=== PATIENT | male | born 1950 | race Caucasian/White ===

== ENCOUNTER → 2018-02-25 17:11 | Outpatient (REF) | payer MEDICARE, SELFPAY ==
[2018-02-25 19:52] LABS: HCT 46.2 % (40.0-50.0); HGB 14.6 g/dL (13.5-17.5); Mean Corp. HGB Concentration 31.6 g/dL (32.0-36.0); Mean Corpuscular Hemoglobin 29.9 pg (27.0-33.0); Mean Corpuscular Volume 94.7 fL (80-95); Mean Platelet Volume 9.3 fL (8.0-11.0); Platelet Count 291 x1000/uL (130-400); RBC 4.88 m/cumm (4.50-6.00); RBC Distribution Width 13.5 % (11.8-14.1); White Blood Cell Count 9.18 k/cumm (4.4-10.8)
[2018-02-25 20:54] LABS: Anion Gap 11.8 mmol/L (3-11); BUN 26 mg/dL (7-18); CO2 27.2 mmol/L (21.0-32.0); CREATININE 1.44 mg/dL (0.70-1.30); Chloride 103 mmol/L (98-107); Estimated GFR 48.79 (mL/min/1.73m2); Glucose 120 mg/dL (70-100); Potassium 4.9 mmol/L (3.5-5.1); Sodium 142 mmol/L (136-145); Vitamin B12 271 pg/mL (193-986)
[2018-02-25 20:56] LABS: Folate > 20.0 ng/mL (8.6-20.0)
== END ==
LOC: NCHCN 17:11
PROVIDERS: PCP Nurse Practitioner Family; Visit Provider Family Medicine
DX: E43 Unspecified severe protein-calorie malnutrition (principal); D52.9 Folate deficiency anemia, unspecified; E53.8 Deficiency of other specified B group vitamins
CPT/HCPCS: 80048; 85027; 82607; 82746

== ENCOUNTER 2018-03-14 13:28 | Outpatient (REF) | payer MEDICARE, SELFPAY ==
[2018-03-14 21:01] LABS: HCT 44.2 % (40.0-50.0); HGB 13.9 g/dL (13.5-17.5)
[2018-03-14 21:24] LABS: ALT 38 U/L (12-78); AST 30 U/L (15-37); Albumin 3.4 g/dL (3.4-5.0); Alkaline Phosphatase 131 U/L (46-116); Anion Gap 3.3 mmol/L (3-11); BUN 27 mg/dL (7-18); Bilirubin, Total 0.2 mg/dL (0.2-1.0); CO2 32.7 mmol/L (21.0-32.0); Calcium 8.8 mg/dL (8.5-10.1); Chloride 108 mmol/L (98-107); Glucose 118 mg/dL (70-100); Potassium 5.5 mmol/L (3.5-5.1); Sodium 144 mmol/L (136-145); Total Protein 6.6 g/dL (6.4-8.2)
== END 2018-03-14 13:48 ==
LOC: NCHCN 13:28
PROVIDERS: PCP Nurse Practitioner Family; Visit Provider Family Medicine
DX: E11.9 Type 2 diabetes mellitus without complications (principal); D52.9 Folate deficiency anemia, unspecified; E43 Unspecified severe protein-calorie malnutrition
CPT/HCPCS: 80053; 83036; 85014; 85018

== ENCOUNTER → 2018-05-14 10:16 | Outpatient (BNVA) | payer MEDICARE, SELFPAY | PROVIDERS: PCP Nurse Practitioner Family; Visit Provider Student in an Organized Health Care Education/Training Program | DX: I48.0 Paroxysmal atrial fibrillation (principal); Z79.01 Long term (current) use of anticoagulants; E11.9 Type 2 diabetes mellitus without complications; Z79.4 Long term (current) use of insulin | CPT/HCPCS: 99214 ==

== ENCOUNTER 2018-05-14 10:42 | Outpatient (CLI) | payer MEDICARE, SELFPAY | END 2018-05-14 11:02 | PROVIDERS: PCP Family Medicine; Visit Provider Student in an Organized Health Care Education/Training Program | DX: I48.0 Paroxysmal atrial fibrillation (principal); E11.9 Type 2 diabetes mellitus without complications; Z79.01 Long term (current) use of anticoagulants; Z79.4 Long term (current) use of insulin | CPT/HCPCS: 99214; 93005; 93010 ==

== ENCOUNTER 2018-05-19 02:07 | Outpatient (CLI) | payer MEDICARE, SELFPAY ==
--- NOTE | 2018-05-19 | PFT_ITS ---
PULMONARY FUNCTION TEST REPORT Patient identification - Sung Flores DATE OF - 1950 DATE OF SERVICE - 05/19/2018 REQUESTING PROVIDER - Silvestre Harman M.D. INTERPRETATION OF STUDY Spirometry shows borderline mild obstructive airways disease, however, this may represent an effort-related phenomenon as the pre-bronchodilator spirometry was a somewhat poor patient effort. LUNG VOLUMES - Lung volumes show no evidence of restriction. DIFFUSION CAPACITY- Normal. AIRWAY RESISTANCE - Normal. IMPRESSION Borderline mild obstructive airways disease, however, this may represent an effort-related phenomenon as the pre-bronchodilator effort was quite poor, nonetheless, even the post bronchodilator spirometry shows some element of mild obstruction. Clinical correlation therefore recommended. Brenda Thompson M.D. ARTI/yassine T - 05/21/2018
[2018-05-19] MEDS: Inhaler, Assist Device 1 EACH MC (13:58)
[2018-05-19] MEDS: Albuterol HFA 18 GM 200 PUFF INH IH (13:58)
== END 2018-05-19 02:27 ==
PROVIDERS: PCP Family Medicine; Visit Provider Student in an Organized Health Care Education/Training Program
DX: I48.0 Paroxysmal atrial fibrillation (principal); Z79.899 Other long term (current) drug therapy
CPT/HCPCS: 94060; 94150; 94726; 94729

== ENCOUNTER 2018-07-22 13:08 | Outpatient (REF) | payer MEDICARE, SELFPAY ==
[2018-07-22 21:30] LABS: Anion Gap 13.1 mmol/L (3-11); BUN 18 mg/dL (7-18); CO2 27.9 mmol/L (21.0-32.0); CREATININE 1.43 mg/dL (0.70-1.30); Calcium 9.4 mg/dL (8.5-10.1); Chloride 103 mmol/L (98-107); Estimated GFR 49.18 (mL/min/1.73m2); Glucose 159 mg/dL (70-100); Potassium 4.8 mmol/L (3.5-5.1); Sodium 144 mmol/L (136-145)
[2018-07-22 21:45] LABS: HCT 46.3 % (40.0-50.0); HGB 14.5 g/dL (13.5-17.5)
[2018-07-22 22:54] LABS: Hemoglobin A1C 6.6 % (4.5-6.2)
== END 2018-07-22 13:28 ==
LOC: NCHCN 13:08
PROVIDERS: PCP Family Medicine; Visit Provider Family Medicine
DX: E11.9 Type 2 diabetes mellitus without complications (principal); I10 Essential (primary) hypertension; I48.0 Paroxysmal atrial fibrillation
CPT/HCPCS: 80048; 83036; 85014; 85018

== ENCOUNTER 2018-08-18 12:51 | Emergency (ER) | payer MEDICARE, SELFPAY ==
[2018-08-18 13:01] VITALS: BP 143/76; PULSE 105; RESP 20; TEMP 36.6; O2SAT 96
--- NOTE | 2018-08-18 13:38 | DI.RAD_ITS ---
SYMPTOM/DIAGNOSIS: S/P FALL, PAIN, ? ACUTE FX LEFT RIBS AND PA CHEST: Three views. Heart size and pulmonary vasculature are within normal limits. There is plate atelectasis in the left lung base. No rib fracture is identified. No effusions or pneumothorax is identified. IMPRESSION: No evidence of a left rib fracture.
--- NOTE | 2018-08-18 13:38 | DI.RAD_ITS ---
SYMPTOMS/DIAGNOSIS: S/P FALL ONTO LEFT SIDE AND LEFT HIP, ? ACUTE FRACTURE LEFT FEMUR AND LEFT HIP: No priors for comparison. There is some apparent deformity of both the superior and inferior left pubic rami, suspicious for nondisplaced fractures. No other acute fracture or dislocation is seen. Degenerative changes are seen in the hips bilaterally. The femur is intact. The soft tissues are unremarkable. IMPRESSION: Question of deformity involving the left superior and inferior pubic rami, suspicious for nondisplaced fracture. CT scan of the pelvis should be considered for further evaluation.
--- NOTE | 2018-08-18 13:40 | W.ED.GENAD ---
Discharge Plan Disposition Patient Disposition: HOME Condition: Stable Discharge Details Chief Complaint: Orthopedic Clinical Impression: Fracture of ramus of left pubis Primary Care Provider: Urvashi Conti V ED Provider: Bailey Peguero Home Meds and New Rx's Prescriptions: New oxycodone 5 mg capsule 5 mg PO Q6H PRN (Reason: pain) Qty: 5 RF: 0 Continued apixaban [Eliquis] 5 MG tablet 5 mg PO BID RF: 0 amiodarone 200 MG tablet 200 mg PO DAILY Qty: 30 RF: 12 metformin 850 MG tablet 850 mg PO BID RF: 0 omeprazole 20 MG capsule,delayed release(DR/EC) 20 mg PO DAILY@0730 Qty: 30 RF: 0 pravastatin 20 MG tablet 20 mg PO HS Qty: 30 RF: 0 potassium chloride 10 MEQ capsule, extended release 20 meq PO DAILY RF: 0 magnesium oxide 400 MG tablet 800 mg PO DAILY RF: 0 cyanocobalamin (vitamin B-12) [Vitamin B-12] 500 MCG tablet 1,000 mcg PO DAILY RF: 0 folic acid 1 MG tablet 1 mg PO DAILY RF: 0 mirtazapine [Remeron] 15 MG tablet 15 mg PO HS RF: 0 ergocalciferol (vitamin D2) [Vitamin D2] 50,000 UNITS capsule 50,000 units PO Q7D@1000 RF: 0 ketoconazole 30 GM cream Topical DAILY RF: 0 insulin aspart U-100 [Novolog Flexpen U-100 Insulin] 300 UNITS/3 ML insulin pen Sub-Q AC & HS RF: 0 multivit, iron, min no.8, FA [Therapeutic-M] 1 TAB tablet 1 tab PO BID RF: 0 Discharge Instructions Instructions: Pelvic Fracture (ED) Additional Instructions: Rest and ice your left hip and thigh is much as possible. Bear weight as tolerated, use the walker to help with ambulation. Alternate Tylenol and Motrin as needed and directed for pain. Take the oxycodone for pain not relieved with Tylenol or Motrin. Follow-up with orthopedics in 2 weeks for reevaluation. Return immediately to the emergency department any worsening or new concerning symptoms. Referrals: Dimas Weber MD [ [facility] STAFF PHYSICIAN] - Discharge Data Discharge Date/Time-TO BE ENTERED AT DEPARTURE: 08/18/18 16:45 Discharge Physician: Bailey Peguero Medical Decision Making 68-year-old male who presents with left lateral rib and left hip and proximal thigh pain status post fall 1 week ago. Admits to head injury but denies LOC, vomiting, headache, neck pain, chest pain or abdominal pain. Vitals within normal limits. Patient is healing ecchymosis to left head. No C-spine/T-spine/L-spine tenderness. Tenderness to palpation left lateral rib and left proximal medial thigh. No leg shortening or external rotation. Neurovascular intact. Chest and abdomen nontender. As patient denies any LOC, neck pain I do not see an indication for CT head or C-spine. Will obtain a rib and chest x-ray, as well as hip pelvis and femur x-ray. Patient declines pain medication at this time. 1530 --x-rays reviewed with radiologist. No rib fractures noted. Questionable superior and inferior pubic ramus fracture. Recommends CT for further evaluation. 1600 -- CT notes nondisplaced superior and inferior pubic rami fractures. Findings d/w ortho Dr. Weber - recommends weight bearing as tolerated, pt can continue using his walker at home, f/u with ortho in 2 weeks. Pt instructed to return to the ED with any concerns. Medical Records Medical records reviewed: Yes I reviewed the patient's medical records. Imaging Data Radiologic Study: Radiologist's impression: LEFT FEMUR AND LEFT HIP: No priors for comparison. There is some apparent deformity of both the superior and inferior left pubic rami, suspicious for nondisplaced fractures. No other acute fracture or dislocation is seen. Degenerative changes are seen in the hips bilaterally. The femur is intact. The soft tissues are unremarkable. IMPRESSION: Question of deformity involving the left superior and inferior pubic rami, suspicious for nondisplaced fracture. CT scan of the pelvis should be considered for further evaluation. CT PELVIS: Multiple contiguous axial images of the pelvis were obtained. Sagittal and coronal reformatted images were evaluated on the [employer]'s workstation. There are nondisplaced fractures involving the left superior and inferior pubic rami. No other fractures or dislocations are seen. The sacroiliac joints and symphysis pubis appear intact. Mild to moderate degenerative changes are seen in the hips bilaterally,. Note is made of an L-5 spondylolysis with minimal spondylolisthesis of L5 on S1. There is diverticulosis of the colon but no evidence of acute diverticulitis. IMPRESSION: Nondisplaced fractures involving the left inferior and superior pubic rami. HPI General Mode of arrival: ambulatory. Date/Time Provider Initiated Documentation: 08/18/18 13:03. Limitations to Documentation: no limitations. Information obtained by: patient. HPI Narrative: Patient is a 68-year-old male who presents the ED with left rib and left hip and thigh pain for the past week status post fall. Patient states he was walking out of his driveway when he slipped and fell onto his left side. He did hit his head but denies any LOC or vomiting, headache or neck pain. He also denies any chest or abdominal pain. Patient states his pain is mainly in his left lateral ribs as well as left proximal thigh. Patient has taken Tylenol for pain with some relief. Pt states he has been using his brother in law's walker for the past few week when ambulating. Related Data Home Medications Medication Instructions Recorded Confirmed metformin 850 mg PO BID 04/23/14 05/14/18 omeprazole 20 mg PO DAILY@0730 #30 capcr 09/21/17 05/14/18 pravastatin 20 mg PO HS #30 tab 09/21/17 05/14/18 cyanocobalamin (vitamin B-12) 1,000 mcg PO DAILY tab 11/19/17 05/14/18 [Vitamin B-12] ergocalciferol (vitamin D2) 50,000 units PO Q7D@1000 cap 11/19/17 05/14/18 [Vitamin D2] folic acid 1 mg PO DAILY tab 11/19/17 05/14/18 insulin aspart U-100 [Novolog 0 units SUB-Q AC & HS pen 11/19/17 05/14/18 Flexpen U-100 Insulin] ketoconazole 0 gm TOPICAL DAILY tube 11/19/17 05/14/18 magnesium oxide 800 mg PO DAILY tab 11/19/17 05/14/18 mirtazapine [Remeron] 15 mg PO HS tab 11/19/17 05/14/18 multivit, iron, min no.8, FA 1 tab PO BID tab 11/19/17 05/14/18 [Therapeutic-M] potassium chloride 20 meq PO DAILY capcr 11/19/17 05/14/18 amiodarone 200 mg PO DAILY #30 tab-cap 01/29/18 05/14/18 apixaban [Eliquis] 5 mg PO BID 01/29/18 05/14/18 oxycodone 5 mg PO Q6H PRN #5 cap 08/18/18 Previous Rx's Medication Instructions Recorded omeprazole 20 mg PO DAILY@0730 #30 capcr 09/21/17 pravastatin 20 mg PO HS #30 tab 09/21/17 cyanocobalamin (vitamin B-12) 1,000 mcg PO DAILY tab 11/19/17 [Vitamin B-12] ergocalciferol (vitamin D2) 50,000 units PO Q7D@1000 cap 11/19/17 [Vitamin D2] folic acid 1 mg PO DAILY tab 11/19/17 insulin aspart U-100 [Novolog 0 units SUB-Q AC & HS pen 11/19/17 Flexpen U-100 Insulin] ketoconazole 0 gm TOPICAL DAILY tube 11/19/17 magnesium oxide 800 mg PO DAILY tab 11/19/17 mirtazapine [Remeron] 15 mg PO HS tab 11/19/17 multivit, iron, min no.8, FA 1 tab PO BID tab 11/19/17 [Therapeutic-M] potassium chloride 20 meq PO DAILY capcr 11/19/17 amiodarone 200 mg PO DAILY #30 tab-cap 01/29/18 oxycodone 5 mg PO Q6H PRN #5 cap 08/18/18 Allergies Allergy/AdvReac Type Severity Reaction Status Date / Time No Known Allergies Allergy Unverified 08/18/18 13:03 General Stated Complaint: Orthopedic PUSHPA: 3 Review of Systems Review of Systems All systems reviewed & are unremarkable except as noted in HPI and below Constitutional Reports as per HPI, Denies chills and Denies fever(s) Eyes Denies blurry vision ENT Denies dizziness, Denies sore throat and Denies throat swelling Cardiovascular Denies chest pain and Denies dyspnea Respiratory Denies cough and Denies dyspnea Gastrointestinal Denies abdominal pain, Denies diarrhea and Denies vomiting Genitourinary Denies hematuria and Denies dysuria Musculoskeletal Denies back pain and Denies numbness Integumentary/Breasts Denies lesions and Denies rash Neurologic Denies dizziness, Denies focal weakness and Denies numbness Allergic/Immunologic Denies throat swelling [facility] Medical History Atrial fibrillation (Chronic) Depression (Chronic) Diabetes (Chronic) HTN (hypertension) (Chronic) Social History Smoking and Tabacco status: Former Tobacco Use alcohol intake: current alcohol intake frequency: holidays/special occasions only substance use type: does not use Exam Const General: cooperative and healthy appearing Orientation: alert and awake [facility] Head images: 1. Healing ecchymosis with superficial crusted abrasions. No step-off, edema or active bleeding. Ears: hearing grossly normal bilaterally, external ears normal and TM's normal bilaterally General nose exam: external nose normal Face and sinus: normal facial exam Mouth: oral mucosae normal Teeth and gingiva: dentition normal Throat: posterior oropharynx normal Eyes General: appearance normal, both eyes and all related structures Eyelids: eyelids normal Pupils: PERRL EOM: EOM intact bilaterally Neck Neck: normal visual inspection Lymphatic: no lymphadenopathy noted Chest Chest: normal inspection of the chest Chest/axillae images: 1. Resp Effort & Inspection: normal respiratory effort and able to speak in complete sentences Auscultation: clear to auscultation bilaterally Cardio Rate: regular rate Rhythm: regular rhythm GI Inspection: normal to inspection Palpation: soft, not firm, no guarding, no hepatosplenomegaly, no masses and nontender Auscultation: normal bowel sounds Back/Spine/Pelvis Cervical Spine: No cervical spinal tenderness Thoracic/Lumbar Spine: No thoracic spinal tenderness and No lumbar spinal tenderness Pelvis: no pain with anterior-posterior compression and no pain with lateral compression Skin General skin exam: no rashes or lesions noted Neuro General: alert and awake Cognition: normal cognition Speech: speech normal Gait: normal gait Motor: muscle tone normal throughout Sensory Exam: no sensory deficits noted Extrem Other: Tenderness to palpation and pain with range of motion in left proximal thigh. Normal range of motion without pain in bilateral upper extremities and right lower extremity. No deformity noted to left hip. No left lower extremity shortening or external rotation. Bilateral DP/PT pulses intact. Psych Appearance: grossly normal Mental Status: mental status grossly normal Speech and Movement: speech and movement normal Affect: normal affect Thought Process: normal Course Vital Signs Temperature 97.9 F 08/18/18 13:01 Pulse 105 H 08/18/18 13:01 Respiratory Rate 20 08/18/18 13:01 Blood Pressure 143/76 H 08/18/18 13:01 Pulse Oximetry 96 08/18/18 13:01 Temperature 97.9 F 08/18/18 13:01 Temperature Source Temporal Artery Scan 08/18/18 13:01 Pulse 105 H 08/18/18 13:01 Respiratory Rate 20 08/18/18 13:01 Respiratory Effort Non-Labored 08/18/18 13:37 Blood Pressure 143/76 H 08/18/18 13:01 Pulse Oximetry 96 08/18/18 13:01 Oxygen Delivery Method Room Air 08/18/18 13:01 Oxygen Flow Rate 0 08/18/18 13:01 Pain Level 5 08/18/18 13:34
--- NOTE | 2018-08-18 15:18 | DI.CT_ITS ---
SYMPTOM/DIAGNOSIS: R/O SUP/INF RAMUS FRACTURE CT PELVIS: Multiple contiguous axial images of the pelvis were obtained. Sagittal and coronal reformatted images were evaluated on the [employer]'s workstation. There are nondisplaced fractures involving the left superior and inferior pubic rami. No other fractures or dislocations are seen. The sacroiliac joints and symphysis pubis appear intact. Mild to moderate degenerative changes are seen in the hips bilaterally,. Note is made of an L-5 spondylolysis with minimal spondylolisthesis of L5 on S1. There is diverticulosis of the colon but no evidence of acute diverticulitis. IMPRESSION: Nondisplaced fractures involving the left inferior and superior pubic rami. The findings were discussed with Dr. Peguero of the Emergency Department on the date of the examination.
[2018-08-18 16:09] VITALS: BP 127/72; PULSE 84; RESP 16; TEMP 37.3; O2SAT 95
== END 2018-08-18 16:45 | disposition home or self-care (01) ==
PROVIDERS: Emergency Provider Physician Assistant; PCP Family Medicine
DX: S32.512A Fracture of superior rim of left pubis, initial encounter for closed fracture (principal); S32.592A Other specified fracture of left pubis, initial encounter for closed fracture; R07.89 Other chest pain; W01.0XXA Fall on same level from slipping, tripping and stumbling without subsequent striking against object, initial encounter
CPT/HCPCS: 71101; 73552; 99284; 72192; 73502

== ENCOUNTER 2018-09-16 10:09 | Outpatient (CLI) | payer MEDICARE, SELFPAY ==
--- NOTE | 2018-09-16 10:10 | DI.RAD_ITS ---
SYMPTOMS/DIAGNOSIS: FALL AP PELVIS: Comparison 08/18/18. There has been no change in alignment of the nondisplaced fractures involving the left superior and inferior pubic rami. No other fractures or dislocations are seen. There are mild degenerative changes seen of the hips bilaterally. The sacroiliac joints and symphysis pubis appear intact. The soft tissues are unremarkable. IMPRESSION: Stable left pubic bone fractures.
== END 2018-09-16 10:29 ==
PROVIDERS: PCP Family Medicine; Referring Provider Family Medicine; Visit Provider Orthopaedic Surgery
DX: S32.512A Fracture of superior rim of left pubis, initial encounter for closed fracture; W01.0XXA Fall on same level from slipping, tripping and stumbling without subsequent striking against object, initial encounter
CPT/HCPCS: 99201; 99213; 72170

== ENCOUNTER 2018-10-28 10:20 | Outpatient (CLI) | payer MEDICARE, SELFPAY ==
--- NOTE | 2018-10-28 10:13 | DI.RAD_ITS ---
SYMPTOMS/DIAGNOSIS: FX FOLLOW UP PELVIS: Comparison is made with [id number]. There has been continued healing of previously noted fractures of the left superior and inferior pubic rami. No new abnormalities are seen. Degenerative changes of both hips appear stable.
== END 2018-10-28 10:40 ==
PROVIDERS: PCP Family Medicine; Referring Provider Family Medicine; Visit Provider Orthopaedic Surgery
DX: S32.512D Fracture of superior rim of left pubis, subsequent encounter for fracture with routine healing (principal); W19.XXXD Unspecified fall, subsequent encounter
CPT/HCPCS: 99211; 99212; 72170

== ENCOUNTER 2018-11-05 07:50 | Outpatient (CLI) | payer MEDICARE, SELFPAY | END 2018-11-05 08:10 | PROVIDERS: PCP Family Medicine; Visit Provider Student in an Organized Health Care Education/Training Program | DX: I48.0 Paroxysmal atrial fibrillation (principal); Z79.01 Long term (current) use of anticoagulants; Z51.81 Encounter for therapeutic drug level monitoring; E11.9 Type 2 diabetes mellitus without complications | CPT/HCPCS: 99214; 99215; 93005; 93010 ==

== ENCOUNTER 2018-11-13 12:43 | Outpatient (CLI) | payer MEDICARE, SELFPAY ==
[2018-11-13 13:08] LABS: HCT 44.3 % (40.0-50.0); HGB 14.4 g/dL (13.5-17.5); Mean Corp. HGB Concentration 32.5 g/dL (32.0-36.0); Mean Corpuscular Hemoglobin 29.1 pg (27.0-33.0); Mean Corpuscular Volume 89.7 fL (80-95); Mean Platelet Volume 8.5 fL (8.0-11.0); Platelet Count 258 x1000/uL (130-400); RBC 4.94 m/cumm (4.50-6.00); RBC Distribution Width 14.1 % (11.8-14.1); White Blood Cell Count 9.73 k/cumm (4.4-10.8)
[2018-11-13 13:50] LABS: Hemoglobin A1C 6.4 % (4.5-6.2)
[2018-11-13 14:24] LABS: ALT 22 U/L (12-78); AST 12 U/L (15-37); Albumin 3.8 g/dL (3.4-5.0); Alkaline Phosphatase 91 U/L (46-116); Anion Gap 14.7 mmol/L (3-11); BUN 18 mg/dL (7-18); Bilirubin, Total 0.3 mg/dL (0.2-1.0); CO2 25.3 mmol/L (21.0-32.0); CREATININE 1.23 mg/dL (0.70-1.30); Chloride 101 mmol/L (98-107); Cholesterol 129 mg/dL (50-200); Estimated GFR 58.52 (mL/min/1.73m2); Glucose 130 mg/dL (70-100); HDL Cholesterol 52 mg/dL (40-60); LDL CHOLESTEROL 59 mg/dL (<100); Potassium 4.3 mmol/L (3.5-5.1); Sodium 141 mmol/L (136-145); Total Protein 6.8 g/dL (6.4-8.2); Triglyceride 73 mg/dL (30-150)
[2018-11-13 14:51] LABS: FREE T4 1.44 ng/dL (0.76-1.46)
== END 2018-11-13 13:03 ==
PROVIDERS: PCP Family Medicine; Visit Provider Family Medicine
DX: E11.9 Type 2 diabetes mellitus without complications (principal); E53.8 Deficiency of other specified B group vitamins; I48.0 Paroxysmal atrial fibrillation; N28.0 Ischemia and infarction of kidney
CPT/HCPCS: 36415; 80053; 80061; 83721; 85027; 83036; 84439; 84443

== ENCOUNTER 2018-12-29 17:35 | Emergency (ER) | payer MEDICARE, SELFPAY ==
[2018-12-29] VITALS (47 sets, daily range): BP systolic 99–145; BP diastolic 65–92; PULSE 76–119; RESP 13–24; TEMP 36.4–36.8; O2SAT 90–99
--- NOTE | 2018-12-29 17:54 | DI.RAD_ITS ---
SYMPTOM/DIAGNOSIS: FALL, WEAK, R/O ACUTE DISEASE AP AND LATERAL CHEST: Comparison is made with 18 Aug 2018, chest and right ribs. A snap is positioned over the left posterior 4th rib where there is a fracture of indeterminate age. No additional fractures are visible. The heart size is normal. The lungs show mild chronic fibrotic changes. There is no pneumothorax, no air is seen outside the chest wall. IMPRESSION: Left 4th rib fracture of indeterminate age.
--- NOTE | 2018-12-29 17:56 | ED.GENADUL_ITS ---
Discharge Plan Disposition Patient Disposition: HOME Condition: Improving Discharge Details Chief Complaint: GenMedical Clinical Impression: Leg weakness Primary Care Provider: Urvashi Conti V ED Provider: Bailey Peguero Home Meds and New Rx's Prescriptions: Continued aspirin [Adult Aspirin Regimen] 81 mg tablet,delayed release (DR/EC) 81 mg PO DAILY RF: 0 cholecalciferol (vitamin D3) 1,000 unit capsule 1,000 unit PO DAILY RF: 0 melatonin 10 mg tablet 10 mg PO HS PRNRF: 0 Eliquis 5 MG tablet 5 mg PO BID RF: 0 amiodarone 200 MG tablet 200 mg PO DAILY Qty: 30 RF: 12 metformin 850 MG tablet 850 mg PO BID RF: 0 omeprazole 20 MG capsule,delayed release(DR/EC) 20 mg PO DAILY@0730 Qty: 30 RF: 0 pravastatin 20 MG tablet 20 mg PO HS Qty: 30 RF: 0 oxycodone 5 mg capsule 5 mg PO Q6H PRN (Reason: pain) Qty: 5 RF: 0 magnesium oxide 400 MG tablet 800 mg PO DAILY RF: 0 Novolog Flexpen U-100 Insulin 300 UNITS/3 ML insulin pen Sub-Q AC & HS RF: 0 Therapeutic-M 1 TAB tablet 1 tab PO BID RF: 0 Discharge Instructions Instructions: Weakness (ED) Additional Instructions: Call your pharmacy tomorrow to ensure the refill of all of your medications. Drink plenty of fluids and get plenty of rest. Follow-up with your primary care doctor in 2 days for reevaluation. Return immediately to the emergency department if you develop any worsening or new concerning symptoms. Discharge Data Discharge Date/Time-TO BE ENTERED AT DEPARTURE: 12/29/18 22:42 Discharge Physician: Bailey Peguero Medical Decision Making 68-year-old male with history of atrial fibrillation, hypertension, diabetes, on amiodarone and Eliquis who presents for evaluation status post fall. An EKG was done on arrival due to unknown mechanism of fall and noted [address] depression in 1, 2, V4 through V6 which appears new compared to previous. He denies any chest pain, shortness of breath or dizziness prior to or since fall. He states he was turning to place his groceries in his truck and his right leg gave out and he fell. He denies any injury from the fall. He denies head injury, LOC, vomiting, neck, chest, abdomen, back or extremity pain. Heart rate 118, remainder vitals within normal limits. Patient appears nontoxic and in no acute distress. He denies any acute complaints. No evidence of trauma on exam. No focal deficits. He states he has been without his regular meds for 2 days because they ran out. He takes aspirin, amiodarone, Eliquis, metformin and insulin We will check screening labs, chest x-ray and pelvis x-ray due to fall although no evidence of hip fracture on exam. Will repeat EKG. 2129 --labs and imaging reviewed. Normal white blood cell count, hemoglobin. VBG notes normal pH and bicarb. Initial CO2 20 and anion gap 18 which normalized after IV fluids. Glucose also improved from 243 to 155 and with 1 L IV fluids. Urinalysis negative for infection. Chest x-ray noted a questionable left fourth rib fracture as well as possibly retrosternal air and recommended a CT chest for further evaluation which was negative for acute rib fractures or air. Patient felt much better and requested to go home. He was able to ambulate at his baseline around the ED with use of his cane which he uses at home. He was instructed to follow-up with his primary care doctor for reevaluation and return at any time if worse. Medical Records Medical records reviewed: Yes I reviewed the patient's medical records. Imaging Data Radiologic Study: Radiologist's impression: Addendum created by Cornelius Pickard MD on 12/29/2018 7:59:08 PM EDT Please note that impression #1 should read as follows: Minimally displaced fracture to the posterior left fourth rib. Initial report created on 12/29/2018 7:10:10 PM EDT XR Chest, 2 Views EXAM DATE/TIME: 12/29/2018 5:56 PM CLINICAL HISTORY: 68 years old, male; Other: Weakness; Patient HX: Fall, weak TECHNIQUE: Imaging protocol: XR of the chest, 2 views. COMPARISON: CR XR ribs LT w PA lat chest 08/18/2018 2:10 PM FINDINGS: Lungs: Unremarkable. No consolidation. Pleural space: Questionable minimal pleural thickening in the lateral left lung base adjacent to the left eighth rib. No large pneumothorax. No large effusions. Heart/Mediastinum: Unremarkable. No cardiomegaly. Bones/joints: Minimally displaced fracture at the posterior segment of the left fourth rib. Air pocket at the anterior chest wall behind the ribs on the lateral view is felt to be related to patient rotation. Difficult to exclude retrosternal air. IMPRESSION: 1. Minimally displaced fracture to the posterior left eighth rib. 2. No large airspace consolidation or large pneumothorax grossly noted. 3. Question of retrosternal air versus artifact related to patient rotation. COMMENT: Consider chest CT evaluation if clinically warranted. XR Pelvis EXAM DATE/TIME: 12/29/2018 6:12 PM CLINICAL HISTORY: 68 years old, male; Injury or trauma; Initial encounter; Blunt trauma (contusions or hematomas); Left; Hip; Patient HX: S/P fall; Additional info: R/O fracture TECHNIQUE: Imaging protocol: XR pelvis. Views: 1 or 2 view. COMPARISON: CR XR pelvis AP 10/28/2018 10:24 AM FINDINGS: Bones/joints: Mild osteoarthritis of the bilateral hip joints, as manifested by decreased joint space, subchondral sclerosis, and tiny marginal osteophyte formation. No acute abnormality or aggressive osseous lesion. Soft tissues: No significant soft tissue swelling. IMPRESSION: 1. No acute displaced fracture appreciated in this exam. However please note that this is a limited single view of the left hip/pelvis and if there is further clinical concern for fractures, a left hip series is recommended. 2. Mild osteoarthritis. CT Chest Without Contrast EXAM DATE/TIME: 12/29/2018 7:23 PM CLINICAL HISTORY: 68 years old, male; Abnormal findings; Abnormal radiologic exam of lung or chest; Patient HX: L 8th rib FX; Additional info: R/O restrosternal air TECHNIQUE: Imaging protocol: Axial computed tomography images of the chest without intravenous contrast. Coronal and sagittal reformatted images were created and reviewed. COMPARISON: CT CHEST ABD PELVIS WITH CONTRAST 11/15/2017 8:05 AM FINDINGS: Limitations: Evaluation of the lungs is limited due to respiratory motion artifacts. Evaluation of the ribs is limited due to motion artifact. Lungs: Diffuse lung scarring. There is subpleural atelectasis of the dependent portions of the lungs. No significant interstitial or airspace disease appreciated. Pleural space: Unremarkable. No pneumothorax. No pleural effusion. Heart: There is calcification of the aortic valve annulus. There is mild atherosclerotic calcification of the coronary arteries. The heart is not enlarged. Mediastinum: A small hiatal hernia is present. Pulmonary arteries: Normal in course and caliber. Aorta: No acute aortic pathology within the limits of this noncontrast examination. Lymph nodes: No adenopathy. Bones/joints: Multilevel old/healed left rib fractures. This includes the previously described fracture of the left fourth rib. No acute skeletal pathology. Mild multilevel degenerative changes of the spine, as manifested by multilevel anterior osteophytes and multilevel decrease in intervertebral disc space. Soft tissues: Unremarkable. Liver: Serpentine-like calcification in the right hepatic lobe is most likely vascular in etiology and may be related to a hemangioma. Gallbladder and bile ducts: Multiple calcified gallstones are present. Kidneys and ureters: There is a left renal collecting system calcification. Upper abdomen: No acute findings in the visualized upper abdominal organs otherwise seen. IMPRESSION: 1. Negative for acute thoracic pathology. Specifically, no acute skeletal fractures or evidence of retrosternal air. 2. Chronic findings as above. Lab Data Lab results reviewed: Yes I reviewed the patient's lab results. ECG Data Attestation: I personally reviewed and interpreted this ECG (s) as follows: Interpretation: #1 -- Rate of 114, sinus, [address] depression in 1, 2, V4 through V6 and T wave inversion in 1, aVL, V4 through V6 which appears new compared to previous. No acute ST elevation. QTc 493. QRS 98. #2 -- Rate of 84, sinus, no acute ST elevation or depression. No acute change from previous. QTc 449. QRS 96. HPI General Mode of arrival: EMS . Date/Time Provider Initiated Documentation: 12/29/18 17:43 . Limitations to Documentation: no limitations . Information obtained by: patient . HPI Narrative: Patient is a 68-year-old male with history of atrial fibrillation, hypertension, diabetes who presents to the ED status post fall. Patient states he was loading his groceries in a truck when he turned in his right leg gave out and he fell. He denies any dizziness, chest pain, shortness of breath prior to fall and denies head injury, LOC, headache or visual changes, vomiting, diarrhea, urinary symptoms, neck pain, back pain, extremity pain or injury. Patient states he has not had any of his regular medications for the past 2 days because they ran out. He states they will be unavailable until Saturday for pickup. Patient denies any acute c omplaints at this time. Related Data Home Medications Medication Instructions Recorded Confirmed metformin 850 mg PO BID 04/23/14 12/29/18 omeprazole 20 mg PO DAILY@0730 #30 capcr 09/21/17 12/29/18 pravastatin 20 mg PO HS #30 tab 09/21/17 12/29/18 Novolog Flexpen U-100 Insulin 0 units SUB-Q AC & HS pen 11/19/17 12/29/18 Therapeutic-M 1 tab PO BID tab 11/19/17 12/29/18 magnesium oxide 800 mg PO DAILY tab 11/19/17 12/29/18 Eliquis 5 mg PO BID 01/29/18 12/29/18 amiodarone 200 mg PO DAILY #30 tab-cap 01/29/18 12/29/18 oxycodone 5 mg PO Q6H PRN #5 cap 08/18/18 12/29/18 aspirin 81 mg tablet,delayed 81 mg PO DAILY 11/05/18 12/29/18 release cholecalciferol (vitamin D3) 1,000 1,000 unit PO DAILY 11/05/18 12/29/18 unit capsule melatonin 10 mg tablet 10 mg PO HS PRN 11/05/18 12/29/18 Previous Rx's Medication Instructions Recorded omeprazole 20 mg PO DAILY@0730 #30 capcr 09/21/17 pravastatin 20 mg PO HS #30 tab 09/21/17 Novolog Flexpen U-100 Insulin 0 units SUB-Q AC & HS pen 11/19/17 Therapeutic-M 1 tab PO BID tab 11/19/17 magnesium oxide 800 mg PO DAILY tab 11/19/17 amiodarone 200 mg PO DAILY #30 tab-cap 01/29/18 oxycodone 5 mg PO Q6H PRN #5 cap 08/18/18 Allergies Allergy/AdvReac Type Severity Reaction Status Date / Time No Known Allergies Allergy Unverified 12/29/18 18:25 General Stated Complaint: GenMedical PUSHPA: 3 Review of Systems Review of Systems All systems reviewed & are unremarkable except as noted in HPI and below Constitutional Reports as per HPI, Denies chills and Denies fever(s) Eyes Denies blurry vision ENT Denies dizziness, Denies sore throat and Denies throat swelling Cardiovascular Denies chest pain and Denies dyspnea Respiratory Denies cough and Denies dyspnea Gastrointestinal Denies abdominal pain, Denies diarrhea and Denies vomiting Genitourinary Denies hematuria and Denies dysuria Musculoskeletal Denies back pain and Denies numbness Integumentary/Breasts Denies lesions and Denies rash Neurologic Denies dizziness, Denies focal weakness and Denies numbness Allergic/Immunologic Denies throat swelling [facility] Medical History Atrial fibrillation (Chronic) Depression (Chronic) Diabetes (Chronic) HTN (hypertension) (Chronic) Surgical History H/O total cystectomy (Acute) Social History Smoking/Tobacco Use Status: Former Tobacco Use Alcohol Intake: current Alcohol Intake frequency: holidays/special occasions only Drug use: Never Substance use type: does not use Do you feel safe in your relationship?: Yes Exam Const General: cooperative, healthy appearing and no acute distress HENMT Head: normal to inspection Face and sinus: normal facial exam Eyes General: appearance normal, both eyes and all related structures Pupils: PERRL EOM: EOM intact bilaterally Neck Neck: normal visual inspection and No submandibular swelling Lymphatic: no lymphadenopathy noted Chest Chest: normal inspection of the chest and no tenderness Resp Effort & Inspection: normal respiratory effort and able to speak in complete sentences Auscultation: clear to auscultation bilaterally Cardio Rate: regular rate Rhythm: regular rhythm GI Inspection: normal to inspection Palpation: soft, not firm, not rigid and nontender Auscultation: normal bowel sounds Male General Exam: Yes normal external exam Back/Spine/Pelvis Cervical Spine: No cervical spinal tenderness Thoracic/Lumbar Spine: thoracic and lumbar spine normal to inspection, No thoracic spinal tenderness and No lumbar spinal tenderness Pelvis: no pain with anterior-posterior compression Skin General skin exam: no rashes or lesions noted Neuro General: alert, awake and oriented x3 Cognition: normal cognition Speech: speech normal Motor: muscle tone normal throughout Sensory Exam: no sensory deficits noted Extrem Other: No pelvis instability. Normal range of motion at hips bilaterally without tenderness or pain. No external rotation or shortening. Bilateral D P/PT pulses intact. Full range of motion at bilateral upper extremities bilaterally without pain or tenderness. Psych Appearance: grossly normal Mental Status: mental status grossly normal Speech and Movement: speech and movement normal Affect: normal affect Course Vital Signs Temperature 98.1 F 12/29/18 17:35 Pulse 118 H 12/29/18 17:35 Respiratory Rate 22 12/29/18 17:35 Blood Pressure 108/81 12/29/18 17:35 Pulse Oximetry 93 L 12/29/18 17:35 Temperature 98.1 F 12/29/18 17:35 Temperature Source Skin 12/29/18 17:35 Pulse 118 H 12/29/18 17:35 Respiratory Rate 22 12/29/18 17:35 Respiratory Effort Non-Labored 12/29/18 17:40 Blood Pressure 108/81 12/29/18 17:35 Pulse Oximetry 93 L 12/29/18 17:35 Pain Level 0 12/29/18 17:35
[2018-12-29 18:04] LABS: Abs Immature Grans 0.06 k/cumm (0.0-0.09); Absolute Basophil Count 0.05 k/cumm (0.0-0.2); Absolute Eosinophil Count 0.07 k/cumm (0.0-0.7); Absolute Lymphocyte Count 1.16 k/cumm (1.2-3.4); Absolute Neutrophil Count 6.93 k/cumm (1.2-6.7); Basophils % 0.6; Eosinophils % 0.8; HCT 45.6 % (40.0-50.0); HGB 14.7 g/dL (13.5-17.5); Immature Grans % 0.7; Lymphocytes % 13.2; Mean Corp. HGB Concentration 32.2 g/dL (32.0-36.0); Mean Corpuscular Hemoglobin 29.4 pg (27.0-33.0); Mean Corpuscular Volume 91.2 fL (80-95); Mean Platelet Volume 8.4 fL (8.0-11.0); Monocytes % 5.7; Platelet Count 282 x1000/uL (130-400); RBC Distribution Width 14.6 % (11.8-14.1); White Blood Cell Count 8.77 k/cumm (4.4-10.8)
[2018-12-29] MEDS: Normal Saline 250 ML IV (18:10)
--- NOTE | 2018-12-29 18:11 | DI.RAD_ITS ---
SYMPTOM/DIAGNOSIS: S/P FALL, R/O ACUTE FRACTURE PELVIS: Comparison is made with 18 Aug 2018. No acute fracture or dislocation is seen. There is slight deformity of the left superior and inferior pubic rami related to the fractures seen on the previous exam. No new fractures are identified. There are degenerative changes of both hips. IMPRESSION: Old left pubic ramus fractures. No acute fractures are visible.
[2018-12-29 18:24] LABS: ALT 25 U/L (12-78); AST 16 U/L (15-37); Albumin 3.4 g/dL (3.4-5.0); Alkaline Phosphatase 104 U/L (46-116); Anion Gap 18.6 mmol/L (3-11); BUN 22 mg/dL (7-18); Bilirubin, Total 0.4 mg/dL (0.2-1.0); CO2 20.4 mmol/L (21.0-32.0); CREATININE 1.84 mg/dL (0.70-1.30); Calcium 9.5 mg/dL (8.5-10.1); Chloride 107 mmol/L (98-107); Estimated GFR 36.77 (mL/min/1.73m2); Glucose 243 mg/dL (70-100); Magnesium 2.1 mg/dL (1.8-2.4); Sodium 146 mmol/L (136-145)
[2018-12-29 18:28] LABS: Troponin I < 0.05 ng/mL (0.00-0.06)
--- NOTE | 2018-12-29 19:05 | DI.VRAD_ITS ---
EXAM: XR Pelvis EXAM DATE/TIME: 12/29/2018 6:12 PM CLINICAL HISTORY: 68 years old, male; Injury or trauma; Initial encounter; Blunt trauma (contusions or hematomas); Left; Hip; Patient HX: S/P fall; Additional info: R/O fracture TECHNIQUE: Imaging protocol: XR pelvis. Views: 1 or 2 view. COMPARISON: CR XR pelvis AP 10/28/2018 10:24 AM FINDINGS: Bones/joints: Mild osteoarthritis of the bilateral hip joints, as manifested by decreased joint space, subchondral sclerosis, and tiny marginal osteophyte formation. No acute abnormality or aggressive osseous lesion. Soft tissues: No significant soft tissue swelling. IMPRESSION: 1. No acute displaced fracture appreciated in this exam. However please note that this is a limited single view of the left hip/pelvis and if there is further clinical concern for fractures, a left hip series is recommended. 2. Mild osteoarthritis. Dictated and Authenticated by: Cornelius Pickard MD. Ordering:SOHEILA Avalos MD
--- NOTE | 2018-12-29 19:10 | DI.VRAD_ITS ---
Addendum created by Cornelius Pickard MD on 12/29/2018 7:59:08 PM EDT Please note that impression #1 should read as follows: Minimally displaced fracture to the posterior left fourth rib. Initial report created on 12/29/2018 7:10:10 PM EDT EXAM: XR Chest, 2 Views EXAM DATE/TIME: 12/29/2018 5:56 PM CLINICAL HISTORY: 68 years old, male; Other: Weakness; Patient HX: Fall, weak TECHNIQUE: Imaging protocol: XR of the chest, 2 views. COMPARISON: CR XR ribs LT w PA lat chest 08/18/2018 2:10 PM FINDINGS: Lungs: Unremarkable. No consolidation. Pleural space: Questionable minimal pleural thickening in the lateral left lung base adjacent to the left eighth rib. No large pneumothorax. No large effusions. Heart/Mediastinum: Unremarkable. No cardiomegaly. Bones/joints: Minimally displaced fracture at the posterior segment of the left fourth rib. Air pocket at the anterior chest wall behind the ribs on the lateral view is felt to be related to patient rotation. Difficult to exclude retrosternal air. IMPRESSION: 1. Minimally displaced fracture to the posterior left eighth rib. 2. No large airspace consolidation or large pneumothorax grossly noted. 3. Question of retrosternal air versus artifact related to patient rotation. COMMENT: Consider chest CT evaluation if clinically warranted. Dictated and Authenticated by: Cornelius Pickard MD. Ordering:SOHEILA Avalos MD
[2018-12-29 19:15] LABS: BE (Venous) 0.1 mmol/L (-3-3); HCO3 (Venous) 24 mmol/L (22-28); O2 Sat (Venous) 93 % (70-80); TCO2 (Venous) 22 mmol/L (22-29); pCO2 (Venous) 37 mm/Hg (34-47); pH (Venous) 7.43 (7.32-7.43); pO2 (Venous) 63 mm/Hg (28-44)
--- NOTE | 2018-12-29 19:40 | DI.CT_ITS ---
SYMPTOM/DIAGNOSIS: R/O RETROSTERNAL AIR AND LT 8TH RIB FX. CHEST CT: Comparison is made with 15 Nov 2017 There are old healed fractures of the left 4th and 5th ribs. There are also old fractures of the lower anterior left ribs. The spine shows degenerative changes. No acute rib or spine fractures are seen. Evaluation of the lungs is somewhat limited due to respiratory motion. There are chronic interstitial changes at the lung bases. No pneumothorax, infiltrate or effusion is seen. There is mild pulmonary artery prominence which could be secondary to pulmonary hypertension. This appears unchanged when compared with the previous exam. There is incidental calcification in the liver. A few small gallstones are seen. There is no gallbladder wall thickening or biliary dilatation. The spleen is normal in size. The visualized portions of the pancreas, kidneys and adrenals are unremarkable. IMPRESSION: Multiple old left rib fractures. There is no evidence of pneumothorax or other acute abnormality.
--- NOTE | 2018-12-29 19:58 | DI.VRAD_ITS ---
EXAM: CT Chest Without Contrast EXAM DATE/TIME: 12/29/2018 7:23 PM CLINICAL HISTORY: 68 years old, male; Abnormal findings; Abnormal radiologic exam of lung or chest; Patient HX: L 8th rib FX; Additional info: R/O restrosternal air TECHNIQUE: Imaging protocol: Axial computed tomography images of the chest without intravenous contrast. Coronal and sagittal reformatted images were created and reviewed. COMPARISON: CT CHEST ABD PELVIS WITH CONTRAST 11/15/2017 8:05 AM FINDINGS: Limitations: Evaluation of the lungs is limited due to respiratory motion artifacts. Evaluation of the ribs is limited due to motion artifact. Lungs: Diffuse lung scarring. There is subpleural atelectasis of the dependent portions of the lungs. No significant interstitial or airspace disease appreciated. Pleural space: Unremarkable. No pneumothorax. No pleural effusion. Heart: There is calcification of the aortic valve annulus. There is mild atherosclerotic calcification of the coronary arteries. The heart is not enlarged. Mediastinum: A small hiatal hernia is present. Pulmonary arteries: Normal in course and caliber. Aorta: No acute aortic pathology within the limits of this noncontrast examination. Lymph nodes: No adenopathy. Bones/joints: Multilevel old/healed left rib fractures. This includes the previously described fracture of the left fourth rib. No acute skeletal pathology. Mild multilevel degenerative changes of the spine, as manifested by multilevel anterior osteophytes and multilevel decrease in intervertebral disc space. Soft tissues: Unremarkable. Liver: Serpentine-like calcification in the right hepatic lobe is most likely vascular in etiology and may be related to a hemangioma. Gallbladder and bile ducts: Multiple calcified gallstones are present. Kidneys and ureters: There is a left renal collecting system calcification. Upper abdomen: No acute findings in the visualized upper abdominal organs otherwise seen. IMPRESSION: 1. Negative for acute thoracic pathology. Specifically, no acute skeletal fractures or evidence of retrosternal air. 2. Chronic findings as above. Dictated and Authenticated by: Cornelius Pickard MD. Ordering:SOHEILA Avalos MD
[2018-12-29 20:19] LABS: Bilirubin Small (Negative); Blood Negative (Negative); Clarity Clear (Clear); Glucose 250 mg/dL (Negative); Ketones 15 mg/dL (Negative); Leukocyte Esterase Negative (Negative); Nitrite Negative (Negative); Specific Gravity 1.025 (1.005-1.025); Urobilinogen 0.2 EU/dL (Up TO 0.2)
[2018-12-29 20:34] LABS: Bacteria Moderate HPF (Negative); Crystals Negative HPF (Negative); Epithelial Cells Rare HPF (Negative); Mucus Moderate (Negative); RBC Negative (0-2); WBC 0-2 HPF (0-5)
[2018-12-29 20:35] LABS: C & S Indicated? Yes; Casts 5-10 Hyaline LPF (Negative)
[2018-12-29 21:12] LABS: Troponin I < 0.05 ng/mL (0.00-0.06)
[2018-12-29] MEDS: Normal Saline 500 ML IV (21:20)
[2018-12-29 22:08] LABS: Anion Gap 8.1 mmol/L (3-11); BUN 20 mg/dL (7-18); CO2 26.9 mmol/L (21.0-32.0); CREATININE 1.43 mg/dL (0.70-1.30); Calcium 8.4 mg/dL (8.5-10.1); Chloride 109 mmol/L (98-107); Estimated GFR 49.18 (mL/min/1.73m2); Glucose 151 mg/dL (70-100); Potassium 4.1 mmol/L (3.5-5.1); Sodium 144 mmol/L (136-145)
== END 2018-12-29 22:42 | disposition home or self-care (01) ==
PROVIDERS: Emergency Provider Physician Assistant; PCP Family Medicine
DX: R53.1 Weakness (principal); K44.9 Diaphragmatic hernia without obstruction or gangrene; W01.0XXA Fall on same level from slipping, tripping and stumbling without subsequent striking against object, initial encounter; I10 Essential (primary) hypertension; E11.9 Type 2 diabetes mellitus without complications; Z79.4 Long term (current) use of insulin; I48.91 Unspecified atrial fibrillation; Z79.01 Long term (current) use of anticoagulants; Z91.14 Patient's other noncompliance with medication regimen
CPT/HCPCS: 36415; 36416; 71250; 80048; 80053; 82805; 82962; 93005; 96360; 99285; 71046; 72170; 81003; 81015; 83735; 84484; 85025; 87086; 93010

== ENCOUNTER 2019-02-05 11:46 | Outpatient (REF) | payer MEDICARE, SELFPAY ==
[2019-02-05 21:58] LABS: Anion Gap 12.3 mmol/L (3-11); BUN 22 mg/dL (7-18); CO2 26.7 mmol/L (21.0-32.0); CREATININE 1.57 mg/dL (0.70-1.30); Calcium 9.3 mg/dL (8.5-10.1); Chloride 104 mmol/L (98-107); Estimated GFR 44.02 (mL/min/1.73m2); Glucose 137 mg/dL (70-100); Potassium 5.3 mmol/L (3.5-5.1); Sodium 143 mmol/L (136-145); Vitamin B12 179 pg/mL (193-986)
== END 2019-02-05 12:06 ==
LOC: NCHCN 11:46
PROVIDERS: PCP Family Medicine; Visit Provider Family Medicine
DX: E53.8 Deficiency of other specified B group vitamins (principal); E11.9 Type 2 diabetes mellitus without complications; N28.9 Disorder of kidney and ureter, unspecified; I48.0 Paroxysmal atrial fibrillation; R53.81 Other malaise
CPT/HCPCS: 80048; 82607

== ENCOUNTER 2019-05-08 19:54 | Outpatient (REF) | payer MEDICARE, SELFPAY ==
[2019-05-08 19:29] LABS: ALT 17 U/L (16-63); AST 12 U/L (15-37); Albumin 3.5 g/dL (3.4-5.0); Anion Gap 10.3 mmol/L (3-11); BUN 19 mg/dL (7-18); Bilirubin, Total 0.3 mg/dL (0.2-1.0); CO2 26.7 mmol/L (21.0-32.0); Chloride 105 mmol/L (98-107); Glucose 282 mg/dL (70-100); Potassium 4.4 mmol/L (3.5-5.1); Sodium 142 mmol/L (136-145); Total Protein 7.2 g/dL (6.4-8.2)
[2019-05-08 19:39] LABS: Alkaline Phosphatase 108 U/L (46-116)
== END 2019-05-08 20:14 ==
LOC: NCHCN 19:54
PROVIDERS: PCP Family Medicine; Visit Provider Family Medicine
DX: E11.9 Type 2 diabetes mellitus without complications (principal); E53.8 Deficiency of other specified B group vitamins; N28.9 Disorder of kidney and ureter, unspecified
CPT/HCPCS: 80053

== ENCOUNTER 2020-01-16 11:27 | Inpatient (IN) | payer MEDICARE, SELFPAY ==
[2020-01-16] VITALS (50 sets, daily range): BP systolic 114–164; BP diastolic 61–122; PULSE 54–160; RESP 16–30; TEMP 36.6–37.4; O2SAT 95–100
--- NOTE | 2020-01-16 11:15 | DI.CT_ITS ---
EXAM: CT HEAD WO CLINICAL HISTORY: found down at home TECHNIQUE: COMPARISON: CT HEAD WITHOUT CONTRAST from 11/11/2017 FINDINGS: Noncontrast cranial CT was performed. No gross calvarial fracture identified. The orbital and tempo ral bone structures appear intact. Visualized paranasal sinuses and mastoid air cells appear clear. There is moderate to severe cerebral atrophy. There is no evidence of acute intracranial hemorrhage, mass effect, or midline shift. IMPRESSION: No evidence of acute intracranial injury.
--- NOTE | 2020-01-16 11:15 | RT.EKG_ITS ---
APPROVED REPORT Exam: Resting ECG Patient Location: E HR:146 bpm ECG Measurements Heart Rate 146 AXIS [place] [id number] P [id number] QRSd 85 QRS 38 QT 275 T 220 QTc 434 <Conclusion> Atrial flutter with predominant 2:1 AV block...A-rate 300, multiple Ps Repolarization abnormality, prob rate related...ST dep, T neg, tachycardia Dictated: A. fib versus a flutter, rate 146, diffuse nonspecific ST depression V3 through V5, no evidence of ST STELLA.
[2020-01-16] MEDS: Lactated Ringers 1,000 ML 1000 ML IV ×2 (11:30→12:35)
--- NOTE | 2020-01-16 11:30 | DI.CT_ITS ---
EXAM: CT CHEST/ABD/PEL WO CLINICAL HISTORY: found down at home TECHNIQUE: COMPARISON: CT CHEST ABD PELVIS WITH CONTRAST from 11/15/2017 FINDINGS: CT examination of the chest abdomen pelvis was performed without contrast administration. No fractur e identified in the region surveyed. Bello catheter noted in the urinary bladder. No thoracic aortic aneurysm. No mediastinal hematoma. Lungs are grossly clear although there is patel ited visualization due to motion. There are probable areas bilateral scarring. Tracheobronchial steven e appears grossly intact. No gross thoracic adenopathy. The liver contains a nonspecific right lobe cattle cephalic a edward. Spleen is unremarkable in appear ance. No biliary dilatation. Probable cholelithiasis. Pancreas grossly unremarkable. Adrenals are normal in appearance bilaterally. Left renal calculus noted, nonobstructing. Left distal ureteral calculus also noted, nonobstructing, 2 millimeters in diameter. No right-sided urinary tract calcifi cation. Abdominal aorta is of normal diameter. No gross abdominal or pelvic adenopathy. No significant abdo corbin wall hernia. No evidence of bowel obstruction. Appendix not specifically visualized. No evid ence of diverticulitis. IMPRESSION: No evidence of acute thoracic or abdominal process. Limited scan due to motion and lack of IV contra st.
--- NOTE | 2020-01-16 11:35 | ED.GENADUL_ITS ---
Discharge Plan Disposition Patient Disposition: [facility] INPATIENT Condition: Poor Discharge Details Chief Complaint: GenMedical Clinical Impression: Rhabdomyolysis Admit Date/Time: 01/16/20 15:13 Admit Provider: Dean Wood Attending Provider: Dean Wood Primary Care Provider: Urvashi Conti V ED Provider: Valentine Nelson Discharge Data Discharge Date/Time-TO BE ENTERED AT DEPARTURE: 01/16/20 16:11 Medical Decision Making <Jamie Jackson DO - Last Filed: 01/16/20 12:38> EKG 11: 33 A. fib versus a flutter, rate 146, diffuse nonspecific ST depression V3 through V5, no evidence of STEMI. 7-year-old male was brought in by EMS for being found on the floor to 24 hours. Patient is being managed by Valentine Ann. Please refer to her documentation for HPI physical exam and assessment. Independent exam history indicative of a 70-year-old male, often noncompliant with medications including his amiodarone and Eliquis who states that his knees gave out yesterday, he crawled to the bathroom and could not get up. Called 911 and was brought to the ER. He is a diabetic. Exam demonstrates mild trauma and irritation to his anterior knees, no nuchal rigidity, no significant evidence of trauma to the head. Patient does have an atypical lesion on his anterior abdominal wall that looks like pityriasis rosea, and some lesions in the lower abdomen. No other abnormalities otherwise. Differential is highest for suspected rhabdomyolysis for him lying down, will aggressively rehydrate, no history of echo showing CHF. Heart rates elevated in the 140s 150s, will likely restart his amiodarone and see if this helps control his heart rate and if he is resistant will start Card izem. Expect admission. I independently performed a history and physical examination of the patient and discussed the management with the midlevel provider. I agree with the current plan of management at the time of signing. <SO Gan - Last Filed: 01/17/20 11:09> Patient is a 70-year-old male, brought in via EMS, after being found down at home. Patient reports that last night his knees gave out and he fell. Remembers the fall. Denies hitting his head. No LOC. States that he then crawled to the bathroom where he again became weak and laid down. Has been sitting position of the bathroom floor, lying prone, since 5 PM yesterday. Patient sister lives locally and delivers food to him daily. She came to check on him today with him she found him laying in the bathroom and contacted EMS. Patient is currently denying any headache. Has not had any recent fevers or chills. She has no shortness of breath. No chest pain. Denies any neck or back pain. Patient was laying in a pool of urine. This is unclear if it was true incontinence versus him being unable to write himself again. He denies palpitations. Patient has not been compliant with his medications. He reports he is unable to afford them and is not taking any. Past medical history significant for atrial fibrillation, pressure buttock, diabetes, hypertension, hyponatremia. Patient has not been taking his glucose. Is typically on amiodarone, Eliquis and insulin. On exam, patient appears acutely ill. He appears dehydrated. He has areas of pressure sores right side of his face, bilateral knees. This is an unusual lesion on the inferior aspect of the right chest wall does not appear consistent with pressure sore. Lungs are clear. Patient was tachycardic. Hands and feet are cyanotic with a slow capillary refill. He does continue to have distal pulses. No calf tenderness, lower extremity edema. Tubular differential potassium is rhabdomyolysis. Patient is noted to be quite tachycardic 160. I am concerned that he is in atrial fibrillation which may have led to his symptoms of weakness although he is not having any palpitations. Does not sound that he is typically symptomatic with his atrial fibrillation. However, he has been here for weakness similar to this historically. We will begin hydrating the patient, obtain CT of head, chest abdomen pelvis. Will do noncontrast assuming that there will be an acute kidney injury. Will wash the patient's wound. Will obtain laboratory evaluation. Also concern for ACS. Will consult with family as well. Head CT reviewed by radiologist: FINDINGS: Brain: Central and cortical brain atrophy evident, appropriate for patient age. There is nonspecific periventricular low attenuation, likely microangiopathic disease. No acute intracranial hemorrhage. Ventricles: Normal. No ventriculomegaly. Bones/joints: Unremarkable. No acute fracture. Sinuses: Visualized sinuses are unremarkable. No fluid levels. Mastoid air cells: Visualized mastoid air cells are well aerated. Soft tissues: Unremarkable. IMPRESSION: No acute intracranial abnormality. Labs were reviewed. Leukocytosis with a white count of 18.49. H&H is stable. pH 7.33. Bicarb 21. PCO2 40. PO2 is 32. CMP significant for an anion gap of 15.4. BUN of 27. Creatinine of 1.77. Patient's baseline creatinine normally a round 1.5. Glucose 244 this is baseline for the patient. His lactate is elevated 2.7. CK elevated 2155. Initial troponin less than 0.05. We will obtain repeat troponin. TSH within normal limits. Urinalysis significant for elevated specific gravity, ketones, moderate blood, moderate bili, negative leukocyte esterase, negative nitrite, glucose 500. I discussed this with the patient. Patient is being hydrated lactated Ringer's and was on a second liter now. Spontaneously converted from rapid A. fib with a heart rate of 162 normal sinus rhythm with a heart rate of 90. We will repeat EKG. Plan to consult with hospitalist regarding admission for rhabdomyolysis. I did discuss the patient who is in agreement. I am concerned about the patient's overall living situation. I did speak with care management. They will follow-up with the patient on the inpatient side. Spoke with patient about code status, he would like to be a DNR/DNI. Consulted with Dr. Wood who accepts the patient in admission for rhabdomyolysis. At patients request, updated his sister, Delmy ([phone], [phone]). She is concerned that the patient does not take care of himself. She varifies what EMS said about living in poor conditions. States he does not get out of bed. She brings him his meals. She advised that the patient does have the financial means to purchase his medications that he does not want to. She reports that he has about a months worth of medications at his home but is refusing to take these. HPI <Jamie Jackson DO - Last Filed: 01/16/20 12:38> General Date/Time Provider Initiated Documentation: 01/16/20 11:35 . Related Data Home Medications Medication Instructions Recorded Confirmed metformin 850 mg PO BID 04/23/14 01/17/20 omeprazole 20 mg PO DAILY@0730 #30 capcr 09/21/17 01/17/20 pravastatin 20 mg PO HS #30 tab 09/21/17 01/17/20 Therapeutic-M 1 tab PO BID tab 11/19/17 12/29/18 insulin aspart U-100 [Novolog 0 units SUB-Q AC & HS pen 11/19/17 12/29/18 Flexpen U-100 Insulin] magnesium oxide 800 mg PO DAILY tab 11/19/17 12/29/18 Eliquis 5 mg PO BID 01/29/18 01/17/20 amiodarone 200 mg PO DAILY #30 tab-cap 01/29/18 01/17/20 aspirin 81 mg tablet,delayed 81 mg PO DAILY 11/05/18 12/29/18 release cholecalciferol (vitamin D3) 25 1,000 unit PO DAILY 11/05/18 01/17/20 mcg (1,000 unit) capsule melatonin 10 mg tablet 5 mg PO HS PRN 11/05/18 01/17/20 cyanocobalamin (vitamin B-12) 1,000 mcg PO DAILY 01/16/20 [Vitamin B-12] Previous Rx's Medication Instructions Recorded omeprazole 20 mg PO DAILY@0730 #30 capcr 09/21/17 pravastatin 20 mg PO HS #30 tab 09/21/17 Therapeutic-M 1 tab PO BID tab 11/19/17 insulin aspart U-100 [Novolog 0 units SUB-Q AC & HS pen 11/19/17 Flexpen U-100 Insulin] magnesium oxide 800 mg PO DAILY tab 11/19/17 amiodarone 200 mg PO DAILY #30 tab-cap 01/29/18 Allergies Allergy/AdvReac Type Severity Reaction Status Date / Time No Known Allergies Allergy Unverified 01/16/20 11:38 <SO Gan - Last Filed: 01/17/20 11:09> General Mode of arrival: EMS . Limitations to Documentation: no limitations . Information obtained by: patient, EMS, RN notes reviewed and old records reviewed . HPI Narrative: Patient is a 70-year-old male with past medical history of generalized weakness, A. fib, depression, diabetes, hypertension, hyponatremia, presenting today via EMS with chief complaint of found down at home. Patient reports that my knees gave out yesterday afternoon. Believes he did strike his head but denies loss of consciousness. Is currently denying any headache. States that he then crawled to the bathroom where he again collapsed and has been in the same position since 5 PM yesterday. His sister found him down at home. His this issue the contacted EMS. Currently, the patient is endorsing some lower right chest discomfort. Otherwise he reports he is feeling well. Patient has not been taking any of his medications including amiodarone, Eliquis, metformin, NovoLog, as he is unable to afford these. Unclear when he last took any of his medications. EMS reports the patient was found lying prone in a large puddle of urine. General PUSPHA: 3 <SO Gan - Last Filed: 01/17/20 11:09> Constitutional Constitutional: Reports as per HPI, Denies chills, Denies fatigue, Denies fever(s), Denies headache(s) and Reports weakness Eyes Eyes: Reports as per HPI, Denies blurry vision, Denies change in vision and Denies loss of vision ENT Ears, Nose, Mouth, and Throat: Denies abnormal hearing and Denies headache(s) Cardiovascular Cardiovascular: Reports as per HPI, Reports chest pain and Denies dyspnea Respiratory Respiratory: Reports as per HPI, Denies cough, Denies pain on inspiration, Denies pain with cough and Denies dyspnea Gastrointestinal Gastrointestinal: Reports as per HPI, Denies abdominal pain, Denies nausea and Denies vomiting Genitourinary Genitourinary: Reports as per HPI and Denies urinary incontinence Musculoskeletal Musculoskeletal: Reports as per HPI Integumentary/Breasts Skin/Breast: Reports as per HPI and Reports sores Neurologic Neurologic: Reports as per HPI, Denies abnormal hearing, Denies abnormal movements, Denies abnormal speech, Denies headache(s), Denies lack of coordination, Denies localized weakness, Denies loss of vision, Denies seizure- like activity, Denies paresthesias and Reports weakness Endocrine Endocrine: Denies fatigue PFSH <Jamie Jackson DO - Last Filed: 01/16/20 12:38> Medical History (Updated 01/17/20 @ 11:09 by SO Gan) Atrial fibrillation (Chronic) Depression (Chronic) Diabetes (Chronic) HTN (hypertension) (Chronic) Surgical History (Updated 01/16/20 @ 21:15 by Dean Wood) H/O removal of cyst (Acute) left leg Social History Smoking/Tobacco Use Status: Former Tobacco Use Alcohol Intake: current Alcohol Intake frequency: holidays/special occasions only Drug use: Never Substance use type: does not use Do you feel safe in your relationship?: Yes Exam <Jamie Jackson DO - Last Filed: 01/16/20 12:38> Chest Chest/axillae images: 1. patient has a focal, well defined, area of swelling and erythema. Tender area to palpation. Skin Full body images: 1. area of erythema, swelling and mild skin break down. Consistent with pressure sore 2. 3. bilateral pressure sores. Small amoutn of surrounding erythema. No drainage, no swelling. Not consistent with infection. No knee effusion or evidence of deep space infection. 4. raised, erythematous area as described above. 5. area of small, scattered erythematous, nontender, dry, scaly skin. Not consistent with cellulitis <SO Gan - Last Filed: 01/17/20 11:09> Const General: cooperative, comfortable, no acute distress, disheveled and ill appearing acutely Nutritional Appearance: average body habitus Orientation: alert, awake and oriented x3 HENMT Head: normal to inspection, no palpable skull fracture, normocephalic and atraumatic Ears: hearing grossly normal bilaterally, external ears normal and TM's normal bilaterally General nose exam: external nose normal Mouth: oral mucosae normal, lip normal, tongue normal and mucous membranes dry Throat: posterior oropharynx normal Eyes General: appearance normal, both eyes and all related structures Visual Sharma: normal visual sharma by confrontation Alignment and Position: alignment normal Periorbital: periorbital findings normal Eyelids: eyelids normal Conjunctivae: conjunctivae normal Pupils: PERRL EOM: EOM intact bilaterally Neck Neck: normal visual inspection, full ROM, no lymphadenopathy, no meningeal signs, trachea midline and supple Chest Chest: normal palpation of entire chest wall, no crepitus and no localized rib tenderness Chest/axillae images: 1. patient has a focal, well defined, area of swelling and erythema. Tender area to palpation. Resp Effort & Inspection: normal respiratory effort, able to speak in complete sentences and no respiratory distress Auscultation: clear to auscultation bilaterally, no rales, no rhonchi and no wheezes Cardio Rate: regular rate Rhythm: regular rhythm Heart Sounds: S1 normal and S2 normal GI Inspection: normal to inspection, no abdominal wall ecchymosis, no edema and non-distended Palpation: soft, no hepatosplenomegaly, not firm, no guarding, no pulsatile mas ses, not rigid and nontender Auscultation: normal bowel sounds Back/Spine/Pelvis Back: no CVA tenderness Cervical Spine: normal cervical lordosis and cervical ROM normal Thoracic/Lumbar Spine: thoracic and lumbar spine normal to inspection, thoraco- lumbar ROM normal, No thoraco-lumbar ROM limited, No thoraco-lumbar spasm and No thoracic spinal tenderness Pelvis: no pain with anterior-posterior compression and no pain with lateral compression Skin Full body images: 1. area of erythema, swelling and mild skin break down. Consistent with pressure sore 2. 3. bilateral pressure sores. Small amoutn of surrounding erythema. No drainage, no swelling. Not consistent with infection. No knee effusion or evidence of deep space infection. 4. raised, erythematous area as described above. 5. area of small, scattered erythematous, nontender, dry, scaly skin. Not consistent with cellulitis Neuro General: patient alert, patient awake, patient oriented x3, gait normal, tone normal and moves all extremities Cranial Nerves: CN's II-XI intact bilaterally Cognition: normal cognition Speech: speech normal Motor: muscle tone normal throughout and strength 5/5 throughout Sensory Exam: no sensory deficits noted (no saddle paresthesias) Extrem General: normal to inspection, full ROM, capillary refill normal, no pedal edema and no calf tenderness Psych Appearance: grossly normal and disheveled Mental Status: mental status grossly normal Speech and Movement: speech and movement normal <SO Gan - Last Filed: 01/17/20 11:09> Lab/Test Results Lab/Test Results: 01/16/20 11:25 Blood Blood Culture - Pending 01/16/20 11:25 Blood Blood Culture - Pending
[2020-01-16 11:55] LABS: BE (Venous) -5.1 mmol/L (-3-3); HCO3 (Venous) 21 mmol/L (22-28); O2 Sat (Venous) 59 % (70-80); TCO2 (Venous) 19 mmol/L (22-29); pCO2 (Venous) 40 mm/Hg (34-47); pH (Venous) 7.33 (7.35-7.45); pO2 (Venous) 32 mm/Hg (28-44)
[2020-01-16 12:00] LABS: Abs Immature Grans 0.06 k/cumm (0.0-0.09); Absolute Monocyte Count 0.98 k/cumm (0.11-0.7); Absolute Neutrophil Count 16.75 k/cumm (1.2-6.7); Basophils % 0.1; HCT 47.7 % (40.0-50.0); HGB 15.1 g/dL (13.5-17.5); Immature Grans % 0.3 %; Lactate 2.7 mmol/L (0.6-1.4); Lymphocytes % 3.7; Mean Corp. HGB Concentration 31.7 g/dL (32.0-36.0); Mean Corpuscular Hemoglobin 28.2 pg (27.0-33.0); Mean Platelet Volume 8.2 fL (8.0-11.0); Monocytes % 5.3; Neutrophils % 90.6; Platelet Count 304 x1000/uL (130-400); RBC 5.36 m/cumm (4.50-6.00); RBC Distribution Width 13.2 % (11.8-14.1); White Blood Cell Count 18.49 k/cumm (4.4-10.8)
[2020-01-16 12:01] LABS: Absolute Basophil Count 0.02 k/cumm (0.0-0.2); Absolute Lymphocyte Count 0.68 k/cumm (1.2-3.4)
[2020-01-16] MEDS: Lidocaine 2% Jelly 6 ML SYR (12:10)
[2020-01-16 12:13] LABS: INR 1.1 (0.9-1.1); PTT Activated 24.7 sec (21.0-31.4); Prothrombin Time 10.9 sec (9.3-11.0)
[2020-01-16 12:18] LABS: ALT 19 U/L (16-63); AST 42 U/L (15-37); Albumin 3.5 g/dL (3.4-5.0); Alkaline Phosphatase 80 U/L (46-116); Anion Gap 15.4 mmol/L (3-11); BUN 27 mg/dL (7-18); CO2 21.6 mmol/L (21.0-32.0); CREATININE 1.77 mg/dL (0.70-1.30); Chloride 105 mmol/L (98-107); Estimated GFR 38.22 (mL/min/1.73m2); Glucose 244 mg/dL (74-106); Potassium 4.3 mmol/L (3.5-5.1); Sodium 142 mmol/L (136-145); Troponin I < 0.05 ng/mL (<0.06)
[2020-01-16] MEDS: Normal Saline Flush 10 ML SYR IVP (12:20)
[2020-01-16 12:23] LABS: Creatine Kinase 2155 U/L (39-308); TSH 1.79 uIU/mL (0.36-3.74)
[2020-01-16 12:24] LABS: Lipase 53 U/L (73-393)
[2020-01-16 12:27] LABS: Bilirubin Moderate (Negative); Blood Moderate (Negative); Clarity Clear (Clear); Glucose 500 mg/dL (Negative); Ketones 80 mg/dL (Negative); Leukocyte Esterase Negative (Negative); Nitrite Negative (Negative); Specific Gravity >= 1.030 (1.005-1.025); Urobilinogen 0.2 EU/dL (Up TO 0.2); pH 5.5 (5-8)
[2020-01-16 12:34] LABS: Bacteria Few HPF (Negative); C & S Indicated? No; Casts 3-5 Coarse Granular LPF (Negative); Crystals Negative HPF (Negative); Epithelial Cells Rare HPF (Negative); Mucus Moderate (Negative)
--- NOTE | 2020-01-16 12:38 | DI.VRAD_ITS ---
PROCEDURE INFORMATION: Exam: CT Head Without Contrast Exam date and time: 01/16/2020 12:15 PM Age: 70 years old Clinical indication: Other: Found down at home TECHNIQUE: Imaging protocol: Computed tomography of the head without contrast. COMPARISON: CT HEAD WITHOUT CONTRAST 11/11/2017 4:09 PM FINDINGS: Brain: Central and cortical brain atrophy evident, appropriate for patient age. There is nonspecific periventricular low attenuation, likely microangiopathic disease. No acute intracranial hemorrhage. Ventricles: Normal. No ventriculomegaly. Bones/joints: Unremarkable. No acute fracture. Sinuses: Visualized sinuses are unremarkable. No fluid levels. Mastoid air cells: Visualized mastoid air cells are well aerated. Soft tissues: Unremarkable. IMPRESSION: No acute intracranial abnormality. Dictated and Authenticated by: Ariadne Crespo MD. Ordering:KIERA Grijalva MD
[2020-01-16] MEDS: Amiodarone 200 MG TAB PO ×2 (12:50→20:21)
--- NOTE | 2020-01-16 13:00 | RT.EKG_ITS ---
APPROVED REPORT Exam: Resting ECG Patient Location: E HR:69 bpm ECG Measurements Heart Rate 69 AXIS ID 171 P 29 QRSd 77 QRS 25 QT 378 T 254 QTc 404 <Conclusion> EKG 14: 12 Rate 69, intervals normal, sinus rhythm no significant ST elevations or depressions, no evidence of S PATTI unchanged from prior EKG.
--- NOTE | 2020-01-16 13:37 | DI.VRAD_ITS ---
PROCEDURE INFORMATION: Exam: CT Chest Without Contrast Exam date and time: 01/16/2020 12:18 PM Age: 70 years old Clinical indication: Other: Found down at home TECHNIQUE: Imaging protocol: Computed tomography of the chest without contrast. COMPARISON: CT pelvic wo 08/18/2018 3:43 PM FINDINGS: Lungs: Unremarkable. No consolidation. No masses. Pleural space: Unremarkable. No pneumothorax. No pleural effusion. Heart: Unremarkable. No cardiomegaly. No pericardial effusion. Aorta: Unremarkable. No aortic aneurysm. Lymph nodes: Unremarkable. No enlarged lymph nodes. Bones/joints: Unremarkable. No acute fracture. Soft tissues: Unremarkable. IMPRESSION: No acute findings. PROCEDURE INFORMATION: Exam: CT Abdomen And Pelvis Without Contrast Exam date and time: 01/16/2020 12:18 PM Age: 70 years old Clinical indication: Other: Found down at home TECHNIQUE: Imaging protocol: Computed tomography of the abdomen and pelvis without contrast. Radiation optimization: All CT scans at this facility use at least one of these dose optimization techniques: automated exposure control; mA and/or kV adjustment per patient size (includes targeted exams where dose is matched to clinical indication); or iterative reconstruction. COMPARISON: CT pelvic wo 08/18/2018 3:43 PM FINDINGS: Liver: Coarse calcification in the right hepatic lobe, may be due to previous granulomatous exposure. Gallbladder and bile ducts: Cholelithiasis. Pancreas: Normal. No ductal dilation. Spleen: Normal. No splenomegaly. Adrenals: Normal. No mass. Kidneys and ureters: No obstructive uropathy. 2 mm calculus within the distal left ureter, without proximal obstruction. Stomach and bowel: Colonic diverticulosis without CT evidence of diverticulitis. Appendix: No evidence of appendicitis. Intraperitoneal space: Unremarkable. No free air. No significant fluid collection. Vasculature: Unremarkable. No abdominal aortic aneurysm. Lymph nodes: Unremarkable. No enlarged lymph nodes. Bladder: Unremarkable as visualized. Reproductive: Unremarkable as visualized. Bones/joints: Unremarkable. No acute fracture. Soft tissues: Unremarkable. Other findings: Can you call about cakes today? IMPRESSION: 1. No obstructive uropathy. 2 mm calculus within the distal left ureter, without proximal obstruction. 2. Cholelithiasis. 3. Colonic diverticulosis without CT evidence of diverticulitis. Dictated and Authenticated by: Ariadne Crespo MD. Ordering:KIERA Grijalva MD
[2020-01-16 13:38] LABS: Procalcitonin < 0.1 ng/mL
[2020-01-16] MEDS: Lactated Ringers 1,000 ML 250 ML IV (14:00)
[2020-01-16 14:56] LABS: Troponin I < 0.05 ng/mL (<0.06)
--- NOTE | 2020-01-16 18:17 | W.PM.HP.N ---
Date of service: 01/16/20 Time of Service: 18:17 Assessment and Plan Assessment and plan (1) Paroxysmal atrial fibrillation: Status: Acute Assessment and plan: Resume amiodarone and increase dosage to 200 mg twice a day for the next 2 weeks in order to get him up to therapeutic levels. We will monitor his rhythm and rate control and use IV Lopressor as needed for rapid atrial fib. We will resume his apixaban (2) Diabetes mellitus: Status: Acute Assessment and plan: We will place him on a diabetic diet and monitor his blood sugars before meals and at bedtime and cover with low-dose sliding scale NovoLog. For now we will withhold his metformin in the setting of acute kidney injury. Qualifiers: Diabetes mellitus type: type 2 Diabetes mellitus roasterman insulin use: without intermediate use Diabetes mellitus complication status: without complication Qualified Code(s): E11.9 - Type 2 diabetes mellitus without complications (3) Rhabdomyolysis: Status: Acute Assessment and plan: Continue IV fluid hydration monitor urine output monitor BUN/creatinine and electrolytes.Monitor daily CK levels. Qualifiers: Rhabdomyolysis type: non-traumatic Qualified Code(s): M62.82 - Rhabdomyolysis (4) Acute kidney injury (nontraumatic): Status: Acute Assessment and plan: Monitor his urine output and hydrate him with repeat BMP in the morning. If renal function is not significantly improving will check a renal ultrasound. However at this point appears that he is making adequate urine output through his Bello catheter. (5) Generalized weakness: Status: Acute Assessment and plan: Multifactorial but probably nutritional compliant with dehydration along with uncontrolled rapid atrial fibrillation. We will monitor him while we rehydrate him. We will ask physical therapy to consult on him to evaluate his gait and strength and balance. He will likely need some home health services upon discharge or possibly short-term stay in a SNF. (6) Discharge planning issues: Status: Acute Assessment and plan: Patient will likely need short-term SNF placement for rehabilitation. Will ask nurse outreach case manager to look into his home situation and make sure that he has all services available to him. I will ask nurse outreach case manager to also look into his insurance for coverage of his medications in order to prevent recurrent hospitalizations from inadequately treated atrial fibrillation. History of Present Illness History of Present Illness Chief Complaint: Falling down, generalized weakness Narrative: 70-year-old male with a history of type 2 diabetes mellitus, paroxysmal atrial fibrillation who states he has been off his medications for the past 6 months. He has had generalized weakness and had at least 2 falls yesterday. First 1 occurred around 7:30 in the morning second episode occurred around 5:30 PM last night. After the second fall he was unable to get up and spent the night on the floor at his home until his sister found him. He has been failing at home with poor oral intake and generalized weakness for some time. He has been dependent on his sister to bring in meals for him. Upon evaluation emergency department he was found to be in rapid atrial fibrillation with a heart rate in the 120s and laboratory evaluation demonstrated that he had early rhabdomyolysis with a CK over 2000 and an acute kidney injury with a creatinine level of 1.77 with a BUN of 27. Potassium level was normal at 4.3. He was also found to have an elevated blood lactate level of 2.7 and a white cell count of 18,000 with no evidence of infection. On physical examination was found to have multiple bruises on his legs and abrasions on his knees. He was having right shoulder pain secondary from the fall. CT scan of the head without contrast showed no acute findings but had evidence of microvascular changes. CT of the chest abdomen pelvis was performed without contrast and demonstrated cholelithiasis without evidence for acute biliary obstruction as well as nephrolithiasis with no evidence for obstructive uropathy. CT of the chest was unremarkable. Patient was given 2 L of lactated Ringer's while in the emergency department and is now admitted to the hospital for IV fluid hydration and monitoring of his renal function and rhabdomyolysis. PT and OT consults will be obtained to evaluate his generalized weakness and debilitation. Care management will be consulted to assist with his living conditions. Serial laboratory studies will be obtained including follow-up BMP and CK levels and CBC and lactate. At this time I am not going to start him on any antibiotics as he has no evidence for acute infection. His rapid atrial fibrillation converted to sinus rhythm in the emergency department after IV fluid hydration and a single dose of his oral amiodarone which she has been off of for the last 6 months. Review of Systems All systems reviewed & are unremarkable except as noted in HPI and below [facility] Medical History (Updated 01/16/20 @ 21:27 by Dean Wood) Atrial fibrillation (Chronic) Depression (Chronic) Diabetes (Chronic) HTN (hypertension) (Chronic) Surgical History (Updated 01/16/20 @ 21:15 by Dean Wood) H/O removal of cyst (Acute) left leg Social History Smoking/Tobacco Use Status: Former Tobacco Use Alcohol Intake: current Alcohol Intake frequency: holidays/special occasions only Drug use: Never Substance use type: does not use Do you feel safe in your relationship?: Yes Meds Home Medications and Allergies Home Medications Medication Instructions Recorded Confirmed Type metformin 850 mg PO BID 04/23/14 12/29/18 History omeprazole 20 mg PO DAILY@0730 #30 capcr 09/21/17 12/29/18 Rx pravastatin 20 mg PO HS #30 tab 09/21/17 12/29/18 Rx Therapeutic-M 1 tab PO BID tab 11/19/17 12/29/18 Rx insulin aspart U-100 [Novolog 0 units SUB-Q AC & HS pen 11/19/17 12/29/18 Rx Flexpen U-100 Insulin] magnesium oxide 800 mg PO DAILY tab 11/19/17 12/29/18 Rx Eliquis 5 mg PO BID 01/29/18 12/29/18 History amiodarone 200 mg PO DAILY #30 tab-cap 01/29/18 12/29/18 Rx aspirin 81 mg tablet,delayed 81 mg PO DAILY 11/05/18 12/29/18 History release cholecalciferol (vitamin D3) 25 1,000 unit PO DAILY 11/05/18 12/29/18 History mcg (1,000 unit) capsule melatonin 10 mg tablet 10 mg PO HS PRN 11/05/18 12/29/18 History cyanocobalamin (vitamin B-12) 1,000 mcg PO DAILY 01/16/20 History [Vitamin B-12] Allergies Allergy/AdvReac Type Severity Reaction Status Date / Time No Known Allergies Allergy Unverified 01/16/20 11:38 Exam Narrative Exam Narrative: Elderly male bearded patient who sitting up in his bed eating his dinner HEENT unremarkable. Neck is supple without JVD neck veins are flat normal carotid pulses no bruits no adenopathy. Lungs are clear to auscultation Heart is regular no appreciable murmur rub or gallop. Abdomen soft and nontender no palpable masses no bruits Extremities without edema. Normal pedal pulses. Some dependent rubor of his feet. Thick toenails bilaterally Neurologic exam grossly intact no focal motor deficits. Results Labs Result diagrams: 01/16/20 11:45 01/16/20 20:10 Labs: Laboratory Results - last 24 hr 01/16/20 01/16/20 01/16/20 11:45 11:45 11:45 WBC RBC Hgb Hct MCV MCH MCHC RDW Plt Count MPV Immature Gran % Neutrophils % Lymphocytes % Monocytes % Eosinophils % Basophils % Absolute Neutrophils Absolute Lymphocytes Absolute Monocytes Absolute Eosinophils Absolute Basophils PT 10.9 INR 1.1 APTT 24.7 VBG pH 7.33 L VBG pCO2 40 VBG pO2 32 VBG HCO3 21 L VBG Total CO2 19 L VBG O2 Saturation 59 L VBG Base Excess -5.1 L Sodium Potassium Chloride Carbon Dioxide Anion Gap BUN Creatinine Estimated GFR/1.73 m2 Glucose Lactate Calcium Magnesium Total Bilirubin AST ALT Alkaline Phosphatase Creatine Kinase 2155 H Troponin I Total Protein Albumin Lipase Procalcitonin TSH 1.79 Urine Color Urine Clarity Urine pH Ur Specific [place] Urine Protein Urine Ketones Urine Blood Urine Nitrite Urine Bilirubin Urine Urobilinogen Ur Leukocyte Esterase Urine RBC Urine WBC Ur Epithelial Cells Urine Crystals Urine Bacteria Urine Casts Urine Mucus Ur Culture Indicated? Urine Glucose 01/16/20 01/16/20 01/16/20 11:45 11:45 11:45 WBC 18.49 H RBC 5.36 Hgb 15.1 Hct 47.7 MCV 89.0 MCH 28.2 MCHC 31.7 L RDW 13.2 Plt Count 304 MPV 8.2 Immature Gran % 0.3 Neutrophils % 90.6 Lymphocytes % 3.7 Monocytes % 5.3 Eosinophils % 0.0 Basophils % 0.1 Absolute Neutrophils 16.75 H Absolute Lymphocytes 0.68 L Absolute Monocytes 0.98 H Absolute Eosinophils 0.00 Absolute Basophils 0.02 PT INR APTT VBG pH VBG pCO2 VBG pO2 VBG HCO3 VBG Total CO2 VBG O2 Saturation VBG Base Excess Sodium 142 Potassium 4.3 Chloride 105 Carbon Dioxide 21.6 Anion Gap 15.4 H BUN 27 H Creatinine 1.77 H Estimated GFR/1.73 m2 38.22 Glucose 244 H Lactate 2.7 H* Calcium 9.0 Magnesium 2.0 Total Bilirubin 1.0 AST 42 H ALT 19 Alkaline Phosphatase 80 Creatine Kinase Troponin I < 0.05 Total Protein 7.0 Albumin 3.5 Lipase Procalcitonin TSH Urine Color Urine Clarity Urine pH Ur Specific [place] Urine Protein Urine Ketones Urine Blood Urine Nitrite Urine Bilirubin Urine Urobilinogen Ur Leukocyte Esterase Urine RBC Urine WBC Ur Epithelial Cells Urine Crystals Urine Bacteria Urine Casts Urine Mucus Ur Culture Indicated? Urine Glucose 01/16/20 01/16/20 01/16/20 11:45 11:45 12:10 WBC RBC Hgb Hct MCV MCH MCHC RDW Plt Count MPV Immature Gran % Neutrophils % Lymphocytes % Monocytes % Eosinophils % Basophils % Absolute Neutrophils Absolute Lymphocytes Absolute Monocytes Absolute Eosinophils Absolute Basophils PT INR APTT VBG pH VBG pCO2 VBG pO2 VBG HCO3 VBG Total CO2 VBG O2 Saturation VBG Base Excess Sodium Potassium Chloride Carbon Dioxide Anion Gap BUN Creatinine Estimated GFR/1.73 m2 Glucose Lactate Calcium Magnesium Total Bilirubin AST ALT Alkaline Phosphatase Creatine Kinase Troponin I Total Protein Albumin Lipase 53 Procalcitonin < 0.1 TSH Urine Color Yellow Urine Clarity Clear Urine pH 5.5 Ur Specific [place] >= 1.030 H Urine Protein 100 H Urine Ketones 80 H Urine Blood Moderate H Urine Nitrite Negative Urine Bilirubin Moderate H Urine Urobilinogen 0.2 Ur Leukocyte Esterase Negative Urine RBC 3-5 H Urine WBC 3-5 Ur Epithelial Cells Rare Urine Crystals Negative Urine Bacteria Few Urine Casts 3-5 coarse granular Urine Mucus Moderate Ur Culture Indicated? No Urine Glucose 500 H 01/16/20 14:30 WBC RBC Hgb Hct MCV MCH MCHC RDW Plt Count MPV Immature Gran % Neutrophils % Lymphocytes % Monocytes % Eosinophils % Basophils % Absolute Neutrophils Absolute Lymphocytes Absolute Monocytes Absolute Eosinophils Absolute Basophils PT INR APTT VBG pH VBG pCO2 VBG pO2 VBG HCO3 VBG Total CO2 VBG O2 Saturation VBG Base Excess Sodium Potassium Chloride Carbon Dioxide Anion Gap BUN Creatinine Estimated GFR/1.73 m2 Glucose Lactate Calcium Magnesium Total Bilirubin AST ALT Alkaline Phosphatase Creatine Kinase Troponin I < 0.05 Total Protein Albumin Lipase Procalcitonin TSH Urine Color Urine Clarity Urine pH Ur Specific [place] Urine Protein Urine Ketones Urine Blood Urine Nitrite Urine Bilirubin Urine Urobilinogen Ur Leukocyte Esterase Urine RBC Urine WBC Ur Epithelial Cells Urine Crystals Urine Bacteria Urine Casts Urine Mucus Ur Culture Indicated? Urine Glucose Last Vital Signs Temp 36.6 C 01/16/20 16:32 Pulse 54 L 01/16/20 16:32 Resp 25 H 01/16/20 16:32 BP 124/61 01/16/20 16:32 Pulse Ox 99 01/16/20 16:32 COVID-19 Screening Have you,or household,traveled outside [place] in last 14 days?: No Had IN PERSON contact w/suspected or confirmed C-19 person: No
[2020-01-16] MEDS: Acetaminophen 325 MG TAB PO (18:37)
[2020-01-16] MEDS: Apixaban 5 MG TAB PO (20:21)
[2020-01-16] MEDS: Multivitamin w/Minerals TAB 1 TAB PO (20:21)
[2020-01-16 20:48] LABS: Creatine Kinase 1915 U/L (39-308); Troponin I < 0.05 ng/mL (<0.06)
[2020-01-16 21:07] LABS: Anion Gap 10.3 mmol/L (3-11); BUN 26 mg/dL (7-18); CO2 24.7 mmol/L (21.0-32.0); CREATININE 1.54 mg/dL (0.70-1.30); Calcium 8.7 mg/dL (8.5-10.1); Chloride 105 mmol/L (98-107); Estimated GFR 44.88 (mL/min/1.73m2); Glucose 253 mg/dL (74-106); Potassium 4.3 mmol/L (3.5-5.1); Sodium 140 mmol/L (136-145)
[2020-01-16] MEDS: Pravastatin 20 MG TAB PO (22:00)
[2020-01-16] MEDS: Insulin Aspart 300 UNITS/3 ML PEN SC (22:01)
[2020-01-17] VITALS (8 sets, daily range): BP systolic 112–171; BP diastolic 70–89; PULSE 67–90; RESP 17–19; TEMP 36–38.2; O2SAT 92–96
[2020-01-17] MEDS: Lactated Ringers 1,000 ML 150 ML IV ×4 (01:06→20:07)
[2020-01-17 08:01] LABS: Lactate 1.3 mmol/L (0.6-1.4)
[2020-01-17 08:04] LABS: Abs Immature Grans 0.03 k/cumm (0.0-0.09); Absolute Basophil Count 0.03 k/cumm (0.0-0.2); Absolute Eosinophil Count 0.17 k/cumm (0.0-0.7); Absolute Lymphocyte Count 1.51 k/cumm (1.2-3.4); Absolute Monocyte Count 0.78 k/cumm (0.11-0.7); Absolute Neutrophil Count 8.03 k/cumm (1.2-6.7); Basophils % 0.3; Eosinophils % 1.6; HCT 40.9 % (40.0-50.0); HGB 12.9 g/dL (13.5-17.5); Immature Grans % 0.3 %; Lymphocytes % 14.3; Mean Corp. HGB Concentration 31.5 g/dL (32.0-36.0); Mean Corpuscular Hemoglobin 28.2 pg (27.0-33.0); Mean Corpuscular Volume 89.5 fL (80-95); Mean Platelet Volume 8.3 fL (8.0-11.0); Monocytes % 7.4; Neutrophils % 76.1; Platelet Count 230 x1000/uL (130-400); RBC 4.57 m/cumm (4.50-6.00); RBC Distribution Width 13.1 % (11.8-14.1); White Blood Cell Count 10.55 k/cumm (4.4-10.8)
[2020-01-17 08:25] LABS: Hemoglobin A1C 8.4 % (3.8-5.6)
[2020-01-17 08:27] LABS: Anion Gap 8.2 mmol/L (3-11); BUN 22 mg/dL (7-18); CO2 27.8 mmol/L (21.0-32.0); CREATININE 1.38 mg/dL (0.70-1.30); Calcium 8.6 mg/dL (8.5-10.1); Chloride 107 mmol/L (98-107); Creatine Kinase 1132 U/L (39-308); Estimated GFR 50.94 (mL/min/1.73m2); Glucose 137 mg/dL (74-106); Potassium 3.7 mmol/L (3.5-5.1); Sodium 143 mmol/L (136-145)
[2020-01-17] MEDS: Cholecalciferol (Vitamin D3) 1,000 UNIT TAB 1000 UNITS PO (08:31)
[2020-01-17] MEDS: Aspirin E.C. 81 MG TABEC PO (08:31)
[2020-01-17] MEDS: Amiodarone 200 MG TAB PO ×2 (08:31→20:16)
[2020-01-17] MEDS: Magnesium Oxide 400 MG TAB 800 MG PO (08:32)
[2020-01-17] MEDS: Apixaban 5 MG TAB PO ×2 (08:32→20:16)
[2020-01-17] MEDS: Multivitamin w/Minerals TAB 1 TAB PO ×2 (08:32→20:16)
[2020-01-17] MEDS: Cyanocobalamin 500 MCG TAB 1000 MCG PO (08:32)
[2020-01-17] MEDS: Omeprazole 20 MG CAPCR PO (08:32)
--- NOTE | 2020-01-17 08:34 | INITIAL_ITS ---
- If Service Date Differs Date of service: 01/17/20 Time of Service: 08:34 Care Management Initial Assess REASON FOR HOSPITALIZATION:: Paroxysmal atrial fibrillation PAST MEDICAL HISTORY/PAST SURGICAL HISTORY:: Medical History (Updated 01/16/20 @ 21:27 by Dean Wood). Atrial fibrillation (Chronic). Depression (Chronic). Diabetes (Chronic). HTN (hypertension) (Chronic). Surgical History (Updated 01/16/20 @ 21:15 by Dean Wood). H/O removal of cyst (Acute). leg PREVIOUS FUNCTIONAL STATUS/SOCIAL/FAMILY SUPPORTS:: David resides alone in a log cabin in [place], [place]. His sister Delmy lives down the road and provides assistance with meals and other support as needed. 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 David has 2 children but he has not communicated with them in 4 or 5 years. He stated that he does not contact information for them. David is independent and continues to drive. He sometimes uses a cane outside of his home. CURRENT FUNCTIONAL STATUS:: David was sitting up in bed when CM met with him. He was pleasant and agreeable to conversation. In the course of conversation, David stated that he spent 12 years in the [employer]. He stated that he does not receive any benefits and does not know if he is eligible. CM offered to contact the [facility] to see if there are serviuces that he is eligible for. Has patient been provided with info about the portal/API?: No Did the patient sign up for the portal?: No CODE STATUS:: DNR/DNI INSURANCE COVERAGE / FINANCIAL ISSUES:: Medicare CURRENT HOME/COMMUNITY SERVICES/EQUIPMENT:: No community services. David does use a cane outside of his home. PRIMARY CARE PHYSICIAN:: Urvashi Conti POTENTIAL DISCHARGE NEEDS:: Follow up with PCP and discharge plan of care PATIENT/FAMILY EDUCATION NEEDS:: Discharge plan, limitations, Follow up plan, Ask me Three TRANSPORTATION:: via private vehicle with sister PLAN:: David will likely be discharged home when medically cleared by the provider. He may benefit from PT and/or home health services. David will follow up with his PCP and discharge plan of care. David spent 12 years in the but is unaware if he can receive any services. CM to contact [facility] to discuss. CM will continue to provide support to David and his discharge planning needs.
[2020-01-17 08:42] LABS: Calculated LDL 82 mg/dL (<100); Cholesterol 133 mg/dL (<200); HDL Cholesterol 34 mg/dL (40-60); Triglyceride 86 mg/dL (<150)
[2020-01-17 08:46] LABS: COVID-19 RT-PCR UVMMC Result Negative (Negative)
--- NOTE | 2020-01-17 10:30 | PT.INIE ---
Date of service: 01/17/20 Time of Service: 10:10 PT Notes Visit Reasons: CHEST PAIN Inpatient Physical Therapy Evaluation Date: 01/17/20 Referring Doctor: Dean Wood MD PT Orders: PT CONSULT: Fall Safety Assessment Precautions: Standard Fall risk Patient Profile/Admitting Diagnosis: Orders received for this 70 year old male who has been admitted to hospital following a fall at home. Patient apparently had a fall while his legs gave out from under him on Saturday and was not found until Saturday. He was found to be in A-fib, rhabdomyolysis. He has been admitted for medical management and assessment of functional safety for discharge. A Covid-19 test was performed and has been ruled out as negative. PMHX: Medical History (Updated 01/16/20 @ 21:27 by Dean Wood) Atrial fibrillation (Chronic) Depression (Chronic) Diabetes (Chronic) HTN (hypertension) (Chronic) Surgical History (Updated 01/16/20 @ 21:15 by Dean Wood) H/O removal of cyst (Acute) left leg Social History/Home Situation: Patient lives alone in a trailer in [place]. He does have family that check on him. Equipment Owned/DME: Patient states he has a walker, but does not use it much because it is usually covered up in trash apparently Subjective: Patient states that he is feeling okay for right now. Objective: Patient sitting in chair watching television. IV line in place through right upper extremity. 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 Patient attemps 2 rounds of this Balance: Static Sitting: Good Dynamic Sitting: Good Static Standing: Fair Dynamic Standing: Poor Patient was able to stand for 3 minutes of time with 2 rounds. He can maintain balance with one hand removed from assistive device but contact guard is in place during this time as there is some postural sway Special Tests: Mobility Limitations Standardized Measure [facility] AM-PAC 6 clicks Basic Mobility Inpatient Short Form: Raw Score: 12 Standardized Score: 35.33 CMS Score: 68.66% TherEX: Ankle pumps, LAQ, Marching in place, Rows, Elbow flexion and Ext, Heel raise, all x 10 Informed Consent/Education: Patient instructed in purpose of PT consult and plan of care. ASSESSMENT: Patient is a 70 year old male with history of poor to fair physical health Admitted with Fall with weakness, rhabdomyolysis, A-fib Patient presents with the following impairment level findings: Ambulation intolerance, global weakness, assistance needed for transfers. Pt will benefit from skilled therapy intervention in order to remedy their functional limitations and restore patient to a more appropriate and stable functional level. Impairments are contributing to the following functional limitations: AMPAC score CMS Score: 68.66% Patient is assessed as a Moderate complexity initial evaluation 55001 based on the following: History: see above Examination: see above Presentation: Evolving Decision Making: Moderate based on AMPAC of 68.66% Goals: Goals X1 week 1. Supine-Sit Independent 2. Sit-Supine Independent 3. Sit-Stand Independent 4. Stand-Sit Independent 5. Bed-Chair Independent with least restrictive assistive device 6. Gait Independent with least restrictive assistive device up to 50feet 7: Stairs 3 steps with supervision 8: Independent in Home program Plan of Care/Treatment Plan: 1-2x/day, 7 days/week x 1 week. Plan of care has been reviewed with the [employer] F[employer] CEO providing the service under Physical Therapy direction. Initiate Physical Therapy intervention for strengthening, bed mobility, transfers, gait, stairs, balance training, use of assistive device. DISCHARGE RECOMMENDATIONS: Only discharge to home if goals are met and patient is able to independently transfer and ambulate up to safe in home distance >20 feet. Patient may require long-term facility placement if failure to gain effective strength and mobility return TREATMENT CODE/TIME: Moderate complexity Initial evaluation [id number] 10:10 20 minutes of direct patient care [facility]
--- NOTE | 2020-01-17 11:37 | PHACLINREV_ITS ---
Pharmacy Admission Review - Admission Clinical Review (Last Reviewed 01/16/20 @ 21:14 by Dean Wood) Generalized weakness (Acute) Acute kidney injury (nontraumatic) (Acute) Rhabdomyolysis (Acute) Paroxysmal atrial fibrillation (Acute) Discharge planning issues (Acute) Diabetes mellitus (Acute) No Known Allergies Allergy (Unverified 01/16/20 11:38) Height 5 ft 8 in Weight 82.4 kg - Renal Dosing Renal Dosing: BUN 22 mg/dL (7-18) H 01/17/20 07:53 Creatinine 1.38 mg/dL (0.70-1.30) H 01/17/20 07:53 Medications needing adjustments: Reviewed (Crcl ~48 mL/min current meds okay) - Anticoagulation Anticoagulation: Hgb 12.9 g/dL (13.5-17.5) L D 01/17/20 07:53 Hct 40.9 % (40.0-50.0) 01/17/20 07:53 Plt Count 230 x1000/uL (130-400) 01/17/20 07:53 INR 1.1 (0.9-1.1) 01/16/20 11:45 Creatinine 1.38 mg/dL (0.70-1.30) H 01/17/20 07:53 DVT Prohphylaxis: N/A Therapeutic Anticoagulation: Reviewed Medications: Apixaban - Opiate Usage Evaluate Pain Scale/Pains Meds: N/A - Relevant Labs Sodium 143 mmol/L (136-145) 01/17/20 07:53 Potassium 3.7 mmol/L (3.5-5.1) 01/17/20 07:53 Chloride 107 mmol/L (98-107) 01/17/20 07:53 Magnesium 2.0 mg/dL (1.8-2.4) 01/16/20 11:45 Electrolytes, C-Reactive P, ESR: Reviewed - DM Control DM Control: Glucose 137 mg/dL (74-106) H D 01/17/20 07:53 Hemoglobin A1c 8.4 % (3.8-5.6) H 01/17/20 07:53 Finger Stick Blood Glucose 119 Finger Stick Blood Glucose 119 Insulin Dosing: Reviewed (has sliding scale aspart ordered) - Heart Failure/CT Heart Failure/CT: Troponin I < 0.05 ng/mL (<0.06) 01/16/20 20:10 EF%, ALEKSEY's, B-Blockers, Diuretics: N/A - BP Control BP Control: Blood Pressure 148/86 Blood Pressure 143/85 Blood Pressure 140/82 Blood Pressure 132/81 If elevated: Reviewed (watch, does has IVP metoprolol PRN for tachcardia) - Qtc Review If Elevated: N/A - IV to PO Switch IV Medications: N/A - Home Meds Home Med List reviewed: Reviewed (aspirin may increase the bleed risk of apixaban; consider risks/benefits and increase monitoring if used in combina tion.) Relevent Home Meds Not ordered & why?: metformin (has sliding scale aspart ordered) - Current meds Current Medication Order Review: Intervened (discontinued a dispensing machine med order) - Comments Comments/Follow Ups: watch BP, BG, mag, renal function, and for med changes
[2020-01-17] MEDS: Insulin Aspart 300 UNITS/3 ML PEN SC ×3 (11:51→22:30)
--- NOTE | 2020-01-17 12:00 | DI.RAD_ITS ---
EXAM: XR ABDOMEN FLAT UPRIGHT CLINICAL HISTORY: Nausea vomiting and abdominal pain TECHNIQUE: COMPARISON: No exams were available for comparison FINDINGS: Four views were obtained. Bowel gas pattern is unremarkable. No gross free intraperitoneal air seen on the upright view. IMPRESSION: No evidence of acute process.
--- NOTE | 2020-01-17 12:03 | PGE_ITS ---
Date of Service Date of service: 01/17/20 Time of Service: 12:03 Assessment and Plan Assessment and plan (1) Rhabdomyolysis: Status: Acute Assessment and plan: Continue IV fluid hydration monitor urine output monitor BUN/creatinine and electrolytes.Monitor daily CK levels. Qualifiers: Rhabdomyolysis type: non-traumatic Qualified Code(s): M62.82 - Rhabdomyolysis (2) Nausea and vomiting: Status: Acute Assessment and plan: We will check a KUB to rule out ileus versus partial SBO versus constipation. Will downgrade his diet to clear liquids for now and treat the nausea with Zofran. Qualifiers: Vomiting type: unspecified Vomiting Intractability: non-intractable Qualified Code(s): R11.2 - Nausea with vomiting, unspecified (3) Diabetes mellitus: Status: Acute Assessment and plan: Continue monitoring blood sugars before meals and at bedtime and cover with low-dose sliding scale insulin. His glycohemoglobin A1c was elevated at 8.4% consistent with his history of being noncompliant with his medications secondary to financial inability to pay for his medications. For now we will keep him off the metformin in light of his acute kidney injury and rhabdomyolysis. Once his kidney function recovers we may consider restarting the metformin as I do not think he will be very compliant with insulin. Qualifiers: Diabetes mellitus type: type 2 Diabetes mellitus intermediate manager insulin use: without intermediate manager use Diabetes mellitus complication status: without complication Qualified Code(s): E11.9 - Type 2 diabetes mellitus without complications (4) Acute kidney injury (nontraumatic): Status: Acute Assessment and plan: Renal functions improving. We will continue with IV fluid hydration with monitoring of his BUN and creatinine electrolytes and CK levels. (5) Paroxysmal atrial fibrillation: Status: Acute Assessment and plan: Patient presented in rapid atrial fibrillation but converted to sinus rhythm while in the emergency department after 2 L IV fluid and a single dose amiodarone. We will continue the amiodarone at 200 mg twice a day for the next 2 weeks then decrease him back to his maintenance dose 200 mg once a day. We will resume apixaban for stroke prophylaxis. Use Lopressor as needed for rapid heart rates. (6) Generalized weakness: Status: Acute Assessment and plan: Multifactorial but probably nutritional compliant with dehydration along with uncontrolled rapid atrial fibrillation. We will monitor him while we rehydrate him. We will ask physical therapy to consult on him to evaluate his gait and strength and balance. He will likely need some home health services upon discharge or possibly short-term stay in a SNF. (7) Discharge planning issues: Status: Acute Assessment and plan: Patient will likely need short-term SNF placement for rehabilitation. Will ask case management manager to look into his home situation and make sure that he has all services available to him. I will ask case management manager to also look into his insurance for coverage of his medications in order to prevent recurrent hospitalizations from inadequately treated atrial fibrillation. Subjective Subjective Interval history since last seen: Patient complains of nausea he has had emesis x3 this morning. Initially he denied abdominal pain but on examination he has some mild epigastric and periumbilical tenderness. From his rhabdomyolysis his renal function has improved. Creatinine is down to 1.38. Electrolytes are stable. His blood lactate levels normalized to 1.3. His leukocytosis has normalized to 10,000. Did have a small hard stool last night. Will check a KUB to see if he has an ileus versus a partial small bowel obstruction. Will check a repeat liver profile and check a lipase. Otherwise continue with IV fluid hydration monitor his renal function and CK levels. Exam Narrative Exam Narrative: Elderly male sitting up in his chair with his lunch in front of him but he is not been able to eat. Lungs are clear to auscultation anteriorly posteriorly he has some diminished breath sounds at the bases no rhonchi wheezes or rales. Heart regular rate and rhythm. Abdomen is distended soft with some mild epigastric and periumbilical tenderness. No guarding no rebound. Bowel sounds are hypoactive. Objective Objective Clinical Data: Abnormal lab results 01/16/20 01/16/20 01/16/20 Range/Units 11:45 11:45 11:45 WBC 18.49 H (4.4-10.8) k/cumm Hgb (13.5-17.5) g/dL MCHC 31.7 L (32.0-36.0) g/dL Absolute Neutrophils 16.75 H (1.2-6.7) k/cumm Absolute Lymphocytes 0.68 L (1.2-3.4) k/cumm Absolute Monocytes 0.98 H (0.11-0.7) k/cumm Anion Gap 15.4 H (3-11) mmol/L BUN 27 H (7-18) mg/dL Creatinine 1.77 H (0.70-1.30) mg/dL Glucose 244 H (74-106) mg/dL Hemoglobin A1c (3.8-5.6) % AST 42 H (15-37) U/L Creatine Kinase 2155 H (39-308) U/L HDL Cholesterol (40-60) mg/dL Ur Specific [place] (1.005-1.025) Urine Protein (Negative) mg/dL Urine Ketones (Negative) mg/dL Urine Blood (Negative) Urine Bilirubin (Negative) Urine RBC (0-2) HPF Urine Glucose (Negative) mg/dL 01/16/20 01/16/20 01/16/20 Range/Units 12:10 20:10 20:10 WBC (4.4-10.8) k/cumm Hgb (13.5-17.5) g/dL MCHC (32.0-36.0) g/dL Absolute Neutrophils (1.2-6.7) k/cumm Absolute Lymphocytes (1.2-3.4) k/cumm Absolute Monocytes (0.11-0.7) k/cumm Anion Gap (3-11) mmol/L BUN 26 H (7-18) mg/dL Creatinine 1.54 H (0.70-1.30) mg/dL Glucose 253 H (74-106) mg/dL Hemoglobin A1c (3.8-5.6) % AST (15-37) U/L Creatine Kinase 1915 H (39-308) U/L HDL Cholesterol (40-60) mg/dL Ur Specific [place] >= 1.030 H (1.005-1.025) Urine Protein 100 H (Negative) mg/dL Urine Ketones 80 H (Negative) mg/dL Urine Blood Moderate H (Negative) Urine Bilirubin Moderate H (Negative) Urine RBC 3-5 H (0-2) HPF Urine Glucose 500 H (Negative) mg/dL 01/17/20 01/17/20 01/17/20 Range/Units 07:53 07:53 07:53 WBC (4.4-10.8) k/cumm Hgb 12.9 L D (13.5-17.5) g/dL MCHC 31.5 L (32.0-36.0) g/dL Absolute Neutrophils 8.03 H (1.2-6.7) k/cumm Absolute Lymphocytes (1.2-3.4) k/cumm Absolute Monocytes 0.78 H (0.11-0.7) k/cumm Anion Gap (3-11) mmol/L BUN 22 H (7-18) mg/dL Creatinine 1.38 H (0.70-1.30) mg/dL Glucose 137 H D (74-106) mg/dL Hemoglobin A1c 8.4 H (3.8-5.6) % AST (15-37) U/L Creatine Kinase 1132 H (39-308) U/L HDL Cholesterol 34 L (40-60) mg/dL Ur Specific [place] (1.005-1.025) Urine Protein (Negative) mg/dL Urine Ketones (Negative) mg/dL Urine Blood (Negative) Urine Bilirubin (Negative) Urine RBC (0-2) HPF Urine Glucose (Negative) mg/dL Vital Signs Temperature 37.3 C 01/17/20 10:54 Temperature Source Tympanic 01/17/20 10:54 Pulse 84 01/17/20 10:54 Pulse Rhythm Regular 01/17/20 10:04 Pulse 64 01/16/20 16:03 Respiratory Rate 18 01/17/20 10:54 Respiratory Effort Non-Labored 01/17/20 10:04 Respiratory Depth Normal 01/17/20 10:04 Respiratory Pattern Normal 01/17/20 10:04 Blood Pressure 148/86 H 01/17/20 10:54 Blood Pressure Mean 74 01/16/20 16:02 Blood Pressure Position Supine 01/16/20 11:29 Pulse Oximetry 94 L 01/17/20 10:54 Oxygen Delivery Method Room Air 01/17/20 10:54 Oxygen Flow Rate 0 01/17/20 10:54 Pain Level 0 01/17/20 10:54 Comment 01/17/20 10:54 Intake & Output 01/16/20 01/17/20 01/17/20 23:59 11:59 23:59 Intake Total 2240 / 2240 2102.5 / 2102.5 Output Total 800 / 800 600 / 600 Balance 1440 / 1440 1502.5 / 1502.5 Weight 82.8 kg 82.4 kg Intake: IV 1999 / 1999 1802.5 / 1802.5 Oral 240 / 240 300 / 300 Output: Urine 800 / 800 600 / 600 Other: Urine Color Light Tamiko Yellow Urine Appearance Clear Clear Stool Size Small Stool Characteristics Hard Laboratory Results WBC 10.55 k/cumm (4.4-10.8) D 01/17/20 07:53 RBC 4.57 m/cumm (4.50-6.00) 01/17/20 07:53 Hgb 12.9 g/dL (13.5-17.5) L D 01/17/20 07:53 Hct 40.9 % (40.0-50.0) 01/17/20 07:53 MCV 89.5 fL (80-95) 01/17/20 07:53 MCH 28.2 pg (27.0-33.0) 01/17/20 07:53 MCHC 31.5 g/dL (32.0-36.0) L 01/17/20 07:53 RDW 13.1 % (11.8-14.1) 01/17/20 07:53 Plt Count 230 x1000/uL (130-400) 01/17/20 07:53 MPV 8.3 fL (8.0-11.0) 01/17/20 07:53 Immature Gran % 0.3 % 01/17/20 07:53 Neutrophils % 76.1 01/17/20 07:53 Lymphocytes % 14.3 01/17/20 07:53 Monocytes % 7.4 01/17/20 07:53 Eosinophils % 1.6 01/17/20 07:53 Basophils % 0.3 01/17/20 07:53 Absolute Neutrophils 8.03 k/cumm (1.2-6.7) H 01/17/20 07:53 Absolute Lymphocytes 1.51 k/cumm (1.2-3.4) 01/17/20 07:53 Absolute Monocytes 0.78 k/cumm (0.11-0.7) H 01/17/20 07:53 Absolute Eosinophils 0.17 k/cumm (0.0-0.7) 01/17/20 07:53 Absolute Basophils 0.03 k/cumm (0.0-0.2) 01/17/20 07:53 PT 10.9 sec (9.3-11.0) 01/16/20 11:45 INR 1.1 (0.9-1.1) 01/16/20 11:45 APTT 24.7 sec (21.0-31.4) 01/16/20 11:45 VBG pH 7.33 (7.35-7.45) L 01/16/20 11:45 VBG pCO2 40 mm/Hg (34-47) 01/16/20 11:45 VBG pO2 32 mm/Hg (28-44) 01/16/20 11:45 VBG HCO3 21 mmol/L (22-28) L 01/16/20 11:45 VBG Total CO2 19 mmol/L (22-29) L 01/16/20 11:45 VBG O2 Saturation 59 % (70-80) L 01/16/20 11:45 VBG Base Excess -5.1 mmol/L (-3-3) L 01/16/20 11:45 Sodium 143 mmol/L (136-145) 01/17/20 07:53 Potassium 3.7 mmol/L (3.5-5.1) 01/17/20 07:53 Chloride 107 mmol/L (98-107) 01/17/20 07:53 Carbon Dioxide 27.8 mmol/L (21.0-32.0) 01/17/20 07:53 Anion Gap 8.2 mmol/L (3-11) 01/17/20 07:53 BUN 22 mg/dL (7-18) H 01/17/20 07:53 Creatinine 1.38 mg/dL (0.70-1.30) H 01/17/20 07:53 Estimated GFR/1.73 m2 50.94 (mL/min/1.73m2) 01/17/20 07:53 Glucose 137 mg/dL (74-106) H D 01/17/20 07:53 Hemoglobin A1c 8.4 % (3.8-5.6) H 01/17/20 07:53 Lactate 1.3 mmol/L (0.6-1.4) 01/17/20 07:53 Calcium 8.6 mg/dL (8.5-10.1) 01/17/20 07:53 Magnesium 2.0 mg/dL (1.8-2.4) 01/16/20 11:45 Total Bilirubin 1.0 mg/dL (0.2-1.0) 01/16/20 11:45 AST 42 U/L (15-37) H 01/16/20 11:45 ALT 19 U/L (16-63) 01/16/20 11:45 Alkaline Phosphatase 80 U/L (46-116) 01/16/20 11:45 Creatine Kinase 1132 U/L (39-308) H 01/17/20 07:53 Troponin I < 0.05 ng/mL (<0.06) 01/16/20 20:10 Total Protein 7.0 g/dL (6.4-8.2) 01/16/20 11:45 Albumin 3.5 g/dL (3.4-5.0) 01/16/20 11:45 Triglycerides 86 mg/dL (<150) 01/17/20 07:53 Total Cholesterol 133 mg/dL (<200) 01/17/20 07:53 LDL Cholesterol, Calc 82 mg/dL (<100) 01/17/20 07:53 HDL Cholesterol 34 mg/dL (40-60) L 01/17/20 07:53 Lipase 53 U/L (73-393) 01/16/20 11:45 Procalcitonin < 0.1 ng/mL 01/16/20 11:45 TSH 1.79 uIU/mL (0.36-3.74) 01/16/20 11:45 Urine Color Yellow (Yellow) 01/16/20 12:10 Urine Clarity Clear (Clear) 01/16/20 12:10 Urine pH 5.5 (5-8) 01/16/20 12:10 Ur Specific [place] >= 1.030 (1.005-1.025) H 01/16/20 12:10 Urine Protein 100 mg/dL (Negative) H 01/16/20 12:10 Urine Ketones 80 mg/dL (Negative) H 01/16/20 12:10 Urine Blood Moderate (Negative) H 01/16/20 12:10 Urine Nitrite Negative (Negative) 01/16/20 12:10 Urine Bilirubin Moderate (Negative) H 01/16/20 12:10 Urine Urobilinogen 0.2 EU/dL (Up TO 0.2) 01/16/20 12:10 Ur Leukocyte Esterase Negative (Negative) 01/16/20 12:10 Urine RBC 3-5 HPF (0-2) H 01/16/20 12:10 Urine WBC 3-5 HPF (0-5) 01/16/20 12:10 Ur Epithelial Cells Rare HPF (Negative) 01/16/20 12:10 Urine Crystals Negative HPF (Negative) 01/16/20 12:10 Urine Bacteria Few HPF (Negative) 01/16/20 12:10 Urine Casts 3-5 coarse granular LPF (Negative) 01/16/20 12:10 Urine Mucus Moderate (Negative) 01/16/20 12:10 Ur Culture Indicated? No 01/16/20 12:10 Urine Glucose 500 mg/dL (Negative) H 01/16/20 12:10 COVID-19 PCR Negative (Negative) 01/16/20 12:40 Nasopharyn COVID-19 PCR Not Applicable 01/16/20 12:40 Ref Test [facility] 01/16/20 12:40
[2020-01-17 12:31] LABS: Lipase 51 U/L (73-393)
[2020-01-17 12:36] LABS: ALT 19 U/L (16-63); AST 43 U/L (15-37); Albumin 2.7 g/dL (3.4-5.0); Alkaline Phosphatase 56 U/L (46-116); Bilirubin, Direct 0.25 mg/dL (0.00-0.20); Bilirubin, Total 0.8 mg/dL (0.2-1.0); Total Protein 5.6 g/dL (6.4-8.2)
[2020-01-17] MEDS: Trimethobenzamide 200 MG/2 ML VIAL IM (13:43)
[2020-01-17] MEDS: Normal Saline Flush 10 ML SYR IVP (13:43)
[2020-01-17] MEDS: Pravastatin 20 MG TAB PO (22:30)
[2020-01-17] MEDS: Acetaminophen 325 MG TAB PO (23:05)
[2020-01-18] VITALS (8 sets, daily range): BP systolic 117–134; BP diastolic 71–81; PULSE 74–124; RESP 15–19; TEMP 36.7–38.8; O2SAT 92–95
[2020-01-18] MEDS: Lactated Ringers 1,000 ML 150 ML IV (03:26)
[2020-01-18 07:05] LABS: Anion Gap 8.6 mmol/L (3-11); BUN 25 mg/dL (7-18); CO2 26.4 mmol/L (21.0-32.0); CREATININE 1.81 mg/dL (0.70-1.30); Calcium 8.5 mg/dL (8.5-10.1); Chloride 105 mmol/L (98-107); Creatine Kinase 691 U/L (39-308); Estimated GFR 37.25 (mL/min/1.73m2); Glucose 153 mg/dL (74-106); Potassium 4.1 mmol/L (3.5-5.1); Sodium 140 mmol/L (136-145)
[2020-01-18] MEDS: Multivitamin w/Minerals TAB 1 TAB PO ×2 (08:16→20:02)
[2020-01-18] MEDS: Magnesium Oxide 400 MG TAB 800 MG PO (08:16)
[2020-01-18] MEDS: Aspirin E.C. 81 MG TABEC PO (08:16)
[2020-01-18] MEDS: Cholecalciferol (Vitamin D3) 1,000 UNIT TAB 1000 UNITS PO (08:16)
[2020-01-18] MEDS: Cyanocobalamin 500 MCG TAB 1000 MCG PO (08:16)
[2020-01-18] MEDS: Amiodarone 200 MG TAB PO ×2 (08:16→18:20)
[2020-01-18] MEDS: Apixaban 5 MG TAB PO ×2 (08:16→20:02)
[2020-01-18] MEDS: Omeprazole 20 MG CAPCR PO (08:16)
[2020-01-18] MEDS: Lactated Ringers 1,000 ML 75 ML IV (10:17)
[2020-01-18 10:52] LABS: Abs Immature Grans 0.05 k/cumm (0.0-0.09); Absolute Basophil Count 0.01 k/cumm (0.0-0.2); Absolute Eosinophil Count 0.07 k/cumm (0.0-0.7); Absolute Lymphocyte Count 0.77 k/cumm (1.2-3.4); Absolute Monocyte Count 0.91 k/cumm (0.11-0.7); Absolute Neutrophil Count 12.16 k/cumm (1.2-6.7); Basophils % 0.1; Eosinophils % 0.5; HCT 38.5 % (40.0-50.0); HGB 12.4 g/dL (13.5-17.5); Immature Grans % 0.4 %; Lymphocytes % 5.5; Mean Corp. HGB Concentration 32.2 g/dL (32.0-36.0); Mean Corpuscular Hemoglobin 28.4 pg (27.0-33.0); Mean Corpuscular Volume 88.3 fL (80-95); Mean Platelet Volume 8.2 fL (8.0-11.0); Monocytes % 6.5; Platelet Count 234 x1000/uL (130-400); RBC 4.36 m/cumm (4.50-6.00); RBC Distribution Width 12.7 % (11.8-14.1); White Blood Cell Count 13.98 k/cumm (4.4-10.8)
[2020-01-18] MEDS: Insulin Aspart 300 UNITS/3 ML PEN SC ×3 (11:58→22:02)
--- NOTE | 2020-01-18 14:30 | PT.INTREAT ---
Date of service: 01/18/20 Time of Service: 14:30 PT Notes Visit Reasons: CHEST PAIN Inpatient Physical Therapy Treatment Note [facility] Date: 01/18/2020 SUBJECTIVE: Pt reports that he feels as though his knees want to buckle when he is standing for a long time. OBJECTIVE: [] BED MOBILITY/TRANSFERS Sit-stand: min assist in am and mod assist in pm. Stand-sit: CGA GAIT Assistive Device: fww Weight bearing: full Assist: CGA Distance: 15'x4 in am and 25' in pm Deviation: cues to stay close to walker as he tends to push it too far ahead of him. THEREX: global LE strength and stabilization during both am and pm sessions, see flowsheet for specific ex details. ASSESSMENT: tolerated session well. Needs cues to keep him focused. C/o knee buckling during pm ambulation. Safety cues needed with walker use and remembering to use arms to sit down in chair. PLAN: continue to progress per PT POC> TREATMENT CODE/TIME:20 min in am and 20 min in pm. [id number]
--- NOTE | 2020-01-18 15:36 | PDOC.CMPRO ---
- If Service Date Differs Date of service: 01/18/20 Time of Service: 15:36 Care Management Progress Note S/O:David was sitting up in a chair when CM met with him. He was pleasant and engaged readily with CM. David shared that he has had difficulty paying for his medications and has not taken them for 8 or 9 months. He does not believe that he has any Part D Medicare for drug coverage. In conversation CM learned that David is a with 12 years in the [employer] and served in [facility] [employer]. CM left a voicemail for the Marketing Instructor at the [facility] in [place] to explore [facility]. CM also sent a referral to [place] for Options Counseling, Meals on Wheels and possibly a Life Alert. In addition, a referral was made to [facility] to determine if David has had [facility] in the past and to try to establish, or re-establish him with the program. CM will continue to follow. A: David is a 70 year old man admitted on 01/16/20 with rhabdomyolysis P: David will likely discharge home with new home health services. He will follow up with his PCP and possibly with the [facility] in [place]. CM has sent referrals to the [facility] as well as several community agencies to address David's challenges with paying for his medications. CM will continue to support David and his discharge planning needs.
--- NOTE | 2020-01-18 17:45 | RT.EKG_ITS ---
APPROVED REPORT Exam: Resting ECG Patient Location: I HR:140 bpm ECG Measurements Heart Rate 140 AXIS MO [id number] P [id number] QRSd 77 QRS 11 QT 276 T 212 QTc 421 <Conclusion> Atrial fibrillation...? atrial activity Low voltage, precordial leads...precordial leads <1.0mV Repolarization abnormality, prob rate related...ST dep, T neg, tachycardia
[2020-01-18] MEDS: Metoprolol 5 MG/5 ML VIAL IVP (18:03)
--- NOTE | 2020-01-18 18:12 | PGE_ITS ---
Date of Service Date of service: 01/18/20 Time of Service: 18:12 Assessment and Plan Assessment and plan (1) Paroxysmal atrial fibrillation: Status: Acute Assessment and plan: Patient had been in sinus rhythm since admission from the ER where he converted from rapid atrial fibrillation into sinus rhythm. However this afternoon he is gone back into a rapid atrial fibrillation and seems to be responding to IV Lopressor. I have increased his loading dose of amiodarone to 400 mg twice a day. Again add some scheduled doses of Lopressor as well. He remains on apixaban for anticoagulation.. (2) Acute kidney injury (nontraumatic): Status: Acute Assessment and plan: Creatinine jaime today rising to 1.8 however his urine output has been adequate although not great. He has had 830 mL urine output throughout the course of today. I will increase his IV fluid rate. (3) Rhabdomyolysis: Status: Acute Assessment and plan: Continue IV fluid hydration monitor urine output monitor BUN/creatinine and electrolytes.Monitor daily CK levels. Qualifiers: Rhabdomyolysis type: non-traumatic Qualified Code(s): M62.82 - Rhabdomyolysis (4) Nausea and vomiting: Status: Resolved Assessment and plan: KUB came back negative. Will resume regular diet. Qualifiers: Vomiting type: unspecified Vomiting Intractability: non-intractable Qualified Code(s): R11.2 - Nausea with vomiting, unspecified (5) Diabetes mellitus: Status: Acute Assessment and plan: Blood sugars are better today with adjustment of his sliding scale. Fasting glucose was 123 while his other blood glucose readings today have been 187-203. This is partially due to the fact that he was downgraded to clear liquid diet yesterday. Qualifiers: Diabetes mellitus type: type 2 Diabetes mellitus custodial insulin use: without custodial use Diabetes mellitus complication status: without complication Qualified Code(s): E11.9 - Type 2 diabetes mellitus without complications (6) Generalized weakness: Status: Acute Assessment and plan: Multifactorial but probably nutritional compliant with dehydration along with uncontrolled rapid atrial fibrillation. We will monitor him while we rehydrate him. We will ask physical therapy to consult on him to evaluate his gait and strength and balance. He will likely need some home health services upon discharge or possibly short-term stay in a SNF. (7) Discharge planning issues: Status: Acute Assessment and plan: Patient will likely need short-term SNF placement for rehabilitation. Will ask [employer] to look into his home situation and make sure that he has all services available to him. I will ask [employer] to also look into his insurance for coverage of his medications in order to prevent re current hospitalizations from inadequately treated atrial fibrillation. Subjective Subjective Interval history since last seen: Patient went back into rapid atrial fibrillation this afternoon from sinus rhythm. He is responding to IV Lopressor. I am going to increase his loading dose of amiodarone from 200 mg p.o. twice daily to 400 mg p.o. twice daily. Yesterday evening he had a low- grade fever 38.2 for which I was not told about by the investor relations director nor by nursing staff. He has been afebrile all day long until this afternoon when he developed a temperature of 38.8. We will get him worked him up for occult infection. His Bello is draining some blood-tinged to it so I suspect a UTI although this may be secondary to his rhabdomyolysis. I will obtain blood cultures and urine cultures and check a chest x-ray and start him empirically on Rocephin but will also add doxycycline in case this is a community-acquired pneumonia since he was found down at home and may have developed some atelectasis and pneumonia. With respect to his renal function his creatinine climbed a bit today to 1.81 which is a significant rise from yesterday when he went down to 1.38. He presented with a BUN of 26 and creatinine 1.54 on admission and I expected this to go up with his rhabdomyolysis. With respect to his rhabdomyolysis is CK is down to 691. He continues to receive IV fluid hydration although I have cut the rate down to 75 an hour. He denies any complaints denies any shortness of breath or discomfort. Exam Narrative Exam Narrative: Elderly male who appears to be older than his stated age of 70. He is alert he is oriented to place and circumstance but seems a little bit confused. Lungs are clear to auscultation anteriorly posteriorly has diminished breath sounds. Heart is irregularly irregular and tachycardic. Abdomen soft and nontender. Extremity with abrasions over his knees he also has some abrasions over his chest but there is no open ulcers or sores is all appear to be closed there is no sign of cellulitis over his legs or his arms. Bello catheter is draining yellow urine with blood tinged with few clots. Objective Objective Clinical Data: Abnormal lab results 01/18/20 01/18/20 Range/Units 06:25 10:45 WBC 13.98 H D (4.4-10.8) k/cumm RBC 4.36 L (4.50-6.00) m/cumm Hgb 12.4 L (13.5-17.5) g/dL Hct 38.5 L (40.0-50.0) % Absolute Neutrophils 12.16 H (1.2-6.7) k/cumm Absolute Lymphocytes 0.77 L (1.2-3.4) k/cumm Absolute Monocytes 0.91 H (0.11-0.7) k/cumm BUN 25 H (7-18) mg/dL Creatinine 1.81 H (0.70-1.30) mg/dL Glucose 153 H (74-106) mg/dL Creatine Kinase 691 H (39-308) U/L Vital Signs Temperature 37.3 C 01/18/20 15:36 Temperature Source Temporal Artery Scan 01/18/20 15:36 Pulse 124 H 01/18/20 18:03 Pulse Rhythm Regular 01/18/20 10:27 Pulse 64 01/16/20 16:03 Respiratory Rate 19 01/18/20 15:36 Respiratory Effort 01/18/20 10:27 Respiratory Depth Normal 01/18/20 10:27 Respiratory Pattern Normal 01/18/20 10:27 Blood Pressure 127/79 01/18/20 15:36 Blood Pressure Mean 74 01/16/20 16:02 Blood Pressure Position Supine 01/16/20 11:29 Pulse Oximetry 94 L 01/18/20 15:36 Oxygen Delivery Method Room Air 01/18/20 15:36 Oxygen Flow Rate 0 01/18/20 15:36 Pain Level 2 01/18/20 15:36 Comment 01/17/20 10:54 Intake & Output 01/17/20 01/18/20 01/18/20 23:59 11:59 23:59 Intake Total 2412.5 / 4515.0 2210 / 2210 Output Total 1050 / 1750 380 / 380 Balance 1362.5 / 2765.0 2210 / 1830 -380 / 1830 Weight 91.2 kg Intake: IV 1932.5 / 3735.0 1999 Oral 480 / 780 210 / 210 Output: Urine 950 / 1550 380 / 380 Emesis 100 / 200 Other: Urine Color Pale Light Tamiko Light Tamiko Urine Appearance Sediment Clear Sediment Sediment Hematuria Stool Size Moderate Stool Characteristics Hard Brown Emesis Description None Laboratory Results WBC 13.98 k/cumm (4.4-10.8) H D 01/18/20 10:45 RBC 4.36 m/cumm (4.50-6.00) L 01/18/20 10:45 Hgb 12.4 g/dL (13.5-17.5) L 01/18/20 10:45 Hct 38.5 % (40.0-50.0) L 01/18/20 10:45 MCV 88.3 fL (80-95) 01/18/20 10:45 MCH 28.4 pg (27.0-33.0) 01/18/20 10:45 MCHC 32.2 g/dL (32.0-36.0) 01/18/20 10:45 RDW 12.7 % (11.8-14.1) 01/18/20 10:45 Plt Count 234 x1000/uL (130-400) 01/18/20 10:45 MPV 8.2 fL (8.0-11.0) 01/18/20 10:45 Immature Gran % 0.4 % 01/18/20 10:45 Neutrophils % 87.0 01/18/20 10:45 Lymphocytes % 5.5 01/18/20 10:45 Monocytes % 6.5 01/18/20 10:45 Eosinophils % 0.5 01/18/20 10:45 Basophils % 0.1 01/18/20 10:45 Absolute Neutrophils 12.16 k/cumm (1.2-6.7) H 01/18/20 10:45 Absolute Lymphocytes 0.77 k/cumm (1.2-3.4) L 01/18/20 10:45 Absolute Monocytes 0.91 k/cumm (0.11-0.7) H 01/18/20 10:45 Absolute Eosinophils 0.07 k/cumm (0.0-0.7) 01/18/20 10:45 Absolute Basophils 0.01 k/cumm (0.0-0.2) 01/18/20 10:45 PT 10.9 sec (9.3-11.0) 01/16/20 11:45 INR 1.1 (0.9-1.1) 01/16/20 11:45 APTT 24.7 sec (21.0-31.4) 01/16/20 11:45 VBG pH 7.33 (7.35-7.45) L 01/16/20 11:45 VBG pCO2 40 mm/Hg (34-47) 01/16/20 11:45 VBG pO2 32 mm/Hg (28-44) 01/16/20 11:45 VBG HCO3 21 mmol/L (22-28) L 01/16/20 11:45 VBG Total CO2 19 mmol/L (22-29) L 01/16/20 11:45 VBG O2 Saturation 59 % (70-80) L 01/16/20 11:45 VBG Base Excess -5.1 mmol/L (-3-3) L 01/16/20 11:45 Sodium 140 mmol/L (136-145) 01/18/20 06:25 Potassium 4.1 mmol/L (3.5-5.1) 01/18/20 06:25 Chloride 105 mmol/L (98-107) 01/18/20 06:25 Carbon Dioxide 26.4 mmol/L (21.0-32.0) 01/18/20 06:25 Anion Gap 8.6 mmol/L (3-11) 01/18/20 06:25 BUN 25 mg/dL (7-18) H 01/18/20 06:25 Creatinine 1.81 mg/dL (0.70-1.30) H 01/18/20 06:25 Estimated GFR/1.73 m2 37.25 (mL/min/1.73m2) 01/18/20 06:25 Glucose 153 mg/dL (74-106) H 01/18/20 06:25 Hemoglobin A1c 8.4 % (3.8-5.6) H 01/17/20 07:53 Lactate 1.3 mmol/L (0.6-1.4) 01/17/20 07:53 Calcium 8.5 mg/dL (8.5-10.1) 01/18/20 06:25 Magnesium 2.0 mg/dL (1.8-2.4) 01/16/20 11:45 Total Bilirubin 0.8 mg/dL (0.2-1.0) 01/17/20 07:53 Conjugated Bilirubin 0.25 mg/dL (0.00-0.20) H 01/17/20 07:53 AST 43 U/L (15-37) H 01/17/20 07:53 ALT 19 U/L (16-63) 01/17/20 07:53 Alkaline Phosphatase 56 U/L (46-116) 01/17/20 07:53 Creatine Kinase 691 U/L (39-308) H 01/18/20 06:25 Troponin I < 0.05 ng/mL (<0.06) 01/16/20 20:10 Total Protein 5.6 g/dL (6.4-8.2) L 01/17/20 07:53 Albumin 2.7 g/dL (3.4-5.0) L 01/17/20 07:53 Triglycerides 86 mg/dL (<150) 01/17/20 07:53 Total Cholesterol 133 mg/dL (<200) 01/17/20 07:53 LDL Cholesterol, Calc 82 mg/dL (<100) 01/17/20 07:53 HDL Cholesterol 34 mg/dL (40-60) L 01/17/20 07:53 Lipase 51 U/L (73-393) 01/17/20 07:53 Procalcitonin < 0.1 ng/mL 01/16/20 11:45 TSH 1.79 uIU/mL (0.36-3.74) 01/16/20 11:45 Urine Color Yellow (Yellow) 01/16/20 12:10 Urine Clarity Clear (Clear) 01/16/20 12:10 Urine pH 5.5 (5-8) 01/16/20 12:10 Ur Specific [place] >= 1.030 (1.005-1.025) H 01/16/20 12:10 Urine Protein 100 mg/dL (Negative) H 01/16/20 12:10 Urine Ketones 80 mg/dL (Negative) H 01/16/20 12:10 Urine Blood Moderate (Negative) H 01/16/20 12:10 Urine Nitrite Negative (Negative) 01/16/20 12:10 Urine Bilirubin Moderate (Negative) H 01/16/20 12:10 Urine Urobilinogen 0.2 EU/dL (Up TO 0.2) 01/16/20 12:10 Ur Leukocyte Esterase Negative (Negative) 01/16/20 12:10 Urine RBC 3-5 HPF (0-2) H 01/16/20 12:10 Urine WBC 3-5 HPF (0-5) 01/16/20 12:10 Ur Epithelial Cells Rare HPF (Negative) 01/16/20 12:10 Urine Crystals Negative HPF (Negative) 01/16/20 12:10 Urine Bacteria Few HPF (Negative) 01/16/20 12:10 Urine Casts 3-5 coarse granular LPF (Negative) 01/16/20 12:10 Urine Mucus Moderate (Negative) 01/16/20 12:10 Ur Culture Indicated? No 01/16/20 12:10 Urine Glucose 500 mg/dL (Negative) H 01/16/20 12:10 COVID-19 PCR Negative (Negative) 01/16/20 12:40 Nasopharyn COVID-19 PCR Not Applicable 01/16/20 12:40 Ref Test Perform Site [facility] lab 01/16/20 12:40 Patient ABO/Rh O Negative 01/16/20 11:45 Antibody Screen Positive 01/16/20 11:45 Antibody Identification Cold Agglutinin 01/16/20 11:45
--- NOTE | 2020-01-18 18:25 | NUR.NOTE ---
Nursing Note: STEEL WORKER reported that patient converted to A. Fib about 45 minutes ago. STAT EKG was done. Pt denied symptoms. Notified MD Israel about AF. IV lopressor was given. Pt remained in the 110-120s. Temperature was taken was 38.8 C. MD Israel aware and ordering stuff now. Continuing to monitor.
--- NOTE | 2020-01-18 18:28 | DI.RAD_ITS ---
EXAM: XR CHEST 2V PA LATERAL CLINICAL HISTORY: Fever TECHNIQUE: COMPARISON: CR XR CHEST 2V PA LATERAL from 12/29/2018 FINDINGS: Heart is not enlarged. There is a poor inspiration. There is question slight new streaky intrapulmo nary opacities in the lung bases, question interval development of atelectasis or small of focal area s of consolidation. Some possible small bilateral pleural effusions may be present. IMPRESSION: Question new minor bibasilar areas of atelectasis and/or consolidation. Appropriate follow-up studie s requested.
--- NOTE | 2020-01-18 18:58 | DI.VRAD_ITS ---
PROCEDURE INFORMATION: Exam: XR Chest, 2 Views Exam date and time: 01/18/2020 6:42 PM Age: 70 years old Clinical indication: Fever TECHNIQUE: Imaging protocol: XR of the chest Views: 2 views. COMPARISON: SC XR CHEST 2V PA LATERAL 12/29/2018 6:32 PM FINDINGS: Lungs: No pulmonary consolidation is seen. Pleural space: No pleural effusion or pneumothorax is demonstrated. Heart/Mediastinum: The heart is normal in size. There is central vascular congestion. Bones/joints: There are old left-sided rib fractures, also seen on the comparison exam. There is thoracic kyphosis. IMPRESSION: No active disease is seen in the chest. Dictated and Authenticated by: Keith Patel MD. Ordering:[facility] Israel Moran MD
[2020-01-18 19:49] LABS: Bilirubin Negative (Negative); Blood Large (Negative); Clarity Clear (Clear); Glucose 500 mg/dL (Negative); Ketones Negative (Negative); Leukocyte Esterase Negative (Negative); Nitrite Negative (Negative); Urobilinogen 0.2 EU/dL (Up TO 0.2); pH 5.5 (5-8)
[2020-01-18 19:51] LABS: Abs Immature Grans 0.05 k/cumm (0.0-0.09); Absolute Basophil Count 0.03 k/cumm (0.0-0.2); Absolute Eosinophil Count 0.18 k/cumm (0.0-0.7); Absolute Lymphocyte Count 0.87 k/cumm (1.2-3.4); Absolute Monocyte Count 0.83 k/cumm (0.11-0.7); Basophils % 0.2; Eosinophils % 1.4; HCT 40.8 % (40.0-50.0); HGB 13.1 g/dL (13.5-17.5); Immature Grans % 0.4 %; Lymphocytes % 6.6; Mean Corp. HGB Concentration 32.1 g/dL (32.0-36.0); Mean Corpuscular Hemoglobin 28.4 pg (27.0-33.0); Mean Corpuscular Volume 88.5 fL (80-95); Mean Platelet Volume 8.7 fL (8.0-11.0); Monocytes % 6.3; Neutrophils % 85.1; Platelet Count 255 x1000/uL (130-400); RBC 4.61 m/cumm (4.50-6.00); RBC Distribution Width 12.8 % (11.8-14.1); White Blood Cell Count 13.11 k/cumm (4.4-10.8)
[2020-01-18 19:56] LABS: Absolute Neutrophil Count 11.16 k/cumm (1.2-6.7)
[2020-01-18 19:59] LABS: C-Reactive Protein 11.58 mg/dL (0.0-0.3)
[2020-01-18 20:03] LABS: Bacteria Rare HPF (Negative); C & S Indicated? No; Crystals Negative HPF (Negative); Epithelial Cells Negative HPF (Negative); Mucus Negative (Negative); RBC >50 HPF (0-2); WBC 0-2 HPF (0-5)
[2020-01-18 20:31] LABS: Procalcitonin 0.1 ng/mL
[2020-01-18 20:35] LABS: ESR 20 mm/hr (1-20)
[2020-01-18] MEDS: Pravastatin 20 MG TAB PO (21:35)
[2020-01-18] MEDS: DOXYCYCLINE 100 MG in Normal Saline 100 ML IVPB (21:36)
[2020-01-18] MEDS: Amiodarone 200 MG TAB 400 MG PO (21:37)
[2020-01-19] MEDS: Normal Saline 500 ML IV (01:00)
[2020-01-19] MEDS: DOXYCYCLINE 100 MG in Normal Saline 100 ML IVPB ×2 (01:00→12:24)
[2020-01-19] MEDS: Lactated Ringers 1,000 ML 100 ML IV ×2 (02:05→12:26)
[2020-01-19 04:22] VITALS: BP 117/72; PULSE 77; RESP 20; TEMP 36.1; O2SAT 96
[2020-01-19 07:00] LABS: Abs Immature Grans 0.04 k/cumm (0.0-0.09); Absolute Basophil Count 0.03 k/cumm (0.0-0.2); Absolute Eosinophil Count 0.42 k/cumm (0.0-0.7); Absolute Lymphocyte Count 1.17 k/cumm (1.2-3.4); Absolute Monocyte Count 0.79 k/cumm (0.11-0.7); Absolute Neutrophil Count 6.75 k/cumm (1.2-6.7); Basophils % 0.3; Eosinophils % 4.6; HCT 39.1 % (40.0-50.0); HGB 12.3 g/dL (13.5-17.5); Immature Grans % 0.4 %; Lymphocytes % 12.7; Mean Corp. HGB Concentration 31.5 g/dL (32.0-36.0); Mean Corpuscular Hemoglobin 28.1 pg (27.0-33.0); Mean Corpuscular Volume 89.5 fL (80-95); Mean Platelet Volume 8.8 fL (8.0-11.0); Monocytes % 8.6; Neutrophils % 73.4; Platelet Count 236 x1000/uL (130-400); RBC 4.37 m/cumm (4.50-6.00); RBC Distribution Width 12.7 % (11.8-14.1)
[2020-01-19 07:27] LABS: Anion Gap 6.7 mmol/L (3-11); BUN 16 mg/dL (7-18); CO2 29.3 mmol/L (21.0-32.0); CREATININE 1.46 mg/dL (0.70-1.30); Calcium 8.4 mg/dL (8.5-10.1); Chloride 108 mmol/L (98-107); Creatine Kinase 268 U/L (39-308); Estimated GFR 47.73 (mL/min/1.73m2); Glucose 119 mg/dL (74-106); Potassium 3.4 mmol/L (3.5-5.1); Sodium 144 mmol/L (136-145)
[2020-01-19] MEDS: Multivitamin w/Minerals TAB 1 TAB PO ×2 (07:41→20:12)
[2020-01-19] MEDS: Magnesium Oxide 400 MG TAB 800 MG PO (07:41)
[2020-01-19] MEDS: Cholecalciferol (Vitamin D3) 1,000 UNIT TAB 1000 UNITS PO (07:41)
[2020-01-19] MEDS: Omeprazole 20 MG CAPCR PO (07:41)
[2020-01-19] MEDS: Amiodarone 200 MG TAB 400 MG PO ×2 (07:41→20:11)
[2020-01-19] MEDS: Cyanocobalamin 500 MCG TAB 1000 MCG PO (07:41)
[2020-01-19] MEDS: Apixaban 5 MG TAB PO ×2 (07:41→20:12)
[2020-01-19] MEDS: Aspirin E.C. 81 MG TABEC PO (07:41)
[2020-01-19 08:03] VITALS: BP 149/87; PULSE 75; RESP 16; TEMP 36.9; O2SAT 95
[2020-01-19 10:11] LABS: Magnesium 1.9 mg/dL (1.8-2.4)
--- NOTE | 2020-01-19 10:32 | PDOC.CMPRO ---
- If Service Date Differs Date of service: 01/19/20 Time of Service: 10:32 Care Management Progress Note S/O: David was sitting up in a chair when CM met with him. He appeared to be in good spirits and was agreeable to conversation. David continues to improve. His CK and WBC are now within normal limits and he states he is feeling better, however last evening he had a fever of 38.8 C. ( 101.8 F). David denies any new symptoms. BELLA received a call back from Cherise Ng at the [facility] in [place], who states that David applied for services in 2018. CM [facility] this morning and hopefully David will be able to meet via Telehealth with a [facility] provider soon. He should be able to receive medication benefits after the visit occurs, according to the [facility]. BELLA is awaiting a call back from Maria Garza at [facility], with whom a message was left. A: David is a 70 year old man admitted on 01/16/20 with rhabdomyolysis P: David will likely discharge home with new home health services. He will follow up with his PCP and possibly with the [facility] [place]. CM has sent referrals to the [facility] as well as several community agencies to address David's challenges with paying for his medications. CM will continue to support David and his discharge planning needs.
[2020-01-19] MEDS: Potassium Chloride 20 MEQ TABCR 40 MEQ PO (10:38)
[2020-01-19 11:05] VITALS: BP 145/85; PULSE 79; RESP 18; TEMP 36.7; O2SAT 95
--- NOTE | 2020-01-19 11:25 | W.INDIABCONS ---
Date of service: 01/19/20 Time of Service: 11:25 Diabetes Inpatient Consult DESCRIPTION/ASSESSMENT: Met with David today for Inpatient Diabetic Consult. David reports that he was not taking his metformin as perscribed as he did not have the money to pay the co pay. He reports eating only once daily- reports eating mostly cookies and pudding. David was admitted with A fib, Rhabdomyolysis, PMH: obesity, Dm, depression, hx of pressure wounds and dehydration. Recent A1C (01/17/20) = 8.4% indicates poorly controlled DM in last 90 days. He does not appear to be able to manage his own care at this time. Social work reports that David will be hooked into services when he returns home and will have assistance with co pays and meals on wheels. He will also have home health visit weekly. At this time, David was not ready for diet education, having his medications and food at home is first priority. I provided David with my contact information and meal planning information if needs more information in future. PLAN: Social work to assist David in getting financial assistance with medications/copays so he is able to take meds as perscribed for his DM. Social work has made referral to Meals on Wheels to provide at least 1 meal daily to supplement diet Time Spent in Nutritional Counseling and Treatment: 5 min spent face to face
--- NOTE | 2020-01-19 12:14 | PT.INTREAT ---
Date of service: 01/19/20 Time of Service: 12:14 PT Notes Visit Reasons: CHEST PAIN Inpatient Physical Therapy Treatment Note [facility] Date: 01/19/20 PRECAUTIONS: Fall SUBJECTIVE: Sung is agreeable to participating in PT. OBJECTIVE: PAIN: Patient c/o B knee pain with ther ex L>R BED MOBILITY/TRANSFERS Supine-sit: SBA with HOB at 40 degrees Sit-supine: SBA with HOB flat Sit-stand: CGA in a.m.; SBA in p.m. Stand-sit: CGA Bed-Chair: CGA Chair-bed: CGA GAIT Assistive Device: FWW Weight bearing: Full Assist: CGA Distance: 30' x2 in a.m.; 45' x2 in p.m. Deviation: Seated rest THEREX: Patient completed a LE strengthening program, in a seated position in a.m. and in a standing position in p.m., as per flow sheet. ASSESSMENT: Patient tolerated session with c/o increased fatigue following activity. He was able to tolerate a slight progression in gait distance. Patient would benefit from continued global strengthening for improved mobility. PLAN: Continue with PT's POC TREATMENT CODE/TIME: Session 1: 30 minutes; [id number], [id number] Session 2: 25 minutes; [id number], [id number]
[2020-01-19] MEDS: Insulin Aspart 300 UNITS/3 ML PEN SC ×3 (12:25→21:35)
[2020-01-19] MEDS: Normal Saline Flush 10 ML SYR IVP (12:39)
--- NOTE | 2020-01-19 14:24 | PGE_ITS ---
Date of Service Date of service: 01/19/20 Time of Service: 14:24 Assessment and Plan Assessment and plan (1) Paroxysmal atrial fibrillation: Status: Acute Assessment and plan: Patient remains in sinus rhythm after a brief return to atrial fibrillation last night. Continue with amiodarone loading dose of 4 mg twice a day along with anticoagulation with apixaban. Use Lopressor prn sustained heart rates creatinine 120 bpm. Continue telemetry monitoring (2) UTI (urinary tract infection): Status: Acute Assessment and plan: Gram-positive cocci growing 100,000 colonies in his urine culture. Presumably this is secondary to enterococcus. We will start him on Augmentin Qualifiers: Urinary tract infection type: acute cystitis (3) Acute kidney injury (nontraumatic): Status: Acute Assessment and plan: Continues to improve. Daily monitoring of BMP. At this time he is out of the danger from his rhabdomyolysis as his CK has returned to normal. I think we can discontinue his Bello catheter particularly since he has a UTI (4) Rhabdomyolysis: Status: Resolved Assessment and plan: Now that his renal function is returning towards normal I think we can back off his IV fluids. Qualifiers: Rhabdomyolysis type: non-traumatic Qualified Code(s): M62.82 - Rhabdomyolysis (5) Nausea and vomiting: Status: Resolved Assessment and plan: Regular diabetic diet resumed. Qualifiers: Vomiting type: unspecified Vomiting Intractability: non-intractable Qualified Code(s): R11.2 - Nausea with vomiting, unspecified (6) Diabetes mellitus: Status: Acute Assessment and plan: Blood sugars are improving. Fasting glucose 126. Lunchtime blood sugars 228. We will continue to monitor and adjust sliding sc kasia. Continue to hold his metformin in light of his acute kidney injury. Qualifiers: Diabetes mellitus type: type 2 Diabetes mellitus meterman insulin use: without custodial use Diabetes mellitus complication status: without complication Qualified Code(s): E11.9 - Type 2 diabetes mellitus without complications (7) Generalized weakness: Status: Acute Assessment and plan: Multifactorial but probably nutritional compliant with dehydration along with uncontrolled rapid atrial fibrillation. We will monitor him while we rehydrate him. We will ask physical therapy to consult on him to evaluate his gait and strength and balance. He will likely need some home health services upon discharge or possibly short-term stay in a SNF. (8) Discharge planning issues: Status: Acute Assessment and plan: Patient will likely need short-term SNF placement for rehabilitation. Will ask patient case coordinator to look into his home situation and make sure that he has all services available to him. I will ask patient case coordinator to also look into his insurance for coverage of his medications in order to prevent recurrent hospitalizations from inadequately treated atrial fibrillation. Subjective Subjective Interval history since last seen: Patient has no new complaints. He denies any shortness of breath or chest pain no nausea or vomiting. He has had no bowel movement today. Patient has remained in sinus rhythm since his episode of recurrent paroxysmal atrial fibrillation yesterday evening that responded to IV Lopressor and additional doses of amiodarone. He has had good urine output and his creatinine continues to improve his creatinine is down to 1.46. His potassium is a little on the low side at 3.4 which were supplemented with oral. His CK is now normalized at 268. Yesterday he had a fever up to 38.8 and we obtained blood and urine cultures. Repeat blood cultures are still pending but have not shown any growth yet. Original blood cultures from January 15 were no growth. His urine culture showing gram 100,000 colonies of gram-positive mehul for which we are going to initiate antibiotic treatment with Augmentin. Exam Narrative Exam Narrative: Elderly bearded male who is alert and oriented to person place time circumstance. Lungs are clear to auscultation Heart is regular rate and rhythm without murmur rub or gallop. Abdomen soft and nontender normal active bowel sounds. Bello catheter is draining clear yellow urine. Skin exam reveals multiple abrasions and pressure sores from where he was lying down on the floor of his home the source are not open and they are not draining a purulent discharge. The sores are located over his patella in both legs as well as his elbows he also has a number of bruises. Examination of his torso including his lumbosacral and coccygeal area showed no open sores. His feet have thick onychomycotic looking toenails for which we will ask for podiatry consult for tomorrow. Objective Objective Clinical Data: Abnormal lab results 01/18/20 01/18/20 01/18/20 Range/Units 19:10 19:20 19:20 WBC 13.11 H (4.4-10.8) k/cumm RBC (4.50-6.00) m/cumm Hgb 13.1 L (13.5-17.5) g/dL Hct (40.0-50.0) % MCHC (32.0-36.0) g/dL Absolute Neutrophils 11.16 H (1.2-6.7) k/cumm Absolute Lymphocytes 0.87 L (1.2-3.4) k/cumm Absolute Monocytes 0.83 H (0.11-0.7) k/cumm Potassium (3.5-5.1) mmol/L Chloride (98-107) mmol/L Creatinine (0.70-1.30) mg/dL Glucose (74-106) mg/dL Calcium (8.5-10.1) mg/dL C-Reactive Protein 11.58 H (0.0-0.3) mg/dL Urine Protein Trace H (Negative) mg/dL Urine Blood Large H (Negative) Urine RBC >50 H (0-2) HPF Urine Glucose 500 H (Negative) mg/dL 01/19/20 01/19/20 Range/Units 06:11 06:11 WBC (4.4-10.8) k/cumm RBC 4.37 L (4.50-6.00) m/cumm Hgb 12.3 L (13.5-17.5) g/dL Hct 39.1 L (40.0-50.0) % MCHC 31.5 L (32.0-36.0) g/dL Absolute Neutrophils 6.75 H (1.2-6.7) k/cumm Absolute Lymphocytes 1.17 L (1.2-3.4) k/cumm Absolute Monocytes 0.79 H (0.11-0.7) k/cumm Potassium 3.4 L (3.5-5.1) mmol/L Chloride 108 H (98-107) mmol/L Creatinine 1.46 H (0.70-1.30) mg/dL Glucose 119 H (74-106) mg/dL Calcium 8.4 L (8.5-10.1) mg/dL C-Reactive Protein (0.0-0.3) mg/dL Urine Protein (Negative) mg/dL Urine Blood (Negative) Urine RBC (0-2) HPF Urine Glucose (Negative) mg/dL Vital Signs Temperature 36.7 C 01/19/20 11:05 Temperature Source Tympanic 01/19/20 11:05 Pulse 79 01/19/20 11:05 Pulse Rhythm Regular 01/19/20 07:28 Pulse 64 01/16/20 16:03 Respiratory Rate 18 01/19/20 11:05 Respiratory Effort 01/19/20 07:28 Respiratory Depth Normal 01/19/20 07:28 Respiratory Pattern Normal 01/19/20 07:28 Blood Pressure 145/85 H 01/19/20 11:05 Blood Pressure Mean 74 01/16/20 16:02 Blood Pressure Position Supine 01/16/20 11:29 Pulse Oximetry 95 01/19/20 11:05 Oxygen Delivery Method Room Air 01/19/20 11:05 Oxygen Flow Rate 0 01/19/20 11:05 Pain Level 3 01/19/20 11:05 Comment 01/18/20 18:24 Intake & Output 01/18/20 01/19/20 01/19/20 23:59 11:59 23:59 Intake Total 50 0 1530.05 / 2631.717 1101.667 / 2631.717 Output Total 1730 / 1730 1675 / 1875 200 / 1875 Balance -1680 / 530 -144.95 / 756.717 901.667 / 756.717 Weight 91 kg Intake: IV 50 / 0 1100.05 / 2201.717 1101.667 / 2201.717 Oral 430 / 430 Output: Urine 1730 / 1730 1675 / 1875 200 / 1875 Other: Urine Color Yellow Yellow Pale Yellow Urine Appearance Clear Clear Clear Comment Bello discontinued at this time per MD order. Pt instructed to drink water until he is able to void. Nurse will continue to monitor and reassess as necessary. Stool Size Moderate Stool Characteristics [facility] Laboratory Results WBC 9.20 k/cumm (4.4-10.8) 01/19/20 06:11 RBC 4.37 m/cumm (4.50-6.00) L 01/19/20 06:11 Hgb 12.3 g/dL (13.5-17.5) L 01/19/20 06:11 Hct 39.1 % (40.0-50.0) L 01/19/20 06:11 MCV 89.5 fL (80-95) 01/19/20 06:11 MCH 28.1 pg (27.0-33.0) 01/19/20 06:11 MCHC 31.5 g/dL (32.0-36.0) L 01/19/20 06:11 RDW 12.7 % (11.8-14.1) 01/19/20 06:11 Plt Count 236 x1000/uL (130-400) 01/19/20 06:11 MPV 8.8 fL (8.0-11.0) 01/19/20 06:11 Immature Gran % 0.4 % 01/19/20 06:11 Neutrophils % 73.4 01/19/20 06:11 Lymphocytes % 12.7 01/19/20 06:11 Monocytes % 8.6 01/19/20 06:11 Eosinophils % 4.6 01/19/20 06:11 Basophils % 0.3 01/19/20 06:11 Absolute Neutrophils 6.75 k/cumm (1.2-6.7) H 01/19/20 06:11 Absolute Lymphocytes 1.17 k/cumm (1.2-3.4) L 01/19/20 06:11 Absolute Monocytes 0.79 k/cumm (0.11-0.7) H 01/19/20 06:11 Absolute Eosinophils 0.42 k/cumm (0.0-0.7) 01/19/20 06:11 Absolute Basophils 0.03 k/cumm (0.0-0.2) 01/19/20 06:11 ESR 20 mm/hr (1-20) 01/18/20 19:20 PT 10.9 sec (9.3-11.0) 01/16/20 11:45 INR 1.1 (0.9-1.1) 01/16/20 11:45 APTT 24.7 sec (21.0-31.4) 01/16/20 11:45 VBG pH 7.33 (7.35-7.45) L 01/16/20 11:45 VBG pCO2 40 mm/Hg (34-47) 01/16/20 11:45 VBG pO2 32 mm/Hg (28-44) 01/16/20 11:45 VBG HCO3 21 mmol/L (22-28) L 01/16/20 11:45 VBG Total CO2 19 mmol/L (22-29) L 01/16/20 11:45 VBG O2 Saturation 59 % (70-80) L 01/16/20 11:45 VBG Base Excess -5.1 mmol/L (-3-3) L 01/16/20 11:45 Sodium 144 mmol/L (136-145) 01/19/20 06:11 Potassium 3.4 mmol/L (3.5-5.1) L 01/19/20 06:11 Chloride 108 mmol/L (98-107) H 01/19/20 06:11 Carbon Dioxide 29.3 mmol/L (21.0-32.0) 01/19/20 06:11 Anion Gap 6.7 mmol/L (3-11) 01/19/20 06:11 BUN 16 mg/dL (7-18) D 01/19/20 06:11 Creatinine 1.46 mg/dL (0.70-1.30) H 01/19/20 06:11 Estimated GFR/1.73 m2 47.73 (mL/min/1.73m2) 01/19/20 06:11 Glucose 119 mg/dL (74-106) H 01/19/20 06:11 Hemoglobin A1c 8.4 % (3.8-5.6) H 01/17/20 07:53 Lactate 1.3 mmol/L (0.6-1.4) 01/17/20 07:53 Calcium 8.4 mg/dL (8.5-10.1) L 01/19/20 06:11 Magnesium 1.9 mg/dL (1.8-2.4) 01/19/20 06:11 Total Bilirubin 0.8 mg/dL (0.2-1.0) 01/17/20 07:53 Conjugated Bilirubin 0.25 mg/dL (0.00-0.20) H 01/17/20 07:53 AST 43 U/L (15-37) H 01/17/20 07:53 ALT 19 U/L (16-63) 01/17/20 07:53 Alkaline Phosphatase 56 U/L (46-116) 01/17/20 07:53 Creatine Kinase 268 U/L (39-308) 01/19/20 06:11 Troponin I < 0.05 ng/mL (<0.06) 01/16/20 20:10 C-Reactive Protein 11.58 mg/dL (0.0-0.3) H 01/18/20 19:20 Total Protein 5.6 g/dL (6.4-8.2) L 01/17/20 07:53 Albumin 2.7 g/dL (3.4-5.0) L 01/17/20 07:53 Triglycerides 86 mg/dL (<150) 01/17/20 07:53 Total Cholesterol 133 mg/dL (<200) 01/17/20 07:53 LDL Cholesterol, Calc 82 mg/dL (<100) 01/17/20 07:53 HDL Cholesterol 34 mg/dL (40-60) L 01/17/20 07:53 Lipase 51 U/L (73-393) 01/17/20 07:53 Procalcitonin 0.1 ng/mL 01/18/20 19:20 TSH 1.79 uIU/mL (0.36-3.74) 01/16/20 11:45 Urine Color Yellow (Yellow) 01/18/20 19:10 Urine Clarity Clear (Clear) 01/18/20 19:10 Urine pH 5.5 (5-8) 01/18/20 19:10 Ur Specific [place] 1.020 (1.005-1.025) 01/18/20 19:10 Urine Protein Trace mg/dL (Negative) H 01/18/20 19:10 Urine Ketones Negative mg/dL (Negative) 01/18/20 19:10 Urine Blood Large (Negative) H 01/18/20 19:10 Urine Nitrite Negative (Negative) 01/18/20 19:10 Urine Bilirubin Negative (Negative) 01/18/20 19:10 Urine Urobilinogen 0.2 EU/dL (Up TO 0.2) 01/18/20 19:10 Ur Leukocyte Esterase Negative (Negative) 01/18/20 19:10 Urine RBC >50 HPF (0-2) H 01/18/20 19:10 Urine WBC 0-2 HPF (0-5) 01/18/20 19:10 Ur Epithelial Cells Negative HPF (Negative) 01/18/20 19:10 Urine Crystals Negative HPF (Negative) 01/18/20 19:10 Urine Bacteria Rare HPF (Negative) 01/18/20 19:10 Urine Casts 3-5 coarse granular LPF (Negative) 01/16/20 12:10 Urine Mucus Negative (Negative) 01/18/20 19:10 Ur Culture Indicated? No 01/18/20 19:10 Urine Glucose 500 mg/dL (Negative) H 01/18/20 19:10 COVID-19 PCR Negative (Negative) 01/16/20 12:40 Nasopharyn COVID-19 PCR Not Applicable 01/16/20 12:40 Ref Test Perform Site [facility] lab 01/16/20 12:40 Patient ABO/Rh O Negative 01/16/20 11:45 Antibody Screen Positive 01/16/20 11:45 Antibody Identification Cold Agglutinin 01/16/20 11:45
--- NOTE | 2020-01-19 14:30 | DI.US_ITS ---
EXAM: US RENAL CLINICAL HISTORY: UTI, rule out pyelonephritis TECHNIQUE: Ultrasound performed using standard protocol. COMPARISON: CT CT CHEST/ABD/PEL WO from 01/16/2020 FINDINGS: The kidneys are normal in size and shape. There is apparent mild left hydronephrosis. No right hydr onephrosis. Urinary bladder is nearly empty and is difficult to evaluate. Left ureteral jet was non visualized. Question echogenic focus in the urinary bladder, possible bladder stone. IMPRESSION: Mild left hydronephrosis is noted. Please note that recent CT showed a distal left intraureteral yury culus, this may be obstructive at this time. Correlation with retrograde ureterography may be consid ered if clinically appropriate. DATA REPOSITORY:
[2020-01-19] MEDS: Amoxicillin 875/Clav. 125 TAB PO ×2 (14:55→20:12)
[2020-01-19] MEDS: Docusate Sodium 100 MG CAP PO (15:15)
[2020-01-19] MEDS: Polyethylene Glycol 3350 17 GM PACKET PO (15:15)
--- NOTE | 2020-01-19 15:22 | NUR.NOTE ---
Nursing Note: At 1345 on 01/19/20, MD and RN's in to pt.'s room to perform a full head to toe skin assessment per MD request. MD to order a podiatry consult. While was in the room, MD stated that the Bello catheter could be removed, and that the telemetry unit could be removed, and that they would place those orders. Bello catheter and telemetry unit removed at 1355. At 1500, it was noted that there was still no order for removal of the telemetry unit. RN spoke with to clarify that they wanted the telemetry unit off. stated that upon further evaluation of the pt.'s chart (the pt. had an episode of atrial fibrillation last night 01/18/20), they had decided to leave the telemetry unit on the pt. for at least 24hrs for observation. At 1514, the telemetry unit was placed back on the pt. RN will reassess as necessary.
[2020-01-19 15:30] VITALS: BP 121/69; PULSE 95; RESP 19; TEMP 37.2; O2SAT 96
[2020-01-19 19:29] VITALS: BP 129/83; PULSE 90; RESP 18; TEMP 37.1; O2SAT 94
[2020-01-19] MEDS: Potassium Chloride 20 MEQ TABCR PO (20:12)
[2020-01-19] MEDS: Pravastatin 20 MG TAB PO (21:35)
[2020-01-19 23:03] VITALS: BP 161/91; PULSE 78; RESP 18; TEMP 36.7; O2SAT 100
[2020-01-20] MEDS: Lactated Ringers 1,000 ML 100 ML IV (00:39)
[2020-01-20 03:10] VITALS: BP 153/68; PULSE 74; RESP 18; TEMP 36.8; O2SAT 92
[2020-01-20 07:19] LABS: Abs Immature Grans 0.04 k/cumm (0.0-0.09); Absolute Basophil Count 0.04 k/cumm (0.0-0.2); Absolute Eosinophil Count 0.47 k/cumm (0.0-0.7); Absolute Lymphocyte Count 1.07 k/cumm (1.2-3.4); Absolute Monocyte Count 0.58 k/cumm (0.11-0.7); Basophils % 0.5; Eosinophils % 5.6; HCT 38.4 % (40.0-50.0); HGB 12.2 g/dL (13.5-17.5); Immature Grans % 0.5 %; Lymphocytes % 12.7; Mean Corp. HGB Concentration 31.8 g/dL (32.0-36.0); Mean Corpuscular Hemoglobin 28.5 pg (27.0-33.0); Mean Corpuscular Volume 89.7 fL (80-95); Mean Platelet Volume 9.1 fL (8.0-11.0); Monocytes % 6.9; Neutrophils % 73.8; Platelet Count 141 x1000/uL (130-400); RBC 4.28 m/cumm (4.50-6.00); RBC Distribution Width 12.8 % (11.8-14.1)
[2020-01-20 07:36] LABS: Anion Gap 5.9 mmol/L (3-11); BUN 16 mg/dL (7-18); CO2 29.1 mmol/L (21.0-32.0); CREATININE 1.46 mg/dL (0.70-1.30); Calcium 8.5 mg/dL (8.5-10.1); Chloride 107 mmol/L (98-107); Creatine Kinase 117 U/L (39-308); Estimated GFR 47.73 (mL/min/1.73m2); Glucose 185 mg/dL (74-106); Potassium 3.9 mmol/L (3.5-5.1); Sodium 142 mmol/L (136-145)
--- NOTE | 2020-01-20 08:00 | POCOE_ITS ---
Date of service: 01/20/20 Time of Service: 08:00 History of Present Illness History of Present Illness Chief Complaint: Painful mycotic toenails Narrative: 70-year-old male seen on the floor admitted with acute febrile illness, UTI, generalized weakness, rhabdomyolysis in need of management severely overgrown toenails that he is unable to manage. Also complains of some stiffness and discomfort in his right great toe joint. He is a poor historian and it is unclear when this started. [facility] Medical History Atrial fibrillation (Chronic) Depression (Chronic) Diabetes (Chronic) HTN (hypertension) (Chronic) Surgical History H/O removal of cyst (Acute) left leg Social History Smoking/Tobacco Use Status: Former Tobacco Use Alcohol Intake: current Alcohol Intake frequency: holidays/special occasions only Drug use: Never Substance use type: does not use Do you feel safe in your relationship?: Yes Exam Narrative Exam Narrative: 70-year-old white male is seen in his room at bed side. He is awake and alert and communicates effectively. Peripheral pulses are palpable at the ankles plus 1 out of 4 bilaterally. Capillary refills under 3 seconds to all toes. Trace peripheral edema noted in both lower extremities. Calves are soft to palpation. Feet are warm to the touch. Dermatologic exam reveals toenails to be yellowed, thick, dystrophic, hypertrophic, elongated and in need of debridement. All toenails are affected. There is heavy subungual debris with periungual tenderness but no active drainage. Onychogryphosis is present in all toenails. There is periarticular tenderness with direct palpation. He has moderate scale affecting the plantar medial lateral and dorsal aspects of both feet consistent with poor hygiene. No open wounds noted on his feet. Both knees have scabs consistent with recent fall and time spent on the floor. Muscle groups of 5 out of 5 bilaterally but deconditioned. Skeletal exam appears grossly benign. There is a little irritation medial dorsally over the right first MPJ but range of motion of the joint is reduced but symmetric to his left foot. There was no significant warmth and no fluid accumulation at the joint level. Neurological exam: Toes were downgoing he responds to pain and appears to be grossly intact Impression: Onychomycosis Onychogryphosis Irritation right first MPJ Xerosis Plan: Mechanically electrically debrided all toenails aggressively yet atraumatically to patient tolerance. Significant improvement in sensitivity surrounding the toenails appreciated upon debridement. I will ask nursing to provide skin care consisting of washing of the feet daily with soap and water utilizing a debrisoft sponge and hydrating the tissue with Eucerin. Clinical presentation of his right first MPJ appears to be low-grade irritation but 1 could consider the potential for gout if his symptoms increase. At this time no active treatment aside from monitoring would be necessary. Thank you for the consultation. Results Last Vital Signs Temp 36.8 C 01/20/20 03:10 Pulse 74 01/20/20 03:10 Resp 18 01/20/20 03:10 BP 153/68 H 01/20/20 03:10 Pulse Ox 92 L 01/20/20 03:10 Labs Result diagrams: 01/20/20 06:50 01/20/20 06:36 Labs: Laboratory Results - last 24 hr 01/19/20 01/20/20 01/20/20 06:11 06:36 06:50 WBC 8.40 RBC 4.28 L Hgb 12.2 L Hct 38.4 L MCV 89.7 MCH 28.5 MCHC 31.8 L RDW 12.8 Plt Count 141 MPV 9.1 Immature Gran % 0.5 Neutrophils % 73.8 Lymphocytes % 12.7 Monocytes % 6.9 Eosinophils % 5.6 Basophils % 0.5 Absolute Neutrophils 6.20 Absolute Lymphocytes 1.07 L Absolute Monocytes 0.58 Absolute Eosinophils 0.47 Absolute Basophils 0.04 Sodium 142 Potassium 3.9 Chloride 107 Carbon Dioxide 29.1 Anion Gap 5.9 BUN 16 Creatinine 1.46 H Estimated GFR/1.73 m2 47.73 Glucose 185 H Calcium 8.5 Magnesium 1.9 Creatine Kinase 117
[2020-01-20 08:15] VITALS: BP 148/83; PULSE 71; RESP 19; TEMP 37; O2SAT 96
[2020-01-20] MEDS: Insulin Aspart 300 UNITS/3 ML PEN SC ×5 (08:53→21:40)
[2020-01-20] MEDS: Omeprazole 20 MG CAPCR PO (08:54)
[2020-01-20] MEDS: Aspirin E.C. 81 MG TABEC PO (08:54)
[2020-01-20] MEDS: Cholecalciferol (Vitamin D3) 1,000 UNIT TAB 1000 UNITS PO (08:55)
[2020-01-20] MEDS: Multivitamin w/Minerals TAB 1 TAB PO ×2 (08:55→20:49)
[2020-01-20] MEDS: Amoxicillin 875/Clav. 125 TAB PO ×2 (08:55→20:49)
[2020-01-20] MEDS: Magnesium Oxide 400 MG TAB 800 MG PO (08:55)
[2020-01-20] MEDS: Potassium Chloride 20 MEQ TABCR PO (08:56)
[2020-01-20] MEDS: Amiodarone 200 MG TAB 400 MG PO ×2 (08:56→20:49)
[2020-01-20] MEDS: Cyanocobalamin 500 MCG TAB 1000 MCG PO (08:57)
[2020-01-20] MEDS: Apixaban 5 MG TAB PO ×2 (08:57→20:49)
--- NOTE | 2020-01-20 09:24 | CMPROGNOTE_ITS ---
- If Service Date Differs Date of service: 01/20/20 Time of Service: 09:25 Care Management Progress Note S/O: No change is level of care today. BELLA [facility]. CM also spoke with [facility] support [facility] and they are connecting Sung with an officer that can help with services and help him establish services connection with the [facility]. He will need to obtain all of his medications through the [facility]. CM faxed all his information down today, they will [facility] need discharge medication list. A: David is a 70 year old man admitted on 01/16/20 with rhabdomyolysis P: David will be discharged when he is medically ready. Care to be established with the [facility]. BELLA has coordinated tele visit for at 0900. CM to continue to assess for ongoing discharge needs and coordination of resources.
[2020-01-20] MEDS: Lactated Ringers 1,000 ML 50 ML IV (10:49)
[2020-01-20 12:25] VITALS: BP 130/88; PULSE 82; RESP 18; TEMP 37.1; O2SAT 94
--- NOTE | 2020-01-20 12:49 | PT.INTREAT ---
Date of service: 01/20/20 Time of Service: 12:50 PT Notes Visit Reasons: CHEST PAIN Inpatient Physical Therapy Treatment Note [facility] Date: 01/20/20 PRECAUTIONS: Fall SUBJECTIVE: Sung is agreeable to participating in PT. OBJECTIVE: PAIN: No c/o pain BED MOBILITY/TRANSFERS Sit-stand: SBA Stand-sit: SBA GAIT Assistive Device: FWW Weight bearing: Full Assist: CGA Distance: 75' + 125' in a.m.; 260' in p.m. Deviation: Seated rest in a.m.; increased SOB in p.m.; wheelchair follow, karrie, cueing for safety with FWW mechanics in both a.m. and p.m. THEREX: Patient completed a LE strengthening program, in a standing position, as per flow sheet. Patient demonstrates increased SOB, and requires a recovery period following activity. STAIRS: Up/down 3x4 and 2x6 using B rails and a step-to pattern with CGA ASSESSMENT: Patient tolerated session with c/o increased fatigue following activity. He also demonstrates SOB with activity, requiring about a 5 minute recovery period. He was able to tolerate a progression in gait distance with FWW support and CGA, with cueing for safe management of FWW. Patient would benefit from continued global strengthening for improved mobility. PLAN: Continue with PT's POC TREATMENT CODE/TIME: Session 1: 25 minutes; 58032 x2 Session 2: 30 minutes; [id number], [id number]
--- NOTE | 2020-01-20 13:17 | PGE_ITS ---
Date of Service Date of service: 01/20/20 Time of Service: 13:17 Assessment and Plan Assessment and plan (1) Paroxysmal atrial fibrillation: Status: Acute Assessment and plan: Patient remains in sinus rhythm . Continue with amiodarone loading dose of 4 mg twice a day along with anticoagulation with apixaban. DC telemetry monitoring in anticipation of discharge to SNF tomorrow (2) UTI (urinary tract infection): Status: Acute Assessment and plan: Blood culture showed no growth after 24 hours. Urine culture still showing gram-positive mehul final identification is pending. Continue Augmentin empirically for UTI. Bello was discontinued yesterday. Qualifiers: Urinary tract infection type: acute cystitis (3) Acute kidney injury (nontraumatic): Status: Acute Assessment and plan: improving. creatinine now down to 1.46. I am dc'ing his lasix (4) Rhabdomyolysis: Status: Resolved Assessment and plan: CK remains normal. No further treatment indicated. Qualifiers: Rhabdomyolysis type: non-traumatic Qualified Code(s): M62.82 - Rha bdomyolysis (5) Diabetes mellitus: Status: Acute Assessment and plan: FBS 185 today. 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 cont. P.T. and refer to SNF. referrals were placed by CM. He is improving as he recovers from his DILAN and rhabdomyolysis and has been receiving nutrition. (7) Discharge planning issues: Status: Acute Assessment and plan: CM has placed referrals for SNF placement for short term rehab stay. Subjective Subjective Interval history since last seen: Patient is noted is having some increased leg edema. He denies any dyspnea or chest pain. He ambulated fairly well with the use of front wheel walker with standby assistance of 2 people. He is agreeable to going into a care home facility for further rehabilitation. He is scheduled for a telemedicine visit from the [facility] tomorrow and once they get him back into their system he will be eligible for CT coverage of his medications. Review of his telemetry shows he is had no episodes of atrial flutter or atrial fibrillation overnight. He gets some mild tachycardia with activity but otherwise at rest he is sinus rhythm with good rate control. Blood pressures are stable. Renal function continues to improve and his CK is within normal limits. His electrolytes have been corrected. Present time I am going to discontinue his IV fluids I am getting give him one-time dose of Lasix to help with the edema and I will repeat his BMP in the morning. Otherwise my plan is to discharge him to care home facility as soon as he is excepted. I am getting get rid of telemetry at this point since he has had no further exacerbations of his atrial fibrillation or atrial flutter. He remains on loading doses of amiodarone 400 mg twice a day. I will continue this for another week and then decrease him down to 200 mg twice a day for 1 week and then decrease him to his maintenance dose of 200 mg once a day. Exam Narrative Exam Narrative: Bearded male who appears older than his stated age of 70. He is alert and oriented person place time circumstance. Lungs are clear to auscultation Heart is regular no appreciable S3 or S4 gallop or murmur. Abdomen is soft and nontender nondistended normal active bowel sounds. Lower extremities with 2+ pedal and ankle edema. Objective Objective Clinical Data: Abnormal lab results 01/20/20 01/20/20 Range/Units 06:36 06:50 RBC 4.28 L (4.50-6.00) m/cumm Hgb 12.2 L (13.5-17.5) g/dL Hct 38.4 L (40.0-50.0) % MCHC 31.8 L (32.0-36.0) g/dL Absolute Lymphocytes 1.07 L (1.2-3.4) k/cumm Creatinine 1.46 H (0.70-1.30) mg/dL Glucose 185 H (74-106) mg/dL Vital Signs Temperature 37.1 C 01/20/20 12:25 Temperature Source Tympanic 01/20/20 12:25 Pulse 82 01/20/20 12:25 Pulse Rhythm Regular 01/20/20 08:00 Pulse 64 01/16/20 16:03 Respiratory Rate 18 01/20/20 12:25 Respiratory Effort Non-Labored 01/20/20 08:00 Respiratory Depth Normal 01/20/20 08:00 Respiratory Pattern Normal 01/20/20 08:00 Blood Pressure 130/88 01/20/20 12:25 Blood Pressure Mean 74 01/16/20 16:02 Blood Pressure Position Supine 01/16/20 11:29 Pulse Oximetry 94 L 01/20/20 12:25 Oxygen Delivery Method Room Air 01/20/20 12:25 Oxygen Flow Rate 0 01/20/20 12:25 Pain Level 3 01/20/20 12:25 Comment 01/19/20 15:30 Intake & Output 01/19/20 01/20/20 01/20/20 23:59 11:59 23:59 Intake Total 1656.667 / 3186.717 2225.000 / 2225.000 Output Total 600 / 2275 600 / 600 Balance 1056.667 / 690.697 0787.000 / 1625.000 Weight 92 kg Intake: IV 1176.667 / 2276.717 1985.000 / 1985.000 Oral 480 / 910 240 / 240 Output: Urine 600 / 2275 600 / 600 Other: Urine Color Yellow Yellow Urine Appearance Clear Urine Odor Normal Comment Void x1 (moderate amount of urine) in the bed. Bed change was performed. Grossly incontinent. Stool Size Smear Moderate Small Stool Characteristics Brown Soft Soft Brown Voiding Methods Urinal Incontinent Laboratory Results WBC 8.40 k/cumm (4.4-10.8) 01/20/20 06:50 RBC 4.28 m/cumm (4.50-6.00) L 01/20/20 06:50 Hgb 12.2 g/dL (13.5-17.5) L 01/20/20 06:50 Hct 38.4 % (40.0-50.0) L 01/20/20 06:50 MCV 89.7 fL (80-95) 01/20/20 06:50 MCH 28.5 pg (27.0-33.0) 01/20/20 06:50 MCHC 31.8 g/dL (32.0-36.0) L 01/20/20 06:50 RDW 12.8 % (11.8-14.1) 01/20/20 06:50 Plt Count 141 x1000/uL (130-400) 01/20/20 06:50 MPV 9.1 fL (8.0-11.0) 01/20/20 06:50 Immature Gran % 0.5 % 01/20/20 06:50 Neutrophils % 73.8 01/20/20 06:50 Lymphocytes % 12.7 01/20/20 06:50 Monocytes % 6.9 01/20/20 06:50 Eosinophils % 5.6 01/20/20 06:50 Basophils % 0.5 01/20/20 06:50 Absolute Neutrophils 6.20 k/cumm (1.2-6.7) 01/20/20 06:50 Absolute Lymphocytes 1.07 k/cumm (1.2-3.4) L 01/20/20 06:50 Absolute Monocytes 0.58 k/cumm (0.11-0.7) 01/20/20 06:50 Absolute Eosinophils 0.47 k/cumm (0.0-0.7) 01/20/20 06:50 Absolute Basophils 0.04 k/cumm (0.0-0.2) 01/20/20 06:50 ESR 20 mm/hr (1-20) 01/18/20 19:20 PT 10.9 sec (9.3-11.0) 01/16/20 11:45 INR 1.1 (0.9-1.1) 01/16/20 11:45 APTT 24.7 sec (21.0-31.4) 01/16/20 11:45 VBG pH 7.33 (7.35-7.45) L 01/16/20 11:45 VBG pCO2 40 mm/Hg (34-47) 01/16/20 11:45 VBG pO2 32 mm/Hg (28-44) 01/16/20 11:45 VBG HCO3 21 mmol/L (22-28) L 01/16/20 11:45 VBG Total CO2 19 mmol/L (22-29) L 01/16/20 11:45 VBG O2 Saturation 59 % (70-80) L 01/16/20 11:45 VBG Base Excess -5.1 mmol/L (-3-3) L 01/16/20 11:45 Sodium 142 mmol/L (136-145) 01/20/20 06:36 Potassium 3.9 mmol/L (3.5-5.1) 01/20/20 06:36 Chloride 107 mmol/L (98-107) 01/20/20 06:36 Carbon Dioxide 29.1 mmol/L (21.0-32.0) 01/20/20 06:36 Anion Gap 5.9 mmol/L (3-11) 01/20/20 06:36 BUN 16 mg/dL (7-18) 01/20/20 06:36 Creatinine 1.46 mg/dL (0.70-1.30) H 01/20/20 06:36 Estimated GFR/1.73 m2 47.73 (mL/min/1.73m2) 01/20/20 06:36 Glucose 185 mg/dL (74-106) H 01/20/20 06:36 Hemoglobin A1c 8.4 % (3.8-5.6) H 01/17/20 07:53 Lactate 1.3 mmol/L (0.6-1.4) 01/17/20 07:53 Calcium 8.5 mg/dL (8.5-10.1) 01/20/20 06:36 Magnesium 1.9 mg/dL (1.8-2.4) 01/19/20 06:11 Total Bilirubin 0.8 mg/dL (0.2-1.0) 01/17/20 07:53 Conjugated Bilirubin 0.25 mg/dL (0.00-0.20) H 01/17/20 07:53 AST 43 U/L (15-37) H 01/17/20 07:53 ALT 19 U/L (16-63) 01/17/20 07:53 Alkaline Phosphatase 56 U/L (46-116) 01/17/20 07:53 Creatine Kinase 117 U/L (39-308) 01/20/20 06:36 Troponin I < 0.05 ng/mL (<0.06) 01/16/20 20:10 C-Reactive Protein 11.58 mg/dL (0.0-0.3) H 01/18/20 19:20 Total Protein 5.6 g/dL (6.4-8.2) L 01/17/20 07:53 Albumin 2.7 g/dL (3.4-5.0) L 01/17/20 07:53 Triglycerides 86 mg/dL (<150) 01/17/20 07:53 Total Cholesterol 133 mg/dL (<200) 01/17/20 07:53 LDL Cholesterol, Calc 82 mg/dL (<100) 01/17/20 07:53 HDL Cholesterol 34 mg/dL (40-60) L 01/17/20 07:53 Lipase 51 U/L (73-393) 01/17/20 07:53 Procalcitonin 0.1 ng/mL 01/18/20 19:20 TSH 1.79 uIU/mL (0.36-3.74) 01/16/20 11:45 Urine Color Yellow (Yellow) 01/18/20 19:10 Urine Clarity Clear (Clear) 01/18/20 19:10 Urine pH 5.5 (5-8) 01/18/20 19:10 Ur Specific [place] 1.020 (1.005-1.025) 01/18/20 19:10 Urine Protein Trace mg/dL (Negative) H 01/18/20 19:10 Urine Ketones Negative mg/dL (Negative) 01/18/20 19:10 Urine Blood Large (Negative) H 01/18/20 19:10 Urine Nitrite Negative (Negative) 01/18/20 19:10 Urine Bilirubin Negative (Negative) 01/18/20 19:10 Urine Urobilinogen 0.2 EU/dL (Up TO 0.2) 01/18/20 19:10 Ur Leukocyte Esterase Negative (Negative) 01/18/20 19:10 Urine RBC >50 HPF (0-2) H 01/18/20 19:10 Urine WBC 0-2 HPF (0-5) 01/18/20 19:10 Ur Epithelial Cells Negative HPF (Negative) 01/18/20 19:10 Urine Crystals Negative HPF (Negative) 01/18/20 19:10 Urine Bacteria Rare HPF (Negative) 01/18/20 19:10 Urine Casts 3-5 coarse granular LPF (Negative) 01/16/20 12:10 Urine Mucus Negative (Negative) 01/18/20 19:10 Ur Culture Indicated? No 01/18/20 19:10 Urine Glucose 500 mg/dL (Negative) H 01/18/20 19:10 COVID-19 PCR Negative (Negative) 01/16/20 12:40 Nasopharyn COVID-19 PCR Not Applicable 01/16/20 12:40 Ref Test Perform Site [facility] lab 01/16/20 12:40 Patient ABO/Rh O Negative 01/16/20 11:45 Antibody Screen Positive 01/16/20 11:45 Antibody Identification Cold Agglutinin 01/16/20 11:45
[2020-01-20] MEDS: Furosemide 20 MG/2 ML VIAL IVP (15:04)
[2020-01-20] MEDS: Potassium Chloride 20 MEQ TABCR 40 MEQ PO (15:04)
[2020-01-20] MEDS: Normal Saline Flush 10 ML SYR IVP (15:05)
[2020-01-20 15:35] VITALS: BP 136/84; PULSE 70; RESP 20; TEMP 37.2; O2SAT 95
--- NOTE | 2020-01-20 16:14 | CHAPLAIN ---
Sung was sitting up in his chair when I visited. He told me about living in [place], where's his been all his life. His sister lives next door. When I asked Sung what he usually does when he's home, he said he watches TV, whatever's on. He said his exwife called him a couch potato. Sung was friendly and seemed to enjoy engaging in a conversation.
--- NOTE | 2020-01-20 18:37 | NUR.NOTE ---
Nursing Note: Clarified with Dr. Wood, that patients carb count was 1 unit per 5 carbs prior to administration
[2020-01-20 19:34] VITALS: BP 115/76; PULSE 80; RESP 20; TEMP 37.2; O2SAT 96
[2020-01-20 19:35] LABS: Myoglobin, U 263 mcg/L (<=21)
[2020-01-20] MEDS: Acetaminophen 325 MG TAB PO (20:49)
[2020-01-20] MEDS: Pravastatin 20 MG TAB PO (21:40)
[2020-01-20] MEDS: Insulin Glargine 300 UNITS/3 ML PEN 20 UNITS SC (21:41)
[2020-01-21 03:45] VITALS: BP 132/82; PULSE 65; RESP 18; TEMP 35.6; O2SAT 94
[2020-01-21 07:18] VITALS: BP 141/92; PULSE 70; RESP 17; TEMP 36.7; O2SAT 94
[2020-01-21 07:35] LABS: Anion Gap 5.3 mmol/L (3-11); BUN 18 mg/dL (7-18); CO2 31.7 mmol/L (21.0-32.0); CREATININE 1.58 mg/dL (0.70-1.30); Calcium 8.8 mg/dL (8.5-10.1); Chloride 106 mmol/L (98-107); Estimated GFR 43.57 (mL/min/1.73m2); Glucose 105 mg/dL (74-106); Potassium 3.8 mmol/L (3.5-5.1); Sodium 143 mmol/L (136-145)
[2020-01-21] MEDS: Normal Saline Flush 10 ML SYR IVP ×2 (08:47→12:53)
[2020-01-21] MEDS: Amoxicillin 875/Clav. 125 TAB PO ×2 (08:48→19:51)
[2020-01-21] MEDS: Magnesium Oxide 400 MG TAB 800 MG PO (08:48)
[2020-01-21] MEDS: Multivitamin w/Minerals TAB 1 TAB PO ×2 (08:48→19:50)
[2020-01-21] MEDS: Cyanocobalamin 500 MCG TAB 1000 MCG PO (08:48)
[2020-01-21] MEDS: Amiodarone 200 MG TAB 400 MG PO ×2 (08:49→19:50)
[2020-01-21] MEDS: Omeprazole 20 MG CAPCR PO (08:49)
[2020-01-21] MEDS: Aspirin E.C. 81 MG TABEC PO (08:49)
[2020-01-21] MEDS: Cholecalciferol (Vitamin D3) 1,000 UNIT TAB 1000 UNITS PO (08:49)
[2020-01-21] MEDS: Apixaban 5 MG TAB PO ×2 (08:49→19:50)
[2020-01-21] MEDS: Insulin Aspart 300 UNITS/3 ML PEN SC ×4 (08:51→17:17)
--- NOTE | 2020-01-21 12:18 | PDOC.CMPRO ---
- If Service Date Differs Date of service: 01/21/20 Time of Service: 12:18 Care Management Progress Note S/O:David is being re-swabbed today rule out COVID, anticipate [facility] at [facility]. David had his appointment with over telehealth today. He did well and will now be able to keep his community provider and [facility] Cherise Ng RN coordinator met with him as well and CM provided David with her contact information. CM will need the [facility] summary to the [facility] at time of discharge and receiving facility should work with the [facility] for any new home services and discharge medications. A: David is a 70 year old man admitted on 01/16/20 with rhabdomyolysis P: David will be discharged when he is medically ready. Referral pending review at [facility]. [facility]. CM has coordinated tele visit for at 0900. CM to continue to assess for ongoing discharge needs and coordination of resources.
--- NOTE | 2020-01-21 12:26 | W.PM.PROGNOT ---
Date of Service Date of service: 01/21/20 Time of Service: 12:26 Assessment and Plan Assessment and plan (1) Paroxysmal atrial fibrillation: Status: Acute Assessment and plan: Heart rate remains regular. He is now off of telemetry. Continue with amiodarone loading dose of 4 mg twice a day along with anticoagulation with apixaban. (2) UTI (urinary tract infection): Status: Acute Assessment and plan: Blood culture showed no growth after 24 hours. Urine culture still showing gram-positive mehul final identification is pending. Continue Augmentin empirically for UTI x7 days. Bello was removed 2 days ago.. Qualifiers: Urinary tract infection type: acute cystitis (3) Acute kidney injury (nontraumatic): Status: Acute Assessment and plan: improving. creatinine now down to 1.46. We will give an additional dose of Lasix today for his edema. (4) Rhabdomyolysis: Status: Resolved Assessment and plan: CK remains normal. No further treatment indicated. Qualifiers: Rhabdomyolysis type: non-traumatic Qualified Code(s): M62.82 - Rhabdomyolysis (5) Diabetes mellitus: Status: Acute Assessment and plan: FBS 185 today. 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 cont. P.T. and refer to SNF. referrals were placed by CM. He is improving as he recovers from his DILAN and rhabdomyolysis and has been receiving nutrition. (7) Discharge planning issues: Status: Acute Assessment and plan: CM has placed referrals for SNF placement for short term rehab stay. Repeat COVID-19 testing was ordered. Subjective Subjective Interval history since last seen: Patient has no acute complaints other than some soreness over the right anterior chest where he sustained a superficial skin abrasion. This occurred with his fall at home. We will have nursing wash this up with some chlorhexidine and dressed it with a Telfa pad. Patient responded well to the Lasix yesterday although he still has some peripheral edema and his feet and ankles and hands. His weight is down to 90.9 kg. Electrolytes within normal limits and renal function stable. 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 Repeat COVID testing is been ordered on the patient. Patient had his telehealth visit with the [facility] this morning. He will begin receiving their services and getting all of his medications through the [facility]. Hopefully this will help him stay on a scheduled doses of medicines in order to prevent readmission for his chronic medical conditions. Exam Narrative Exam Narrative: Elderly bearded male sitting up in his chair having his lunch. Lungs are clear to auscultation. Heart is regular rate and rhythm. Chest wall has an erythematous abrasion that is been present since admission over the right side of his chest with a little bit of sloughing of skin but no purulent drainage. Hands with 1+ pitting edema. Feet and ankles with 1+ pitting edema. He has dependent rubor over his feet. Dry scaly skin is been cleaned up and he has Eucerin cream. Objective Objective Clinical Data: Abnormal lab results 01/18/20 01/21/20 Range/Units 19:10 06:35 Creatinine 1.58 H (0.70-1.30) mg/dL Urine Myoglobin 263 H (<=21) mcg/L Vital Signs Temperature 36.7 C 01/21/20 07:18 Temperature Source Temporal Artery Scan 01/21/20 07:18 Pulse 70 01/21/20 07:18 Pulse Rhythm Regular 01/21/20 08:30 Pulse 64 01/16/20 16:03 Respiratory Rate 17 01/21/20 07:18 Respiratory Effort Non-Labored 01/21/20 08:30 Respiratory Depth Normal 01/21/20 08:30 Respiratory Pattern Normal 01/21/20 08:30 Blood Pressure 141/92 H 01/21/20 07:18 Blood Pressure Mean 74 01/16/20 16:02 Blood Pressure Position Supine 01/16/20 11:29 Pulse Oximetry 94 L 01/21/20 07:18 Oxygen Delivery Method Room Air 01/21/20 07:18 Oxygen Flow Rate 0 01/21/20 07:18 Pain Level 3 01/21/20 07:18 Comment 01/19/20 15:30 Intake & Output 01/20/20 01/21/20 01/21/20 23:59 11:59 23:59 Intake Total 809.167 / 3034.167 250 / 250 Output Total 1700 / 2300 550 / 700 150 / 700 Balance -890.833 / 734.167 -300 / -450 -150 / -450 Weight 90.9 g Intake: IV 329.167 / 2314.167 Oral 480 / 720 240 / 240 Output: Urine 1700 / 2300 550 / 700 150 / 700 Other: Urine Color Yellow Yellow Yellow Urine Appearance Clear Clear Clear Urine Odor Normal Normal Stool Size Small Moderate Stool Characteristics Soft Soft Formed Voiding Methods Urinal Toilet Urinal Laboratory Results WBC 8.40 k/cumm (4.4-10.8) 01/20/20 06:50 RBC 4.28 m/cumm (4.50-6.00) L 01/20/20 06:50 Hgb 12.2 g/dL (13.5-17.5) L 01/20/20 06:50 Hct 38.4 % (40.0-50.0) L 01/20/20 06:50 MCV 89.7 fL (80-95) 01/20/20 06:50 MCH 28.5 pg (27.0-33.0) 01/20/20 06:50 MCHC 31.8 g/dL (32.0-36.0) L 01/20/20 06:50 RDW 12.8 % (11.8-14.1) 01/20/20 06:50 Plt Count 141 x1000/uL (130-400) 01/20/20 06:50 MPV 9.1 fL (8.0-11.0) 01/20/20 06:50 Immature Gran % 0.5 % 01/20/20 06:50 Neutrophils % 73.8 01/20/20 06:50 Lymphocytes % 12.7 01/20/20 06:50 Monocytes % 6.9 01/20/20 06:50 Eosinophils % 5.6 01/20/20 06:50 Basophils % 0.5 01/20/20 06:50 Absolute Neutrophils 6.20 k/cumm (1.2-6.7) 01/20/20 06:50 Absolute Lymphocytes 1.07 k/cumm (1.2-3.4) L 01/20/20 06:50 Absolute Monocytes 0.58 k/cumm (0.11-0.7) 01/20/20 06:50 Absolute Eosinophils 0.47 k/cumm (0.0-0.7) 01/20/20 06:50 Absolute Basophils 0.04 k/cumm (0.0-0.2) 01/20/20 06:50 ESR 20 mm/hr (1-20) 01/18/20 19:20 PT 10.9 sec (9.3-11.0) 01/16/20 11:45 INR 1.1 (0.9-1.1) 01/16/20 11:45 APTT 24.7 sec (21.0-31.4) 01/16/20 11:45 VBG pH 7.33 (7.35-7.45) L 01/16/20 11:45 VBG pCO2 40 mm/Hg (34-47) 01/16/20 11:45 VBG pO2 32 mm/Hg (28-44) 01/16/20 11:45 VBG HCO3 21 mmol/L (22-28) L 01/16/20 11:45 VBG Total CO2 19 mmol/L (22-29) L 01/16/20 11:45 VBG O2 Saturation 59 % (70-80) L 01/16/20 11:45 VBG Base Excess -5.1 mmol/L (-3-3) L 01/16/20 11:45 Sodium 143 mmol/L (136-145) 01/21/20 06:35 Potassium 3.8 mmol/L (3.5-5.1) 01/21/20 06:35 Chloride 106 mmol/L (98-107) 01/21/20 06:35 Carbon Dioxide 31.7 mmol/L (21.0-32.0) 01/21/20 06:35 Anion Gap 5.3 mmol/L (3-11) 01/21/20 06:35 BUN 18 mg/dL (7-18) 01/21/20 06:35 Creatinine 1.58 mg/dL (0.70-1.30) H 01/21/20 06:35 Estimated GFR/1.73 m2 43.57 (mL/min/1.73m2) 01/21/20 06:35 Glucose 105 mg/dL (74-106) D 01/21/20 06:35 Hemoglobin A1c 8.4 % (3.8-5.6) H 01/17/20 07:53 Lactate 1.3 mmol/L (0.6-1.4) 01/17/20 07:53 Calcium 8.8 mg/dL (8.5-10.1) 01/21/20 06:35 Magnesium 1.9 mg/dL (1.8-2.4) 01/19/20 06:11 Total Bilirubin 0.8 mg/dL (0.2-1.0) 01/17/20 07:53 Conjugated Bilirubin 0.25 mg/dL (0.00-0.20) H 01/17/20 07:53 AST 43 U/L (15-37) H 01/17/20 07:53 ALT 19 U/L (16-63) 01/17/20 07:53 Alkaline Phosphatase 56 U/L (46-116) 01/17/20 07:53 Creatine Kinase 117 U/L (39-308) 01/20/20 06:36 Troponin I < 0.05 ng/mL (<0.06) 01/16/20 20:10 C-Reactive Protein 11.58 mg/dL (0.0-0.3) H 01/18/20 19:20 Total Protein 5.6 g/dL (6.4-8.2) L 01/17/20 07:53 Albumin 2.7 g/dL (3.4-5.0) L 01/17/20 07:53 Triglycerides 86 mg/dL (<150) 01/17/20 07:53 Total Cholesterol 133 mg/dL (<200) 01/17/20 07:53 LDL Cholesterol, Calc 82 mg/dL (<100) 01/17/20 07:53 HDL Cholesterol 34 mg/dL (40-60) L 01/17/20 07:53 Lipase 51 U/L (73-393) 01/17/20 07:53 Procalcitonin 0.1 ng/mL 01/18/20 19:20 TSH 1.79 uIU/mL (0.36-3.74) 01/16/20 11:45 Urine Color Yellow (Yellow) 01/18/20 19:10 Urine Clarity Clear (Clear) 01/18/20 19:10 Urine pH 5.5 (5-8) 01/18/20 19:10 Ur Specific [place] 1.020 (1.005-1.025) 01/18/20 19:10 Urine Protein Trace mg/dL (Negative) H 01/18/20 19:10 Urine Ketones Negative mg/dL (Negative) 01/18/20 19:10 Urine Blood Large (Negative) H 01/18/20 19:10 Urine Nitrite Negative (Negative) 01/18/20 19:10 Urine Bilirubin Negative (Negative) 01/18/20 19:10 Urine Urobilinogen 0.2 EU/dL (Up TO 0.2) 01/18/20 19:10 Ur Leukocyte Esterase Negative (Negative) 01/18/20 19:10 Urine RBC >50 HPF (0-2) H 01/18/20 19:10 Urine WBC 0-2 HPF (0-5) 01/18/20 19:10 Ur Epithelial Cells Negative HPF (Negative) 01/18/20 19:10 Urine Crystals Negative HPF (Negative) 01/18/20 19:10 Urine Bacteria Rare HPF (Negative) 01/18/20 19:10 Urine Casts 3-5 coarse granular LPF (Negative) 01/16/20 12:10 Urine Mucus Negative (Negative) 01/18/20 19:10 Ur Culture Indicated? No 01/18/20 19:10 Urine Myoglobin 263 mcg/L (<=21) H 01/18/20 19:10 Urine Glucose 500 mg/dL (Negative) H 01/18/20 19:10 COVID-19 PCR Negative (Negative) 01/16/20 12:40 Nasopharyn COVID-19 PCR Not Applicable 01/16/20 12:40 Ref Test Perform Site [facility] lab 01/16/20 12:40 Patient ABO/Rh O Negative 01/16/20 11:45 Antibody Screen Positive 01/16/20 11:45 Antibody Identification Cold Agglutinin 01/16/20 11:45
--- NOTE | 2020-01-21 12:40 | NUR.NOTE ---
Nursing Note: 1242 Patient has a chest blister, Per Dr. Wood verbal order, wound cleaned with chlorohexadine wash and telfa bandage.
[2020-01-21] MEDS: Potassium Chloride 20 MEQ TABCR 40 MEQ PO (12:52)
[2020-01-21] MEDS: Furosemide 20 MG/2 ML VIAL IVP (12:52)
--- NOTE | 2020-01-21 14:08 | PT.INTREAT ---
Date of service: 01/21/20 Time of Service: 14:08 PT Notes Visit Reasons: CHEST PAIN Inpatient Physical Therapy Treatment Note [facility] Date: 01/21/2020 SUBJECTIVE: David states that he is doing better. He offers no complaints to me today OBJECTIVE: [] BED MOBILITY/TRANSFERS Sit-stand: SBA Stand-sit: SBA GAIT Assistive Device: FWW Weight bearing: full Assist: CGA Distance: 260' in both am and pm sessions. wc to follow THEREX: global LE strength and stabilization. See flowsheet for details. No seated rest breaks were necessary today during ambulation. He did c/o increased right knee pain with wt bearing. ASSESSMENT: No seated rest breaks were necessary today during ambulation. He did c/o increased right knee pain with wt bearing. Strength gains noted as well as endurance. PLAN: will continue progressing following PT POC. TREATMENT CODE/TIME: 25 min in am and 25' in pm. [id number], [id number].
[2020-01-21 15:51] VITALS: BP 116/83; PULSE 64; RESP 20; TEMP 36.9; O2SAT 98
[2020-01-21 19:52] VITALS: BP 127/78; PULSE 82; RESP 18; TEMP 37.1; O2SAT 97
[2020-01-21] MEDS: Insulin Glargine 300 UNITS/3 ML PEN 20 UNITS SC (22:02)
[2020-01-21] MEDS: Pravastatin 20 MG TAB PO (22:03)
[2020-01-22 05:22] VITALS: BP 127/67; PULSE 75; RESP 16; TEMP 36.7; O2SAT 95
[2020-01-22 07:20] VITALS: BP 131/84; PULSE 75; RESP 18; TEMP 35.7; O2SAT 93
[2020-01-22 07:40] LABS: Anion Gap 8.1 mmol/L (3-11); BUN 17 mg/dL (7-18); CO2 29.9 mmol/L (21.0-32.0); CREATININE 1.54 mg/dL (0.70-1.30); Calcium 8.9 mg/dL (8.5-10.1); Chloride 102 mmol/L (98-107); Estimated GFR 44.88 (mL/min/1.73m2); Glucose 105 mg/dL (74-106); Potassium 4.1 mmol/L (3.5-5.1); Sodium 140 mmol/L (136-145)
[2020-01-22 08:28] LABS: COVID-19 RT-PCR UVMMC Result Negative (Negative)
[2020-01-22] MEDS: Insulin Aspart 300 UNITS/3 ML PEN SC (08:46)
[2020-01-22] MEDS: Aspirin E.C. 81 MG TABEC PO (08:47)
[2020-01-22] MEDS: Cholecalciferol (Vitamin D3) 1,000 UNIT TAB 1000 UNITS PO (08:48)
[2020-01-22] MEDS: Magnesium Oxide 400 MG TAB 800 MG PO (08:48)
[2020-01-22] MEDS: Amiodarone 200 MG TAB 400 MG PO (08:48)
[2020-01-22] MEDS: Multivitamin w/Minerals TAB 1 TAB PO (08:48)
[2020-01-22] MEDS: Apixaban 5 MG TAB PO (08:48)
[2020-01-22] MEDS: Amoxicillin 875/Clav. 125 TAB PO (08:48)
[2020-01-22] MEDS: Omeprazole 20 MG CAPCR PO (08:48)
[2020-01-22] MEDS: Normal Saline Flush 10 ML SYR IVP (08:49)
[2020-01-22] MEDS: Cyanocobalamin 500 MCG TAB 1000 MCG PO (08:49)
--- NOTE | 2020-01-22 11:31 | W.PM.DS.N ---
Date of service: 01/22/20 Time of Service: 11:32 DS: Diagnosis Discharge Diagnosis (1) Paroxysmal atrial fibrillation: Status: Chronic Asessment and Plan: Patient presented to the ER in atrial flutter at 146 bpm in 2:1 AV conduction and converted after couple of liters of iv fluids and a single dose of amiodarone (probably coincidental). He remained in NSR except for one brief epidsode after admission in which he converted to NSR after being given iv lopressor. He was started back on a loading dose of amiodarone 400 mg bid and should finish 2 weeks of a loading dose(one more week after discharge from hospital) and then reduce to 200 mg bid x 1 wk then go on maintenance dose of 200 mg daily. He should remain on Apixaban indefinitely. He should have a 30 day event recorder to assess for stability of his rhythm. He should have follow up with cardiology in a month. (2) UTI (urinary tract infection): Status: Resolved Asessment and Plan: patien's UA on admission had a moderate amount of blood and protein and glycosuria d/t his rhabdomyolysis and uncontrolled diabetes mellitus. He had ketones d/t poor oral intake prior to admission. His urine culture grew >100,000 colonies of mixed gram positive mehul and he was treated for 3 days w/ Augmentin. The culture had been taken from hodge cath specimen. If patient has any urinary symptoms then repeat culture should be obtained. (3) Acute kidney injury (nontraumatic): Status: Resolved Asessment and Plan: DILAN was secondary to rhabdomyolysis and dehydration. His creatinine and BUN on admission were elevated at 1.54 and 26 respectively and peaked at 1.81 and 25 before settling to 1.54 and 17. (4) Rhabdomyolysis: Status: Resolved (5) Diabetes mellitus: Status: Chronic Asessment and Plan: Poorly controlled d/t lack of medications. HbA1c was elevated at 8.4%. He was treated w/ basal/bolus insulin while hospitalized. He will need continued aggressive management of his diabetes in order to prevent complications. (6) Generalized weakness: Status: Acute Asessment and Plan: His generalized weakness led to his falls at home however he was making gains w/ P.T. while hospitalized and he will continue therapy at [facility] and may need outpatient ongoing treatment post discharge from SNF. (7) Discharge planning issues: Status: Resolved Asessment and Plan: discharge to [facility] for an estimated time of 2 wks. Actual duration depends on his response to his P.T. and O.T. treatments. Discharge Plan Disposition Patient Disposition: SNF (LEVEL 1) [facility] Condition: Good Discharge Details Chief Complaint: GenMedical Clinical Impression: Rhabdomyolysis Reason For Visit: CHEST PAIN Admit Date/Time: 01/16/20 15:13 Admit Provider: Dean Wood Attending Provider: Dean Wood Primary Care Provider: Urvashi [facility]i [facility] Course: 70-year-old male with history of known paroxysmal atrial fibrillation who previously been on amiodarone and apixaban but has been off his medications for several months. He was brought to emergency department after being found down at home. Patient reported that his knees gave out and he fell. He denies loss of consciousness. He been lying prone on the floor since 5 PM the evening prior to admission. His sister found him at home lying on the bathroom floor and contacted EMS. Patient denied any head injury and had no symptoms of fever or rigors or dyspnea. Patient's other comorbidities include type 2 diabetes mellitus and hypertension for which she has been off his medications. He was found to have pressure sores on both knees and his chest as well as his arms. Work-up in the emergency department demonstrate he had rhabdomyolysis with a creatinine kinase of 2155 and a blood lactate of 2.7 and elevated BUN and creatinine of 27 and 1.77. He has known chronic kidney disease with a baseline creatinine of around 1.5. He was also noted to have an elevated white cell count of 18,000. Radiologic imaging performed in the emergency department included a CT scan of his chest abdomen pelvis as well as his head. CT scan of the head without contrast showed no acute intracranial injury. Noncontrast CT scan of the chest abdomen pelvis showed no acute thoracic or abdominal process. Patient was treated with IV fluids and blood cultures were obtained on admission and came back no growth. Overnight his level of alertness improved and he was feeling markedly better. Over the ensuing days his renal function recovered. Creatinine peaked at 1.8 on January 17 but then came down to his baseline of 1.46-1.54. BUN improved and came down to 17. His WBC came down to 10,500 the next day but then transiently jaime to 13,000. His initial urinalysis look like a dirty urine had moderate blood with moderate bilirubin and 80 mg/dL ketones but was negative for leukocyte esterase or nitrites he had a lot of coarse granular casts and moderate mucus. He was also having glycosuria with 500 mg/dL glucose. Urine myoglobin was elevated 263. Repeat urine was obtained on January 17 and looked rug cleaner but he still had large amount of blood with greater than 50 red cells with only 0-2 white cells. Because the persistent leukocytosis on his CBC urine culture was sent and patient was started on Augmentin. Final urine culture came back positive for mixed gram-positive mehul after couple days of Augmentin this was discontinued. He remained afebrile throughout his hospital course. Hodge catheter was removed and he was peeing freely. His last CBC from January 20, 2020 showed a normal white count of 8400. He is mildly anemic but this was felt to be delusional at 12.2 g and 38% hematocrit. His last chemistry profile on the day of discharge showed a stable BUN and creatinine of 17 and 1.54. His blood lactate that was elevated on admission came back to normal at 1.3. Patient did require couple doses of Lasix because of volume overload. Physical therapy was consulted patient was ambulating with a front wheel walker with assistance. It was felt that the patient would benefit from further physical therapy in a senior care facility and therefore is being transferred to [facility]. During his hospital stay Dr. Sandoval, technical solutions engineer, was consulted for his podiatric care. Dr. Sandoval felt that the patient has onychomycosis and onychogryphosis as well as cirrhosis. He mechanically and electrically debrided all the toenails atraumatically. This resulted in improvement in the sensitivity surrounding his toenails. He instructed nursing to wash feet daily with soap and water and use a diaper soft sponge and hydrate the tissue with Eucerin cream. Please see his note for details. With respect to the patient's atrial fibrillation he was restarted on his amiodarone and his Eliquis. His atrial fibrillation converted in the emergency department after 1 dose amiodarone and couple liters of IV fluids. However he had another episode amiodarone after hospitalization that responded quickly to low-dose of IV Lopressor. His amiodarone was increased to a full loading dose of 400 mg twice a day for 2 weeks. He should continue this for 1 more week upon admission to the group home and then the dose should be decreased to 200 mg twice a day for 1 week and then it should be decreased to 200 mg once a day. Patient should have 30-day cardiac event recorder to assess stability of his rhythm. Arrangements should be made with follow-up with a team physician at [facility]. Repeat BMP should be performed in 1 week to assess his renal function and electrolytes. Home Meds and New Rx's Prescriptions: New polyethylene glycol 3350 17 gram Powder In Packet 17 g PO DAILY PRN PRN (Reason: Constipation) Qty: 30 RF: 0 aspirin 81 mg Tablet,Delayed Release (Dr/Ec) 81 mg PO DAILY Qty: 1 RF: 0 docusate sodium [Colace] 100 mg Capsule 100 mg PO TID PRN PRNQty: 1 RF: 0 alum-mag hydroxide-simeth [Mag-Al Plus] 200-200-20 mg/5 mL Suspension 30 ml PO Q2H PRN PRNQty: 1 RF: 0 chlorhexidine gluconate [Hibiclens] 4 % Liquid 1 applic topical DIRECTED Qty: 3785 RF: 0 Therems-M 27-0.4 mg Tablet 1 tab PO BID Qty: 60 RF: 0 [facility] Protect Cream 1 applic topical PRN PRNQty: 1200 RF: 0 Lantus Solostar U-100 Insulin 100 unit/mL (3 mL) Insulin Pen 10 unit subcut HS Qty: 15 RF: 0 Eliquis 5 mg Tablet 5 mg PO BID Qty: 1 RF: 0 Eucerin Cream 1 applic topical DAILY PRN PRNQty: 454 RF: 0 amiodarone 200 mg Tablet 400 mg PO BID Qty: 60 RF: 0 Continued cholecalciferol (vitamin D3) 1,000 unit capsule 1,000 unit PO DAILY RF: 0 melatonin 10 mg tablet 5 mg PO HS PRNRF: 0 metformin 850 MG tablet 850 mg PO BID RF: 0 omeprazole 20 MG capsule,delayed release(DR/EC) 20 mg PO DAILY@0730 Qty: 30 RF: 0 pravastatin 20 MG tablet 20 mg PO HS Qty: 30 RF: 0 cyanocobalamin (vitamin B-12) [Vitamin B-12] 1,000 mcg tablet 1,000 mcg PO DAILY RF: 0 Discontinued aspirin [Adult Aspirin Regimen] 81 mg tablet,delayed release (DR/EC) 81 mg PO DAILY RF: 0 Eliquis 5 MG tablet 5 mg PO BID RF: 0 amiodarone 200 MG tablet 200 mg PO DAILY Qty: 30 RF: 12 Discharge Instructions Instructions: A-fib (Atrial Fibrillation) (DC), Chronic Kidney Disease (DC), Rhabdomyolysis (DC) Additional Instructions: Continue amiodarone 400 mg twice a day for 1 week then decrease dose to 200 mg twice a day for 1 week then decrease to 200 mg once a day for maintenance. Arrange 30-day cardiac event recorder and arrange follow-up with the team physician at [facility] in the next 4 weeks. Repeat BMP in 1 week. Arrange follow-up with Dr. Sandoval, technical solutions engineer, in 2 to 4 weeks Referrals: Urvashi Conti MD [Primary Care Provider] - (Arrange follow-up with Dr. Conti upon discharge from [facility]) Karlos Pathak MD [MD CONSULTING PHYSICIAN] - (Arrange follow-up in 4 weeks) Tavon Sandoval DPM [[facility] STAFF PHYSICIAN] - ( arrange follow-up in 4 weeks) Activity:: Activity as Tolerated Equipment/Supplies:: No Equipment Needed Diet:: Carb Counting Discharge Orders Discharge Orders: Discharge Order (Routine); Ordered 01/22/20 Ordered By: Dean Wood Discharge Data Discharge Date/Time-TO BE ENTERED AT DEPARTURE: 01/22/20 11:31 DS: Summary Status at Discharge Functional status at discharge: uses cane/walker Overall status at discharge: patient is progressing back to baseline Mental Status: mental status grossly normal Speech and Movement: speech and movement normal Mood: congruent mood Affect: normal affect Time Spent with Patient providing and/or coordinating discharge services: Less than 30 minutes Exam Psych Mental Status: mental status grossly normal Speech and Movement: speech and movement normal Mood: congruent mood Affect: normal affect DS: Data Vitals/I&O Vitals and I&O: Vital Signs Temperature 35.7 C L 01/22/20 07:20 Temperature Source Tympanic 01/22/20 07:20 Pulse 75 01/22/20 07:20 Pulse Rhythm Regular 01/22/20 08:45 Pulse 64 01/16/20 16:03 Respiratory Rate 18 01/22/20 07:20 Respiratory Effort Non-Labored 01/22/20 08:45 Respiratory Depth Normal 01/22/20 08:45 Respiratory Pattern Normal 01/22/20 08:45 Blood Pressure 131/84 01/22/20 07:20 Blood Pressure Mean 74 01/16/20 16:02 Blood Pressure Position Supine 01/16/20 11:29 Pulse Oximetry 93 L 01/22/20 07:20 Oxygen Delivery Method Room Air 01/22/20 07:20 Oxygen Flow Rate 0 01/22/20 07:20 Pain Level 3 01/22/20 07:20 Comment 01/19/20 15:30 Intake & Output 01/21/20 01/21/20 01/22/20 11:59 23:59 11:59 Intake Total 250 / 490 240 / 490 240 / 240 Output Total 550 / 2170 1620 / 2170 1100 / 1100 Balance -300 / -1680 -1380 / -1680 -860 / -860 Weight 90.9 g 89.1 kg Intake: IV Oral 240 / 480 240 / 480 240 / 240 Output: Urine 550 / 2170 1620 / 2170 1100 / 1100 Other: Urine Color Yellow Yellow Yellow Urine Appearance Clear Clear Clear Urine Odor Normal Normal None Stool Size Moderate Small Moderate Stool Characteristics Soft Soft Soft Formed Brown Voiding Methods Toilet Urinal Urinal Data Completed and Pending Labs on day of discharge: Labs from last 24 hours 01/22/20 01/21/20 07:06 10:23 Sodium 140 Potassium 4.1 Chloride 102 Carbon Dioxide 29.9 Anion Gap 8.1 BUN 17 Creatinine 1.54 H Estimated GFR/1.73 m2 44.88 Glucose 105 Calcium 8.9 COVID-19 PCR Negative Nasopharyn COVID-19 PCR Not Applicable Ref Test Perform Site Replaced by [facility] lab Preliminary micro results at discharge 01/18/20 19:37 Blood Culture - Preliminary Blood NO GROWTH 72 HOURS 01/18/20 19:20 Blood Culture - Preliminary Blood NO GROWTH 72 HOURS PFSH Medical History Atrial fibrillation (Chronic) Depression (Chronic) Diabetes (Chronic) HTN (hypertension) (Chronic) Surgical History H/O removal of cyst (Acute) left leg Social History Smoking/Tobacco Use Status: Former Tobacco Use Alcohol Intake: current Alcohol Intake frequency: holidays/special occasions only Drug use: Never Substance use type: does not use Do you feel safe in your relationship?: Yes
--- NOTE | 2020-01-22 17:08 | CMDISCH_ITS ---
- If Service Date Differs Date of service: 01/22/20 Time of Service: 17:08 LACE Index Scoring Tool - Questions: Length of Stay (in days): 4 - 6 Acuity (Admit via E.D.?): Yes Comorbidities: Diabetes w/o Complication E.D. Visits: 1 - Answers: Total Score: 9 Risk of Readmission: Low Risk Care Management Discharge Reason for Hospitalization: Paroxysmal atrial fibrillation Discharge Plan: David will be discharged to [facility] and transport via their wheelchair van. He will follow up with the plan of care as determined by their provider. CM coordinated follow up care through the DC and David will follow up with them when he is discharged from [facility]. Patient/Family Education Needs: Expectations and limitations Services Needed at Discharge: Jail Facility
--- NOTE | 2020-01-25 17:00 | INDS_ITS ---
Date of service: 01/25/20 PT Notes Visit Reasons: CHEST PAIN Inpatient Physical Therapy Discharge Summary Dates: 01/25/2020 Dates of Service: 01/21/2020 through 01/22/2020 This is a clinical summary of care provided on the duration of dates listed above. No charge was made in the completion of this documentation. Referring Doctor: Dean Wood MD PT Orders: PT CONSULT: Fall Safety Assessment Precautions: Standard Fall risk Patient Profile/Admitting Diagnosis: Orders received for this 70 year old male who has been admitted to hospital following a fall at home. Patient apparently had a fall while his legs gave out from under him on Saturday and was not found until Saturday. He was found to be in A-fib, rhabdomyolysis. He has been admitted for medical management and assessment of functional safety for discharge. A Covid-19 test was performed and has been ruled out as negative. PMHX: Medical History (Updated 01/16/20 @ 21:27 by Dean Wood) Atrial fibrillation (Chronic) Depression (Chronic) Diabetes (Chronic) HTN (hypertension) (Chronic) Surgical History (Updated 01/16/20 @ 21:15 by Dean Wood) H/O removal of cyst (Acute) left leg Social History/Home Situation: Patient lives alone in a trailer in [place]. He does have family that check on him. Equipment Owned/DME: Patient states he has a walker, but does not use it much because it is usually covered up in trash apparently Subjective: NT Objective: NT Mental Status: NT Pain: NT ROM: Right Upper Extremity: Within Functional limits Left Upper Extremity: Within Functional limits Right Lower Extremity: Within Functional limits Left Lower Extremity: Within Functional limits Strength: Right Upper Extremity: Grossly 4+/5 Left Upper Extremity: Grossly 4+/5 Right Lower Extremity: Grossly 4+/5 Left Lower Extremity: Grossly 4+/5 Bed Mobility/Transfers: Patient is sitting in chair Sit-stand: SBA Stand-sit: SBA Gait: 2059 with front wheeled walker with full weightbearing requiring contact-guard assist. Up-and-down six 4-inch steps and four 6-inch step with holding onto bilateral rails requiring SBA. Balance: Static Sitting: Good Dynamic Sitting: Good Static Standing: Fair Dynamic Standing: Poor ASSESSMENT: Patient continues to require skilled physical therapy services in order to achieve highest functional level. He continues to require use of front wheeled walker for all mobility ADL performance. He will benefit from SNF placement in order to facilitate functional mobility progression. Goals: Goals X1 week 1. Supine-Sit Independent NOT MET 2. Sit-Supine Independent NOT MET 3. Sit-Stand Independent NOT MET 4. Stand-Sit Independent NOT MET 5. Bed-Chair Independent with least restrictive assistive device NOT MET 6. Gait Independent with least restrictive assistive device up to 50 feet NOT MET 7: Stairs 3 steps with supervision NOT MET 8: Independent in Home program NOT MET DISCHARGE RECOMMENDATIONS: Patient will benefit from group home facility placement for continued skilled physical therapy services in order to progress mobility level, strength, and balance in preparation for a safe discharge to home. TREATMENT CODE/TIME: VA Thank you for the opportunity to participate in the care of this patient. Adelita Powell PT, DPT, CLT [facility] [place], [place]
== END 2020-01-22 11:31 | disposition skilled nursing facility (03) | DRG 565 ==
LOC: ER 14:37 → MS 16:16
PROVIDERS: Admitting Provider Internal Medicine; Emergency Provider Physician Assistant; PCP Family Medicine; Visit Provider Internal Medicine
DX: T79.6XXA Traumatic ischemia of muscle, initial encounter (principal); N17.9 Acute kidney failure, unspecified; W18.39XA Other fall on same level, initial encounter; R11.2 Nausea with vomiting, unspecified; I48.0 Paroxysmal atrial fibrillation; R53.1 Weakness; E86.0 Dehydration; R31.0 Gross hematuria; Z91.14 Patient's other noncompliance with medication regimen; S20.311A Abrasion of right front wall of thorax, initial encounter; I10 Essential (primary) hypertension; E11.22 Type 2 diabetes mellitus with diabetic chronic kidney disease; N18.9 Chronic kidney disease, unspecified; D72.829 Elevated white blood cell count, unspecified; E87.70 Fluid overload, unspecified; L89.022 Pressure ulcer of left elbow, stage 2; L89.012 Pressure ulcer of right elbow, stage 2; L89.892 Pressure ulcer of other site, stage 2; Z71.3 Dietary counseling and surveillance; Z59.6 Low income; L60.2 Onychogryphosis; B35.1 Tinea unguium; L85.3 Xerosis cutis; Z03.818 Encounter for observation for suspected exposure to other biological agents ruled out
CPT/HCPCS: 36410; 36415; 36416; 51702; 71250; 76770; 80048; 80053; 80061; 80076; 82550; 82805; 82962; 83690; 84145; 85652; 86850; 86900; 86901; 87040; 93005; 96360; 96361; 97110; 97162; 97530; 99223; 99232; 99233; 99238; 99285; U0003; 70450; 71046; 74019; 74176; 81003; 81015; 83036; 83605; 83735; 83874; 84443; 84484; 85025; 85610; 85730; 86140; 86870; 86880; 86885; 86905; 86977; 86978; 87086; 93010; J0696; J1941

== ENCOUNTER 2020-01-27 17:17 | Outpatient (REF) | payer MEDICARE, SELFPAY ==
[2020-01-28 18:08] LABS: COVID-19 RT-PCR Result Not Detected ((See Note))
== END 2020-01-27 17:37 ==
LOC: LBN 17:17
PROVIDERS: PCP Family Medicine; Visit Provider Nurse Practitioner Adult Health
DX: Z03.818 Encounter for observation for suspected exposure to other biological agents ruled out (principal)
CPT/HCPCS: U0003

== ENCOUNTER 2020-01-28 19:02 | Outpatient (REF) | payer MEDICARE, SELFPAY ==
[2020-01-28 17:02] LABS: Anion Gap 10.2 mmol/L (3-11); BUN 29 mg/dL (7-18); CO2 25.8 mmol/L (21.0-32.0); CREATININE 1.59 mg/dL (0.70-1.30); Calcium 8.7 mg/dL (8.5-10.1); Chloride 104 mmol/L (98-107); Estimated GFR 43.26 (mL/min/1.73m2); Glucose 112 mg/dL (74-106); Potassium 4.8 mmol/L (3.5-5.1); Sodium 140 mmol/L (136-145)
== END 2020-01-28 19:22 ==
LOC: LBN 19:02
PROVIDERS: PCP Family Medicine; Visit Provider Nurse Practitioner Adult Health
DX: N17.9 Acute kidney failure, unspecified (principal); N18.9 Chronic kidney disease, unspecified; D52.9 Folate deficiency anemia, unspecified; D19.9 Benign neoplasm of mesothelial tissue, unspecified
CPT/HCPCS: 80048

== ENCOUNTER 2020-02-03 11:05 | Outpatient (REF) | payer MEDICARE, SELFPAY ==
[2020-02-04 17:28] LABS: COVID-19 RT-PCR Result Not Detected ((See Note))
== END 2020-02-03 11:25 ==
LOC: LBN 11:05
PROVIDERS: PCP Family Medicine; Visit Provider Nurse Practitioner Adult Health
DX: Z03.818 Encounter for observation for suspected exposure to other biological agents ruled out (principal)
CPT/HCPCS: U0003

== ENCOUNTER 2020-02-08 16:01 | Outpatient (REF) | payer MEDICARE, SELFPAY ==
[2020-02-09 02:24] LABS: COVID-19 RT-PCR UVMMC Result Negative (Negative)
== END 2020-02-08 16:21 ==
LOC: LBN 16:01
PROVIDERS: PCP Family Medicine; Visit Provider Nurse Practitioner Adult Health
DX: Z11.59 Encounter for screening for other viral diseases (principal)
CPT/HCPCS: U0003

== ENCOUNTER 2020-04-22 14:14 | Outpatient (REF) | payer MEDICARE, SELFPAY ==
[2020-04-22 19:21] LABS: HCT 50.4 % (40.0-50.0); HGB 15.2 g/dL (13.5-17.5); MCH 27.8 pg (27.0-33.0); MCHC 30.2 % (32.0-36.0); MCV 92.1 fL (80-95); MPV 9.2 fL (8.0-11.0); Platelet Count 284 10^3/uL (130-400); RBC 5.47 10^6/uL (4.36-5.78); RDW 13.3 % (11.8-14.1); RDW-SD 45.5 fL; WBC 10.99 10^3/uL (4.4-10.8)
[2020-04-22 19:31] LABS: ALT 17 U/L (16-63); AST 22 U/L (15-37); Albumin 3.8 g/dL (3.4-5.0); Alkaline Phosphatase 111 U/L (46-116); Anion Gap 7.7 mmol/L (3-11); BUN 21 mg/dL (7-18); Bilirubin, Total 0.5 mg/dL (0.2-1.0); CO2 26.3 mmol/L (21.0-32.0); CREATININE 1.25 mg/dL (0.70-1.30); Calcium 9.3 mg/dL (8.5-10.1); Chloride 103 mmol/L (98-107); Glucose 165 mg/dL (74-106); Potassium 4.9 mmol/L (3.5-5.1); Sodium 137 mmol/L (136-145)
[2020-04-22 19:58] LABS: Hemoglobin A1C 7.5 % (<5.7)
== END 2020-04-22 14:34 ==
LOC: NCHCN 14:14
PROVIDERS: PCP Family Medicine; Visit Provider Family Medicine
DX: E11.9 Type 2 diabetes mellitus without complications (principal); I48.0 Paroxysmal atrial fibrillation; N28.9 Disorder of kidney and ureter, unspecified; D64.9 Anemia, unspecified; E53.8 Deficiency of other specified B group vitamins
CPT/HCPCS: 80053; 85027; 83036

== ENCOUNTER 2020-07-22 12:24 | Inpatient (IN) | payer MEDICARE, SELFPAY ==
[2020-07-22] VITALS (38 sets, daily range): BP systolic 105–134; BP diastolic 61–84; PULSE 98–130; RESP 18–33; TEMP 36.8–37.9; O2SAT 89–95
--- NOTE | 2020-07-22 | DI.US_ITS ---
EXAM: US RENAL CLINICAL HISTORY: renal failure, UTI, history of stones. TECHNIQUE: Pereira scale, color and spectral Doppler were used. COMPARISON: US US RENAL from 01/19/2020 FINDINGS: Renal size in cm: Right: 9.1. Left: 10.2. Echogenicity: Normal. Hydronephrosis: No. Cyst or mass: No. Nephrolithiasis: No. Other findings: None. Bladder:Normal. Ureteral jets: Right: Visualized and unremarkable. Left: Visualized and unremarkable. Prevoid vol:75 cc Postvoid vol:The patient was unable to void. Prostate: Not visualized. Renal color flow: Symmetric and slightly diminished.. IMPRESSION: No evidence of nephrolithiasis or hydronephrosis. DATA REPOSITORY:
--- NOTE | 2020-07-22 12:15 | RT.EKG_ITS ---
APPROVED REPORT Exam: Resting ECG Patient Location: E HR:126 bpm ECG Measurements Heart Rate 126 AXIS RI 168 P 17 QRSd 87 QRS 19 QT 272 T 197 QTc 388 Conclusion Sinus tachycardia. Abnormal T, lateral leads. I aVL V5 V6
--- NOTE | 2020-07-22 12:39 | W.ED.GENAD ---
Discharge Plan Disposition Patient Disposition: [facility] INPATIENT Condition: Fair Discharge Details Clinical Impression: Sepsis Admit Date/Time: 07/22/20 15:36 Admit Provider: Dean Wood Attending Provider: Dean Wood Primary Care Provider: Urvashi Conti V ED Provider: Neeta Krishna Discharge Data Discharge Date/Time-TO BE ENTERED AT DEPARTURE: 07/22/20 16:43 Medical Decision Making 70-year-old male presents to the ED via POV with his daughter after having a primary care appointment this morning at [facility]. This morning family and PCP noticed altered mental status, delayed response, and increased weakness. Patient is alert and oriented x3 upon arrival. He does have some delayed verbal responses. He denies having any chest pain, shortness of breath or pain anywhere. He denies any diarrhea or problems urinating. He is tachycardic and febrile upon arrival. He does have a history of recent admission for rhabdomyolysis with discharged to rehab. Does have a pressure ulcer of buttock, hypertension and vitamin B12 deficiency. Patient febrile 38.2. Sepsis work-up ordered, lactate blood cultures x2 and troponin x2 EKG CBC CMP. No evidence of for pressure ulcers. Coccyx, informed by industrial staff nurse that he was incontinent of urine. CT head and chest x-ray ordered to pinpoint source for fever. EXAM: XR PORTABLE CHEST AP CLINICAL HISTORY: Altered mental status, PUI. TECHNIQUE: 2D digital imaging was performed. COMPARISON: CR,XR XR CHEST 2V PA LATERAL from 01/18/2020 FINDINGS: Heart size is normal. The mediastinum is not widened. Increased markings in the lung ortiz are unchanged from January 2020. No new infiltrates. No obvious pleural effusions. Mild increased markings in the lung bases probably due to a suboptimal inspiratory effort. IMPRESSION: No acute pulmonary findings on this single AP portable view of the chest. 1528: Spoke with Yvette Grimm QA AUTOMATION ENGINEER, discussed patient case and details, she agrees to accept patient for admission. She recommends Ceftriaxone 2gm IVPB, and possible CT abd/pelvis if urine is clean. CT abd/Pelvis ordered and is pending at this time. Plan is to have patient go to CT for abdomen pelvis and be transported to floor pending bed assignment. HPI General Mode of arrival: wheelchair. Date/Time Provider Initiated Documentation: 07/22/20 12:26. Limitations to Documentation: no limitations. Information obtained by: patient. HPI Narrative: 70-year-old male presents to the ED via POV with his daughter after having a primary care appointment this morning at [facility]. This morning family and PCP noticed altered mental status, delayed response, and increased weakness. Patient is alert and oriented x3 upon arrival. He does have some delayed verbal responses. He denies having any chest pain, shortness of breath or pain anywhere. He denies any diarrhea or problems urinating. He is tachycardic and febrile upon arrival. He does have a history of recent admission for rhabdomyolysis with discharged to rehab. Does have a PMHx of pressure ulcer of buttock, hypertension and vitamin B12 deficiency. Related Data Home Medications Medication Instructions Recorded Confirmed metformin 850 mg PO BID 04/23/14 07/22/20 omeprazole 20 mg PO DAILY@0730 #30 capcr 09/21/17 07/22/20 pravastatin 20 mg PO HS #30 tab 09/21/17 07/22/20 cholecalciferol (vitamin D3) 25 1,000 unit PO DAILY 11/05/18 07/22/20 mcg (1,000 unit) capsule melatonin 10 mg tablet 10 mg PO HS PRN 11/05/18 01/17/20 cyanocobalamin (vitamin B-12) 1,000 mcg PO DAILY 01/16/20 07/22/20 [Vitamin B-12] alum-mag hydroxide-simeth [Mag-Al 30 ml PO Q2H PRN PRN #1 ml 01/22/20 Plus] apixaban [Eliquis] 5 mg PO BID #1 tab 01/22/20 07/22/20 aspirin 81 mg PO DAILY #1 tab 01/22/20 07/22/20 dimethicone-zinc oxide [Sinai 1 applic TOPICAL PRN PRN #1200 gm 01/22/20 Protect] docusate sodium [Colace] 100 mg PO TID PRN PRN #1 cap 01/22/20 insulin glargine [Lantus Solostar 10 unit SUBCUT HS #15 ml 01/22/20 U-100 Insulin] lanolin learswn-cx-r.pet-ceres 1 applic TOPICAL DAILY PRN PRN 01/22/20 [Eucerin] #454 gm multivitamin,iz-krpr-dpffkkef 1 tab PO BID #60 tab 01/22/20 07/22/20 [Therems-M] amiodarone 200 mg PO DAILY 07/22/20 07/22/20 Previous Rx's Medication Instructions Recorded omeprazole 20 mg PO DAILY@0730 #30 capcr 09/21/17 pravastatin 20 mg PO HS #30 tab 09/21/17 alum-mag hydroxide-simeth [Mag-Al 30 ml PO Q2H PRN PRN #1 ml 01/22/20 Plus] apixaban [Eliquis] 5 mg PO BID #1 tab 01/22/20 aspirin 81 mg PO DAILY #1 tab 01/22/20 dimethicone-zinc oxide [Sinai 1 applic TOPICAL PRN PRN #1200 gm 01/22/20 Protect] docusate sodium [Colace] 100 mg PO TID PRN PRN #1 cap 01/22/20 insulin glargine [Lantus Solostar 10 unit SUBCUT HS #15 ml 01/22/20 U-100 Insulin] lanolin mokjapg-lb-w.pet-ceres 1 applic TOPICAL DAILY PRN PRN 01/22/20 [Eucerin] #454 gm multivitamin,sz-aieb-akaayqvn 1 tab PO BID #60 tab 01/22/20 [Therems-M] Allergies Allergy/AdvReac Type Severity Reaction Status Date / Time No Known Allergies Allergy Unverified 07/22/20 17:01 General Stated Complaint: AMS/LOC PUSHPA: 3 Review of Systems Narrative: Constitutional: Negative for weight loss, alert and oriented, well groomed, normal body habitus, appears comfortable. Afebrile upon arrival HEENT: Denies trauma, headaches, blurry vision, nasal discharge, sore throat, trouble swallowing. Chest: Denies chest pain, palpitations, irregular rhythm, Respiratory: Denies Shortness of breath, cough, hemoptysis. GI: Denies abdominal pain, nausea, vomiting, diarrhea, constipation. : Denies dysuria, hematuria, flank pain, rectal bleeding. Neuro: Denies dizziness, blurry vision, syncope, headache or facial numbness. Increase generalized weakness. Hematologic: Denies easy bruising, intolerance to heat or cold, hair loss. [facility] Medical History (Updated 07/23/20 @ 13:04 by Juan Saini MD) Depression Diabetes HTN (hypertension) Hypernatremia Paroxysmal atrial fibrillation Rhabdomyolysis Skin lesion of chest wall Tinea pedis Vitamin B12 deficiency Surgical History H/O removal of cyst left leg Social History Smoking/Tobacco Use Status: Former Tobacco Use Smoking risk assessment performed?: Yes Alcohol Intake: current Alcohol Intake frequency: holidays/special occasions only Drug use: Never Substance use type: does not use Do you feel safe in your relationship?: Yes Exam Narrative Exam Narrative: Constitutional: Alert and oriented x3. Appears stated age. Normal body habitus. Febrile does have delayed response. Head: Normocephalic, no trauma. Eyes: Pupils PERRLA, Red reflex noted, EOM's intact. Eyelids symmetrical without lesions, discharge, or swelling. ENT: Bilateral TM's WNL, External ear normal to inspection, no mastoid TTP, swelling, or erythema, Nasal turbinates WNL, no nasal discharge. Normal dentition, Posterior pharynx WNL, no exudate. Chest: Tachycardic at a rate of 120, normal S1, S2, distal pulses intact. Resp: Lungs clear to auscultation bilaterally, no wheezes, rales, or rhonchi. Abdomen: Soft, nondistended, nontender to palpation all 4 quadrants. Musculoskeletal: Skin: No suspicious rashes or lesions. Capillary refill less than 2 sec upper extremity. Lower extremities appear mottled, cap refill approximately 3-1/2 seconds. Neurologic: Cranial nerves II-XII intact. Alert and oriented x 3. DTR's intact. Hematologic/Lymphatic: No ecchymosis, no lymphadenopathy. Course Vital Signs Vital signs: Vital Signs Temperature 37.9 C H 07/22/20 12:31 Pulse 119 H 07/22/20 12:31 Respiratory Rate 28 H 07/22/20 12:31 Blood Pressure 127/71 07/22/20 12:31 Pulse Oximetry 94 07/22/20 12:31 Temperature 37.9 C H 07/22/20 12:31 Temperature Source Oral 07/22/20 12:31 Pulse 119 H 07/22/20 12:31 Respiratory Rate 28 H 07/22/20 12:31 Blood Pressure 127/71 07/22/20 12:31 Blood Pressure Position Sitting 07/22/20 12:31 Pulse Oximetry 94 07/22/20 12:31 Oxygen Delivery Method Room Air 07/22/20 12:31 Oxygen Flow Rate 0 07/22/20 12:31 Lab/Test Results Lab/Test Results: 07/22/20 12:37 Blood Blood Culture - Pending 07/22/20 12:37 Blood Blood Culture - Pending
[2020-07-22 12:59] LABS: Abs Immature Grans 0.06 10^3/uL (0.0-0.06); Absolute Lymphocyte Count 0.35 10^3/uL (1.2-3.4); Absolute Monocyte Count 0.43 10^3/uL (0.1-0.8); Basophils % 0.4; Eosinophils % 0.1; HCT 48.4 % (40.0-50.0); HGB 15.1 g/dL (13.5-17.5); Immature Grans % 0.4; Lymphocytes % 2.2; MCHC 31.2 % (32.0-36.0); MCV 89.6 fL (80-95); MPV 8.3 fL (8.0-11.0); Monocytes % 2.7; Neutrophils % 94.2; Nucleated RBC 0 %; Platelet Count 220 10^3/uL (130-400); RDW 12.2 % (11.8-14.1); RDW-SD 40.1 fL; WBC 16.03 10^3/uL (4.4-10.8)
[2020-07-22 13:04] LABS: Lactate 2.3 mmol/L (0.6-1.4)
[2020-07-22 13:08] LABS: Absolute Basophil Count 0.06 10^3/uL (0.0-0.2); Absolute Eosinophil Count 0.02 10^3/uL (0.0-0.7)
--- NOTE | 2020-07-22 13:15 | DI.CT_ITS ---
EXAM: CT HEAD WO CLINICAL HISTORY: Altered mental status/ PUI. TECHNIQUE: Imaging Protocol: Axial computed tomography images with coronal and sagittal reformatted images were created and reviewed COMPARISON: CT CT HEAD WO from 01/16/2020 FINDINGS: There are no skull fractures nor fluid in the visualized paranasal sinuses. There is no evidence of intracranial hemorrhage, mass effect, or shift of midline structures. There are no extra-axial fluid collections. The ventricles are not enlarged or shifted and there is no blo od within the ventricular system nor within the basal cisterns. Atrophy is unchanged IMPRESSION: No acute intracranial findings on this noninfused CT scan of the brain. Amount of involutional change is unchanged consistent with the patient's age RADIATION DOSE DELIVERED: 816.73mGy.cm Total DLP DATA REPOSITORY: All CT scans at this facility are submitted to the National Radiology Data Registry (NRDR) Dose Index Registry (DIR) with the [employer] (ACR). RADIATION OPTIMIZATION: All CT scans at this facility use at least one of these dose optimization te chniques: automated exposure control; mA and/or kV adjustment per patient size (includes targeted exa ms where dose is matched to clinical indication); or iterative reconstruction.
[2020-07-22 13:20] LABS: ALT 16 U/L (16-63); AST 18 U/L (15-37); Albumin 3.8 g/dL (3.4-5.0); Alkaline Phosphatase 102 U/L (46-116); Anion Gap 11.5 mmol/L (3-11); BUN 20 mg/dL (7-18); Bilirubin, Total 1.3 mg/dL (0.2-1.0); CO2 24.5 mmol/L (21.0-32.0); CREATININE 1.56 mg/dL (0.70-1.30); Calcium 9.2 mg/dL (8.5-10.1); Chloride 101 mmol/L (98-107); Creatine Kinase 58 U/L (39-308); Estimated GFR 44.22 (mL/min/1.73m2); Glucose 233 mg/dL (74-106); Magnesium 1.8 mg/dL (1.8-2.4); Potassium 4.9 mmol/L (3.5-5.1); Sodium 137 mmol/L (136-145); Total Protein 7.5 g/dL (6.4-8.2)
[2020-07-22 13:21] LABS: Troponin I < 0.05 ng/mL (<0.06)
--- NOTE | 2020-07-22 13:23 | DI.RAD_ITS ---
EXAM: XR PORTABLE CHEST AP CLINICAL HISTORY: Altered mental status, PUI. TECHNIQUE: 2D digital imaging was performed. COMPARISON: CR,XR XR CHEST 2V PA LATERAL from 01/18/2020 FINDINGS: Heart size is normal. The mediastinum is not widened. Increased markings in the lung ortiz are unchanged from January 2020. No new infiltrates. No obvious pleural effusions. Mild increased markings in the lung bases probably due to a suboptimal inspiratory effort. IMPRESSION: No acute pulmonary findings on this single AP portable view of the chest. DATA REPOSITORY: RADIATION DOSE DELIVERED:
[2020-07-22] MEDS: Normal Saline 1,000 ML 500 ML IV (13:47)
--- NOTE | 2020-07-22 14:12 | INITIAL_ITS ---
- If Service Date Differs Date of service: 07/22/20 Time of Service: 14:30 Care Management Initial Assess REASON FOR HOSPITALIZATION:: AMS/LOC PAST MEDICAL HISTORY/PAST SURGICAL HISTORY:: Afib, Depression, Diabetes, HTN, cyst removal left leg PREVIOUS FUNCTIONAL STATUS/SOCIAL/FAMILY SUPPORTS:: David resides alone in a log cabin in [place], [place]. His sister Delmy lives down the road and provides assistance with meals and other support as needed. 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 David has 2 children but he has not communicated with them in 4 or 5 years. He stated that he does not contact information for them. David is independent and continues to drive. He sometimes uses a cane outside of his home. David was discharged from [facility] to [facility] on 01/22/20. Barbra reports he returned home on 02/16/21, and reports [facility] would be more than willing to accept Sung for SNF if needed. CURRENT FUNCTIONAL STATUS:: David is well known to this technical report writer from previous admissions at [facility]. He is currently presenting from PCP office for AMS/LOC. ED MD reports A+Ox3. Noted by RN to be joking around which is baseline behavior, as known to this technical report writer. CM continues to follow. Has patient been provided with info about the portal/API?: No Did the patient sign up for the portal?: No CODE STATUS:: DNR/DNI INSURANCE COVERAGE / FINANCIAL ISSUES:: Medicare CURRENT HOME/COMMUNITY SERVICES/EQUIPMENT:: Cane PRIMARY CARE PHYSICIAN:: Urvashi Conti POTENTIAL DISCHARGE NEEDS:: Possible SNF coordination: [facility] willing to accept patient once medically cleared. PATIENT/FAMILY EDUCATION NEEDS:: Review of discharge instructions, discuss Ask Me Three. ANTICIPATED BARRIERS TO DISCHARGE:: None identified. TRANSPORTATION:: TBD by disposition. PLAN:: Sung is currently in the ED, undetermined if he will require admission at this time. [facility] reports no current service supports. David does utilize a cane at baseline. Previous SNF stay at [facility] 01/22/20-02/17/20. If needed, [facility] will accept David for SNF; dependent on medical stability and further evaluation. CM will continue to follow.
[2020-07-22 15:02] LABS: Source Nasopharynx
[2020-07-22] MEDS: Lidocaine 2% Jelly 6 ML SYR (15:11)
--- NOTE | 2020-07-22 15:33 | DI.CT_ITS ---
EXAM: CT ABDOMEN PELVIS WO CLINICAL HISTORY: Fever. TECHNIQUE: Imaging Protocol: Axial computed tomography images with coronal and sagittal reformatted images were created and reviewed. COMPARISON: CT CT CHEST/ABD/PEL WO from 01/16/2020 FINDINGS: The examination is limited due to patient motion artifact. ABDOMEN: Lung Bases: Normal where visualized. Liver: Normal density. No measurable mass. Stable hepatic calcification. Gallbladder and biliary tract: Cholelithiasis. No biliary ductal dilatation. The gallbladder measur es 4 cm in diameter. Pancreas: Normal density, no abnormal calcifications or inflammatory process. Spleen: Normal. Kidneys: Normal size, contour and axis.Bilateral nephrolithiasis. No ureterolithiasis. No masses se en. Adrenal glands: No mass is seen. Lymph nodes: Within normal limits. Abdominal Aorta: Abdominal portion non-dilated. Atherosclerosis. PELVIS: Bladder:Symmetric distention, no gross wall thickening. Bowel: No obstruction or bowel wall thickening. Appendix is unremarkable. Diverticulosis throughout the colon but no evidence of acute diverticulitis. Small hiatal hernia. Peritoneal cavity: No ascites, collection or mesenteric inflammatory response Reproductive organs: Within normal limits. Bones: Degenerative changes in the spine. L5 spondylolysis. Minimal spondylolisthesis of L5 on S1. Soft Tissues: Small fat containing supraumbilical hernia. IMPRESSION: 1. Cholelithiasis within a mildly dilated gallbladder. Bladder ultrasound may be considered for furt her evaluation. 2. No other acute abdominal or pelvic process. RADIATION DOSE DELIVERED: 1,043.51mGy.cm Total DLP DATA REPOSITORY: All CT scans at this facility are submitted to the National Radiology Data Registry (NRDR) Dose Index Registry (DIR) with the [employer] (ACR). RADIATION OPTIMIZATION: All CT scans at this facility use at least one of these dose optimization te chniques: automated exposure control; mA and/or kV adjustment per patient size (includes targeted exa ms where dose is matched to clinical indication); or iterative reconstruction.
[2020-07-22 15:39] LABS: Bilirubin Negative (Negative); Blood Trace-intact (Negative); Clarity Sl Cloudy (Clear); Glucose 500 mg/dL (Negative); Ketones 40 mg/dL (Negative); Leukocyte Esterase Negative (Negative); Nitrite Negative (Negative); Specific Gravity >= 1.030 (1.005-1.025); Urobilinogen 0.2 EU/dL (Up TO 0.2); pH 5.5 (5-8)
[2020-07-22 15:42] LABS: COVID-19 PCR Negative (Negative); Influenza A PCR Negative (Negative); Influenza B PCR Negative (Negative); RSV PCR Negative (Negative)
--- NOTE | 2020-07-22 15:42 | HPE_ITS ---
Date of service: 07/22/20 Time of Service: 15:43 Assessment and Plan Assessment and plan (1) Sepsis: Status: Acute Assessment and plan: from UTI. urine culture pending blood culture and abdominal imaging pending at time of admission given ceftriaxone 2 gm IV in ED, will continue while cultures pending, low threshold to broaden continue IV resuscitation, follow lactic acid 1600: urine results concerning for possible infected stone. US shows no evidence of stone CT shows dilated gall bladder no abdominal pain surgical consult, US abd in am (2) Acute kidney injury: Status: Acute Assessment and plan: IV hydration, avoid nephrotoxic drugs renal US 01/19/20 FINDINGS: The kidneys are normal in size and shape. There is apparent mild left hydronephrosis. No right hydronephrosis. Urinary bladder is nearly empty and is difficult to evaluate. Left ureteral jet was nonvisualized. Question echogenic focus in the urinary bladder, possible bladder stone. IMPRESSION: Mild left hydronephrosis is noted. Please note that recent CT showed a distal left intraureteral calculus, this may be obstructive at this time. Correlation with retrograde ureterography may be considered if clinically appropriate. (3) Paroxysmal atrial fibrillation: Status: Acute Assessment and plan: in sinus, fully anticoagulated continue home medication (4) Diabetes mellitus: Status: Chronic Assessment and plan: hemoglobin A1C 7.5 in Apr 2020 continue diabetic diet, sliding scale coverage AC with sliding scale coverage. 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 discussed with DR Cox History of Present Illness History of Present Illness Chief Complaint: altered mental status, fever Narrative: 70-year-old male presents to the ED via POV with his daughter after having a primary care appointment this morning at [facility]. This morning family and PCP noticed altered mental status, delayed response, and increased weakness. Patient is alert and oriented x3 upon arrival. He does have some delayed verbal responses. He denies having any chest pain, shortness of breath or pain anywhere. He denies any diarrhea or problems urinating. He is tachycardic and febrile upon arrival. He does have a history of recent admission for rhabdomyolysis with discharged to rehab. Does have a pressure ulcer of buttock, hypertension and vitamin B12 deficiency. patient is a poor historian, information obtained above from ED record. work up in ED shows UTI, given 2 grams of ceftriaxone. will admit to hospitalist services while final cultures pending no renal stone on imaging CT shows IMPRESSION: 1. Cholelithiasis with dilated gallbladder. Consider follow-up abdominal right upper quadrant ultrasound. 2. Sigmoid colon diverticulosis no evidence of acute diverticulitis. Review of Systems All systems reviewed & are unremarkable except as noted in HPI and below PFSH Medical History (Updated 07/23/20 @ 13:04 by Juan Saini MD) Depression Diabetes HTN (hypertension) Hypernatremia Paroxysmal atrial fibrillation Rhabdomyolysis Skin lesion of chest wall Tinea pedis Vitamin B12 deficiency Surgical History H/O removal of cyst left leg Social History Smoking/Tobacco Use Status: Former Tobacco Use Smoking risk assessment performed?: Yes Alcohol Intake: current Alcohol Intake frequency: holidays/special occasions only Drug use: Never Substance use type: does not use Do you feel safe in your relationship?: Yes Meds Home Medications and Allergies Home Medications Medication Instructions Recorded Confirmed Type metformin 850 mg PO BID 04/23/14 07/22/20 History omeprazole 20 mg PO DAILY@0730 #30 capcr 09/21/17 07/22/20 Rx pravastatin 20 mg PO HS #30 tab 09/21/17 07/22/20 Rx cholecalciferol (vitamin D3) 25 1,000 unit PO DAILY 11/05/18 07/22/20 History mcg (1,000 unit) capsule melatonin 10 mg tablet 10 mg PO HS PRN 11/05/18 01/17/20 History cyanocobalamin (vitamin B-12) 1,000 mcg PO DAILY 01/16/20 07/22/20 History [Vitamin B-12] alum-mag hydroxide-simeth [Mag-Al 30 ml PO Q2H PRN PRN #1 ml 01/22/20 Rx Plus] apixaban [Eliquis] 5 mg PO BID #1 tab 01/22/20 07/22/20 Rx aspirin 81 mg PO DAILY #1 tab 01/22/20 07/22/20 Rx dimethicone-zinc oxide [Sinai 1 applic TOPICAL PRN PRN #1200 gm 01/22/20 Rx Protect] docusate sodium [Colace] 100 mg PO TID PRN PRN #1 cap 01/22/20 Rx insulin glargine [Lantus Solostar 10 unit SUBCUT HS #15 ml 01/22/20 Rx U-100 Insulin] lanolin ldysvvf-dk-c.pet-ceres 1 applic TOPICAL DAILY PRN PRN 01/22/20 Rx [Eucerin] #454 gm multivitamin,ga-liot-wclgpppa 1 tab PO BID #60 tab 01/22/20 07/22/20 Rx [Therems-M] amiodarone 200 mg PO DAILY 07/22/20 07/22/20 History Allergies Allergy/AdvReac Type Severity Reaction Status Date / Time No Known Allergies Allergy Unverified 07/22/20 17:01 Exam Narrative Exam Narrative: Sitting in chair. Const General: cooperative and no acute distress Nutritional Appearance: overweight Orientation: alert, oriented to person and oriented to place Resp Effort & Inspection: normal respiratory effort Auscultation: clear to auscultation bilaterally and diminished lung sounds Cardio Rate: regular rate Rhythm: regular rhythm Heart Sounds: S1 normal and S2 normal GI Palpation: soft and nontender Auscultation: normal bowel sounds Skin General skin exam: no rashes or lesions noted Extrem General: no pedal edema and no calf tenderness Results Labs Result diagrams: 07/24/20 06:40 07/23/20 06:46 Labs: Laboratory Results - last 24 hr 07/22/20 07/22/20 07/22/20 12:50 12:50 12:50 WBC 16.03 H RBC 5.40 Hgb 15.1 Hct 48.4 MCV 89.6 MCH 28.0 MCHC 31.2 L RDW 12.2 Plt Count 220 MPV 8.3 Immature Gran % 0.4 Neutrophils % 94.2 Lymphocytes % 2.2 Monocytes % 2.7 Eosinophils % 0.1 Basophils % 0.4 Nucleated RBC % 0 Absolute Neutrophils 15.10 H Absolute Lymphocytes 0.35 L Absolute Monocytes 0.43 Absolute Eosinophils 0.02 Absolute Basophils 0.06 VBG Lactate 2.3 H* Sodium 137 Potassium 4.9 Chloride 101 Carbon Dioxide 24.5 Anion Gap 11.5 H BUN 20 H Creatinine 1.56 H Estimated GFR/1.73 m2 44.22 Glucose 233 H Calcium 9.2 Magnesium 1.8 Total Bilirubin 1.3 H AST 18 ALT 16 Alkaline Phosphatase 102 Creatine Kinase 58 Troponin I < 0.05 Total Protein 7.5 Albumin 3.8 Urine Color Urine Clarity Urine pH Ur Specific [place]range Urine Protein Urine Ketones Urine Blood Urine Nitrite Urine Bilirubin Urine Urobilinogen Ur Leukocyte Esterase Urine Glucose 07/22/20 15:00 WBC RBC Hgb Hct MCV MCH MCHC RDW Plt Count MPV Immature Gran % Neutrophils % Lymphocytes % Monocytes % Eosinophils % Basophils % Nucleated RBC % Absolute Neutrophils Absolute Lymphocytes Absolute Monocytes Absolute Eosinophils Absolute Basophils VBG Lactate Sodium Potassium Chloride Carbon Dioxide Anion Gap BUN Creatinine Estimated GFR/1.73 m2 Glucose Calcium Magnesium Total Bilirubin AST ALT Alkaline Phosphatase Creatine Kinase Troponin I Total Protein Albumin Urine Color Yellow Urine Clarity Sl cloudy Urine pH 5.5 Ur Specific [place] >= 1.030 H Urine Protein Negative Urine Ketones 40 H Urine Blood Trace-intact H Urine Nitrite Negative Urine Bilirubin Negative Urine Urobilinogen 0.2 Ur Leukocyte Esterase Negative Urine Glucose 500 H Last Vital Signs Temp 37.9 C H 07/22/20 12:31 Pulse 115 H 07/22/20 14:15 Resp 27 H 07/22/20 15:10 BP 125/84 07/22/20 14:15 Pulse Ox 91 L 07/22/20 15:10 COVID-19 Screening Have you, or household traveled for leisure in last 14 days?: No Had IN PERSON contact w/suspected or confirmed C-19 person: No
[2020-07-22] MEDS: cefTRIAXone 2 GM/50 ML BAG IVPB (15:46)
[2020-07-22 15:52] LABS: Bacteria Many HPF (Negative); Epithelial Cells Rare HPF (Negative); Other Cells Rare Renal (Negative); WBC 20-50 HPF (0-5)
[2020-07-22 15:54] LABS: C & S Indicated? Yes; Casts Negative LPF (Negative); Mucus Negative (Negative)
[2020-07-22 16:40] LABS: Troponin I < 0.05 ng/mL (<0.06)
--- NOTE | 2020-07-22 17:26 | DI.VRAD_ITS ---
PROCEDURE INFORMATION: Exam: US Retroperitoneal Limited, Kidneys Exam date and time: 07/22/2020 4:25 PM Age: 70 years old Clinical indication: Abnormal findings; Abnormal lab test; Abnormal kidney function lab tests TECHNIQUE: Imaging protocol: Real-time ultrasound of the retroperitoneum with image documentation. Examination was focused on the kidneys. COMPARISON: SD US RENAL 01/19/2020 3:03 PM FINDINGS: Right kidney: 9.1 cm. No nephrolithiasis or hydronephrosis. Left kidney: 10.2 cm. No nephrolithiasis or hydronephrosis. Bladder: Prevoid volume 75 cc. IMPRESSION: No hydronephrosis bilaterally. Dictated and Authenticated by: Jacoby Arrington MD. Ordering:ERROL Crawford MD
--- NOTE | 2020-07-22 17:48 | DI.VRAD_ITS ---
PROCEDURE INFORMATION: Exam: CT Abdomen And Pelvis Without Contrast Exam date and time: 07/22/2020 5:12 PM Age: 70 years old Clinical indication: Fever TECHNIQUE: Imaging protocol: Computed tomography of the abdomen and pelvis without contrast. COMPARISON: CT CHEST/ABD/PEL WO 01/16/2020 12:18 PM FINDINGS: Lungs: Mild atelectasis bilateral lung bases. Liver: Normal. No mass. Gallbladder and bile ducts: Cholelithiasis. Gallbladder is mildly dilated at 9.8 cm. Pancreas: Normal. No ductal dilation. Spleen: Normal. No splenomegaly. Adrenal glands: Normal. No mass. Kidneys and ureters: Normal. No hydronephrosis. Stomach and bowel: Sigmoid colon diverticulosis. Appendix: No evidence of appendicitis. Intraperitoneal space: Unremarkable. No free air. No significant fluid collection. Vasculature: Unremarkable. No abdominal aortic aneurysm. Lymph nodes: Unremarkable. No enlarged lymph nodes. Urinary bladder: Unremarkable as visualized. Reproductive: Prostate calcifications. Bones/joints: Bilateral pars defects L5. Mild anterolisthesis L5 on S1. Soft tissues: Fat containing umbilical hernia. IMPRESSION: 1. Cholelithiasis with dilated gallbladder. Consider follow-up abdominal right upper quadrant ultrasound. 2. Sigmoid colon diverticulosis no evidence of acute diverticulitis. The Dictated and Authenticated by: Jacoby Arrington MD. Ordering:JOHN Santacruz MD
[2020-07-22] MEDS: Heparin 5,000 UNITS/ML VIAL 5000 UNITS SC (18:09)
[2020-07-22] MEDS: Insulin Aspart 300 UNITS/3 ML PEN SC (18:09)
[2020-07-22] MEDS: Normal Saline 1,000 ML 125 ML IV (18:37)
[2020-07-22] MEDS: Multivitamin w/Minerals TAB 1 TAB PO (19:53)
[2020-07-22] MEDS: Apixaban 5 MG TAB PO (19:53)
[2020-07-22] MEDS: PIPERACILLIN/TAZO 3.375 GM in Normal Saline 50 ML IVPB (19:54)
[2020-07-22] MEDS: Insulin Glargine 300 UNITS/3 ML PEN 10 UNITS SC (21:18)
[2020-07-22] MEDS: Pravastatin 20 MG TAB PO (21:18)
[2020-07-23] MEDS: PIPERACILLIN/TAZO 3.375 GM in Normal Saline 50 ML IVPB ×4 (01:30→20:38)
[2020-07-23] MEDS: Normal Saline 1,000 ML 125 ML IV ×3 (03:10→19:48)
[2020-07-23 03:27] VITALS: BP 113/73; PULSE 89; RESP 18; TEMP 36.8; O2SAT 96
[2020-07-23 06:54] LABS: Abs Immature Grans 0.07 10^3/uL (0.0-0.06); Absolute Basophil Count 0.06 10^3/uL (0.0-0.2); Absolute Eosinophil Count 0.04 10^3/uL (0.0-0.7); Absolute Lymphocyte Count 0.68 10^3/uL (1.2-3.4); Absolute Neutrophil Count 11.28 10^3/uL (1.2-6.7); Basophils % 0.5; Eosinophils % 0.3; HCT 41.4 % (40.0-50.0); HGB 13.1 g/dL (13.5-17.5); Immature Grans % 0.5; Lymphocytes % 5.3; MCH 28.1 pg (27.0-33.0); MCHC 31.6 % (32.0-36.0); MCV 88.8 fL (80-95); MPV 8.4 fL (8.0-11.0); Neutrophils % 87.4; Nucleated RBC 0 %; Platelet Count 176 10^3/uL (130-400); RBC 4.66 10^6/uL (4.36-5.78); RDW 12.7 % (11.8-14.1); RDW-SD 41.2 fL; WBC 12.91 10^3/uL (4.4-10.8)
[2020-07-23 07:05] LABS: Absolute Monocyte Count 0.77 10^3/uL (0.1-0.8)
[2020-07-23 07:17] LABS: ALT 13 U/L (16-63); AST 13 U/L (15-37); Albumin 2.9 g/dL (3.4-5.0); Alkaline Phosphatase 71 U/L (46-116); Anion Gap 7.5 mmol/L (3-11); BUN 23 mg/dL (7-18); Bilirubin, Total 0.8 mg/dL (0.2-1.0); CO2 25.5 mmol/L (21.0-32.0); CREATININE 1.57 mg/dL (0.70-1.30); Calcium 8.2 mg/dL (8.5-10.1); Chloride 106 mmol/L (98-107); Glucose 146 mg/dL (74-106); Potassium 4.5 mmol/L (3.5-5.1); Sodium 139 mmol/L (136-145)
[2020-07-23 07:50] VITALS: BP 99/67; PULSE 85; RESP 16; TEMP 37.2; O2SAT 95
[2020-07-23] MEDS: Normal Saline Flush 10 ML SYR IVP (08:02)
[2020-07-23] MEDS: Amiodarone 200 MG TAB PO (09:15)
[2020-07-23] MEDS: Aquaphor Ointment 99 GM JAR TP (09:15)
--- NOTE | 2020-07-23 10:00 | SCONE_ITS ---
Date of service: 07/23/20 Time of Service: 10:23 Assessment and Plan Assessment and plan (1) Cholelithiasis: Status: Acute Assessment and plan: A\\ 70 year old male admitted with Sepsis and a UTI. CT scan done of his abdomen which showed Cholelithiasis and mildly dilated Gallbladder. There was no Gallbladder wall thickening. There was no dilatation of his CBD or Cystic duct. There was no pericholecystic fluid. The patient has no abdominal pain even with deep palpation. His LFT's are normal. I dont believe that his sepsis is stemming from the Gallbladder. 2/ 2 blood cultures are positive for Gram negative Rods. Urine culture is pending. It is reasonable to do an US on Saturday if he is still here at the hospital. Otherwise it could be done as an outpatient. Case discussed with Dr. Saini. Plan: 1. US abdomen on Saturday if patient is still here otherwise as outpatient 2. Diet: Heart healthy diabetic diet 3. I will follow up with patient once he has his US done If patient develops new abdominal pain in the RUQ or epigastric area please let me know and I will see him again. Thank you for this consultation I spent 45 minutes in reviewing the record, seeing the patient and documenting in the medical record. Qualifiers: Cholelithiasis location: gallbladder Cholecystitis presence: without cholecystitis Biliary obstruction: without biliary obstruction Qualified Code(s): K80.20 - Calculus of gallbladder without cholecystitis without obstruction History of Present Illness History of Present Illness Chief Complaint: Weakness, Cholelithiasis on CT scan Narrative: 70-year-old male presented to the ED via POV with his daughter after having a primary care appointment yesterday morning at [facility]. Yesterday morning family and PCP noticed altered mental status, delayed response, and increased weakness. Patient was alert and oriented x3 upon arri mariel. He did have some delayed verbal responses. He denied having any chest pain, shortness of breath or pain anywhere. He denies any diarrhea or problems urinating. He was tachycardic and febrile upon arrival. He does have a history of recent admission for rhabdomyolysis with discharge to rehab. His WBC count was elevated as was his lactate. UA showed a lot of WBC. He was admitted for sepsis most likely from his UTI. CT scan was also done although patient has not complained of abdominal pain. It revealed cholelithiasis and a distended Gallbladder. I was asked to see the patient for possible ascending cholangitis. This morning he is still having low grade temps, low BP's. Leukocytosis is improving on Zosyn He denies any abdominal pain. he denies any indigestion or heart burn in the past. He states he is able to eat anything he wants without pain. Labs reviewed as well as CT scan. FINDINGS: The examination is limited due to patient motion artifact. ABDOMEN: Lung Bases: Normal where visualized. Liver: Normal density. No measurable mass. Stable hepatic calcification. Gallbladder and biliary tract: Cholelithiasis. No biliary ductal dilatation. The gallbladder measures 4 cm in diameter. Pancreas: Normal density, no abnormal calcifications or inflammatory process. Spleen: Normal. Kidneys: Normal size, contour and axis.Bilateral nephrolithiasis. No ureterolithiasis. No masses seen. Adrenal glands: No mass is seen. Lymph nodes: Within normal limits. Abdominal Aorta: Abdominal portion non-dilated. Atherosclerosis. PELVIS: Bladder:Symmetric distention, no gross wall thickening. Bowel: No obstruction or bowel wall thickening. Appendix is unremarkable. Dive rticulosis throughout the colon but no evidence of acute diverticulitis. Small hiatal hernia. Peritoneal cavity: No ascites, collection or mesenteric inflammatory response Reproductive organs: Within normal limits. Bones: Degenerative changes in the spine. L5 spondylolysis. Minimal spondylolisthesis of L5 on S1. Soft Tissues: Small fat containing supraumbilical hernia. IMPRESSION: 1. Cholelithiasis within a mildly dilated gallbladder. Bladder ultrasound may be considered for further evaluation. 2. No other acute abdominal or pelvic process. Consults Consult date: 07/23/20 Requesting physician: Yvette Grimm Review of Systems Constitutional Constitutional: Reports fever(s), Denies headache(s) and Denies weight loss Eyes Eyes: Denies change in vision ENT Ears, Nose, Mouth, and Throat: Denies headache(s) Cardiovascular Cardiovascular: Denies chest pain, Denies chest pain at rest, Denies irregular heart rhythm, Denies radiating jaw, neck or arm pain, Denies dyspnea and Denies dyspnea on exertion Respiratory Respiratory: Reports cough, Denies dyspnea and Denies dyspnea on exertion Gastrointestinal Gastrointestinal: Reports as per HPI Genitourinary Genitourinary: Denies dysuria, Reports urinary incontinence and Denies urinary urgency Musculoskeletal Musculoskeletal: Reports system reviewed and no additional complaints, except as documented Integumentary/Breasts Skin/Breast: Reports system reviewed and no additional complaints, except as do cumented Neurologic Neurologic: Reports system reviewed and no additional complaints, except as documented and Denies headache(s) Psychiatric Psychiatric: Reports system reviewed and no additional complaints, except as documented Endocrine Endocrine: Reports system reviewed and no additional complaints, except as documented Hematologic/Lymphatic Hematologic/Lymphatic: Denies system reviewed and no additional complaints, except as documented, Denies easy bruising and Denies lymphadenopathy [facility] Medical History (Updated 07/23/20 @ 10:55 by Sydney Frye MD) Depression Diabetes HTN (hypertension) Hypernatremia Paroxysmal atrial fibrillation Rhabdomyolysis Skin lesion of chest wall Tinea pedis Vitamin B12 deficiency Surgical History H/O removal of cyst left leg Social History Smoking/Tobacco Use Status: Former Tobacco Use Smoking risk assessment performed?: Yes Alcohol Intake: current Alcohol Intake frequency: holidays/special occasions only Drug use: Never Substance use type: does not use Do you feel safe in your relationship?: Yes Exam Const General: comfortable and no acute distress Orientation: alert and oriented x3 HENMT Head: normocephalic and atraumatic Resp Effort & Inspection: normal respiratory effort Auscultation: clear to auscultation bilaterally Cardio Rate: regular rate Rhythm: regular rhythm Heart Sounds: no gallops, no murmurs and no rubs GI Inspection: normal to inspection Palpation: soft, no hepatosplenomegaly and nontender Auscultation: normal bowel sounds General: deferred Results Last Vital Signs Temp 99.0 F 07/23/20 07:50 Pulse 85 07/23/20 07:50 Resp 16 07/23/20 07:50 BP 99/67 L 07/23/20 07:50 Pulse Ox 95 07/23/20 07:50 Labs Result diagrams: 07/23/20 06:46 07/23/20 06:46 Labs: Laboratory Results - last 24 hr 07/22/20 07/22/20 07/22/20 12:50 12:50 12:50 WBC 16.03 H RBC 5.40 Hgb 15.1 Hct 48.4 MCV 89.6 MCH 28.0 MCHC 31.2 L RDW 12.2 Plt Count 220 MPV 8.3 Immature Gran % 0.4 Neutrophils % 94.2 Lymphocytes % 2.2 Monocytes % 2.7 Eosinophils % 0.1 Basophils % 0.4 Nucleated RBC % 0 Absolute Neutrophils 15.10 H Absolute Lymphocytes 0.35 L Absolute Monocytes 0.43 Absolute Eosinophils 0.02 Absolute Basophils 0.06 VBG Lactate 2.3 H* Sodium 137 Potassium 4.9 Chloride 101 Carbon Dioxide 24.5 Anion Gap 11.5 H BUN 20 H Creatinine 1.56 H Estimated GFR/1.73 m2 44.22 Glucose 233 H Calcium 9.2 Magnesium 1.8 Total Bilirubin 1.3 H AST 18 ALT 16 Alkaline Phosphatase 102 Creatine Kinase 58 Troponin I < 0.05 Total Protein 7.5 Albumin 3.8 Urine Color Urine Clarity Urine pH Ur Specific [place] Urine Protein Urine Ketones Urine Blood Urine Nitrite Urine Bilirubin Urine Urobilinogen Ur Leukocyte Esterase Urine RBC Urine WBC Ur Epithelial Cells Urine Crystals Urine Bacteria Urine Casts Urine Mucus Urine Other Ur Culture Indicated? Urine Glucose COVID-19 Source SARS-CoV-2 (PCR) Influenza Type A (PCR) Influenza Type B (PCR) RSV (PCR) 07/22/20 07/22/20 07/22/20 14:45 15:00 16:05 WBC RBC Hgb Hct MCV MCH MCHC RDW Plt Count MPV Immature Gran % Neutrophils % Lymphocytes % Monocytes % Eosinophils % Basophils % Nucleated RBC % Absolute Neutrophils Absolute Lymphocytes Absolute Monocytes Absolute Eosinophils Absolute Basophils VBG Lactate Sodium Potassium Chloride Carbon Dioxide Anion Gap BUN Creatinine Estimated GFR/1.73 m2 Glucose Calcium Magnesium Total Bilirubin AST ALT Alkaline Phosphatase Creatine Kinase Troponin I < 0.05 Total Protein Albumin Urine Color Yellow Urine Clarity Sl cloudy Urine pH 5.5 Ur Specific [place] >= 1.030 H Urine Protein Negative Urine Ketones 40 H Urine Blood Trace-intact H Urine Nitrite Negative Urine Bilirubin Negative Urine Urobilinogen 0.2 Ur Leukocyte Esterase Negative Urine RBC 5-10 H Urine WBC 20-50 H Ur Epithelial Cells Rare Urine Crystals Urine Bacteria Many Urine Casts Negative Urine Mucus Negative Urine Other Rare renal Ur Culture Indicated? Yes Urine Glucose 500 H COVID-19 Source Nasopharynx SARS-CoV-2 (PCR) Negative Influenza Type A (PCR) Negative Influenza Type B (PCR) Negative RSV (PCR) Negative
--- NOTE | 2020-07-23 12:58 | PGE_ITS ---
Date of Service Date of service: 07/23/20 Time of Service: 11:20 Assessment and Plan Assessment and plan (1) Gram-negative bacteremia: Status: Acute Assessment and plan: Blood culture growing gram neg rods. Cont Zosyn and adjust antibiotics if necessary when ID and sensitivities reported. He is afebrile. WBC count improving. SBP today 99-118. Now cleared for a diet. On NS at 125ml/hr. If oral intake is adequate will stop IV fluids. (2) Cholelithiasis: Status: Acute Assessment and plan: General surgery consult appreciated. No abd pain. Tolerating oral intake. Doubt GB as his etiology for infectious process. Monitor Qualifiers: Cholelithiasis location: gallbladder Cholecystitis presence: without cholecystitis Biliary obstruction: without biliary obstruction Qualified Code(s): K80.20 - Calculus of gallbladder without cholecystitis without obstruction (3) Paroxysmal atrial fibrillation: Status: Acute Assessment and plan: Cont amiodarone for rate control Cont Apixiban for AC (4) Diabetes mellitus: Status: Chronic Assessment and plan: Holding his Lantus and Glucophage. SS insulin correction dosing. Diabetic diet. Qualifiers: Diabetes mellitus type: type 2 Diabetes mellitus medical terminologist insulin use: without medical terminologist use Diabetes mellitus complication status: without complication Qualified Code(s): E11.9 - Type 2 diabetes mellitus without complications Subjective Subjective Patient reports: no new complaints, feels better and afebrile; denies diarrhea, nausea, vomiting and shortness of breath Exam Const General: cooperative and no acute distress Nutritional Appearance: overweight Orientation: alert, oriented to person and oriented to place Resp Effort & Inspection: normal respiratory effort Auscultation: clear to auscultation bilaterally Cardio Rate: regular rate Rhythm: regular rhythm Heart Sounds: S1 normal and S2 normal GI Palpation: soft and nontender Auscultation: normal bowel sounds Skin General skin exam: no rashes or lesions noted Extrem General: no pedal edema and no calf tenderness Objective Last Vital Signs Temp 37.2 C 07/23/20 07:50 Pulse 85 07/23/20 07:50 Resp 16 07/23/20 07:50 BP 99/67 L 07/23/20 07:50 Pulse Ox 95 07/23/20 07:50 Laboratory Results - last 24 hr 07/22/20 07/22/20 07/22/20 12:50 12:50 12:50 WBC 16.03 H RBC 5.40 Hgb 15.1 Hct 48.4 MCV 89.6 MCH 28.0 MCHC 31.2 L RDW 12.2 Plt Count 220 MPV 8.3 Immature Gran % 0.4 Neutrophils % 94.2 Lymphocytes % 2.2 Monocytes % 2.7 Eosinophils % 0.1 Basophils % 0.4 Nucleated RBC % 0 Absolute Neutrophils 15.10 H Absolute Lymphocytes 0.35 L Absolute Monocytes 0.43 Absolute Eosinophils 0.02 Absolute Basophils 0.06 VBG Lactate 2.3 H* Sodium 137 Potassium 4.9 Chloride 101 Carbon Dioxide 24.5 Anion Gap 11.5 H BUN 20 H Creatinine 1.56 H Estimated GFR/1.73 m2 44.22 Glucose 233 H Calcium 9.2 Magnesium 1.8 Total Bilirubin 1.3 H AST 18 ALT 16 Alkaline Phosphatase 102 Creatine Kinase 58 Troponin I < 0.05 Total Protein 7.5 Albumin 3.8 Urine Color Urine Clarity Urine pH Ur Specific [place] Urine Protein Urine Ketones Urine Blood Urine Nitrite Urine Bilirubin Urine Urobilinogen Ur Leukocyte Esterase Urine RBC Urine WBC Ur Epithelial Cells Urine Crystals Urine Bacteria Urine Casts Urine Mucus Urine Other Ur Culture Indicated? Urine Glucose COVID-19 Source SARS-CoV-2 (PCR) Influenza Type A (PCR) Influenza Type B (PCR) RSV (PCR) 07/22/20 07/22/20 07/22/20 14:45 15:00 16:05 WBC RBC Hgb Hct MCV MCH MCHC RDW Plt Count MPV Immature Gran % Neutrophils % Lymphocytes % Monocytes % Eosinophils % Basophils % Nucleated RBC % Absolute Neutrophils Absolute Lymphocytes Absolute Monocytes Absolute Eosinophils Absolute Basophils VBG Lactate Sodium Potassium Chloride Carbon Dioxide Anion Gap BUN Creatinine Estimated GFR/1.73 m2 Glucose Calcium Magnesium Total Bilirubin AST ALT Alkaline Phosphatase Creatine Kinase Troponin I < 0.05 Total Protein Albumin Urine Color Yellow Urine Clarity Sl cloudy Urine pH 5.5 Ur Specific [place] >= 1.030 H Urine Protein Negative Urine Ketones 40 H Urine Blood Trace-intact H Urine Nitrite Negative Urine Bilirubin Negative Urine Urobilinogen 0.2 Ur Leukocyte Esterase Negative Urine RBC 5-10 H Urine WBC 20-50 H Ur Epithelial Cells Rare Urine Crystals Urine Bacteria Many Urine Casts Negative Urine Mucus Negative Urine Other Rare renal Ur Culture Indicated? Yes Urine Glucose 500 H COVID-19 Source Nasopharynx SARS-CoV-2 (PCR) Negative Influenza Type A (PCR) Negative Influenza Type B (PCR) Negative RSV (PCR) Negative 07/23/20 07/23/20 06:46 06:46 WBC 12.91 H RBC 4.66 Hgb 13.1 L Hct 41.4 MCV 88.8 MCH 28.1 MCHC 31.6 L RDW 12.7 Plt Count 176 MPV 8.4 Immature Gran % 0.5 Neutrophils % 87.4 Lymphocytes % 5.3 Monocytes % 6.0 Eosinophils % 0.3 Basophils % 0.5 Nucleated RBC % 0 Absolute Neutrophils 11.28 H Absolute Lymphocytes 0.68 L Absolute Monocytes 0.77 Absolute Eosinophils 0.04 Absolute Basophils 0.06 VBG Lactate Sodium 139 Potassium 4.5 Chloride 106 Carbon Dioxide 25.5 Anion Gap 7.5 BUN 23 H Creatinine 1.57 H Estimated GFR/1.73 m2 43.90 Glucose 146 H D Calcium 8.2 L Magnesium Total Bilirubin 0.8 AST 13 L ALT 13 L Alkaline Phosphatase 71 Creatine Kinase Troponin I Total Protein 6.0 L Albumin 2.9 L Urine Color Urine Clarity Urine pH Ur Specific [place] Urine Protein Urine Ketones Urine Blood Urine Nitrite Urine Bilirubin Urine Urobilinogen Ur Leukocyte Esterase Urine RBC Urine WBC Ur Epithelial Cells Urine Crystals Urine Bacteria Urine Casts Urine Mucus Urine Other Ur Culture Indicated? Urine Glucose COVID-19 Source SARS-CoV-2 (PCR) Influenza Type A (PCR) Influenza Type B (PCR) RSV (PCR)
--- NOTE | 2020-07-23 13:46 | PDOC.CMPRO ---
Care Management Progress Note S/O: David is sitting up in bed, watching TV. He is pleasant in interaction. David had a surgical consult; with recommendations for US on Saturday, if needed-or follow up as outpatient. CM continues to follow. A: 70 year old male admitted to [facility] 07/22/19 for Sepsis P: Sung continues to be closely monitored and treated, he is on IV ABX; awaiting sensitivities and ID consult to determine course of treatment. [facility] remains willing to accept for SNF, if needed upon discharge. CM continues to follow.
[2020-07-23 14:53] VITALS: BP 121/79; PULSE 88; RESP 20; TEMP 37.2; O2SAT 95
[2020-07-23] MEDS: Insulin Aspart 300 UNITS/3 ML PEN SC (16:52)
[2020-07-23] MEDS: Multivitamin w/Minerals TAB 1 TAB PO (20:38)
[2020-07-23] MEDS: Apixaban 5 MG TAB PO (20:38)
[2020-07-23] MEDS: Insulin Glargine 300 UNITS/3 ML PEN 10 UNITS SC (21:52)
[2020-07-23] MEDS: Pravastatin 20 MG TAB PO (21:53)
[2020-07-23] MEDS: Melatonin 3 MG TAB 9 MG PO (21:53)
[2020-07-23 23:59] VITALS: BP 106/71; PULSE 98; RESP 18; TEMP 36.9; O2SAT 93
[2020-07-24] MEDS: PIPERACILLIN/TAZO 3.375 GM in Normal Saline 50 ML IVPB ×4 (02:33→20:11)
[2020-07-24] MEDS: Normal Saline 1,000 ML 125 ML IV ×3 (03:51→20:10)
[2020-07-24 06:58] LABS: Abs Immature Grans 0.03 10^3/uL (0.0-0.06); Absolute Basophil Count 0.07 10^3/uL (0.0-0.2); Absolute Eosinophil Count 0.19 10^3/uL (0.0-0.7); Absolute Lymphocyte Count 0.79 10^3/uL (1.2-3.4); Absolute Monocyte Count 0.54 10^3/uL (0.1-0.8); Absolute Neutrophil Count 4.53 10^3/uL (1.2-6.7); Basophils % 1.1; Eosinophils % 3.1; HCT 38.5 % (40.0-50.0); HGB 12.1 g/dL (13.5-17.5); Immature Grans % 0.5; Lymphocytes % 12.8; MCH 27.9 pg (27.0-33.0); MCHC 31.4 % (32.0-36.0); MCV 88.7 fL (80-95); MPV 8.4 fL (8.0-11.0); Monocytes % 8.8; Neutrophils % 73.7; Nucleated RBC 0 %; Platelet Count 158 10^3/uL (130-400); RBC 4.34 10^6/uL (4.36-5.78); RDW 12.6 % (11.8-14.1); RDW-SD 40.9 fL; WBC 6.15 10^3/uL (4.4-10.8)
[2020-07-24 07:40] VITALS: BP 107/73; PULSE 74; RESP 20; TEMP 36.4; O2SAT 95
[2020-07-24] MEDS: Cholecalciferol (Vitamin D3) 1,000 UNIT TAB 1000 UNITS PO (07:58)
[2020-07-24] MEDS: Amiodarone 200 MG TAB PO (07:58)
[2020-07-24] MEDS: Multivitamin w/Minerals TAB 1 TAB PO ×2 (07:58→20:10)
[2020-07-24] MEDS: Omeprazole 20 MG CAPCR PO (07:58)
[2020-07-24] MEDS: Aspirin E.C. 81 MG TABEC PO (07:58)
[2020-07-24] MEDS: Apixaban 5 MG TAB PO ×2 (07:58→20:10)
[2020-07-24] MEDS: Normal Saline Flush 10 ML SYR IVP (08:01)
[2020-07-24] MEDS: Aquaphor Ointment 99 GM JAR TP (08:02)
--- NOTE | 2020-07-24 11:16 | PHA.REVIEW ---
Pharmacy Admission Review - Admission Clinical Review (Last Updated 07/23/20 @ 10:54 by Sydney Frye MD) Gram-negative bacteremia (Acute) Cholelithiasis (Acute) Paroxysmal atrial fibrillation (Acute) Acute kidney injury (Acute) Sepsis (Acute) Hypertension (Acute) No Known Allergies Allergy (Unverified 07/22/20 17:01) Height 5 ft 8 in Weight 86.7 kg - Renal Dosing Renal Dosing: BUN 23 mg/dL (7-18) H 07/23/20 06:46 Creatinine 1.57 mg/dL (0.70-1.30) H 07/23/20 06:46 Medications needing adjustments: Reviewed (CRCL 42ML/MIN) - Anticoagulation Anticoagulation: Hgb 12.1 g/dL (13.5-17.5) L 07/24/20 06:40 Hct 38.5 % (40.0-50.0) L 07/24/20 06:40 Plt Count 158 10^3/uL (130-400) 07/24/20 06:40 Creatinine 1.57 mg/dL (0.70-1.30) H 07/23/20 06:46 DVT Prohphylaxis: Reviewed Medications: Apixaban Therapeutic Anticoagulation: Reviewed Medications: Apixaban - Opiate Usage Evaluate Pain Scale/Pains Meds: N/A - Relevant Labs Sodium 139 mmol/L (136-145) 07/23/20 06:46 Potassium 4.5 mmol/L (3.5-5.1) 07/23/20 06:46 Chloride 106 mmol/L (98-107) 07/23/20 06:46 Magnesium 1.8 mg/dL (1.8-2.4) 07/22/20 12:50 - DM Control DM Control: Glucose 146 mg/dL (74-106) H D 07/23/20 06:46 Finger Stick Blood Glucose 130 Insulin Dosing: Reviewed (INSULIN GLARGINE AND ASPART SS) - Heart Failure/VA Heart Failure/VA: Troponin I < 0.05 ng/mL (<0.06) 07/22/20 16:05 - BP Control BP Control: Blood Pressure 107/73 Blood Pressure 106/71 If elevated: N/A - Qtc Review If Elevated: N/A (388) - IV to PO Switch IV Medications: Reviewed (Iv ABX) - Home Meds Relevent Home Meds Not ordered & why?: METFORMIN(using insulin aspart SS) - Current meds Current Medication Order Review: Reviewed (waiting for sensitivities from BC to dnarrow abx and switch to PO)
--- NOTE | 2020-07-24 11:28 | IN_ITS ---
Date of service: 07/24/20 Time of Service: 11:00 PT Notes Visit Reasons: SEPSIS Inpatient Physical Therapy Evaluation Date: July 24, 2020 Referring Doctor: Juan Saini PT Orders: PT CONSULT: eval and treat Precautions: Standard, Falls Patient Profile/Admitting Diagnosis: Sung is a 70 year old male admitted secondary to sepsis on 07/22/20. He presented to the ED via POV with his sister after having a primary care appointment this morning at [facility]. That morning family and PCP noticed altered mental status, delayed response, and increased weakness. Patient was alert and oriented x3 upon arrival. He did have some delayed verbal responses. He denied having any chest pain, shortness of breath or pain anywhere. He denied any diarrhea or problems urinating. He was tachycardic and febrile upon arrival at the ED. He does have a history of recent admission for rhabdomyolysis with discharged to rehab. Does have a pressure ulcer of buttock, hypertension and vitamin B12 deficiency. PMHX: Afib, Depression, Diabetes, HTN, cyst removal left leg Social History/Home Situation: David resides alone in a log cabin in [place], [place]. His sister Delmy lives down the road and provides assistance with meals and other support as needed. 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 David has 2 children but he has not communicated with them in 4 or 5 years. He stated that he does not contact information for them. Daivd is independent and continues to drive however primarily relies on his sister for transportation at this time. He sometimes uses a cane outside of his home. David was discharged from [facility] to [facility] on 01/22/20. Barbra reports he returned home on 02/16/21, and reports [facility] would be more than willing to accept Sung for SNF if needed. Current Functional Limitations: Sung notes that he utilizes a cane for outside ambulation. He does have railing from his yard up onto his porch. He has been parking on his lawn for from the driveway would have to climb 12 more stairs without a railing. His brother in law has been keeping his yard clear. Equipment Owned/DME: Cane Subjective: Sung is sitting up in bedside recliner at time of PT consult. He is alert and agreeable to evaluation this morning. He notes that he has some pain in his little toe on his right foot for feels that his stocking is caught on it. Objective: General Observation: APPLE stocking on, did adjust for little toe was caught in a crease. IV right UE Mental Status: Alert and oriented x3 Pain: 2/10 pain right toe once sock was corrected improved ROM: Right Upper Extremity: Within Functional limits Left Upper Extremity: Within Functional limits Right Lower Extremity: Within Functional limits Left Lower Extremity: Within Functional limits Strength: Right Upper Extremity: Grossly 4+/5 Left Upper Extremity: Grossly 4+/5 Right Lower Extremity: Grossly 4+/5 Left Lower Extremity: Grossly 4+/5 Bed Mobility/Transfers: Patient is sitting in chair Sit-stand:SBA, FWW Stand-sit: S Gait: Patient ambulates 200 ft with use of FWW, SBA x 1. Balance: Static Sitting: Good Dynamic Sitting: Good Static Standing: Good Dynamic Standing: Fair Informed Consent/Education: Patient instructed in purpose of PT consult and plan of care. ASSESSMENT: Patient is a 70 year old male with history of poor to fair physical health admitted with sepsis om 07/22/20.Patient presents with the following impairment level findings: decreased functional endurance, global weakness. Patient will benefit from skilled therapy intervention in order to remedy his functional limitations and restore patient to a more appropriate and stable functional level. Impairments are contributing to the following functional limitations: [facility] ore CMS Score: 35% Patient is assessed as a Moderate complexity initial evaluation 29612 based on the following: History: see above Examination: see above Presentation: Evolving Decision Making: Moderate based on AMPA of 35% Goals: Goals X1 week 1. Supine-Sit Independent 2. Sit-Supine Independent 3. Sit-Stand Independent 4. Stand-Sit Independent 5. Bed-Chair Independent with least restrictive assistive device 6. Gait Independent with least restrictive assistive device up to 300 feet 7: Stairs 3 steps with supervision 8: Independent in Home program Plan of Care/Treatment Plan: 1-2x/day, 7 days/week x 1 week. Plan of care has been reviewed with the [employer] providing the service under Physical Therapy direction. Initiate Physical Therapy intervention for strengthening, bed mobility, transfers, gait, stairs, balance training, use of assistive device. DISCHARGE RECOMMENDATIONS: Feel patient will be able to return home once me dically cleared. Do feel that patient might benefit from Home Health services to assist with bathing and household related chores. TREATMENT CODE/[place]: [place] [address], 11:00-11:30 am, 30 minutes Nathalia Ray,MPT [facility]
[2020-07-24] MEDS: Insulin Aspart 300 UNITS/3 ML PEN SC ×2 (11:38→17:14)
--- NOTE | 2020-07-24 13:36 | PGE_ITS ---
Date of Service Date of service: 07/24/20 Time of Service: 09:36 Assessment and Plan Assessment and plan (1) Gram-negative bacteremia: Status: Acute Assessment and plan: 2 species of Gram neg bacteria growing; likely E.Coli and Klebsiella per micro lab report. WBC count normalized. Afebrile Cont Zosyn until final ID and sensitivities known. Plan to change to po then. 2 weeks of antibiotics planned. (2) Cholelithiasis: Status: Acute Assessment and plan: Asymptomatic. Qualifiers: Cholelithiasis location: gallbladder Cholecystitis presence: without cholecystitis Biliary obstruction: without biliary obstruction Qualified Code(s): K80.20 - Calculus of gallbladder without cholecystitis without obstruction (3) Diabetes mellitus: Status: Chronic Assessment and plan: FSBS readings today of 130, 145. Holding Lantus and glucophage. SS insulin correction dosing. Carb controlled diet. 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 Const General: cooperative and no acute distress Nutritional Appearance: overweight Resp Effort & Inspection: normal respiratory effort Auscultation: clear to auscultation bilaterally and diminished lung sounds Cardio Rate: regular rate Rhythm: regular rhythm Heart Sounds: S1 normal and S2 normal GI Palpation: soft and nontender Skin General skin exam: no rashes or lesions noted Extrem General: no pedal edema and no calf tenderness Objective Last Vital Signs Temp 36.4 C L 07/24/20 07:40 Pulse 74 07/24/20 07:40 Resp 20 07/24/20 07:40 BP 107/73 07/24/20 07:40 Pulse Ox 95 07/24/20 07:40 Laboratory Results - last 24 hr 07/24/20 06:40 WBC 6.15 D RBC 4.34 L Hgb 12.1 L Hct 38.5 L MCV 88.7 MCH 27.9 MCHC 31.4 L RDW 12.6 Plt Count 158 MPV 8.4 Immature Gran % 0.5 Neutrophils % 73.7 Lymphocytes % 12.8 Monocytes % 8.8 Eosinophils % 3.1 Basophils % 1.1 Nucleated RBC % 0 Absolute Neutrophils 4.53 Absolute Lymphocytes 0.79 L Absolute Monocytes 0.54 Absolute Eosinophils 0.19 Absolute Basophils 0.07
--- NOTE | 2020-07-24 14:35 | PDOC.CMPRO ---
Care Management Progress Note S/O: David is sitting up in bed, watching TV. He is pleasant in interaction. David had a surgical consult; with recommendations for US on Saturday, if needed-or follow up as outpatient. CM continues to follow. A: 70 year old male admitted to [facility] 07/22/19 for Sepsis P: Sung continues to be closely monitored and treated, he is on IV ABX; awaiting sensitivities and ID consult to determine course of treatment. Per MD, anticipate two weeks of oral antibiotics. PT evaluated Sung, recommending VNA PT upon discharge. CM continues to follow.
[2020-07-24 15:58] VITALS: BP 110/77; PULSE 72; RESP 20; TEMP 36.6; O2SAT 97
[2020-07-24] MEDS: Melatonin 3 MG TAB 9 MG PO (21:40)
[2020-07-24] MEDS: Pravastatin 20 MG TAB PO (21:40)
[2020-07-24] MEDS: Insulin Glargine 300 UNITS/3 ML PEN 10 UNITS SC (21:41)
[2020-07-24 23:54] VITALS: BP 122/77; PULSE 70; RESP 16; TEMP 36.6; O2SAT 97
[2020-07-25] MEDS: PIPERACILLIN/TAZO 3.375 GM in Normal Saline 50 ML IVPB ×2 (01:26→08:13)
[2020-07-25] MEDS: Normal Saline 1,000 ML 125 ML IV (04:53)
[2020-07-25 07:40] VITALS: BP 134/86; PULSE 56; RESP 17; TEMP 35.3; O2SAT 96
--- NOTE | 2020-07-25 08:00 | DI.US_ITS ---
EXAM: US ABDOMEN CLINICAL HISTORY: Cholelithiasis TECHNIQUE: Ultrasound abdomen performed using standard protocol. COMPARISON: CT CT ABDOMEN PELVIS WO from 07/22/2020 FINDINGS: ABDOMINAL AORTA AND IVC: Visualized portions normal caliber. PANCREAS: Normal where visualized. LIVER: Normal. Hepatopedal flow in the Portal Vein. The liver measures 14.7 cm in length. GALLBLADDER: Cholelithiasis and gallbladder sludge are noted. No evidence of wall thickening. No per icholecystic fluid identified. BILIARY SYSTEM: Common bile duct measures < 7 mm. No intrahepatic biliary ductal dilation. CROSS'S SIGN: Negative. KIDNEYS: Kidneys are symmetric in size. There are echogenic foci seen in both kidneys consistent with nonobstructing stones. No evidence of hydronephrosis. No renal mass or cyst identified. SPLEEN: Not enlarged. ASCITES: None seen. IMPRESSION: 1. Cholelithiasis and gallbladder sludge. No biliary ductal dilatation, gallbladder wall thickening or pericholecystic fluid. 2. Bilateral nephrolithiasis. No hydronephrosis. DATA REPOSITORY:
[2020-07-25] MEDS: Aquaphor Ointment 99 GM JAR TP (08:12)
--- NOTE | 2020-07-25 08:12 | OT.INIE ---
Occupational Therapy Notes Inpatient Occupational Therapy Evaluation Date: 07/25/20 Referring Doctor:Juan Saini MD OT Orders: Non-Urgent Precautions: Fall, Standard, DNR/DNI, NPO 07/25/20 PATIENT PROFILE/ADMITTING DIAGNOSIS: Pt is a 70 year old male who presented to the ED on 07/22/20 after having a PCP appt at [facility]. His sister reports that she noticed decline in mental status, delayed response and increased weakness per pts EMR. Pt was brought to the ED with a clinical impression of sepsis. He is admitted with the following dx including cholelithiasis, paroxysmal atrial fibrillation, acute kidney injury, sepsis, DM, HTN. Past Medical History: Medical History (Updated 07/22/20 @ 15:44 by Yvette Grimm NP) Atrial fibrillation Depression Diabetes HTN (hypertension) Surgical History H/O removal of cyst left leg Social History/Home Situation: Pt reports that he lives alone and his sister lives near by. He states that he does not drive any more, his sister (A) him as needed in terms of grocery shopping and with laundry etc. He notes that he sometimes has difficulty with his LE dressing and he notes that he has a tub shower and has a seat. He uses a FWW for his functional mobility which he states he thinks is helpful. He denies any services or (A) besides having his sister help him. Equipment owned/DME: shower seat, FWW SUBJECTIVE: Pt was lying in bed when OT arrived. He was agreeable to OT session and notes that he is willing to participate in initial consultation. OBJECTIVE: General Observation: Pleasant, IV in (L) UE, pt notes bruising on his legs from prior admission. Mental Status: A&Ox3 Pain: no c/o pain ROM: RUE AROM WFL L UE AROM WFL STRENGTH: RUE 4+/5 throughout LUE 4+/5 throughout FUNCTIONAL MOBILITY/ADLS: Transfers with FWW Supine-sit Min (A) with min vc Sit-Stand CGA Stand-sit CGA Bed-Chair CGA BATHING sitting on side of the bed with min vc throughout Bathing UE (I) face, (B) UE and abdomen, max (A) back and max (A) hair Bathing LE (I) (B) LE to ankles, pt denies feet, pt does not perform his nina area DRESSING sitting on side of the bed Dressing UE Mod (A) don and doffing hospital gown Dressing LE Max (A) don and doffing (B) socks GROOMING sitting on side of the bed Min (A) brushing hair TOILETING NT EATING Pt is NPO for testing BALANCE: Static sitting Good Dynamic Sitting Good Static Standing Good Dynamic Standing Good SPECIAL TESTS: Daily Activity Limitations Standardized Measure [facility] AM -PAC ?6 clicks? Daily Activity Inpatient Short Form: Raw score: 22 Standardized score: 47.10 CMS score: 25.80% INFORMED CONSENT/EDUCATION: Pt instructed in purpose of OT Consult and plan of care. ASSESSMENT: Patient is a 70-year-old male referred to occupational therapy services with diagnosis of cholelithiasis, paroxysmal atrial fibrillation, acute kidney injury, sepsis, DM, HTN. Patient presents with clinical signs and symptoms consistent with dx, as demonstrated by the following impairment level findings/functional limitations: Impairments in ADL/IADL and leisure impairments, decreased functional mobility required for ADLs, decreased functional activity tolerance, decreased LE dressing which pt states that this comes and goes- OT will work with pt on adaptive equipment. AMPA score 22 Patient is assessed as a Moderate 17709 complexity based on the following: History: see above Examination: see functional limitations/impairments as noted above Presentation: evolving Decision Making: AMPAC score 22 GOALS Goals x1 week 1. Transfers (I) with FWW 2. Dressing sitting on side of the bed mod (I) with LE dressing 3. Bathing sitting on side of the bed (I) 4. Toileting on toilet (I) 5. Eating (I) PLAN OF CARE/TREATMENT PLAN: 1x/day, 5 days/ week x 1week Initiate Occupational Therapy Services for bathing, dressing, grooming, toileting, eating, transfer training. DISCHARGE RECOMMENDATIONS OT recommends that pt return home with OT services for assessment of ADLs in the home setting, further needs for DME and safety assessment of his home. TREATMENT TIME/MINUTES/CODES 06477, 52055, 30minutes (07:35) Carolyn Smith OTR/[facility]
[2020-07-25] MEDS: Multivitamin w/Minerals TAB 1 TAB PO (08:15)
[2020-07-25] MEDS: Aspirin E.C. 81 MG TABEC PO (08:15)
[2020-07-25] MEDS: Amiodarone 200 MG TAB PO (08:15)
[2020-07-25] MEDS: Omeprazole 20 MG CAPCR PO (08:15)
[2020-07-25] MEDS: Cholecalciferol (Vitamin D3) 1,000 UNIT TAB 1000 UNITS PO (08:15)
[2020-07-25] MEDS: Apixaban 5 MG TAB PO (08:16)
--- NOTE | 2020-07-25 10:04 | DSE_ITS ---
Date of service: 07/25/20 Time of Service: 09:41 DS: Diagnosis Discharge Diagnosis (1) Sepsis: Status: Acute (2) Acute kidney injury: Status: Acute (3) Paroxysmal atrial fibrillation: Status: Acute (4) Diabetes mellitus: Status: Chronic (5) Hypertension: Status: Acute Discharge Plan Disposition Patient Disposition: HOME W/HOME HEALTH SERVICE Condition: Fair Discharge Details Reason For Visit: SEPSIS Admit Date/Time: 07/22/20 15:36 Admit Provider: Dean Wood Attending Provider: Dean Wood Primary Care Provider: Urvashi Conti V Hospital Course Hospital Course: This is a 70-year-old male that presented to the ED via POV with his daughter after having a primary care appointment the morning of admission at [facility]. That morning, family and PCP noticed altered mental status, delayed response, and increased weakness. Patient was alert and oriented x3 upon arrival per ED documentation. He did have some delayed verbal responses. He denied having any chest pain, shortness of breath or pain anywhere. He denied any diarrhea or problems urinating. He was tachycardic and febrile upon arrival. He does have a history of recent admission for rhabdomyolysis with discharged to rehab. Does have a pressure ulcer of buttock, hypertension and vitamin B12 deficiency. Noteably, patient is a poor historian, information obtained above from ED record. Work up in ED shows UTI, given 2 grams of ceftriaxone. He was admitted to hospitalist services while final cultures pending No renal stone on imaging CT showed IMPRESSION: 1. Cholelithiasis with dilated gallbladder. Consider follow-up abdominal right upper quadrant ultrasound. 2. Sigmoid colon diverticulosis no evidence of acute diverticulitis. His antibiotic coverage was changed to Zosyn. He had no symptoms consistent with a biliary issue. General surgery was consulted and agreed that he had no acute biliary findings. His blood culture grew both E.Coli and Klebsiella pneumoniae. Urine culture did not grow any bacteria. The source of his bacteremia was unclear. Suspicious for a GI/biliary source. His WBC count normalized and his mentation readily returned to baseline. He will d/c to home on Ceftin 500mg BID to complete 2 weeks of total antibiotic coverage. Home Health nursing and PT ordered. Follow up with PCP in 1-2 weeks. Home Meds and New Rx's Prescriptions: New cefuroxime axetil 500 mg tablet 500 mg PO BID Qty: 24 RF: 0 Continued cholecalciferol (vitamin D3) 1,000 unit capsule 1,000 unit PO DAILY RF: 0 melatonin 10 mg tablet 10 mg PO HS PRNRF: 0 metformin 850 MG tablet 850 mg PO BID RF: 0 omeprazole 20 MG capsule,delayed release(DR/EC) 20 mg PO DAILY@0730 Qty: 30 RF: 0 pravastatin 20 MG tablet 20 mg PO HS Qty: 30 RF: 0 cyanocobalamin (vitamin B-12) [Vitamin B-12] 1,000 mcg tablet 1,000 mcg PO DAILY RF: 0 aspirin 81 mg Tablet,Delayed Release (Dr/Ec) 81 mg PO DAILY Qty: 1 RF: 0 docusate sodium [Colace] 100 mg Capsule 100 mg PO TID PRN PRNQty: 1 RF: 0 alum-mag hydroxide-simeth [Mag-Al Plus] 200-200-20 mg/5 mL Suspension 30 ml PO Q2H PRN PRNQty: 1 RF: 0 Therems-M 27-0.4 mg Tablet 1 tab PO BID Qty: 60 RF: 0 [facility] Protect Cream 1 applic topical PRN PRNQty: 1200 RF: 0 Lantus Solostar U-100 Insulin 100 unit/mL (3 mL) Insulin Pen 10 unit subcut HS Qty: 15 RF: 0 Eliquis 5 mg Tablet 5 mg PO BID Qty: 1 RF: 0 Eucerin Cream 1 applic topical DAILY PRN PRNQty: 454 RF: 0 amiodarone 200 mg tablet 200 mg PO DAILY RF: 0 Discharge Instructions Instructions: Bacteremia (DC) Stand Alone Forms: Nursing Discharge Form Referrals: Urvashi Conti MD [Primary Care Provider] - 08/05/20 1:45 pm Activity:: Activity as Tolerated Equipment/Supplies:: No Equipment Needed Diet:: low sodium, diabetic Discharge Orders Discharge Orders: Discharge Order (Routine); Ordered 07/25/20 Ordered By: Juan Saini Discharge Data Discharge Date/Time-TO BE ENTERED AT DEPARTURE: 07/25/20 14:12 DS: Summary Status at Discharge Functional status at discharge: uses cane/walker (when out of the home) Overall status at discharge: patient is progressing back to baseline Mental Status: mental status grossly normal Speech and Movement: speech and movement normal Mood: congruent mood Affect: normal affect Exam Const General: cooperative and no acute distress Nutritional Appearance: overweight Resp Effort & Inspection: normal respiratory effort Auscultation: clear to auscultation bilaterally Cardio Rate: regular rate Rhythm: regular rhythm Heart Sounds: S1 normal and S2 normal GI Palpation: soft and nontender Auscultation: normal bowel sounds Neuro General: patient alert, patient oriented x3, moves all extremities and no focal motor deficits Speech: speech normal Extrem General: no calf tenderness and edema Laterality: bilateral (nonpitting) Psych Mental Status: mental status grossly normal Speech and Movement: speech and movement normal Mood: congruent mood Affect: normal affect DS: Data Vitals/I&O Vitals and I&O: Vital Signs Temperature 35.3 C L 07/25/20 07:40 Temperature Source Tympanic 07/25/20 07:40 Pulse 56 L 07/25/20 07:40 Pulse Rhythm Regular 07/25/20 03:15 Pulse 102 H 07/22/20 16:20 Respiratory Rate 17 07/25/20 07:40 Respiratory Effort Non-Labored 07/25/20 03:15 Respiratory Depth Normal 07/25/20 03:15 Respiratory Pattern Normal 07/25/20 03:15 Blood Pressure 134/86 07/25/20 07:40 Blood Pressure Mean 76 07/22/20 16:30 Blood Pressure Position Sitting 07/22/20 12:31 Pulse Oximetry 96 07/25/20 07:40 Oxygen Delivery Method Room Air 07/25/20 07:40 Oxygen Flow Rate 0 07/25/20 07:40 Pain Level 0 07/24/20 23:54 Intake & Output 07/24/20 07/24/20 07/25/20 11:59 23:59 11:59 Intake Total 2220 / 3800 1580 / 3800 1729.167 / 1729.167 Output Total 350 / 1100 750 / 1100 Balance 1870 / 2700 830 / 2700 1729.167 / 1729.167 Intake: IV 2100 / 3200 1100 / 3200 1729.167 / 1729.167 Oral 120 / 600 480 / 600 Output: Urine 350 / 1100 750 / 1100 Other: Urine Color Yellow Pale Yellow Urine Appearance Clear Clear Clear Urine Odor Normal Normal Comment pt was incontinent Voiding Methods Diaper Urinal Incontinent Data Completed and Pending Labs on day of discharge: Preliminary micro results at discharge 07/22/20 13:10 Blood Culture - Preliminary Blood Escherichia coli Klebsiella pneumoniae 07/22/20 13:10 Blood Culture - Preliminary Blood NO GROWTH 48 HOURS PFSH Medical History Depression Diabetes HTN (hypertension) Hypernatremia Paroxysmal atrial fibrillation Rhabdomyolysis Skin lesion of chest wall Tinea pedis Vitamin B12 deficiency Surgical History H/O removal of cyst left leg Social History Smoking/Tobacco Use Status: Former Tobacco Use Smoking risk assessment performed?: Yes Alcohol Intake: current Alcohol Intake frequency: holidays/special occasions only Drug use: Never Substance use type: does not use Do you feel safe in your relationship?: Yes
--- NOTE | 2020-07-25 10:24 | PDOC.HHF2F ---
Home Health Certification Home Health Certification: 1. Encounter Date and Reason I certify that ANJANA LANCASTER was seen by Juan Saini MD on 07/25/20 and that I had a rxar-hw-[id number] encounter with this patient that meets the physician face to face encounter requirements. 2. Clinical Findings Supporting Skilled Need and Homebound Status I certify that home health services are medically necessary, include either intermittent longterm and/or physical/speech therapy, and that this patient is homebound in that absences from the home require considerable and taxing effort and are infrequent or of short duration, or are attributable to the need to receive medical care. [X] (a) Attached documentation from encounter provides clinical findings supporting skilled need and homebound status (including what assistance patient requires to leave the home). The encounter with the patient was in whole, or in part, for the following medical condition, which is the primary reason for home health care: SEPSIS [facility]:New dx of bacteremia and UTI. New medication monitoring. Physical Therapy:Generalized weakness d/t acute illness. Gait/balance/safety evaluation and monitoring. Speech Therapy: Homebound:Requires assistance of another person when out of the home d/t acute illness. 3. Certification and Authentication I certify that I composed the above information based on my clinical judgement relating to this patient's medical condition and, if applicable, clinical findings communicated to me by the NPP or inpatient physician who performed the Home Health Referral. All further orders will be obtained through Urvashi Conti PCP (Community Based Physician - PCP)
--- NOTE | 2020-07-25 11:10 | PT.INTREAT ---
Date of service: 07/25/20 Time of Service: 09:40 PT Notes Visit Reasons: SEPSIS Inpatient Physical Therapy Treatment Note [facility] Date: 07/25/2020 PRECAUTIONS: Fall SUBJECTIVE: David is pleasant and agreeable to participating in PT. He states that he is feeling pretty good today. OBJECTIVE: PT session limited due to patient needed for US testing. PAIN: No c/o pain BED MOBILITY/TRANSFERS Supine-sit: S with HOB flat Sit-supine: S with HOB flat Sit-stand: SBA Stand-sit: S Bed-Chair: SBA Chair-bed: SBA GAIT Assistive Device: FWW Weight bearing: Full Assist: SBA Distance: 5' x2 THEREX: Patient was instructed in several LE strengthening and stabilization exercises, in both supine and seated positions, as per flow sheet. ASSESSMENT: Patient tolerated session well without complaint. He demonstrates steady gait and pacing with short-distance gait with FWW support and SBA. PLAN: Continue global strengthening and gait training via HH PT or SNF upon discharge. TREATMENT CODE/TIME: 15 minutes; [id number]
[2020-07-25] MEDS: Normal Saline Flush 10 ML SYR IVP (11:27)
--- NOTE | 2020-07-25 12:42 | CMDISCH_ITS ---
LACE Index Scoring Tool - Questions: Length of Stay (in days): 3 Acuity (Admit via E.D.?): Yes Comorbidities: Diabetes w/o Complication E.D. Visits: 2 - Answers: Total Score: 9 Risk of Readmission: Low Risk Care Management Discharge Reason for Hospitalization: AMS/LOC Discharge Plan: Sung will return home when ready per MD. He will follow up with his PCP and plan of care as prescribed, including finishing eleven more days of oral antibiotics. He will have new orders for VNA RN/PT; CM notified [facility]. He will resume MOW, as well. [facility]. He will transport via private vehicle with his sister, Delmy. Patient/Family Education Needs: Review discharge instructions, discuss Ask Me Three. Services Needed at Discharge: Home Delivered Meals (Resume MOW), Home Health Care Services (RN/PT)
--- NOTE | 2020-07-26 07:30 | OTDS_ITS ---
Date of service: 07/26/20 Time of Service: 07:30 Occupational Therapy Notes Occupational Therapy Inpatient Discharge Summary Date: 07/26/20 Dates of Service: 07/25/20 Referring Doctor:Juan aSini MD OT Orders: Non-Urgent Precautions: Fall, Standard, DNR/DNI, NPO 07/25/20 *This document serves as a summary of care, no skilled OT services were provided for this documentation* PATIENT PROFILE/ADMITTING DIAGNOSIS: Pt is a 70 year old male who presented to the ED on 07/22/20 after having a PCP appt at [facility]. His sister reports that she noticed decline in mental status, delayed response and increased weakness per pts EMR. Pt was brought to the ED with a clinical impression of sepsis. He is admitted with the following dx including cholelithiasis, paroxysmal atrial fibrillation, acute kidney injury, sepsis, DM, HTN. Past Medical History: Medical History (Updated 07/22/20 @ 15:44 by Yvette Grimm NP) Atrial fibrillation Depression Diabetes HTN (hypertension) Surgical History H/O removal of cyst left leg Social History/Home Situation: Pt reports that he lives alone and his sister lives near by. He states that he does not drive any more, his sister (A) him as needed in terms of grocery shopping and with laundry etc. He notes that he sometimes has difficulty with his LE dressing and he notes that he has a tub shower and has a seat. He uses a FWW for his functional mobility which he states he thinks is helpful. He denies any services or (A) besides having his sister help him. Equipment owned/DME: shower seat, FWW SUBJECTIVE:NT OBJECTIVE: ROM: RUE AROM WFL L UE AROM WFL STRENGTH: RUE 4+/5 throughout LUE 4+/5 throughout FUNCTIONAL MOBILITY/ADLS: Transfers with FWW Supine-sit Min (A) with min vc Sit-Stand CGA Stand-sit CGA Bed-Chair CGA BATHING sitting on side of the bed with min vc throughout Bathing UE (I) face, (B) UE and abdomen, max (A) back and max (A) hair Bathing LE (I) (B) LE to ankles, pt denies feet, pt does not perform his nina area DRESSING sitting on side of the bed Dressing UE Mod (A) don and doffing [facility] gown Dressing LE Max (A) don and doffing (B) socks GROOMING sitting on side of the bed Min (A) brushing hair TOILETING NT EATING Pt is NPO for testing BALANCE: Static sitting Good Dynamic Sitting Good Static Standing Good Dynamic Standing Good ASSESSMENT: Patient is a 70-year-old male referred to occupational therapy services with diagnosis of cholelithiasis, paroxysmal atrial fibrillation, acute kidney injury, sepsis, DM, HTN. Pt was seen for OT consult only and discharged and medically cleared per MD on 07/25/20. GOALS- seen for OT consult only. 1. Transfers (I) with FWW 2. Dressing sitting on side of the bed mod (I) with LE dressing 3. Bathing sitting on side of the bed (I) 4. Toileting on toilet (I) 5. Eating (I) PLAN OF CARE/TREATMENT PLAN: Discharge from skilled OT services. DISCHARGE RECOMMENDATIONS OT recommends that pt return home with OT services for assessment of ADLs in the home setting, further needs for DME and safety assessment of his home. TREATMENT TIME/MINUTES/CODES N/A Carolyn Smith, OTR/[facility]
--- NOTE | 2020-07-28 08:13 | INDS_ITS ---
Date of service: 07/28/20 Time of Service: 08:13 PT Notes Visit Reasons: SEPSIS Physical Therapy Inpatient Discharge Summary Date: 07/28/2020 Dates of service: 07/24/2020 through 07/25/2020 This is a clinical summary of care provided on the duration of dates listed above. No charge was made in the completion of this documentation. Referring Doctor: Juan Saini PT Orders: PT CONSULT: eval and treat Precautions: Standard, Falls Patient Profile/Admitting Diagnosis: Sung is a 70 year old male admitted secondary to sepsis on 07/22/20. He presented to the ED via POV with his sister after having a primary care appointment this morning at [facility]. That morning family and PCP noticed altered mental status, delayed response, and increased weakness. Patient was alert and oriented x3 upon arrival. He did have some delayed verbal responses. He denied having any chest pain, shortness of breath or pain anywhere. He denied any diarrhea or problems urinating. He was tachycardic and febrile upon arrival at the ED. He does have a history of recent admission for rhabdomyolysis with discharged to rehab. Does have a pressure ulcer of buttock, hypertension and vitamin B12 deficiency. PMHX: Afib, Depression, Diabetes, HTN, cyst removal left leg Social History/Home Situation: David resides alone in a log cabin in [place], [place]. His sister Delmy lives down the road and provides assistance with meals and other support as needed. 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 David has 2 children but he has not communicated with them in 4 or 5 years. He stated that he does not contact information for them. David is independent and continues to drive however primarily relies on his sister for transportation at this time. He sometimes uses a cane outside of his home. David was discharged from [facility] to [facility] on 01/22/20. Barbra reports he returned home on 02/16/21, and reports [facility] would be more than willing to accept Sung for SNF if needed. Current Functional Limitations: Sung notes that he utilizes a cane for outside ambulation. He does have railing from his yard up onto his porch. He has been parking on his lawn for from the driveway would have to climb 12 more stairs without a railing. His brother in law has been keeping his yard clear. Equipment Owned/DME: Cane Subjective: NT. See most recent [employer] notes. Objective: General Observation: NT. See most recent [employer] notes. Mental Status: NT. See most recent [employer] notes. Pain: NT. See most recent [employer] notes. ROM: Right Upper Extremity: Within Functional limits Left Upper Extremity: Within Functional limits Right Lower Extremity: Within Functional limits Left Lower Extremity: Within Functional limits Strength: Right Upper Extremity: Grossly 4+/5 Left Upper Extremity: Grossly 4+/5 Right Lower Extremity: Grossly 4+/5 Left Lower Extremity: Grossly 4+/5 Bed Mobility/Transfers: Patient is sitting in chair Sit-stand:SBA, FWW Stand-sit: S Gait: Patient ambulates 200 ft with use of FWW, SBA x 1. Balance: Static Sitting: Good Dynamic Sitting: Good Static Standing: Good Dynamic Standing: Fair ASSESSMENT: Patient demonstrated improvement in mobility level and BUE/LE strength but remains in need of continued services and will benefit from home health PT. Goals: Goals X1 week 1. Supine-Sit Independent NOT MET 2. Sit-Supine Independent NOT MET 3. Sit-Stand Independent NOT MET 4. Stand-Sit Independent NOT MET 5. Bed-Chair Independent with least restrictive assistive device NOT MET 6. Gait Independent with least restrictive assistive device up to 300 feet NOT MET 7: Stairs 3 steps with supervision NOT MET 8: Independent in Home program NOT MET DISCHARGE RECOMMENDATIONS: Patient will benefit from home health PT services in order to progress mobility level using least restrictive assistive ambulatory device, assess home safety, identify additional equipment needs, and establish a functional maintenance program that will increase ability of patient to remain at home. TREATMENT CODE/TIME: NC. Thank you for the opportunity to participate in the care of this patient. Adelita Powell PT, DPT, CLT [facility] [place], [place]
== END 2020-07-25 14:12 | disposition home health service (06) | DRG 872 ==
LOC: ER 16:50 → MS 16:52
PROVIDERS: Family Medicine; Nurse Practitioner Acute Care; Admitting Provider Internal Medicine; Emergency Provider Registered Nurse Emergency; PCP Family Medicine; Visit Provider Internal Medicine
DX: A41.51 Sepsis due to Escherichia coli [E. coli] (principal); N17.9 Acute kidney failure, unspecified; N39.0 Urinary tract infection, site not specified; N13.30 Unspecified hydronephrosis; I48.0 Paroxysmal atrial fibrillation; E11.9 Type 2 diabetes mellitus without complications; I10 Essential (primary) hypertension; Z79.4 Long term (current) use of insulin; F32.9 Major depressive disorder, single episode, unspecified; E53.8 Deficiency of other specified B group vitamins; K80.20 Calculus of gallbladder without cholecystitis without obstruction; Z66 Do not resuscitate
CPT/HCPCS: 36410; 36415; 51701; 76770; 80053; 82550; 87040; 87077; 93005; 96361; 96365; 97162; 97166; 97530; 97535; 99222; 99223; 99232; 99239; 99253; 99285; E0191; 70450; 71045; 74176; 76700; 81003; 81015; 83605; 83735; 84484; 85025; 87086; 87186; 93010; J1644; J2543

== ENCOUNTER 2020-08-18 10:30 | Inpatient (IN) | payer MEDICARE, SELFPAY ==
[2020-08-18] VITALS (47 sets, daily range): BP systolic 105–167; BP diastolic 60–102; PULSE 67–149; RESP 14–31; TEMP 37.1–38.2; O2SAT 92–97
--- NOTE | 2020-08-18 10:15 | RT.EKG_ITS ---
APPROVED REPORT Exam: Resting ECG Patient Location: E HR:83 bpm ECG Measurements Heart Rate 83 AXIS KS 162 P 3 QRSd 85 QRS 14 QT 392 T -18 QTc 461 Conclusion Sinus rhythm Wandering baseline
[2020-08-18] MEDS: Normal Saline 1,000 ML 1000 ML IV (10:30)
[2020-08-18 10:57] LABS: Abs Immature Grans 0.11 10^3/uL (0.0-0.06); Absolute Basophil Count 0.03 10^3/uL (0.0-0.2); Absolute Monocyte Count 1.01 10^3/uL (0.1-0.8); Absolute Neutrophil Count 14.41 10^3/uL (1.2-6.7); Basophils % 0.2; HCT 46.7 % (40.0-50.0); HGB 14.6 g/dL (13.5-17.5); Immature Grans % 0.7; Lymphocytes % 3.1; MCH 28.1 pg (27.0-33.0); MCHC 31.3 % (32.0-36.0); MCV 89.8 fL (80-95); MPV 8.7 fL (8.0-11.0); Monocytes % 6.3; Neutrophils % 89.7; Nucleated RBC 0 %; Platelet Count 242 10^3/uL (130-400); RDW 12.3 % (11.8-14.1); RDW-SD 40.8 fL; WBC 16.07 10^3/uL (4.4-10.8)
--- NOTE | 2020-08-18 11:00 | DI.CT_ITS ---
EXAM: CT HEAD WO CLINICAL HISTORY: fall 2 days ago, on eliquis. TECHNIQUE: Imaging Protocol: Axial computed tomography images with coronal and sagittal reformatted images were created and reviewed COMPARISON: CT CT HEAD WO from 07/22/2020 FINDINGS: Ventricles and Extra axial spaces: Normal in size and morphology for the patient's age. Mild atrophy. Stable ventricular size. Hemorrhage: None. Cerebral parenchyma: Normal. Midline shift: None. Brainstem/Cerebellum: Normal. Calvarium: Normal. Visualized Paranasal sinuses/Mastoids: Clear. Soft Tissues: Unremarkable. IMPRESSION: No acute intracranial process. RADIATION DOSE DELIVERED: 835.72mGy.cm Total DLP DATA REPOSITORY: All CT scans at this facility are submitted to the National Radiology Data Registry (NRDR) Dose Index Registry (DIR) with the [employer] (ACR). RADIATION OPTIMIZATION: All CT scans at this facility use at least one of these dose optimization te chniques: automated exposure control; mA and/or kV adjustment per patient size (includes targeted exa ms where dose is matched to clinical indication); or iterative reconstruction.
--- NOTE | 2020-08-18 11:07 | DI.RAD_ITS ---
EXAM: XR PORTABLE CHEST AP CLINICAL HISTORY: cough/pui TECHNIQUE: 2D digital imaging was performed. COMPARISON: CR XR PORTABLE CHEST AP from 07/22/2020 FINDINGS: Lungs are suboptimally inflated. There are under lying interstitial changes. No infiltrate, effusio n or pulmonary edema is seen. There is no evidence of pneumothorax.. IMPRESSION: No acute pulmonary findings. DATA REPOSITORY: RADIATION DOSE DELIVERED:
[2020-08-18 11:12] LABS: ALT 12 U/L (16-63); AST 20 U/L (15-37); Albumin 3.2 g/dL (3.4-5.0); Alkaline Phosphatase 90 U/L (46-116); Anion Gap 11.5 mmol/L (3-11); BUN 23 mg/dL (7-18); Bilirubin, Total 1.7 mg/dL (0.2-1.0); CO2 26.5 mmol/L (21.0-32.0); CREATININE 1.5 mg/dL (0.70-1.30); Calcium 8.8 mg/dL (8.5-10.1); Chloride 103 mmol/L (98-107); Creatine Kinase 236 U/L (39-308); Estimated GFR 46.27 (mL/min/1.73m2); Glucose 264 mg/dL (74-106); Lipase 45 U/L (73-393); Potassium 4.3 mmol/L (3.5-5.1); Sodium 141 mmol/L (136-145); Total Protein 7.1 g/dL (6.4-8.2)
--- NOTE | 2020-08-18 11:27 | W.ED.GENAD ---
Discharge Plan Disposition Patient Disposition: [facility] INPATIENT Condition: Serious Discharge Details Clinical Impression: Weakness generalized, Leukocytosis Primary Care Provider: Urvashi Conti V ED Provider: Dean Morin Home Meds and New Rx's Prescriptions: No Action cholecalciferol (vitamin D3) 1,000 unit capsule 1,000 unit PO DAILY RF: 0 melatonin 10 mg tablet 10 mg PO HS PRNRF: 0 metformin 850 MG tablet 850 mg PO BID RF: 0 omeprazole 20 MG capsule,delayed release(DR/EC) 20 mg PO DAILY@0730 Qty: 30 RF: 0 pravastatin 20 MG tablet 20 mg PO HS Qty: 30 RF: 0 cyanocobalamin (vitamin B-12) [Vitamin B-12] 1,000 mcg tablet 1,000 mcg PO DAILY RF: 0 aspirin 81 mg Tablet,Delayed Release (Dr/Ec) 81 mg PO DAILY Qty: 1 RF: 0 docusate sodium [Colace] 100 mg Capsule 100 mg PO TID PRN PRNQty: 1 RF: 0 alum-mag hydroxide-simeth [Mag-Al Plus] 200-200-20 mg/5 mL Suspension 30 ml PO Q2H PRN PRNQty: 1 RF: 0 Therems-M 27-0.4 mg Tablet 1 tab PO BID Qty: 60 RF: 0 Sinai Protect Cream 1 applic topical PRN PRNQty: 1200 RF: 0 Eliquis 5 mg Tablet 5 mg PO BID Qty: 1 RF: 0 Eucerin Cream 1 applic topical DAILY PRN PRNQty: 454 RF: 0 amiodarone 200 mg tablet 200 mg PO DAILY RF: 0 Glucerna Advance Liquid TID RF: 0 Medical Decision Making 70-year old gentleman, lives at home by himself, typically ambulates with a walker, does have home health services. He presents to the ER today via EMS for ongoing cough and generalized weakness. Fell 2 days ago, could not get up on his own. Was helped to the couch, has not gotten off the couch since then. Clinically he appears nontoxic. He appears slightly disheveled, dry mucous membranes. He denies any injury from the fall. Given his cough, generalized weakness, will initiate a cardiac and septic work-up. Given his history of lying on the ground and he rhabdomyolysis, will give 2 L IV fluid. No clear indication that this is CHF, I believe that he can tolerate the fluid. Patient is on Eliquis, given his fall 2 days ago, will obtain head CT. Blood cultures pending, no clear source of infection, will not initiate antibiotic therapy Patient was able to give a urine sample but was unable to stand up on his own. Continues to have generalized weakness. CT imaging and x-ray both read by radiology as no acute etiology. Laboratory values reveal a nonspecific leukocytosis of 16.07. Lactate of 1.9. Electrolytes unremarkable, creatinine 1.5 which appears to be near his baseline. Glucose 264. Lipase 45. Urinalysis reveals 80 ketones but no signs of obvious infection. CPK of 236. Rapid in-house Covid negative No clear source of infection given his nonspecific leukocytosis. CT imaging and x-ray unremarkable. Patient remains weak, is a fall risk, lives at home alone. I do not believe that he can be safely discharged home. I will speak with our hospitalist team to discuss admission. Medical Records Medical records reviewed: Yes I reviewed the patient's medical records. Lab Data Lab results reviewed: Yes I reviewed the patient's lab results. Labs: 08/18/20 13:22 Blood Blood Culture - Pending 08/18/20 11:36 Blood Blood Culture - Pending Laboratory Tests Range/Units 08/18/20 08/18/20 08/18/20 10:45 10:45 10:45 WBC (4.4-10.8) 10^3/uL 16.07 H RBC (4.36-5.78) 10^6/uL 5.20 Hgb (13.5-17.5) g/dL 14.6 Hct (40.0-50.0) % 46.7 MCV (80-95) fL 89.8 MCH (27.0-33.0) pg 28.1 MCHC (32.0-36.0) % 31.3 L RDW (11.8-14.1) % 12.3 Plt Count (130-400) 10^3/uL 242 MPV (8.0-11.0) fL 8.7 Immature Gran % 0.7 Neutrophils % 89.7 Lymphocytes % 3.1 Monocytes % 6.3 Eosinophils % 0.0 Basophils % 0.2 Nucleated RBC % % 0 Absolute Neutrophils (1.2-6.7) 10^3/uL 14.41 H Absolute Lymphocytes (1.2-3.4) 10^3/uL 0.50 L Absolute Monocytes (0.1-0.8) 10^3/uL 1.01 H Absolute Eosinophils (0.0-0.7) 10^3/uL 0.00 Absolute Basophils (0.0-0.2) 10^3/uL 0.03 VBG Lactate (0.6-1.4) mmol/L Sodium (136-145) mmol/L 141 Potassium (3.5-5.1) mmol/L 4.3 Chloride (98-107) mmol/L 103 Carbon Dioxide (21.0-32.0) mmol/L 26.5 Anion Gap (3-11) mmol/L 11.5 H BUN (7-18) mg/dL 23 H Creatinine (0.70-1.30) mg/dL 1.5 H Estimated GFR/1.73 m2 (mL/min/1.73m2) 46.27 Glucose (74-106) mg/dL 264 H Calcium (8.5-10.1) mg/dL 8.8 Total Bilirubin (0.2-1.0) mg/dL 1.7 H AST (15-37) U/L 20 ALT (16-63) U/L 12 L Alkaline Phosphatase (46-116) U/L 90 Creatine Kinase (39-308) U/L 236 Troponin I (<0.06) ng/mL < 0.05 Total Protein (6.4-8.2) g/dL 7.1 Albumin (3.4-5.0) g/dL 3.2 L Lipase (73-393) U/L 45 Urine Color (Yellow) Urine Clarity (Clear) Urine pH (5-8) Ur Specific [place] (1.005-1.025) Urine Protein (Negative) mg/dL Urine Ketones (Negative) mg/dL Urine Blood (Negative) Urine Nitrite (Negative) Urine Bilirubin (Negative) Urine Urobilinogen (Up TO 0.2) EU/dL Ur Leukocyte Esterase (Negative) Urine RBC (0-2) HPF Urine WBC (0-5) HPF Ur Epithelial Cells (Negative) HPF Urine Crystals (Negative) HPF Urine Bacteria (Negative) HPF Urine Casts (Negative) LPF Urine Mucus (Negative) Ur Culture Indicated? Urine Glucose (Negative) mg/dL COVID-19 Source SARS-CoV-2 (PCR) (Negative) Influenza Type A (PCR) (Negative) Influenza Type B (PCR) (Negative) RSV (PCR) (Negative) Range/Units 08/18/20 08/18/20 08/18/20 11:30 11:55 12:20 WBC (4.4-10.8) 10^3/uL RBC (4.36-5.78) 10^6/uL Hgb (13.5-17.5) g/dL Hct (40.0-50.0) % MCV (80-95) fL MCH (27.0-33.0) pg MCHC (32.0-36.0) % RDW (11.8-14.1) % Plt Count (130-400) 10^3/uL MPV (8.0-11.0) fL Immature Gran % Neutrophils % Lymphocytes % Monocytes % Eosinophils % Basophils % Nucleated RBC % % Absolute Neutrophils (1.2-6.7) 10^3/uL Absolute Lymphocytes (1.2-3.4) 10^3/uL Absolute Monocytes (0.1-0.8) 10^3/uL Absolute Eosinophils (0.0-0.7) 10^3/uL Absolute Basophils (0.0-0.2) 10^3/uL VBG Lactate (0.6-1.4) mmol/L 1.9 H Sodium (136-145) mmol/L Potassium (3.5-5.1) mmol/L Chloride (98-107) mmol/L Carbon Dioxide (21.0-32.0) mmol/L Anion Gap (3-11) mmol/L BUN (7-18) mg/dL Creatinine (0.70-1.30) mg/dL Estimated GFR/1.73 m2 (mL/min/1.73m2) Glucose (74-106) mg/dL Calcium (8.5-10.1) mg/dL Total Bilirubin (0.2-1.0) mg/dL AST (15-37) U/L ALT (16-63) U/L Alkaline Phosphatase (46-116) U/L Creatine Kinase (39-308) U/L Troponin I (<0.06) ng/mL Total Protein (6.4-8.2) g/dL Albumin (3.4-5.0) g/dL Lipase (73-393) U/L Urine Color (Yellow) Yellow Urine Clarity (Clear) Clear Urine pH (5-8) 5.5 Ur Specific [place] (1.005-1.025) 1.025 Urine Protein (Negative) mg/dL 30 H Urine Ketones (Negative) mg/dL 80 H Urine Blood (Negative) Small H Urine Nitrite (Negative) Negative Urine Bilirubin (Negative) Negative Urine Urobilinogen (Up TO 0.2) EU/dL 1.0 H Ur Leukocyte Esterase (Negative) Negative Urine RBC (0-2) HPF 3-5 H Urine WBC (0-5) HPF 0-2 Ur Epithelial Cells (Negative) HPF Rare Urine Crystals (Negative) HPF Negative Urine Bacteria (Negative) HPF Negative Urine Casts (Negative) LPF Negative Urine Mucus (Negative) Negative Ur Culture Indicated? No Urine Glucose (Negative) mg/dL 500 H COVID-19 Source Nasopharynx SARS-CoV-2 (PCR) (Negative) Negative Influenza Type A (PCR) (Negative) Negative Influenza Type B (PCR) (Negative) Negative RSV (PCR) (Negative) Negative Range/Units 08/18/20 13:25 WBC (4.4-10.8) 10^3/uL RBC (4.36-5.78) 10^6/uL Hgb (13.5-17.5) g/dL Hct (40.0-50.0) % MCV (80-95) fL MCH (27.0-33.0) pg MCHC (32.0-36.0) % RDW (11.8-14.1) % Plt Count (130-400) 10^3/uL MPV (8.0-11.0) fL Immature Gran % Neutrophils % Lymphocytes % Monocytes % Eosinophils % Basophils % Nucleated RBC % % Absolute Neutrophils (1.2-6.7) 10^3/uL Absolute Lymphocytes (1.2-3.4) 10^3/uL Absolute Monocytes (0.1-0.8) 10^3/uL Absolute Eosinophils (0.0-0.7) 10^3/uL Absolute Basophils (0.0-0.2) 10^3/uL VBG Lactate (0.6-1.4) mmol/L Sodium (136-145) mmol/L Potassium (3.5-5.1) mmol/L Chloride (98-107) mmol/L Carbon Dioxide (21.0-32.0) mmol/L Anion Gap (3-11) mmol/L BUN (7-18) mg/dL Creatinine (0.70-1.30) mg/dL Estimated GFR/1.73 m2 (mL/min/1.73m2) Glucose (74-106) mg/dL Calcium (8.5-10.1) mg/dL Total Bilirubin (0.2-1.0) mg/dL AST (15-37) U/L ALT (16-63) U/L Alkaline Phosphatase (46-116) U/L Creatine Kinase (39-308) U/L Troponin I (<0.06) ng/mL < 0.05 Total Protein (6.4-8.2) g/dL Albumin (3.4-5.0) g/dL Lipase (73-393) U/L Urine Color (Yellow) Urine Clarity (Clear) Urine pH (5-8) Ur Specific [place] (1.005-1.025) Urine Protein (Negative) mg/dL Urine Ketones (Negative) mg/dL Urine Blood (Negative) Urine Nitrite (Negative) Urine Bilirubin (Negative) Urine Urobilinogen (Up TO 0.2) EU/dL Ur Leukocyte Esterase (Negative) Urine RBC (0-2) HPF Urine WBC (0-5) HPF Ur Epithelial Cells (Negative) HPF Urine Crystals (Negative) HPF Urine Bacteria (Negative) HPF Urine Casts (Negative) LPF Urine Mucus (Negative) Ur Culture Indicated? Urine Glucose (Negative) mg/dL COVID-19 Source SARS-CoV-2 (PCR) (Negative) Influenza Type A (PCR) (Negative) Influenza Type B (PCR) (Negative) RSV (PCR) (Negative) ECG Data Attestation: I personally reviewed and interpreted this ECG (s) as follows: Interpretation: Please see official report by Dr. Barillas. Sinus rhythm, ventricular rate of 83. No STEMI. HPI General Mode of arrival: EMS. Date/Time Provider Initiated Documentation: 08/18/20 10:34. Limitations to Documentation: no limitations. Information obtained by: patient and EMS. HPI Narrative: This is a 70-year-old gentleman with past medical history that includes diabetes, hypertension, depression, hypernatremia, proximal atrial fibrillation, rhabdomyolysis, vitamin B12 deficiency. Patient reports a 5-day history of generalized weakness, productive cough, worsening over the past 2 days. He states that he typically ambulates with a walker, was attempting to get into bed 2 nights ago, mechanical slip and fall landing on the ground. He denies any pain or injury from the fall but was not able to get up on his own. He laid on the ground for approximately 10 hours until he was found in the morning by his home health care team who helped him to the couch. He states that he has been laying on the couch ever since. He denies headache, visual changes, neck pain, abdominal pain, nausea, vomiting, bowel or bladder incontinence, dysuria, skin rash, numbness, tingling, focal weakness. He states that from pushing and attempting to get up off the ground he feels as though he has chest wall pain but denies any true substernal chest pain. The pain that he felt does not radiate anywhere. EMS states glucose 442. Patient is a DNR/DNI. Related Data Home Medications Medication Instructions Recorded Confirmed metformin 850 mg PO BID 04/23/14 08/18/20 omeprazole 20 mg PO DAILY@0730 #30 capcr 09/21/17 08/18/20 pravastatin 20 mg PO HS #30 tab 09/21/17 08/18/20 cholecalciferol (vitamin D3) 25 1,000 unit PO DAILY 11/05/18 08/18/20 mcg (1,000 unit) capsule melatonin 10 mg tablet 10 mg PO HS PRN 11/05/18 08/18/20 cyanocobalamin (vitamin B-12) 1,000 mcg PO DAILY 01/16/20 08/18/20 [Vitamin B-12] Sinai Protect 1 applic TOPICAL PRN PRN #1200 gm 01/22/20 Eliquis 5 mg PO BID #1 tab 01/22/20 08/18/20 Eucerin 1 applic TOPICAL DAILY PRN PRN 01/22/20 #454 gm Therems-M 1 tab PO BID #60 tab 01/22/20 07/22/20 alum-mag hydroxide-simeth [Mag-Al 30 ml PO Q2H PRN PRN #1 ml 01/22/20 Plus] aspirin 81 mg PO DAILY #1 tab 01/22/20 08/18/20 docusate sodium [Colace] 100 mg PO TID PRN PRN #1 cap 01/22/20 amiodarone 200 mg PO DAILY 07/22/20 08/18/20 nut.tx.gluc.intol,lac-free,soy ml TID 08/18/20 [Glucerna Advance] Previous Rx's Medication Instructions Recorded omeprazole 20 mg PO DAILY@0730 #30 capcr 09/21/17 pravastatin 20 mg PO HS #30 tab 09/21/17 Sinai Protect 1 applic TOPICAL PRN PRN #1200 gm 01/22/20 Eliquis 5 mg PO BID #1 tab 01/22/20 Eucerin 1 applic TOPICAL DAILY PRN PRN 01/22/20 #454 gm Therems-M 1 tab PO BID #60 tab 01/22/20 alum-mag hydroxide-simeth [Mag-Al 30 ml PO Q2H PRN PRN #1 ml 01/22/20 Plus] aspirin 81 mg PO DAILY #1 tab 01/22/20 docusate sodium [Colace] 100 mg PO TID PRN PRN #1 cap 01/22/20 Allergies Allergy/AdvReac Type Severity Reaction Status Date / Time No Known Allergies Allergy Unverified 07/22/20 17:01 General Stated Complaint: GenMedical PUSHPA: 2 Review of Systems Constitutional Constitutional: Reports fatigue, Denies fever(s) and Denies headache(s) Eyes Eyes: Denies change in vision ENT Ears, Nose, Mouth, and Throat: Denies headache(s) and Denies neck pain Cardiovascular Cardiovascular: Reports chest pain (Describes as chest wall pain) and Denies dyspnea Respiratory Respiratory: Reports cough and Denies dyspnea Gastrointestinal Gastrointestinal: Denies abdominal pain, Denies nausea and Denies vomiting Genitourinary Genitourinary: Denies dysuria Musculoskeletal Musculoskeletal: Denies back pain, Denies neck pain, Denies numbness and Denies tingling Integumentary/Breasts Skin/Breast: Denies rash Neurologic Neurologic: Denies headache(s), Denies numbness, Denies tingling and Reports weakness (Generalized) Endocrine Endocrine: Reports fatigue Hematologic/Lymphatic Hematologic/Lymphatic: Reports easy bleeding and Reports easy bruising [facility] Medical History Depression Diabetes HTN (hypertension) Hypernatremia Paroxysmal atrial fibrillation Rhabdomyolysis Skin lesion of chest wall Tinea pedis Vitamin B12 deficiency Surgical History H/O removal of cyst left leg Social History Smoking/Tobacco Use Status: Former Tobacco Use Smoking risk assessment performed?: Yes Alcohol Intake: former Drug use: Never Substance use type: does not use Do you feel safe in your relationship?: Yes Exam Const General: cooperative, comfortable, no acute distress and disheveled Orientation: alert, awake, oriented to person, oriented to place and oriented to time (August 2020, unsure of exact date) [facility] Head: normal to inspection, no palpable skull fracture, normocephalic and atraumatic Face and sinus: normal facial exam Mouth: moist mucous membranes abnormal (Dry) Eyes General: appearance normal, both eyes and all related structures Conjunctivae: conjunctivae normal Sclera: sclerae normal Neck Neck: normal visual inspection, full ROM, no meningeal signs, trachea midline, supple and nontender Resp Effort & Inspection: normal respiratory effort and able to speak in complete sentences Auscultation: clear to auscultation bilaterally Cardio Rate: regular rate Rhythm: regular rhythm GI Inspection: normal to inspection Palpation: soft, not firm, no guarding, no pulsatile masses and nontender Auscultation: normal bowel sounds Back/Spine/Pelvis Back: No back tenderness Skin General skin exam: no rashes or lesions noted Neuro General: patient alert, patient awake, moves all extremities and no focal motor deficits Cognition: normal cognition Speech: speech normal Motor: muscle tone normal throughout Sensory Exam: no sensory deficits noted Extrem General: normal to inspection, full ROM, capillary refill normal, no pedal edema and no calf tenderness Psych Appearance: grossly normal Mental Status: mental status grossly normal Course Vital Signs Vital signs: Vital Signs Temperature 37.1 C 08/18/20 10:41 Pulse 85 08/18/20 10:41 Respiratory Rate 24 08/18/20 10:41 Blood Pressure 131/91 H 08/18/20 10:41 Pulse Oximetry 96 08/18/20 10:41 Temperature 37.1 C 08/18/20 10:41 Temperature Source Temporal Artery Scan 08/18/20 10:41 Pulse 85 08/18/20 10:41 Respiratory Rate 24 08/18/20 10:41 Respiratory Effort 08/18/20 10:47 Blood Pressure 131/91 H 08/18/20 10:41 Blood Pressure Position Sitting 08/18/20 10:41 Pulse Oximetry 96 08/18/20 10:41 Oxygen Delivery Method Room Air 08/18/20 10:41 Oxygen Flow Rate 0 08/18/20 10:41 Pain Level 0 08/18/20 10:41 Lab/Test Results Lab/Test Results: 08/18/20 11:07 Blood Blood Culture - Pending 08/18/20 11:07 Blood Blood Culture - Pending Laboratory Tests Range/Units 08/18/20 08/18/20 10:45 10:45 WBC (4.4-10.8) 10^3/uL 16.07 H RBC (4.36-5.78) 10^6/uL 5.20 Hgb (13.5-17.5) g/dL 14.6 Hct (40.0-50.0) % 46.7 MCV (80-95) fL 89.8 MCH (27.0-33.0) pg 28.1 MCHC (32.0-36.0) % 31.3 L RDW (11.8-14.1) % 12.3 Plt Count (130-400) 10^3/uL 242 MPV (8.0-11.0) fL 8.7 Immature Gran % 0.7 Neutrophils % 89.7 Lymphocytes % 3.1 Monocytes % 6.3 Eosinophils % 0.0 Basophils % 0.2 Nucleated RBC % % 0 Absolute Neutrophils (1.2-6.7) 10^3/uL 14.41 H Absolute Lymphocytes (1.2-3.4) 10^3/uL 0.50 L Absolute Monocytes (0.1-0.8) 10^3/uL 1.01 H Absolute Eosinophils (0.0-0.7) 10^3/uL 0.00 Absolute Basophils (0.0-0.2) 10^3/uL 0.03 Sodium (136-145) mmol/L 141 Potassium (3.5-5.1) mmol/L 4.3 Chloride (98-107) mmol/L 103 Carbon Dioxide (21.0-32.0) mmol/L 26.5 Anion Gap (3-11) mmol/L 11.5 H BUN (7-18) mg/dL 23 H Creatinine (0.70-1.30) mg/dL 1.5 H Estimated GFR/1.73 m2 (mL/min/1.73m2) 46.27 Glucose (74-106) mg/dL 264 H Calcium (8.5-10.1) mg/dL 8.8 Total Bilirubin (0.2-1.0) mg/dL 1.7 H AST (15-37) U/L 20 ALT (16-63) U/L 12 L Alkaline Phosphatase (46-116) U/L 90 Creatine Kinase (39-308) U/L 236 Total Protein (6.4-8.2) g/dL 7.1 Albumin (3.4-5.0) g/dL 3.2 L Lipase (73-393) U/L 45
[2020-08-18 12:01] LABS: Lactate 1.9 mmol/L (0.6-1.4)
[2020-08-18 12:13] LABS: Troponin I < 0.05 ng/mL (<0.06)
[2020-08-18 12:13] LABS: COVID-19 PCR Negative (Negative); Influenza A PCR Negative (Negative); Influenza B PCR Negative (Negative); RSV PCR Negative (Negative); Source Nasopharynx
[2020-08-18] MEDS: Normal Saline 1,000 ML 200 ML IV (12:20)
[2020-08-18 12:31] LABS: Bilirubin Negative (Negative); Blood Small (Negative); Clarity Clear (Clear); Glucose 500 mg/dL (Negative); Ketones 80 mg/dL (Negative); Leukocyte Esterase Negative (Negative); Nitrite Negative (Negative); Specific Gravity 1.025 (1.005-1.025); pH 5.5 (5-8)
[2020-08-18 12:41] LABS: WBC 0-2 HPF (0-5)
[2020-08-18 12:42] LABS: Bacteria Negative HPF (Negative); C & S Indicated? No; Casts Negative LPF (Negative); Crystals Negative HPF (Negative); Epithelial Cells Rare HPF (Negative); Mucus Negative (Negative)
--- NOTE | 2020-08-18 13:42 | HPE_ITS ---
Date of service: 08/18/20 Time of Service: 13:42 Assessment and Plan Assessment and plan (1) Leukocytosis: Status: Acute Assessment and plan: no source of infection identified on ED evaluation. CXR, urine clear, no rashes, no abdominal pain did spike temp of 38.4 after admission sogiven ceftriaxone 2 mg IV empirically while cultures pending.. consider repeat cxr in am (2) Generalized weakness: Status: Acute Assessment and plan: will give IV fluids, PT/OT consult case management consulted, anticipate swing level rehabilitation vs LTCP (3) Diabetes mellitus: Status: Chronic Assessment and plan: A1C was 7.5 in feb 2020 continue diabetic diet, sliding scale coverage ac/hs prn will hold metformin overnight pending am labs Qualifiers: Diabetes mellitus complication status: without complication Diabetes mellitus intermediate school teacher insulin use: without intermediate school teacher use Diabetes mellitus type: type 2 Qualified Code(s): E11.9 - Type 2 diabetes mellitus without complications (4) Hypertension: Status: Acute Assessment and plan: blood pressure controlled. will monitor closely (5) Chronic kidney disease: Status: Chronic Assessment and plan: stable and at baseline. IV fluids, avoid nephrotoxic drugs and monitor metformin placed on hold pending am labs (6) Paroxysmal atrial fibrillation: Status: Acute Assessment and plan: rate rapid 120-140 after admission. he is asymptomatic with no dizziness, palpitations, chest pain or shortness of breath. will administer his am dose of amiodarone and given IV lopressor 2.5 mg IVP which slowed rate to 90's. he is anticoagulated on apixaban continue nurse monitoring and medication adjustment as needed. will change admission status from obs to acute in setting of this change in addition to now documented fever. discussed with DR Champagne History of Present Illness History of Present Illness Chief Complaint: generalized weakness Narrative: presents to ED via EMS for increasing generalized weakness, a couple days ago was too weak to get himself into bed and fell to floor, he denied injury but unable to get himself up so slept on floor until am when home health arrived. since then, he continues to remain too weak to manage safely at home. his work up in the ED is unremarkable. he is not safe for discharge to home so will be referred to observation for further monitoring and IV hydration. Review of Systems All systems reviewed & are unremarkable except as noted in HPI and below Constitutional Constitutional: Denies body ache(s), Denies fever(s), Reports frequent falls, Denies headache(s), Reports lethargy and Reports weakness ENT Ears, Nose, Mouth, and Throat: Denies vertigo, Denies dizziness, Denies headache(s) and Denies neck pain Cardiovascular Cardiovascular: Denies chest pain and Denies dyspnea Respiratory Respiratory: Denies chest congestion, Reports cough, Denies excessive phlegm production, Denies pain with cough, Denies dyspnea, Denies stridor and Denies wheezing Gastrointestinal Gastrointestinal: Denies abdominal pain, Denies constipation, Denies nausea and Denies vomiting Genitourinary Genitourinary: Denies urinary frequency and Denies urinary urgency Musculoskeletal Musculoskeletal: Denies back pain, Denies myalgias, Denies joint swelling and Denies neck pain Neurologic Neurologic: Denies vertigo, Denies dizziness, Reports frequent falls, Denies he adache(s) and Reports weakness Allergic/Immunologic Allergic/Immunologic: Denies wheezing PFSH Medical History Depression Diabetes HTN (hypertension) Hypernatremia Paroxysmal atrial fibrillation Rhabdomyolysis Skin lesion of chest wall Tinea pedis Vitamin B12 deficiency Surgical History H/O removal of cyst left leg Social History Smoking/Tobacco Use Status: Former Tobacco Use Smoking risk assessment performed?: Yes Alcohol Intake: former Drug use: Never Substance use type: does not use Do you feel safe in your relationship?: Yes Meds Home Medications and Allergies Home Medications Medication Instructions Recorded Confirmed Type metformin 850 mg PO BID 04/23/14 08/18/20 History omeprazole 20 mg PO DAILY@0730 #30 capcr 09/21/17 08/18/20 Rx pravastatin 20 mg PO HS #30 tab 09/21/17 08/18/20 Rx cholecalciferol (vitamin D3) 25 1,000 unit PO DAILY 11/05/18 08/18/20 History mcg (1,000 unit) capsule melatonin 10 mg tablet 10 mg PO HS PRN 11/05/18 08/18/20 History cyanocobalamin (vitamin B-12) 1,000 mcg PO DAILY 01/16/20 08/18/20 History [Vitamin B-12] [facility] Protect 1 applic TOPICAL PRN PRN #1200 gm 01/22/20 Rx Eliquis 5 mg PO BID #1 tab 01/22/20 08/18/20 Rx Eucerin 1 applic TOPICAL DAILY PRN PRN 01/22/20 Rx #454 gm Therems-M 1 tab PO BID #60 tab 01/22/20 07/22/20 Rx alum-mag hydroxide-simeth [Mag-Al 30 ml PO Q2H PRN PRN #1 ml 01/22/20 Rx Plus] aspirin 81 mg PO DAILY #1 tab 01/22/20 08/18/20 Rx docusate sodium [Colace] 100 mg PO TID PRN PRN #1 cap 01/22/20 Rx amiodarone 200 mg PO DAILY 07/22/20 08/18/20 History nut.tx.gluc.intol,lac-free,soy ml TID 08/18/20 History [Glucerna Advance] Allergies Allergy/AdvReac Type Severity Reaction Status Date / Time No Known Allergies Allergy Unverified 07/22/20 17:01 Exam Const General: cooperative, comfortable, no acute distress, disheveled, frail appearing and ill appearing (older appearing than stated age) chronically Nutritional Appearance: average body habitus Orientation: alert, awake, oriented to person and oriented to place [facility] Head: normal to inspection, no palpable skull fracture, normocephalic and atraumatic Face and sinus: normal facial exam Mouth: moist mucous membranes abnormal (Dry) Eyes General: appearance normal, both eyes and all related structures Conjunctivae: conjunctivae normal Sclera: sclerae normal Neck Neck: normal visual inspection, full ROM, no meningeal signs, trachea midline, supple and nontender Resp Effort & Inspection: normal respiratory effort and able to speak in complete sentences Auscultation: clear to auscultation bilaterally Cardio Rate: regular rate Rhythm: regular rhythm GI Inspection: normal to inspection Palpation: soft, not firm, no guarding, no pulsatile masses and nontender Auscultation: normal bowel sounds Back/Spine/Pelvis Back: No back tenderness Skin General skin exam: no rashes or lesions noted Neuro General: patient alert, patient awake, moves all extremities and no focal motor deficits Cognition: normal cognition (poor historian) Speech: speech normal Motor: muscle tone normal throughout Sensory Exam: no sensory deficits noted Extrem General: normal to inspection, full ROM, capillary refill normal, no pedal edema and no calf tenderness Psych Appearance: grossly normal Mental Status: mental status grossly normal Results Labs Result diagrams: 08/18/20 10:45 08/18/20 10:45 Labs: Laboratory Results - last 24 hr 08/18/20 08/18/20 08/18/20 10:45 10:45 10:45 WBC 16.07 H RBC 5.20 Hgb 14.6 Hct 46.7 MCV 89.8 MCH 28.1 MCHC 31.3 L RDW 12.3 Plt Count 242 MPV 8.7 Immature Gran % 0.7 Neutrophils % 89.7 Lymphocytes % 3.1 Monocytes % 6.3 Eosinophils % 0.0 Basophils % 0.2 Nucleated RBC % 0 Absolute Neutrophils 14.41 H Absolute Lymphocytes 0.50 L Absolute Monocytes 1.01 H Absolute Eosinophils 0.00 Absolute Basophils 0.03 VBG Lactate Sodium 141 Potassium 4.3 Chloride 103 Carbon Dioxide 26.5 Anion Gap 11.5 H BUN 23 H Creatinine 1.5 H Estimated GFR/1.73 m2 46.27 Glucose 264 H Calcium 8.8 Total Bilirubin 1.7 H AST 20 ALT 12 L Alkaline Phosphatase 90 Creatine Kinase 236 Troponin I < 0.05 Total Protein 7.1 Albumin 3.2 L Lipase 45 Urine Color Urine Clarity Urine pH Ur Specific [place] Urine Protein Urine Ketones Urine Blood Urine Nitrite Urine Bilirubin Urine Urobilinogen Ur Leukocyte Esterase Urine RBC Urine WBC Ur Epithelial Cells Urine Crystals Urine Bacteria Urine Casts Urine Mucus Ur Culture Indicated? Urine Glucose COVID-19 Source SARS-CoV-2 (PCR) Influenza Type A (PCR) Influenza Type B (PCR) RSV (PCR) 08/18/20 08/18/20 08/18/20 11:30 11:55 12:20 WBC RBC Hgb Hct MCV MCH MCHC RDW Plt Count MPV Immature Gran % Neutrophils % Lymphocytes % Monocytes % Eosinophils % Basophils % Nucleated RBC % Absolute Neutrophils Absolute Lymphocytes Absolute Monocytes Absolute Eosinophils Absolute Basophils VBG Lactate 1.9 H Sodium Potassium Chloride Carbon Dioxide Anion Gap BUN Creatinine Estimated GFR/1.73 m2 Glucose Calcium Total Bilirubin AST ALT Alkaline Phosphatase Creatine Kinase Troponin I Total Protein Albumin Lipase Urine Color Yellow Urine Clarity Clear Urine pH 5.5 Ur Specific [place] 1.025 Urine Protein 30 H Urine Ketones 80 H Urine Blood Small H Urine Nitrite Negative Urine Bilirubin Negative Urine Urobilinogen 1.0 H Ur Leukocyte Esterase Negative Urine RBC 3-5 H Urine WBC 0-2 Ur Epithelial Cells Rare Urine Crystals Negative Urine Bacteria Negative Urine Casts Negative Urine Mucus Negative Ur Culture Indicated? No Urine Glucose 500 H COVID-19 Source Nasopharynx SARS-CoV-2 (PCR) Negative Influenza Type A (PCR) Negative Influenza Type B (PCR) Negative RSV (PCR) Negative Last Vital Signs Temp 37.1 C 08/18/20 10:41 Pulse 85 08/18/20 10:41 Resp 24 08/18/20 10:41 BP 131/91 H 08/18/20 10:41 Pulse Ox 96 08/18/20 10:41 COVID-19 Screening Have you, or household traveled for leisure in last 14 days?: No Had IN PERSON contact w/suspected or confirmed C-19 person: No
[2020-08-18 13:47] LABS: Troponin I < 0.05 ng/mL (<0.06)
[2020-08-18 14:37] LABS: Procalcitonin 0.3 ng/mL
[2020-08-18] MEDS: Normal Saline 1,000 ML 100 ML IV (15:10)
[2020-08-18] MEDS: Metoprolol 5 MG/5 ML VIAL 2.5 MG IVP (16:55)
[2020-08-18] MEDS: Acetaminophen 325 MG TAB 650 MG PO ×2 (16:56→21:24)
[2020-08-18] MEDS: Amiodarone 200 MG TAB PO (16:56)
[2020-08-18] MEDS: Insulin Aspart 300 UNITS/3 ML PEN SC (17:56)
[2020-08-18] MEDS: cefTRIAXone 2 GM/50 ML BAG IVPB (18:00)
[2020-08-18 20:29] LABS: TSH 0.64 uIU/mL (0.36-3.74)
[2020-08-18] MEDS: Pravastatin 20 MG TAB PO (21:17)
[2020-08-18] MEDS: Apixaban 5 MG TAB PO (21:17)
[2020-08-19] VITALS (17 sets, daily range): BP systolic 109–127; BP diastolic 71–83; PULSE 91–137; RESP 18–34; TEMP 36.6–38.8; O2SAT 91–96
[2020-08-19] MEDS: Metoprolol 5 MG/5 ML VIAL IVP ×2 (01:38→19:33)
[2020-08-19] MEDS: Acetaminophen 325 MG TAB 650 MG PO ×2 (01:46→07:38)
[2020-08-19] MEDS: Normal Saline 1,000 ML 100 ML IV (03:26)
[2020-08-19 07:10] LABS: Abs Immature Grans 0.08 10^3/uL (0.0-0.06); Absolute Neutrophil Count 15.51 10^3/uL (1.2-6.7); Basophils % 0.2; Eosinophils % 0.1; HCT 41.7 % (40.0-50.0); HGB 13.2 g/dL (13.5-17.5); Immature Grans % 0.5; Lymphocytes % 3.8; MCH 27.9 pg (27.0-33.0); MCHC 31.7 % (32.0-36.0); MCV 88.2 fL (80-95); MPV 9.3 fL (8.0-11.0); Monocytes % 5.2; Neutrophils % 90.2; Nucleated RBC 0 %; Platelet Count 195 10^3/uL (130-400); RBC 4.73 10^6/uL (4.36-5.78); RDW 12.6 % (11.8-14.1); RDW-SD 40.9 fL
[2020-08-19 07:14] LABS: Absolute Basophil Count 0.03 10^3/uL (0.0-0.2); Absolute Eosinophil Count 0.02 10^3/uL (0.0-0.7); Absolute Lymphocyte Count 0.65 10^3/uL (1.2-3.4); Absolute Monocyte Count 0.89 10^3/uL (0.1-0.8)
[2020-08-19 07:27] LABS: Troponin I < 0.05 ng/mL (<0.06)
[2020-08-19 07:28] LABS: ALT 14 U/L (16-63); AST 17 U/L (15-37); Albumin 2.5 g/dL (3.4-5.0); Alkaline Phosphatase 69 U/L (46-116); BUN 22 mg/dL (7-18); Bilirubin, Total 1.3 mg/dL (0.2-1.0); CREATININE 1.5 mg/dL (0.70-1.30); Calcium 8.4 mg/dL (8.5-10.1); Chloride 106 mmol/L (98-107); Estimated GFR 46.27 (mL/min/1.73m2); Glucose 235 mg/dL (74-106); Potassium 3.9 mmol/L (3.5-5.1); Sodium 139 mmol/L (136-145); Total Protein 5.9 g/dL (6.4-8.2)
[2020-08-19] MEDS: Amiodarone 200 MG TAB PO (07:37)
[2020-08-19] MEDS: Cholecalciferol (Vitamin D3) 1,000 UNIT TAB 1000 UNITS PO (07:37)
[2020-08-19] MEDS: Omeprazole 20 MG CAPCR PO (07:37)
[2020-08-19] MEDS: Cyanocobalamin 500 MCG TAB 1000 MCG PO (07:37)
[2020-08-19] MEDS: Aspirin E.C. 81 MG TABEC PO (07:37)
[2020-08-19] MEDS: Apixaban 5 MG TAB PO (07:37)
[2020-08-19 07:59] LABS: Folate 4.3 ng/mL (8.6-20.0); Vitamin B12 213 pg/mL (193-986)
[2020-08-19] MEDS: Insulin Aspart 300 UNITS/3 ML PEN SC ×3 (08:15→17:32)
--- NOTE | 2020-08-19 09:55 | INITIAL_ITS ---
- If Service Date Differs Date of service: 08/19/20 Time of Service: 16:13 Care Management Initial Assess REASON FOR HOSPITALIZATION:: Generalized weakness PAST MEDICAL HISTORY/PAST SURGICAL HISTORY:: Afib, Depression, Diabetes, HTN, cyst removal left leg PREVIOUS FUNCTIONAL STATUS/SOCIAL/FAMILY SUPPORTS:: David resides alone in a log cabin in [place], [place]. His sister Delmy lives down the road and provides assistance with meals and other support as needed. 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 David has 2 children but he has not communicated with them in 4 or 5 years. He stated that he does not contact information for them. David is independent and continues to drive. He sometimes uses a cane outside of his home. David was discharged from [facility] to [facility] on 01/22/20. Barbra reports he returned home on 02/16/21, and reports [facility] would be more than willing to accept Sung for SNF if needed. CURRENT FUNCTIONAL STATUS:: David is well known to this global technical writer from previous admissions at [facility]. He is currently presenting from PCP office for AMS/LOC. ED MD reports A+Ox3. Noted by RN to be joking around which is baseline behavior, as known to this global technical writer. CM continues to follow. ADVANCE DIRECTIVES:: None on file. Has patient been provided with info about the portal/API?: No Did the patient sign up for the portal?: No CODE STATUS:: DNR/DNI INSURANCE COVERAGE / FINANCIAL ISSUES:: Medicare CURRENT HOME/COMMUNITY SERVICES/EQUIPMENT:: SNF [id number] with home health. PRIMARY CARE PHYSICIAN:: Urvashi Conti POTENTIAL DISCHARGE NEEDS:: Further evaluation, follow up appointments. PATIENT/FAMILY EDUCATION NEEDS:: Review discharge instructions, discuss Ask Me Three. ANTICIPATED BARRIERS TO DISCHARGE:: None identified at this time. TRANSPORTATION:: TBD by disposition. PLAN:: Sung will either return home or transition to [facility] for a short rehab stay prior to returning home. He will have further evaluation to determine course of treatment and discharge; at this time he is being treated and monitored acutely. CM continues to follow.
--- NOTE | 2020-08-19 10:20 | IN_ITS ---
Date of service: 08/19/20 Time of Service: 08:55 PT Notes Visit Reasons: GENERALIZED WEAKNESS Inpatient Physical Therapy Evaluation Date: 08/19/2020 Referring Doctor: Yvette Grimm NP PT Orders: PT CONSULT: Eval/treat Precautions: Standard. Falls. Activity as tolerated. Patient Profile/Admitting Diagnosis: David is a 70-year-old male who presented to the ED on 08/18/2020 via EMS due to worsening cough and generalized weakness that has started 2 days prior to ED admission. Patient is diagnosed with leukocytosis, generalized weakness, hypertension, and PAF. PMHX: Medical History Depression Diabetes HTN (hypertension) Hypernatremia Paroxysmal atrial fibrillation Rhabdomyolysis Skin lesion of chest wall Tinea pedis Vitamin B12 deficiency Surgical History H/O removal of cyst left leg Social History/Home Situation: There was difficulty with extracting information from patient during this initial PT evalaution as he seemed to be having a blank stare and requires repetition of questions before he would respond. Per previous PT's information from on , David resides alone in a log cabin in [place], [place]. His sister Delmy lives down the road and provides assistance with meals and other support as needed. 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 David has 2 children but he has not communicated with them in 4 or 5 years. He stated that he does not contact information for them. David is independent and continues to drive however primarily relies on his sister for transportation at this time. He sometimes uses a cane outside of his home. David was discharged from [facility] to [facility] on 01/22/20. Equipment Owned/DME: Cane Subjective: Sung is supine in bed at time of PT consult. He is alert and protecting the upper right abdominal area as he tried sitting up at edge of bed. Objective: General Observation: Telemetry monitoring in place. IV in left UE. Mental Status: Alert but responses to interview questions are very much delayed and required repetitions. Pain: Considerable pain in R upper abdominal quadrant with supine to sit and sit to stand ROM: Right Upper Extremity: Shoulder Flexion allows up to 100 degrees only. Shoulder abduction allows up to 90 degrees only. Elbow flexion WFL. Wrist flexion WFL. Functional opening and closing of hand WFL. Left Upper Extremity: Shoulder Flexion allows up to 100 degrees only. Shoulder abduction allows up to 90 degrees only. Elbow flexion WFL. Wrist flexion WFL. Functional opening and closing of hand WFL. Right Lower Extremity: Hip flexion lacking the last 25% of active range of motion. Hip abduction WFL. Knee flexion 30 degrees to 90 degrees. Knee extension -30 degrees ankle dorsiflexion lacking about the last 10 degrees. Ankle plantarflexion WFL. Left Lower Extremity: Hip flexion lacking the last 25% of active range of motion. Hip abduction WFL. Knee flexion 30 degrees to 90 degrees. Knee extension -30 degrees ankle dorsiflexion lacking about the last 10 degrees. Ankle plantarflexion WFL. Strength: Right Upper Extremity: Shoulder flexors 3-/5. Shoulder abductors 3-/5. Elbow flexors 4-/5. Elbow extensors 4-/5. Ibm Mainframe Systems Programmer weak but functional. Left Upper Extremity: Shoulder flexors 3-/5. Shoulder abductors 3-/5. Elbow flexors 4-/5. Elbow extensors 4-/5. Ibm Mainframe Systems Programmer weak but functional. Right Lower Extremity: Hip flexors 3-/5. Hip abductors 4-/5. Knee flexors 3-/5. Knee extensors 3-/5. Ankle dorsiflexors 3-/5. Ankle plantarflexors 4-/5. Left Lower Extremity: Hip flexors 3-/5. Hip abductors 4-/5. Knee flexors 3-/5. Knee extensors 3-/5. Ankle dorsiflexors 3-/5. Ankle plantarflexors 4-/5. Bed Mobility/Transfers: Rolling moderate assist Supine to sit moderate assist Sit to stand mod assist of 2 Stand to sit minimal assist of 2 Bed to chair minimal assist of 2 Chair to bed minimal assist of 2 Gait: Guided patient through short distance ambulation of 12 feet from edge of bed to the ICU stretcher using front wheeled walker with minimal assist of 2 for safety. Increased trunk flexion. Increased knee flexion throughout gait on both sides. Step-to gait pattern. Decreased kayla. Decreased neck extension. Balance: Static Sitting: Good Dynamic Sitting: Fair Static Standing: Fair Dynamic Standing: Poor Informed Consent/Education: Patient was instructed in purpose of PT consult and plan of care. ASSESSMENT: David demonstrates significant functional mobility decline requiring assistance of 2 people and the use of a front wheeled walker for all mobility ADL performance, generalized weakness, decreased activity tolerance, impaired balance, and altered mental status due to admitting diagnoses and co-morbidities which increase fall risk at this time. Patient will benefit from placement in a fci facility to address functional deficits and impairment level findings. Patient presents with clinical signs and symptoms consistent with current/a dmitting diagnoses that have resulted to mobility limitations, gait instability, generalized weakness, and impairment of motor control as demonstrated by the following impairment level findings: 1. Decreased strength to B UE/LE major muscle groups 2. Impaired sitting/standing balance 3. Impaired activity tolerance 4. Limitation of joint range of motion in B UE/LE as above 5. Altered mental status 6. Decreased motivation Impairments are contributing to the following functional limitations: 1. Dependent bed mobility skills 2. Increased dependence with transfers 3. Inability to safely ambulate without assistive device and physical assistance 4. Increase completion time for mobility ADL performance 5. Increased fall risk 6. Inability to negotiate steps alone safely Patient is assessed as a complexity based on the following: History: 70-year-old male with past medical history, impairment level findings, and functional limitations as above Examination:Demonstrable impairment in strength, balance, and range of motion with underlying impairments and functional limitations decreasing ability to return home at this time Presentation:Evolving Decision Makin moderate complexity Goals: Goals X1 week 1. Supine-Sit independent 2. Sit-Supine independent 3. Sit-Stand standby assist 4. Stand-Sit standby assist 5. Bed-Chair standby assist 6. Chair-Bed standby assist 7. SBA gait on level surface with use of least restrictive device for at least 300 feet without report of pain nor dyspnea 8. Good static and dynamic standing balance/tolerance Plan of Care/Treatment Plan: 1-2x/day, 7 days/week x 1 week. Plan of care has been reviewed with the PHYSICAL OPTICS TEACHER providing the service under Physical Therapy direction. Initiate Physical Therapy intervention for strengthening, bed mobility, transfers, gait, stairs, balance training, use of assistive device. DISCHARGE RECOMMENDATIONS: Patient will benefit from fci facility placement for continued skilled physical therapy services in order to progress mobility level, strength, and balance in preparation for a safe discharge to home. TREATMENT CODE/TIME: 30696 x 20 minutes, 9753 0 x 10 minutes beginning at 10:20 AM. Thank you for the opportunity to participate in the care of this patient. Adelita Powell PT, DPT, CLT [facility] [place], [place]
--- NOTE | 2020-08-19 10:55 | DI.CT_ITS ---
EXAM: CT CHEST/ABD/PEL WO CLINICAL HISTORY: Sepsis, no clear source, h/o kidney and gallstones. TECHNIQUE: Imaging Protocol: Axial computed tomography images with coronal and sagittal reformatted images were created and reviewed CONTRAST MATERIAL: Noncontrast COMPARISON: CT CT ABDOMEN PELVIS WO from 07/22/[address] ABDOMEN PELVIS WO from 07/22/2020 CR XR PORTABLE CHEST AP from 08/18/2020 FINDINGS: CHEST: The heart size is normal. There are minimal coronary artery calcifications. There are mild aortic c alcifications. The aorta is normal in diameter. Evaluation of the lungs is limited due to respirato ry motion. The lungs have an expiratory appearance. There is bibasilar atelectasis. No focal area of consolidation is seen. There are no pleural or pericardial effusions. No pneumothorax or rib fra cture is seen. There are mild degenerative changes in the spine. ABDOMEN and pelvis: There is motion on images through the upper abdomen. The gallbladder appears abnormally distended an d shows abnormal wall thickening. There is air within the gallbladder. Stones are noted in the depe ndent portion. There is a 3 millimeter calcification which may be within the common bile duct. Ther e is motion at this level. There is stranding in the surrounding fat. No intrahepatic biliary dilat ation is seen. The pancreas appears atrophic. There is no surrounding inflammation. The spleen and adrenals are un remarkable. There is no evidence of renal calculi or hydronephrosis. There is diverticulosis of the descending and sigmoid colon but no evidence of diverticulitis. The bladder and prostate are unrema rkable. The appendix appears normal. Degenerative changes are seen in the spine. IMPRESSION: Limited exam due to respiratory motion. The lungs show atelectasis. Findings consistent with acute emphysematous cholecystitis. There is a question of a stone in the co mmon bile duct. RADIATION DOSE DELIVERED: 1,498.48mGy.cm Total DLP DATA REPOSITORY: All CT scans at this facility are submitted to the National Radiology Data Registry (NRDR) Dose Index Registry (DIR) with the [employer] (A[employer]). RADIATION OPTIMIZATION: All CT scans at this facility use at least one of these dose optimization te chniques: automated exposure control; mA and/or kV adjustment per patient size (includes targeted exa ms where dose is matched to clinical indication); or iterative reconstruction.
[2020-08-19] MEDS: VANCOMYCIN/WATER (PEG) 1.25 GM/250 ML BAG IVPB (11:35)
[2020-08-19] MEDS: Cyanocobalamin 1000 MCG/ML VIAL IM/SC (11:35)
--- NOTE | 2020-08-19 13:55 | PT.INNT ---
Date of service: 08/19/20 Time of Service: 13:55 PT Notes Visit Reasons: GENERALIZED WEAKNESS Required significantly more verbal, tactile, and visual cueing to initiate exercises this afternoon. Refused to get out of chair and to do anything with PT despite numerous redirection. Appeared in pain trying to lift R LE. Nurse Veronica made aware. on call-PT staff to see patient tomorrow morning for treatment as planned. Thank you for the opportunity to participate in the care of this patient. Adelita Powell PT, DPT, CLT [facility] [place], [place]
[2020-08-19] MEDS: Normal Saline 1,000 ML 50 ML IV (16:30)
--- NOTE | 2020-08-19 16:50 | INDS_ITS ---
Date of service: 08/19/20 PT Notes Visit Reasons: GENERALIZED WEAKNESS Inpatient Physical Therapy Discharge Summary Date: 08/19/2020 Dates of Service: 08/19/2020 This is a clinical summary of care provided on the duration of dates listed above. No charge was made in the completion of this documentation. Referring Doctor: Yvette Grimm NP PT Orders: PT CONSULT: Eval/treat Precautions: Standard. Falls. Activity as tolerated. Patient Profile/Admitting Diagnosis: David is a 70-year-old male who presented to the ED on 08/18/2020 via EMS due to worsening cough and generalized weakness that has started 2 days prior to ED admission. Patient is diagnosed with leukocytosis, generalized weakness, hypertension, and PAF. PMHX: Medical History Depression Diabetes HTN (hypertension) Hypernatremia Paroxysmal atrial fibrillation Rhabdomyolysis Skin lesion of chest wall Tinea pedis Vitamin B12 deficiency Surgical History H/O removal of cyst left leg Social History/Home Situation: There was difficulty with extracting information from patient during this initial PT evalaution as he seemed to be having a blank stare and requires repetition of questions before he would respond. Per previous PT's information from on , David resides alone in a log cabin in [place], [place]. His sister Delmy lives down the road and provides assistance with meals and other support as needed. 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 David has 2 children but he has not communicated with them in 4 or 5 years. He stated that he does not contact information for them. David is independent and continues to drive however primarily relies on his sister for transportation at this time. He sometimes uses a cane outside of his home. David was discharged from [facility] to [facility] on 01/22/20. Equipment Owned/DME: Cane Subjective: NT. See most recent SOLDER TECHNICIAN notes. Objective: General Observation: NT. See most recent SOLDER TECHNICIAN notes. Mental Status: NT. See most recent SOLDER TECHNICIAN notes. Pain: NT. See most recent SOLDER TECHNICIAN notes. ROM: Right Upper Extremity: Shoulder Flexion allows up to 100 degrees only. Shoulder abduction allows up to 90 degrees only. Elbow flexion WFL. Wrist flexion WFL. Functional opening and closing of hand WFL. Left Upper Extremity: Shoulder Flexion allows up to 100 degrees only. Shoulder abduction allows up to 90 degrees only. Elbow flexion WFL. Wrist flexion WFL. Functional opening and closing of hand WFL. Right Lower Extremity: Hip flexion lacking the last 25% of active range of motion. Hip abduction WFL. Knee flexion 30 degrees to 90 degrees. Knee extension -30 degrees ankle dorsiflexion lacking about the last 10 degrees. Ankle plantarflexion WFL. Left Lower Extremity: Hip flexion lacking the last 25% of active range of motion. Hip abduction WFL. Knee flexion 30 degrees to 90 degrees. Knee extension -30 degrees ankle dorsiflexion lacking about the last 10 degrees. Ankle plantarflexion WFL. Strength: Right Upper Extremity: Shoulder flexors 3-/5. Shoulder abductors 3-/5. Elbow flexors 4-/5. Elbow extensors 4-/5. Bacteriology Teacher weak but functional. Left Upper Extremity: Shoulder flexors 3-/5. Shoulder abductors 3-/5. Elbow flexors 4-/5. Elbow extensors 4-/5. Bacteriology Teacher weak but functional. Right Lower Extremity: Hip flexors 3-/5. Hip abductors 4-/5. Knee flexors 3-/5. Knee extensors 3-/5. Ankle dorsiflexors 3-/5. Ankle plantarflexors 4-/5. Left Lower Extremity: Hip flexors 3-/5. Hip abductors 4-/5. Knee flexors 3-/5. Knee extensors 3-/5. Ankle dorsiflexors 3-/5. Ankle plantarflexors 4-/5. Bed Mobility/Transfers: Rolling moderate assist Supine to sit moderate assist Sit to stand mod assist of 2 Stand to sit minimal assist of 2 Bed to chair minimal assist of 2 Chair to bed minimal assist of 2 Gait: Guided patient through short distance ambulation of 12 feet from edge of bed to the ICU stretcher using front wheeled walker with minimal assist of 2 for safety. Increased trunk flexion. Increased knee flexion throughout gait on both sides. Step-to gait pattern. Decreased kayla. Decreased neck extension. Balance: Static Sitting: Good Dynamic Sitting: Fair Static Standing: Fair Dynamic Standing: Poor ASSESSMENT: Discharged to [facility] for potential surgery. David demonstrates significant functional mobility decline requiring assistance of 2 people and the use of a front wheeled walker for all mobility ADL performance, generalized weakness, decreased activity tolerance, impaired balance, and altered mental status due to admitting diagnoses and co-morbidities which increase fall risk at this time. Patient will benefit from placement in a longterm facility to address functional deficits and impairment level findings. Patient continues to present with clinical signs and symptoms consistent with current/admitting diagnoses that have resulted to mobility limitations, gait instability, generalized weakness, and impairment of motor control as demonstrated by the following impairment level findings: 1. Decreased strength to B UE/LE major muscle groups 2. Impaired sitting/standing balance 3. Impaired activity tolerance 4. Limitation of joint range of motion in B UE/LE as above 5. Altered mental status 6. Decreased motivation Impairments are continuing to contribute to the following functional limitations: 1. Dependent bed mobility skills 2. Increased dependence with transfers 3. Inability to safely ambulate without assistive device and physical assistance 4. Increase completion time for mobility ADL performance 5. Increased fall risk 6. Inability to negotiate steps alone safely Goals: Goals X1 week 1. Supine-Sit independent NOT MET 2. Sit-Supine independent NOT MET 3. Sit-Stand standby assist NOT MET 4. Stand-Sit standby assist NOT MET 5. Bed-Chair standby assist NOT MET 6. Chair-Bed standby assist NOT MET 7. SBA gait on level surface with use of least restrictive device for at least 300 feet without report of pain nor dyspnea NOT MET 8. Good static and dynamic standing balance/tolerance NOT MET DISCHARGE RECOMMENDATIONS: Sent to [facility] for immediate surgery. Patient will benefit from longterm facility placement for continued skilled physical therapy services in order to progress mobility level, strength, and balance in preparation for a safe discharge to home. TREATMENT CODE/TIME: [place] Thank you for the opportunity to participate in the care of this patient. Adelita Powell PT, DPT, CLT [facility] [place], [place]
--- NOTE | 2020-08-19 17:14 | PCNE_ITS ---
Date of service: 08/19/20 Time of Service: 17:14 History of Present Illness Narrative: Sung is a 70 year old with a past medical history of DM, HTN, CKD, paroxysmal a-fib and severe pulmonary HTN with RVSP 80-85 on echocardiogram from 2018. He had a CT abdomen today which showed findings consistent with acute emphysematous cholecystitis. Palliative care was consulted to discuss goals of care. Sung had some difficulty deciding how to proceed when faced with the options of being transferred to a tertiary care facility versus staying at [facility] with a poor prognosis. He was able to verbalize understanding of the choices. After significant discussion he was able to verbalize that he would go ahead and have the surgery. He agreed to transfer to [facility] via ambulance. He was listed as a DNR/DNI in the chart. We discussed CODE status, he continues to state that he is a DNR/DNI. We completed a COLST form to reflect his wishes and name an agent. He has named his sister, Delmy Johnson, to be his health care agent. His case was discussed with Delmy, who clearly understands the situation. She urged David to make the decision that he thought was right for him. She was pleased to hear that he decided to have the surgery as it showed her that he still has a will to live. Assessment and Plan Assessment and plan (1) Severe pulmonary hypertension: Status: Acute (2) Common bile duct stone: Status: Suspected (3) Rapid atrial fibrillation: Status: Acute (4) Emphysematous cholecystitis: Status: Acute (5) Leukocytosis: Status: Acute (6) Diabetes mellitus: Status: Chronic Qualifiers: Diabetes mellitus type: type 2 Diabetes mellitus termite control servicer insulin use: without termite control servicer use Diabetes mellitus complication status: without complication Qualified Code(s): E11.9 - Type 2 diabetes mellitus without complications (7) Hypertension: Status: Acute (8) Palliative care patient: Status: Acute Assessment and plan: Sung is a 70 year old with a past medical history of DM, HTN, CKD, paroxysmal a-fib and severe pulmonary HTN with RVSP 80-85 on echocardiogram from 2018. He had a CT abdomen today which showed findings consistent with acute emphysematous cholecystitis. Palliative care was consulted to discuss goals of care. Risks and benefits of being transferred to a tertiary care facility to have a cholecystectomy for acute emphysematous cholecystitis versus staying at [facility] and allowing nature to take it's course. He had some difficulty making the decision, but was able to verbalize understanding and decided to be transferred to [facility] for treatment. He was not a candidate for anesthesia at this critical access hospital due to his severe pulmonary hypertension. Prior to his transfer, a COLST form was completed. He is a DNR/DNI, he does not want a feeding tube, he is agreeable to the surgery, but if he has a change in his condition and does not look like he will recover, he would prefer comfort focused care. He named his sister, Delmy to be his health care agent. Delmy is aware that she is listed as his agent. Review of Systems Narrative: He reports right-sided abdominal pain. [facility] Medical History Depression Diabetes HTN (hypertension) Hypernatremia Paroxysmal atrial fibrillation Rhabdomyolysis Severe pulmonary hypertension Skin lesion of chest wall Tinea pedis Vitamin B12 deficiency Surgical History H/O removal of cyst left leg Social History Smoking/Tobacco Use Status: Former Tobacco Use Smoking risk assessment performed?: Yes Alcohol Intake: former Drug use: Never Substance use type: does not use Do you feel safe in your relationship?: Yes Exam Narrative Exam Narrative: General: Elderly man, sitting up in the chair in his hospital room. Long hair and [place]. Slow to respond to questions, does not answer many questions. He is alert and oriented. HEENT: atraumatic, repetitive tongue movements consistent with tardive dyskinesia, mucous membranes moist. Neck: supple Cardiovascular: irregularly irregular rhythm, tachycardic. Respiratory: respirations appear even and unlabored, lung sounds are clear bilaterally. GI: Tenderness to RUQ, hypoacitve bowel sounds. Extremities: no edema. Results Last Vital Signs Temp 38.0 C H 08/19/20 15:44 Pulse 105 H 08/19/20 15:44 Resp 20 08/19/20 15:44 BP 121/80 08/19/20 15:44 Pulse Ox 96 08/19/20 15:44 Labs Result diagrams: 08/19/20 06:23 08/19/20 06:23 Labs: Laboratory Results - last 24 hr 08/18/20 08/19/20 08/19/20 11:55 06:23 06:23 WBC RBC Hgb Hct MCV MCH MCHC RDW Plt Count MPV Immature Gran % Neutrophils % Lymphocytes % Monocytes % Eosinophils % Basophils % Nucleated RBC % Absolute Neutrophils Absolute Lymphocytes Absolute Monocytes Absolute Eosinophils Absolute Basophils Sodium Potassium Chloride Carbon Dioxide Anion Gap BUN Creatinine Estimated GFR/1.73 m2 Glucose Calcium Total Bilirubin AST ALT Alkaline Phosphatase Troponin I < 0.05 Total Protein Albumin Vitamin B12 213 Folate 4.3 L TSH 0.64 08/19/20 08/19/20 06:23 06:23 WBC 17.20 H RBC 4.73 Hgb 13.2 L Hct 41.7 MCV 88.2 MCH 27.9 MCHC 31.7 L RDW 12.6 Plt Count 195 MPV 9.3 Immature Gran % 0.5 Neutrophils % 90.2 Lymphocytes % 3.8 Monocytes % 5.2 Eosinophils % 0.1 Basophils % 0.2 Nucleated RBC % 0 Absolute Neutrophils 15.51 H Absolute Lymphocytes 0.65 L Absolute Monocytes 0.89 H Absolute Eosinophils 0.02 Absolute Basophils 0.03 Sodium 139 Potassium 3.9 Chloride 106 Carbon Dioxide 23.0 Anion Gap 10.0 BUN 22 H Creatinine 1.5 H Estimated GFR/1.73 m2 46.27 Glucose 235 H Calcium 8.4 L Total Bilirubin 1.3 H AST 17 ALT 14 L Alkaline Phosphatase 69 Troponin I Total Protein 5.9 L Albumin 2.5 L Vitamin B12 Folate TSH
[2020-08-19] MEDS: PIPERACILLIN/TAZO 3.375 GM in Normal Saline 50 ML IVPB (18:10)
--- NOTE | 2020-08-19 18:11 | SCONE_ITS ---
Date of service: 08/19/20 Time of Service: 18:11 Assessment and Plan Assessment and plan (1) Emphysematous cholecystitis: Status: Acute Assessment and plan: A\\ 70 year old male admitted with weakness, leukocytosis and fevers. Work up with CT scan shows an emphasematous Gallbladder. His last ECHO showed severe pulmonary hypertension. I had a long discussion with him regarding his Ct scan findings. I recommend surgery. Unfortunately with his severe pulmonary hypertension he is not a candidate for surgery here at our facility. He has agreed to have surgery done at [facility] I spent 45 minutes in reviewing the record, seeing the patient and documenting in the medical record. History of Present Illness History of Present Illness Chief Complaint: Emphasematous Cholecystitis Narrative: Mr. Almaraz is a 70 year old male who was admitted for weakness and a fall at home. He was noted to have a WBC count and febrile. CT scan of his abdomen and Pelvis was done today to look for a source of his Leukocytosis. CT scan revealed an emphysematous Gallbladder with possible stone in his CBD. T.Bili is slightly elevated at 1.7. FINDINGS: CHEST: The heart size is normal. There are minimal coronary artery calcifications. There are mild aortic calcifications. The aorta is normal in diameter. Evaluation of the lungs is limited due to respiratory motion. The lungs have an expiratory appearance. There is bibasilar atelectasis. No focal area of consolidation is seen. There are no pleural or pericardial effusions. No pneumothorax or rib fracture is seen. There are mild degenerative changes in the spine. ABDOMEN and pelvis: There is motion on images through the upper abdomen. The gallbladder appears abnormally distended and shows abnormal wall thickening. There is air within the gallbladder. Stones are noted in the dependent portion. There is a 3 millimeter calcification which may be within the common bile duct. There is motion at this level. There is stranding in the surrounding fat. No intrahepatic biliary dilatation is seen. The pancreas appears atrophic. There is no surrounding inflammation. The spleen and adrenals are unremarkable. There is no evidence of renal calculi or hydronephrosis. There is diverticulosis of the descending and sigmoid colon but no evidence of diverticulitis. The bladder and prostate are unremarkable. The appendix appears normal. Degenerative changes are seen in the spine. IMPRESSION: Limited exam due to respiratory motion. The lungs show atelectasis. Findings consistent with acute emphysematous cholecystitis. There is a question of a stone in the common bile duct. He complains of epigastric pain. No N/V He doesn't talk much. His answers are short and it does take him a while to answer PMHx is significant for Severe pulmonary hypertension Consults Consult date: 08/19/20 Requesting physician: Merissa Champagne Review of Systems Constitutional Constitutional: Reports fever(s), Denies headache(s) and Reports weakness Eyes Eyes: Denies change in vision ENT Ears, Nose, Mouth, and Throat: Denies dysphagia and Denies headache(s) Cardiovascular Cardiovascular: Denies chest pain, Denies chest pain at rest, Denies irregular heart rhythm, Denies palpitations and Denies dyspnea Respiratory Respiratory: Denies cough and Denies dyspnea Gastrointestinal Gastrointestinal: Reports as per HPI and Denies dysphagia Genitourinary Genitourinary: Reports system reviewed and no additional complaints, except as documented Musculoskeletal Musculoskeletal: Reports system reviewed and no additional complaints, except as documented Integumentary/Breasts Skin/Breast: Reports system reviewed and no additional complaints, except as documented Neurologic Neurologic: Reports system reviewed and no additional complaints, except as documented, Denies headache(s) and Reports weakness Psychiatric Psychiatric: Reports system reviewed and no additional complaints, except as documented Endocrine Endocrine: Reports system reviewed and no additional complaints, except as documented and Denies palpitations PFSH Medical History Depression Diabetes HTN (hypertension) Hypernatremia Paroxysmal atrial fibrillation Rhabdomyolysis Skin lesion of chest wall Tinea pedis Vitamin B12 deficiency Surgical History H/O removal of cyst left leg Social History Smoking/Tobacco Use Status: Former Tobacco Use Smoking risk assessment performed?: Yes Alcohol Intake: former Drug use: Never Substance use type: does not use Do you feel safe in your relationship?: Yes Exam Const General: cooperative and comfortable Orientation: alert and oriented x3 HENMT Head: normocephalic and atraumatic Resp Effort & Inspection: normal respiratory effort Auscultation: clear to auscultation bilaterally Cardio Rate: regular rate Rhythm: regular rhythm Heart Sounds: no gallops, no murmurs and no rubs GI Inspection: normal to inspection Palpation: soft, no hepatosplenomegaly and nontender Auscultation: normal bowel sounds Results Last Vital Signs Temp 100.4 F H 08/19/20 15:44 Pulse 105 H 08/19/20 15:44 Resp 20 08/19/20 15:44 BP 121/80 08/19/20 15:44 Pulse Ox 96 08/19/20 15:44 Labs Result diagrams: 08/19/20 06:23 08/19/20 06:23 Labs: Laboratory Results - last 24 hr 08/18/20 08/19/20 08/19/20 11:55 06:23 06:23 WBC RBC Hgb Hct MCV MCH MCHC RDW Plt Count MPV Immature Gran % Neutrophils % Lymphocytes % Monocytes % Eosinophils % Basophils % Nucleated RBC % Absolute Neutrophils Absolute Lymphocytes Absolute Monocytes Absolute Eosinophils Absolute Basophils Sodium Potassium Chloride Carbon Dioxide Anion Gap BUN Creatinine Estimated GFR/1.73 m2 Glucose Calcium Total Bilirubin AST ALT Alkaline Phosphatase Troponin I < 0.05 Total Protein Albumin Vitamin B12 213 Folate 4.3 L TSH 0.64 08/19/20 08/19/20 06:23 06:23 WBC 17.20 H RBC 4.73 Hgb 13.2 L Hct 41.7 MCV 88.2 MCH 27.9 MCHC 31.7 L RDW 12.6 Plt Count 195 MPV 9.3 Immature Gran % 0.5 Neutrophils % 90.2 Lymphocytes % 3.8 Monocytes % 5.2 Eosinophils % 0.1 Basophils % 0.2 Nucleated RBC % 0 Absolute Neutrophils 15.51 H Absolute Lymphocytes 0.65 L Absolute Monocytes 0.89 H Absolute Eosinophils 0.02 Absolute Basophils 0.03 Sodium 139 Potassium 3.9 Chloride 106 Carbon Dioxide 23.0 Anion Gap 10.0 BUN 22 H Creatinine 1.5 H Estimated GFR/1.73 m2 46.27 Glucose 235 H Calcium 8.4 L Total Bilirubin 1.3 H AST 17 ALT 14 L Alkaline Phosphatase 69 Troponin I Total Protein 5.9 L Albumin 2.5 L Vitamin B12 Folate TSH
--- NOTE | 2020-08-19 20:17 | W.PM.DS.N ---
Date of service: 08/19/20 Time of Service: 20:18 DS: Diagnosis Discharge Diagnosis (1) Sepsis: Status: Acute (2) Emphysematous cholecystitis: Status: Acute (3) Common bile duct stone: Status: Suspected (4) Bacteremia: Status: Acute Asessment and Plan: Gram positive rods (anaerobic bottle), gram positive cocci (aerobic bottle) in 1 set out of 2, 08/18/2020. Question of contamination. Repeat blood cultures are pending. (5) Rapid atrial fibrillation: Status: Acute (6) Severe pulmonary hypertension: Status: Acute (7) Atelectasis: Status: Acute (8) Chronic kidney disease: Status: Chronic (9) Diabetes mellitus: Status: Chronic (10) Vitamin B12 deficiency: Status: Chronic (11) Folic acid deficiency: Status: Chronic (12) Ambulatory dysfunction: Status: Acute (13) COVID-19 ruled out by laboratory testing: Status: Ruled-out Discharge Plan Disposition Patient Disposition: [facility] Condition: Serious Discharge Details Reason For Visit: GENERALIZED WEAKNESS Admit Date/Time: 08/18/20 13:40 Admit Provider: Merissa Champagne Attending Provider: Merissa Champagne Primary Care Provider: Urvashi Conti V Hospital Course Hospital Course: Mr Flores is a 70 year old male with PMHx of paroxysmal afib, on eliquis (last dose on the morning of 08/19/2020), severe pulmonary hypertension (RVSP of 80-85 mmHg per echo in 2018), NIDDM2, CKD with baseline Cr of 1.5, who was admitted to [facility] hospitalist service on 08/18/2020 having presented to the ED with generalized weakness, falls, and inability to ambulate at home. His ED workup revealed a leucocytosis and a fever, but no obvious source of infection was initially seen (CXR and UA negative, and no specific complaints reported by patient). He was placed on empiric ceftriaxone while blood cultures were pending. He was in rapid Afib, which was managed with continuation of his home amiodarone and prn IV lopressor. The patient's blood cultures grew gram positive rods and cocci in 1 set out of 2 done on admission. They were repeated on 08/19/20, and antibioitcs were broadened. The patient underwent a CT of the chest/abdomen/pelvis as he remained febrile, which revealed acute emphysematous cholecystitis. At this time, the patient started reported RUQ pain. His antibiotics were adjusted to zosyn. General surgery consult was sought, and it was felt that the patient would not be a candidate for surgery here due to his severe pulmonary hypertension, which requires a transfer to a tertiary care facility for proper anesthesia management. Patient met with palliative care because he was initially unsure of his goals of care, but did decide to go ahead with surgery and consented to transfer to [facility]. The patient was accepted in transfer by Dr Londono of general surgery at [facility], whose assistance we really appreciate. The patient remains in rapid Afib which is difficult to control likely due to his underlying infectious process and persistent fever. Care for patient as well as completion of his transfer summary on day of transfer took 90 minutes. Please, look for his inpatient MAR for list of current medications as the list below reflects his outpatient prescriptions. Home Meds and New Rx's Prescriptions: No Action cholecalciferol (vitamin D3) 1,000 unit capsule 1,000 unit PO DAILY RF: 0 melatonin 10 mg tablet 10 mg PO HS PRNRF: 0 metformin 850 MG tablet 850 mg PO BID RF: 0 omeprazole 20 MG capsule,delayed release(DR/EC) 20 mg PO DAILY@0730 Qty: 30 RF: 0 pravastatin 20 MG tablet 20 mg PO HS Qty: 30 RF: 0 cyanocobalamin (vitamin B-12) [Vitamin B-12] 1,000 mcg tablet 1,000 mcg PO DAILY RF: 0 aspirin 81 mg Tablet,Delayed Release (Dr/Ec) 81 mg PO DAILY Qty: 1 RF: 0 docusate sodium [Colace] 100 mg Capsule 100 mg PO TID PRN PRNQty: 1 RF: 0 alum-mag hydroxide-simeth [Mag-Al Plus] 200-200-20 mg/5 mL Suspension 30 ml PO Q2H PRN PRNQty: 1 RF: 0 Therems-M 27-0.4 mg Tablet 1 tab PO BID Qty: 60 RF: 0 Isnai Protect Cream 1 applic topical PRN PRNQty: 1200 RF: 0 Eliquis 5 mg Tablet 5 mg PO BID Qty: 1 RF: 0 Eucerin Cream 1 applic topical DAILY PRN PRNQty: 454 RF: 0 amiodarone 200 mg tablet 200 mg PO DAILY RF: 0 Glucerna Advance Liquid TID RF: 0 Discharge Instructions Referrals: Urvashi Conti MD [Primary Care Provider] - Sydney Frye MD [ [facility] STAFF PHYSICIAN] - Activity:: Activity as Tolerated Diet:: NPO Discharge Orders Discharge Orders: Discharge Order (Routine); Ordered 08/19/20 Ordered By: Merissa Champagne DS: Summary Time Spent with Patient providing and/or coordinating discharge services: Greater than 30 minutes Status at Discharge Functional status at discharge: uses cane/walker Overall status at discharge: patient is not back to baseline Mental Status: mental status grossly normal Speech and Movement: speech and movement normal Mood: congruent mood Affect: normal affect Exam Narrative Exam Narrative: General: Elderly male who appears to have stereotypical tongue/mouth movements, A&Ox3 (does not know the president), uncomfortable in a chair HEENT: EOMI, MMM Heart: irregularly irregular rhythm, tachycardic Lungs: quiet rales at B bases Abdomen: soft, tender in RUQ Extremities: no edema BLEs Psych Mental Status: mental status grossly normal Speech and Movement: speech and movement normal Mood: congruent mood Affect: normal affect DS: Data Vitals/I&O Vitals and I&O: Vital Signs Temperature 38.6 C H 08/19/20 20:00 Temperature Source Skin 08/19/20 20:00 Pulse 101 H 08/19/20 20:00 Pulse Rhythm Irregular 08/19/20 16:15 Pulse 92 H 08/18/20 14:31 Respiratory Rate 34 H 08/19/20 20:00 Respiratory Effort Non-Labored 08/19/20 16:15 Respiratory Depth Normal 08/19/20 16:15 Respiratory Pattern Normal 08/19/20 16:15 Blood Pressure 112/74 08/19/20 20:00 Blood Pressure Mean 91 08/18/20 14:31 Blood Pressure Position Sitting 08/18/20 10:41 Pulse Oximetry 93 08/19/20 20:00 Oxygen Delivery Method Room Air 08/19/20 20:00 Oxygen Flow Rate 0 08/19/20 20:00 Pain Level 2 08/19/20 20:00 Comment 08/19/20 19:35 Intake & Output 08/18/20 08/19/20 08/19/20 23:59 11:59 23:59 Intake Total 1450 / 2450 2200 / 4190 1989 / 4190 Output Total 125 / 125 470 / 470 Balance 1325 / 2325 2200 / 3720 1520 / 3720 Intake: IV 1009 2000 / 3300 1300 / 3300 Oral 440 / 440 200 / 890 690 / 890 Output: Urine 125 / 125 400 / 400 Post Void Residual 70 / 70 Other: Urine Color Yellow Yellow Straw Light Tamiko Urine Appearance Clear Clear Cloudy Urine Odor Normal Normal Strong Comment pt was in continent of urine in brief as well. Voiding Methods Diaper Incontinent Bedside Commode Incontinent # Voids 1 Data Completed and Pending Completed studies during hospitalization [Text1]: CT head 08/18/2020: No acute intracranial process. CXR 08/18/2020: No acute pulmonary findings. CT chest/abdomen/pelvis 08/19/2020: Findings consistent with acute emphysematous cholecystitis. There is a question of a stone in the common bile duct. The lungs show atelectasis. Labs on day of discharge: Labs from last 24 hours 08/19/20 08/19/20 08/19/20 06:23 06:23 06:23 WBC 17.20 H RBC 4.73 Hgb 13.2 L Hct 41.7 MCV 88.2 MCH 27.9 MCHC 31.7 L RDW 12.6 Plt Count 195 MPV 9.3 Immature Gran % 0.5 Neutrophils % 90.2 Lymphocytes % 3.8 Monocytes % 5.2 Eosinophils % 0.1 Basophils % 0.2 Nucleated RBC % 0 Absolute Neutrophils 15.51 H Absolute Lymphocytes 0.65 L Absolute Monocytes 0.89 H Absolute Eosinophils 0.02 Absolute Basophils 0.03 Sodium 139 Potassium 3.9 Chloride 106 Carbon Dioxide 23.0 Anion Gap 10.0 BUN 22 H Creatinine 1.5 H Estimated GFR/1.73 m2 46.27 Glucose 235 H Calcium 8.4 L Total Bilirubin 1.3 H AST 17 ALT 14 L Alkaline Phosphatase 69 Troponin I Total Protein 5.9 L Albumin 2.5 L Vitamin B12 Vit D 1,25-Dihydroxy Pending Folate TSH 08/19/20 08/19/20 08/18/20 06:23 06:23 11:55 WBC RBC Hgb Hct MCV MCH MCHC RDW Plt Count MPV Immature Gran % Neutrophils % Lymphocytes % Monocytes % Eosinophils % Basophils % Nucleated RBC % Absolute Neutrophils Absolute Lymphocytes Absolute Monocytes Absolute Eosinophils Absolute Basophils Sodium Potassium Chloride Carbon Dioxide Anion Gap BUN Creatinine Estimated GFR/1.73 m2 Glucose Calcium Total Bilirubin AST ALT Alkaline Phosphatase Troponin I < 0.05 Total Protein Albumin Vitamin B12 213 Vit D 1,25-Dihydroxy Folate 4.3 L TSH 0.64 08/19/20 09:40 Blood Blood Culture - Pending 08/19/20 09:34 Blood Blood Culture - Pending Preliminary micro results at discharge 08/18/20 13:22 Blood Culture - Preliminary Blood NO GROWTH 24 HOURS 08/19/20 09:40 Blood Culture - Pending Blood 08/19/20 09:34 Blood Culture - Pending Blood 08/18/20 11:36 Blood Culture - Preliminary Blood Gram Positive Nawaf Gram Positive Cocci PFS Medical History Depression Diabetes HTN (hypertension) Hypernatremia Paroxysmal atrial fibrillation Rhabdomyolysis Severe pulmonary hypertension Skin lesion of chest wall Tinea pedis Vitamin B12 deficiency Surgical History H/O removal of cyst left leg Social History Smoking/Tobacco Use Status: Former Tobacco Use Smoking risk assessment performed?: Yes Alcohol Intake: former Drug use: Never Substance use type: does not use Do you feel safe in your relationship?: Yes
[2020-08-19] MEDS: ACETAMINOPHEN 1,000 MG/100 ML BTL 400 MG IVPB (20:18)
--- NOTE | 2020-08-19 22:34 | NUR.NOTE ---
Nursing Note: [facility] [place] Called [facility] to nurse Leelee for hand off report for transfer. Heart rate at 110s at this time, fever has subsided current temp is 36.9C.
[2020-08-24 12:20] LABS: 1,25-Dihydroxyvitamin D 13 pg/mL (18-64)
== END 2020-08-19 21:44 | disposition short-term general hospital (02) | DRG 872 ==
LOC: ER 13:59 → MS 14:37
PROVIDERS: Nurse Practitioner Acute Care; Admitting Provider Internal Medicine; Emergency Provider Physician Assistant; PCP Family Medicine; Visit Provider Internal Medicine
DX: A41.9 Sepsis, unspecified organism (principal); J98.11 Atelectasis; K80.42 Calculus of bile duct with acute cholecystitis without obstruction; I48.0 Paroxysmal atrial fibrillation; E11.22 Type 2 diabetes mellitus with diabetic chronic kidney disease; I27.20 Pulmonary hypertension, unspecified; N18.9 Chronic kidney disease, unspecified; R26.2 Difficulty in walking, not elsewhere classified; E53.8 Deficiency of other specified B group vitamins; Z79.01 Long term (current) use of anticoagulants; Z20.828 Contact with and (suspected) exposure to other viral communicable diseases; Z79.84 Long term (current) use of oral hypoglycemic drugs; R53.1 Weakness; F32.9 Major depressive disorder, single episode, unspecified
CPT/HCPCS: 36415; 71250; 80053; 82550; 83690; 84145; 87040; 87077; 87637; 93005; 96360; 96361; 97166; 99222; 99223; 99239; 99253; 99255; 99285; 70450; 71045; 74176; 81003; 81015; 82607; 82652; 82746; 83605; 84443; 84484; 85025; 87186; 93010; 97530; J0131; J2543; J3420

== ENCOUNTER 2020-08-30 17:25 | Outpatient (REF) | payer MEDICARE, SELFPAY | END 2020-08-30 17:26 | disposition home or self-care (01) | LOC: LBN 17:25 | PROVIDERS: PCP Family Medicine; Visit Provider Nurse Practitioner Adult Health | DX: Z20.822 Contact with and (suspected) exposure to COVID-19 (principal) | CPT/HCPCS: U0003 ==

== ENCOUNTER 2020-09-04 17:50 | Outpatient (REF) | payer MEDICARE, SELFPAY ==
[2020-09-04 18:12] LABS: HCT 33.4 % (40.0-50.0); HGB 10.3 g/dL (13.5-17.5); MCH 27.5 pg (27.0-33.0); MCHC 30.8 % (32.0-36.0); MCV 89.3 fL (80-95); MPV 10.1 fL (8.0-11.0); Platelet Count 144 10^3/uL (130-400); RBC 3.74 10^6/uL (4.36-5.78); RDW 12.2 % (11.8-14.1); RDW-SD 39.4 fL; WBC 11.93 10^3/uL (4.4-10.8)
[2020-09-04 18:22] LABS: Prothrombin Time 10.3 sec (9.3-11.0)
[2020-09-04 18:28] LABS: ALT 70 U/L (16-63); AST 95 U/L (15-37); Alkaline Phosphatase 168 U/L (46-116); Anion Gap 8.7 mmol/L (3-11); BUN 29 mg/dL (7-18); Bilirubin, Total 0.5 mg/dL (0.2-1.0); C-Reactive Protein 0.87 mg/dL (0.0-0.3); CO2 26.3 mmol/L (21.0-32.0); CREATININE 1.6 mg/dL (0.70-1.30); Calcium 8.4 mg/dL (8.5-10.1); Chloride 103 mmol/L (98-107); Estimated GFR 42.95 (mL/min/1.73m2); Glucose 128 mg/dL (74-106); Lipase 65 U/L (73-393); Potassium 5.4 mmol/L (3.5-5.1); Sodium 138 mmol/L (136-145); Total Protein 5.8 g/dL (6.4-8.2)
== END 2020-09-04 17:51 | disposition home or self-care (01) ==
LOC: LBN 17:50
PROVIDERS: PCP Family Medicine; Visit Provider Family Medicine
DX: K81.0 Acute cholecystitis (principal); R78.81 Bacteremia; L76.22 Postprocedural hemorrhage of skin and subcutaneous tissue following other procedure
CPT/HCPCS: 80053; 83690; 85027; 85610; 86140

== ENCOUNTER 2020-09-05 13:06 | Emergency (ER) | payer MEDICARE, SELFPAY ==
[2020-09-05] VITALS (29 sets, daily range): BP systolic 100–116; BP diastolic 40–99; PULSE 60–69; RESP 16–23; TEMP 36.5; O2SAT 93–99
[2020-09-05] MEDS: Normal Saline Flush 10 ML SYR IVP (13:30)
--- NOTE | 2020-09-05 13:34 | ED.GENADUL_ITS ---
Discharge Plan Discharge Details Chief Complaint: GenMedical Primary Care Provider: Urvashi Conti V ED Provider: Siria Woods Home Meds and New Rx's Prescriptions: No Action metformin 850 MG tablet 850 mg PO BID RF: 0 pravastatin 20 MG tablet 20 mg PO HS Qty: 30 RF: 0 aspirin 81 mg Tablet,Delayed Release (Dr/Ec) 81 mg PO DAILY Qty: 1 RF: 0 alum-mag hydroxide-simeth [Mag-Al Plus] 200-200-20 mg/5 mL Suspension 30 ml PO Q2H PRN PRNQty: 1 RF: 0 Sinai Protect Cream 1 applic topical PRN PRNQty: 1200 RF: 0 Eucerin Cream 1 applic topical DAILY PRN PRNQty: 454 RF: 0 amiodarone 200 mg tablet 200 mg PO DAILY RF: 0 metoprolol succinate 100 mg Tablet Extended Release 24 Hr 100 mg PO DAILY AM RF: 0 mirtazapine 15 mg Tablet 15 mg PO HS RF: 0 potassium chloride [Klor-Con M20] 20 mEq Tablet,Er Particles/Crystals 20 meq PO DAILY AM RF: 0 carbidopa-levodopa [Sinemet] 25-100 mg Tablet 1 tab PO TID RF: 0 ondansetron HCl [Zofran] 4 mg Tablet 4 mg PO 5XW PRNRF: 0 dextrose [Glucose Gel] 40 % Gel 15 g PO PRN PRNRF: 0 magnesium hydroxide 400 mg/5 mL Suspension 30 ml PO DAILY PRNRF: 0 polyethylene glycol 3350 [Miralax] 17 gram Powder In Packet 17 g PO DAILY RF: 0 omeprazole 20 mg Capsule,Delayed Release(Dr/Ec) 20 mg PO DAILY RF: 0 sennosides-docusate sodium 8.6-50 mg Tablet 2 tab-cap PO BID RF: 0 bisacodyl [Dulcolax (bisacodyl)] 10 mg Suppository 10 mg MN DAILY PRNRF: 0 Fleet Enema 19-7 gram/118 mL Enema 118 ml MN ONCE PRNRF: 0 omeprazole magnesium [Prilosec OTC] 20 mg Tablet,Delayed Release (Dr/Ec) 20 mg PO DAILY RF: 0 glucagon 1 mg/0.2 mL Auto-Injector 1 mg SUBCUT ONCE RF: 0 sennosides [Senokot] 8.6 mg Tablet 1 tab PO BID Qty: 0 RF: 0 magnesium oxide 400 mg (241.3 mg magnesium) Tablet 400 mg PO DAILY Qty: 0 RF: 0 cyanocobalamin (vitamin B-12) [Vitamin B-12] 500 mcg Tablet 1,000 mcg PO DAILY Qty: 0 RF: 0 linezolid 600 mg Tablet 600 mg PO BID Qty: 0 RF: 0 docusate sodium [Colace] 100 mg Capsule 100 mg PO TID PRN PRNQty: 0 RF: 0 melatonin 3 mg Tablet Extended Release 10 mg PO HS PRN PRNQty: 0 RF: 0 cholecalciferol (vitamin D3) 25 mcg (1,000 unit) Tablet 1,000 units PO DAILY Qty: 0 RF: 0 cephalexin 500 mg capsule 500 mg PO TID Qty: 15 RF: 0 Discharge Data Discharge Date/Time-TO BE ENTERED AT DEPARTURE: 09/05/20 16:47 Medical Decision Making Tracy Guo is a 70-year-old man with history of pulmonary hypertension, atrial fibrillation, chronic kidney disease, diabetes, hypertension who presents emergency department with small amount of bloody drainage from biliary drain over the past 3 days. On exam patient is well and nontoxic-appearing. There is no abdominal tenderness palpation. There is less than 20 cc of bloody drainage in bag from biliary drain. Concern for postprocedure complication. Doubt acute emergent intra-abdominal process given benign abdominal exam. Exam/history is not consistent with acute coronary syndrome, sepsis, acute aortic pathology. Plan for screening labs, IV, CT abdomen/pelvis. Will monitor and reassess. Lactate 5.3. Patient is on Metformin. Unclear etiology. Awaiting imaging. We will continue to give IV fluid hydration. CT abdomen/pelvis shows biliary drain in place without fluid collection or other pathology. No acute process. Images sent to [facility] transfer center contacted for surgical consult. Patient reports that he feels well and without complaint on reassessment. Patient accepted by Dr. Rosado of surgery. Patient to go to ED for transfer. Patient is amenable to plan. Pt transferred to [facility] without further incident. Clinical Impression: sanguinous fluid in biliary drain Disposition: [facility] Medical Records Medical records reviewed: Yes I reviewed the patient's medical records. Imaging Data Radiologic Study: Attestation: I personally reviewed and interpreted this imaging study as follows: Radiologist's impression: EXAM: CT ABDOMEN PELVIS W CLINICAL HISTORY: blood from biliary drain TECHNIQUE: Imaging Protocol: Axial computed tomography images with coronal and sagittal reformatted images were created and reviewed CONTRAST MATERIAL: Intravenous: Omnipaque 350 Contrast volume:100 mL Oral: No COMPARISON: CT CT CHEST/ABD/PEL WO from 08/19/[address] THORACIC LUMBAR SPINE REC from 08/19/2020 FINDINGS: ABDOMEN: Lung Bases: There is dependent atelectasis. Liver: Normal density. No measurable mass. Portal, Superior Mesenteric, and Splenic Veins: Unremarkable. Gallbladder and Biliary Tract: Gallstones are present. There is no biliary ductal dilatation. There is a cholecystostomy drain in place. There is mild. Stranding around the gallbladder but no focal fluid collection is seen to s uggest an abscess. Pancreas: Normal density, no abnormal calcifications or inflammatory process. Spleen: Normal. Adrenals: No masses seen. Kidneys: Normal size, contour and axis. No radiodense stones or obstructive uropathy. No masses seen. Abdominal Aorta: Abdominal portion non-dilated. Atherosclerosis. Bowel: No obstruction or bowel wall thickening. Appendix is unremarkable. Diverticulosis is seen in the descending and sigmoid colon but no evidence of acute diverticulitis. Peritoneal Cavity: No ascites, collection or mesenteric inflammatory response. No free air. Lymph Nodes: Within normal limits. Bones: There is L5 spondylolysis without significant spondylolisthesis. Degenerative changes are seen in the spine. Soft Tissues: There is a small to moderate size supraumbilical midline fat containing anterior abdominal wall hernia. Bilateral fat containing inguinal hernia are noted. PELVIS: Bladder: Symmetric distention, no gross wall thickening. Reproductive Organs: Unremarkable as visualized. Lymph Nodes: Within normal limits. Bones: Please see above. IMPRESSION: 1. Cholecystostomy tube in place. No evidence of an adjacent abscess or hematoma. 2. Cholelithiasis. No significant biliary ductal dilatation. 3. Results of this exam have been verbally communicated with provider. Lab Data Lab results reviewed: Yes I reviewed the patient's lab results. Labs: Laboratory Tests Range/Units 09/05/20 09/05/20 09/05/20 13:30 13:30 13:30 WBC (4.4-10.8) 10^3/uL 11.80 H RBC (4.36-5.78) 10^6/uL 3.88 L Hgb (13.5-17.5) g/dL 10.7 L Hct (40.0-50.0) % 34.6 L MCV (80-95) fL 89.2 MCH (27.0-33.0) pg 27.6 MCHC (32.0-36.0) % 30.9 L RDW (11.8-14.1) % 12.4 Plt Count (130-400) 10^3/uL 151 MPV (8.0-11.0) fL 9.2 Immature Gran % 0.4 Neutrophils % 88.6 Lymphocytes % 7.7 Monocytes % 2.2 Eosinophils % 0.7 Basophils % 0.4 Nucleated RBC % % 0 Absolute Neutrophils (1.2-6.7) 10^3/uL 10.45 H Absolute Lymphocytes (1.2-3.4) 10^3/uL 0.91 L Absolute Monocytes (0.1-0.8) 10^3/uL 0.26 Absolute Eosinophils (0.0-0.7) 10^3/uL 0.08 Absolute Basophils (0.0-0.2) 10^3/uL 0.05 VBG pH (7.31-7.41) VBG pCO2 (41-51) mmHg VBG pO2 mmHg VBG HCO3 (23-28) mmol/L VBG Total CO2 (24-29) mmol/L VBG O2 Saturation % VBG Base Excess (-2-3) mmol/L VBG Lactate (0.6-1.4) mmol/L 5.3 H* Sodium (136-145) mmol/L 137 Potassium (3.5-5.1) mmol/L 5.4 H Chloride (98-107) mmol/L 103 Carbon Dioxide (21.0-32.0) mmol/L 24.4 Anion Gap (3-11) mmol/L 9.6 BUN (7-18) mg/dL 27 H Creatinine (0.70-1.30) mg/dL 1.9 H Estimated GFR/1.73 m2 (mL/min/1.73m2) 35.22 Glucose (74-106) mg/dL 181 H Calcium (8.5-10.1) mg/dL 8.2 L Total Bilirubin (0.2-1.0) mg/dL 0.6 AST (15-37) U/L 45 H ALT (16-63) U/L 70 H Alkaline Phosphatase (46-116) U/L 154 H Total Protein (6.4-8.2) g/dL 6.8 Albumin (3.4-5.0) g/dL 3.3 L Lipase (73-393) U/L 65 Range/Units 09/05/20 15:59 WBC (4.4-10.8) 10^3/uL RBC (4.36-5.78) 10^6/uL Hgb (13.5-17.5) g/dL Hct (40.0-50.0) % MCV (80-95) fL MCH (27.0-33.0) pg MCHC (32.0-36.0) % RDW (11.8-14.1) % Plt Count (130-400) 10^3/uL MPV (8.0-11.0) fL Immature Gran % Neutrophils % Lymphocytes % Monocytes % Eosinophils % Basophils % Nucleated RBC % % Absolute Neutrophils (1.2-6.7) 10^3/uL Absolute Lymphocytes (1.2-3.4) 10^3/uL Absolute Monocytes (0.1-0.8) 10^3/uL Absolute Eosinophils (0.0-0.7) 10^3/uL Absolute Basophils (0.0-0.2) 10^3/uL VBG pH (7.31-7.41) 7.29 L VBG pCO2 (41-51) mmHg 51 VBG pO2 mmHg 41 VBG HCO3 (23-28) mmol/L 24 VBG Total CO2 (24-29) mmol/L 23 L VBG O2 Saturation % 72 VBG Base Excess (-2-3) mmol/L -2 VBG Lactate (0.6-1.4) mmol/L Sodium (136-145) mmol/L Potassium (3.5-5.1) mmol/L Chloride (98-107) mmol/L Carbon Dioxide (21.0-32.0) mmol/L Anion Gap (3-11) mmol/L BUN (7-18) mg/dL Creatinine (0.70-1.30) mg/dL Estimated GFR/1.73 m2 (mL/min/1.73m2) Glucose (74-106) mg/dL Calcium (8.5-10.1) mg/dL Total Bilirubin (0.2-1.0) mg/dL AST (15-37) U/L ALT (16-63) U/L Alkaline Phosphatase (46-116) U/L Total Protein (6.4-8.2) g/dL Albumin (3.4-5.0) g/dL Lipase (73-393) U/L ECG Data Attestation: I personally reviewed and interpreted this ECG (s) as follows: Interpretation: EKG shows sinus rhythm at 63, normal axis, no acute ischemic changes, QRS 90, nondiagnostic EKG HPI General Mode of arrival: EMS . Date/Time Provider Initiated Documentation: 09/05/20 13:16 . Limitations to Documentation: no limitations . Information obtained by: patient, RN notes reviewed and old records reviewed . HPI Narrative: Sung Flores is a 70-year-old man with a history of atrial fibrillation, chronic kidney disease, diabetes, pulmonary hypertension presenting to emergency department with bloody drainage from biliary drain. Per record review patient was seen here in ED 08/18/2020, was found to have emphysematous cholecystitis, and was transferred to [facility]. At [facility] patient had a biliary drain placed by IR. Patient was discharged from [facility] to [facility] and rehab. He was noted to have bleeding from the drain over the past few days and his Eliquis and aspirin were stopped. Health and rehab facility sent patient to the emergency department today for continued bleeding, although rate of bleeding has not apparently increased. Patient states that he feels fine and in his usual state of health aside from bloody drainage. Patient reports that he has had some decreased appetite over the past few days but has been taking in plenty of fluids and eating some food. He denies vomiting, diarrhea, abdominal pain or any other pain, fevers, numbness, weakness, rash. Patient states confirmed that he is DNR/DNI, however he would be open to having surgery if it was necessary. Related Data Home Medications Medication Instructions Recorded Confirmed metformin 850 mg PO BID 04/23/14 09/18/20 pravastatin 20 mg PO HS #30 tab 09/21/17 09/18/20 Sinai Protect 1 applic TOPICAL PRN PRN #1200 gm 01/22/20 09/18/20 Eucerin 1 applic TOPICAL DAILY PRN PRN 01/22/20 09/18/20 #454 gm alum-mag hydroxide-simeth [Mag-Al 30 ml PO Q2H PRN PRN #1 ml 01/22/20 09/18/20 Plus] aspirin 81 mg PO DAILY #1 tab 01/22/20 09/18/20 amiodarone 200 mg PO DAILY 07/22/20 09/18/20 carbidopa-levodopa [Sinemet] 1 tab PO TID 09/05/20 09/18/20 metoprolol succinate 100 mg PO DAILY AM 09/05/20 09/18/20 mirtazapine 15 mg PO HS 09/05/20 09/18/20 potassium chloride [Klor-Con M20] 20 meq PO DAILY AM 09/05/20 09/18/20 Fleet Enema 118 ml MN ONCE PRN 09/18/20 09/18/20 bisacodyl [Dulcolax (bisacodyl)] 10 mg MN DAILY PRN 09/18/20 09/18/20 dextrose [Glucose Gel] 15 g PO PRN PRN 09/18/20 09/18/20 glucagon 1 mg SUBCUT ONCE 09/18/20 09/18/20 magnesium hydroxide 30 ml PO DAILY PRN 09/18/20 09/18/20 omeprazole 20 mg PO DAILY 09/18/20 09/18/20 omeprazole magnesium [Prilosec OTC] 20 mg PO DAILY 09/18/20 09/18/20 ondansetron HCl [Zofran] 4 mg PO 5XW PRN 09/18/20 09/18/20 polyethylene glycol 3350 [Miralax] 17 g PO DAILY 09/18/20 09/18/20 sennosides-docusate sodium 2 tab-cap PO BID 09/18/20 09/18/20 cephalexin 500 mg PO TID #15 cap 09/20/20 cholecalciferol (vitamin D3) 1,000 units PO DAILY #0 tab 09/20/20 cyanocobalamin (vitamin B-12) 1,000 mcg PO DAILY #0 tab 09/20/20 [Vitamin B-12] docusate sodium [Colace] 100 mg PO TID PRN PRN #0 cap 09/20/20 linezolid 600 mg PO BID #0 tab 09/20/20 magnesium oxide 400 mg PO DAILY #0 tab 09/20/20 melatonin 10 mg PO HS PRN PRN #0 tab 09/20/20 sennosides [Senokot] 1 tab PO BID #0 tab 09/20/20 Previous Rx's Medication Instructions Recorded pravastatin 20 mg PO HS #30 tab 09/21/17 Sinai Protect 1 applic TOPICAL PRN PRN #1200 gm 01/22/20 Eucerin 1 applic TOPICAL DAILY PRN PRN 01/22/20 #454 gm alum-mag hydroxide-simeth [Mag-Al 30 ml PO Q2H PRN PRN #1 ml 01/22/20 Plus] aspirin 81 mg PO DAILY #1 tab 01/22/20 cephalexin 500 mg PO TID #15 cap 09/20/20 cholecalciferol (vitamin D3) 1,000 units PO DAILY #0 tab 09/20/20 cyanocobalamin (vitamin B-12) 1,000 mcg PO DAILY #0 tab 09/20/20 [Vitamin B-12] docusate sodium [Colace] 100 mg PO TID PRN PRN #0 cap 09/20/20 linezolid 600 mg PO BID #0 tab 09/20/20 magnesium oxide 400 mg PO DAILY #0 tab 09/20/20 melatonin 10 mg PO HS PRN PRN #0 tab 09/20/20 sennosides [Senokot] 1 tab PO BID #0 tab 09/20/20 Allergies Allergy/AdvReac Type Severity Reaction Status Date / Time No Known Allergies Allergy Unverified 09/05/20 13:16 General Stated Complaint: GenMedical PUSHPA: 3 Review of Systems Narrative: Constitutional: denies fevers Eyes: denies eye pain ENT: denies ear pain, dental pain, sore throat Cardiovascular: denies chest pain Respiratory: denies SOB, cough GI: denies abdominal pain, vomiting, diarrhea : denies flank pain MSK: denies back pain, neck pain, arthralgias, myalgias Skin: denies rash Neuro: denies headaches, numbness, weakness PFSH Medical History Depression Diabetes HTN (hypertension) Hypernatremia Palliative care patient Paroxysmal atrial fibrillation Rhabdomyolysis Severe pulmonary hypertension Skin lesion of chest wall Tinea pedis Vitamin B12 deficiency Surgical History H/O removal of cyst left leg Social History Smoking/Tobacco Use Status: Former Tobacco Use Smoking risk assessment performed?: Yes Alcohol Intake: former Drug use: Never Substance use type: does not use Do you feel safe at home: Yes Do you feel safe in your relationship?: Yes Exam Narrative Exam Narrative: Constitutional: well and [id number]-vjjoqvjjp, pleasant, conversing normally HENT: head atraumatic/normocephalic/normal inspection, mucous membranes moist Eyes: conjunctiva normal, sclera normal, pupils 3mm b/l Neck: no stridor, normal ROM, trachea midline Chest: normal inspection Resp: normal work of breathing, speaking in full sentences Cardio: normal rate, normal rhythm, no murmur appreciated GI: abdomen soft, non-tender, non-distended, biliary drain in place with slight clean and dry, no erythema, bag with less than 20 cc bloody drainage Skin: warm, dry, normal color, no rash Neuro: alert, not altered, grossly non-focal, normal tone Ext: no edema, moving all extremities equally Psych: normal mood, normal affect, normal behavior Course Vital Signs Vital signs: Vital Signs Temperature 36.5 C 09/05/20 13:11 Pulse 62 09/05/20 13:11 Respiratory Rate 16 09/05/20 13:11 Blood Pressure 116/99 H 09/05/20 13:11 Pulse Oximetry 94 09/05/20 13:11 Temperature 36.5 C 09/05/20 13:11 Pulse 62 09/05/20 13:11 Respiratory Rate 16 09/05/20 13:11 Respiratory Effort 09/05/20 13:15 Blood Pressure 116/99 H 09/05/20 13:11 Blood Pressure Position Sitting 09/05/20 13:11 Pulse Oximetry 94 09/05/20 13:11 Oxygen Delivery Method Room Air 09/05/20 13:11 Oxygen Flow Rate 0 09/05/20 13:11 Pain Level 0 09/05/20 13:11
[2020-09-05 13:46] LABS: Lactate 5.3 mmol/L (0.6-1.4)
[2020-09-05 13:47] LABS: Abs Immature Grans 0.05 10^3/uL (0.0-0.06); Absolute Basophil Count 0.05 10^3/uL (0.0-0.2); Absolute Eosinophil Count 0.08 10^3/uL (0.0-0.7); Absolute Lymphocyte Count 0.91 10^3/uL (1.2-3.4); Absolute Monocyte Count 0.26 10^3/uL (0.1-0.8); Absolute Neutrophil Count 10.45 10^3/uL (1.2-6.7); Basophils % 0.4; Eosinophils % 0.7; HCT 34.6 % (40.0-50.0); HGB 10.7 g/dL (13.5-17.5); Immature Grans % 0.4; Lymphocytes % 7.7; MCH 27.6 pg (27.0-33.0); MCHC 30.9 % (32.0-36.0); MCV 89.2 fL (80-95); MPV 9.2 fL (8.0-11.0); Monocytes % 2.2; Neutrophils % 88.6; Nucleated RBC 0 %; Platelet Count 151 10^3/uL (130-400); RBC 3.88 10^6/uL (4.36-5.78); RDW 12.4 % (11.8-14.1)
[2020-09-05 13:59] LABS: ALT 70 U/L (16-63); AST 45 U/L (15-37); Albumin 3.3 g/dL (3.4-5.0); Alkaline Phosphatase 154 U/L (46-116); Anion Gap 9.6 mmol/L (3-11); BUN 27 mg/dL (7-18); Bilirubin, Total 0.6 mg/dL (0.2-1.0); CO2 24.4 mmol/L (21.0-32.0); CREATININE 1.9 mg/dL (0.70-1.30); Calcium 8.2 mg/dL (8.5-10.1); Chloride 103 mmol/L (98-107); Estimated GFR 35.22 (mL/min/1.73m2); Glucose 181 mg/dL (74-106); Lipase 65 U/L (73-393); Potassium 5.4 mmol/L (3.5-5.1); Sodium 137 mmol/L (136-145); Total Protein 6.8 g/dL (6.4-8.2)
[2020-09-05] MEDS: Normal Saline 500 ML IV (14:00)
--- NOTE | 2020-09-05 14:00 | RT.EKG_ITS ---
APPROVED REPORT Exam: Resting ECG Patient Location: E HR:63 bpm ECG Measurements Heart Rate 63 AXIS CA 178 P 38 QRSd 90 QRS 18 QT 465 T 46 QTc 478 Conclusion Sinus rhythm...normal P axis, V-rate 60- 99 sinus rhythm at 63, normal axis, no acute ischemic changes, QRS 90, nondiagnostic EKG
[2020-09-05] MEDS: Normal Saline - Diluent 50 ML VIAL IV (15:21)
--- NOTE | 2020-09-05 15:22 | DI.CT_ITS ---
EXAM: CT ABDOMEN PELVIS W CLINICAL HISTORY: blood from biliary drain TECHNIQUE: Imaging Protocol: Axial computed tomography images with coronal and sagittal reformatted images were created and reviewed CONTRAST MATERIAL: Intravenous: Omnipaque 350 Contrast volume:100 mL Oral: No COMPARISON: CT CT CHEST/ABD/PEL WO from 08/19/[address] THORACIC LUMBAR SPINE REC from 08/19/2020 FINDINGS: ABDOMEN: Lung Bases: There is dependent atelectasis. Liver: Normal density. No measurable mass. Portal, Superior Mesenteric, and Splenic Veins: Unremarkable. Gallbladder and Biliary Tract: Gallstones are present. There is no biliary ductal dilatation. There is a cholecystostomy drain in place. There is mild. Stranding around the gallbladder but no focal fluid collection is seen to suggest an abscess. Pancreas: Normal density, no abnormal calcifications or inflammatory process. Spleen: Normal. Adrenals: No masses seen. Kidneys: Normal size, contour and axis. No radiodense stones or obstructive uropathy. No masses seen. Abdominal Aorta: Abdominal portion non-dilated. Atherosclerosis. Bowel: No obstruction or bowel wall thickening. Appendix is unremarkable. Diverticulosis is seen in t he descending and sigmoid colon but no evidence of acute diverticulitis. Peritoneal Cavity: No ascites, collection or mesenteric inflammatory response. No free air. Lymph Nodes: Within normal limits. Bones: There is L5 spondylolysis without significant spondylolisthesis. Degenerative changes are see n in the spine. Soft Tissues: There is a small to moderate size supraumbilical midline fat containing anterior abdomi nal wall hernia. Bilateral fat containing inguinal hernia are noted. PELVIS: Bladder: Symmetric distention, no gross wall thickening. Reproductive Organs: Unremarkable as visualized. Lymph Nodes: Within normal limits. Bones: Please see above. IMPRESSION: 1. Cholecystostomy tube in place. No evidence of an adjacent abscess or hematoma. 2. Cholelithiasis. No significant biliary ductal dilatation. 3. Results of this exam have been verbally communicated with provider. RADIATION DOSE DELIVERED: 1,320.2mGy.cm Total DLP DATA REPOSITORY: All CT scans at this facility are submitted to the National Radiology Data Registry (NRDR) Dose Index Registry (DIR) with the [employer] (ACR). RADIATION OPTIMIZATION: All CT scans at this facility use at least one of these dose optimization te chniques: automated exposure control; mA and/or kV adjustment per patient size (includes targeted exa ms where dose is matched to clinical indication); or iterative reconstruction.
[2020-09-05 16:07] LABS: BE (Venous) -2 mmol/L (-2-3); HCO3 (Venous) 24 mmol/L (23-28); O2 Sat (Venous) 72 %; TCO2 (Venous) 23 mmol/L (24-29); pCO2 (Venous) 51 mmHg (41-51); pH (Venous) 7.29 (7.31-7.41); pO2 (Venous) 41 mmHg
== END 2020-09-05 16:47 ==
LOC: ER 14:35
PROVIDERS: Emergency Provider Student in an Organized Health Care Education/Training Program; PCP Family Medicine
DX: K91.89 Other postprocedural complications and disorders of digestive system (principal); K91.840 Postprocedural hemorrhage of a digestive system organ or structure following a digestive system procedure; Z96.89 Presence of other specified functional implants
CPT/HCPCS: 36415; 80053; 82805; 83690; 93005; 96360; 99285; 74177; 83605; 85025; 93010

== ENCOUNTER 2020-09-07 23:25 | Outpatient (REF) | payer MEDICARE, SELFPAY ==
[2020-09-12 16:35] LABS: COVID-19 RT-PCR Result Not Detected ((See Note))
== END 2020-09-07 23:26 | disposition home or self-care (01) ==
LOC: LBN 23:25
PROVIDERS: PCP Family Medicine; Visit Provider Nurse Practitioner Adult Health
DX: Z20.822 Contact with and (suspected) exposure to COVID-19 (principal)
CPT/HCPCS: U0003

== ENCOUNTER 2020-09-15 12:35 | Outpatient (REF) | payer MEDICARE, SELFPAY ==
--- OUTSIDE RECORDS SUMMARY | 2020-09-15 12:38 | XMS_ITS | Encounter Summary ---
:1950 Author Organization Department [facility] Address [address] [place] [id number] Support Name Relationship Address Phone KNIGHTS Unavailable [address] [place] [address] KNIGHTS Unavailable [address] [place] [address] Selected Encounter This section includes the information on record at [place] for the Encounter. Date/Time Encounter Type Encounter Description Reason Provider Source May 06, 2020 09:13 Outpatient Encounter ADMIN PAT ACTIVMADDI AM (TOREYCT) IHPraveen Encounter Template Text not used by [place] Plan of Treatment: Future Appointments (+ 6 months) and Future Tests (+/- 45 days) The Plan of Treatment section includes future care activities for the patient from all [place] treatment facilities. This section includes future appointments and future orders which are active, pending or scheduled.Future Appointments This section includes appointments that were scheduled to occur 6 months from the date of the Encounter, up to a maximum of 20 appointments. The [facility] [place] [facility] Appointment Date/Time Appointment Type Appointment Facili ty Name Jul 11, 2020 11:00 AM AMBULATORY - NONE [facility] Jul 12, 2020 05:15 PM AMBULATORY - MEDICINE [facility] Social History: Smoking Status (Most current) and Tobacco Use (All prior to encounter date) This section includes the most current, and the historical, smoking and tobacco-related health factors from the [facility] facility where the Encounter took place.Current Smoking Status This section includes the most current smoking, or tobacco-related health factor, from the [facility] facility where the Encounter took place. Date/Time Current Smoking Status Comment Facility Jan 20, 2020 10:34 AM VA-TOBACCO NEVER USED [facility] Encounter Notes: All associated encounter notes This section contains the clinical notes associated to the Encounter. Date/Time Encounter Note(s) Provider Source May 06, 2020 09:13 AM PHARMACY OUTPATIENT NOTE: RADHA BURKETT [facility] LOCAL TITLE: Pharmacy Outpatient Note [facility] STANDARD TITLE: PHARMACY OUTPATIENT NOTE DATE OF NOTE: MAY 06, 2020@09:13 ENTRY DATE: MAY 06, 2020@09:13:57 AUTHOR: RADHA BURKETT EXP COSIGNER: URGENCY: STATUS: COMPLETED Received prescription from n on-VA provider for patient that is not covered under community care. Since [address] is unable to fill this prescription, it was faxed back to the provider with the following note: Patient is not covered under community c are. Please inquire from patient where they would like to have the prescription sent. Further questions can be directed to the Office of Community Care at [phone]. Thank you /karlos/ ADRIEL BURKETT PHARMD Clinical Pharmacist Signed: 05/06/2020 09:16
--- OUTSIDE RECORDS SUMMARY | 2020-09-15 12:38 | XMS_ITS | Encounter Summary ---
:1950 [address] [facility] Address [address] [place] [id number] Support Name Relationship Address Phone KNIGHTS Unavailable [address] [place] [address] KNIGHTS Unavailable [address] [place] [place] [address] Selected Encounter This section includes the information on record at [place] for the Encounter. Date/Time Encounter Type Encounter Description Reason Provider Source May 25, 2020 11:30 Outpatient Encounter ADMIN PAT ACTIVMADDI AM (TOREYCT) IHPraveen Encounter Template Text not used by [place] Plan of Treatment: Future Appointments (+ 6 months) and Future Tests (+/- 45 days) The Plan of Treatment section includes future care activities for the patient from all [place] treatment facilities. This section includes future appointments and future orders which are active, pending or scheduled.Future Appointments This section includes appointments that were scheduled to occur 6 months from the date of the Encounter, up to a maximum of 20 appointments. The data [facility] [place] [facility] Appointment Date/Time Appointment Type Appointment Facili ty Name Jul 11, 2020 11:00 AM AMBULATORY - NONE [facility] Jul 12, 2020 05:15 PM AMBULATORY - MEDICINE [facility] Social History: Smoking Status (Most current) and [...] 20, 2020 10:34 AM VA-TOBACCO NEVER USED [facility] Encounter Notes: All associated encounter notes This section contains the clinical notes associated to the Encounter. Date/Time Encounter Note(s) Provider Source May 25, 2020 11:30 AM PHARMACY OUTPATIENT NOTE: RADHA BURKETT [facility] LOCAL TITLE: Pharmacy Outpatient Note [facility] STANDARD TITLE: PHARMACY OUTPATIENT NOTE DATE OF NOTE: MAY 25, 2020@11:30 ENTRY DATE: MAY 25, 2020@11:30:26 AUTHOR: RADHA BURKETT EXP COSIGNER: URGENCY: STATUS: COMPLETED Received prescription from n on-VA provider for patient that is not covered under community care. Since [facility] is unable to fill this prescription, it was faxed back to the provider with the following note: Patient is not covered under community c are. Please inquire from patient where they would like to have the prescription sent. Further questions can be directed to the Office of Community Care at [phone]. Thank you /karlos/ ADRIEL BURKETT PHARMD Clinical Pharmacist Signed: 05/25/2020 11:30
--- OUTSIDE RECORDS SUMMARY | 2020-09-15 12:39 | XMS_ITS ---
:1950 Author Organization Department [facility] Address [address] [place] [address] Support Name Relationship Address Phone KNIGHTS Unavailable [address] [place] [address] KNIGHTS Unavailable [address] [place] [address] Selected Encounter This section includes the information on record at [place] for the Encounter. Date/Time Encounter Type Encounter Reason Provider Source Description Jan 21, 2020 OFFICE OR OTHER PRIMARY ICD-10-CM I48.91 JULIOCESAR GRAHAM 09:00 AM OUTPATIENT VISIT CARE/MEDICINE Unspecified atrial FOR THE EVALUATION fibrillation with AND MANAGEMENT OF A Provider Comments: NEW PATIENT, WHICH AF- Atrial REQUIRES THESE 3 Fibrillation (SCT OCAMPO COMPONENTS: [id number]) COMPREHENSIVE HISTORY; A COMPREHENSIVE EXAMINATION; MEDICAL DECISION MAKING OF MODERATE COMPLEXITY. COUNSELING AND/OR COORDINATION OF CARE WITH OTHER PHYSICIANS, OTHER QUALIFIED HEALTH HSE COORDINATOR, OR AGENCIES ARE PROVIDED CONSISTENT WITH THE NATURE OF THE PROBLEM(S) AND THE PATIENT'S AND/OR FAMILY'S NEEDS. USUALLY, THE PRESENTING PROBLEM(S) ARE OF MODERATE TO HIGH SEVERITY. TYPICALLY, 45 MINUTES ARE SPENT [id number] WITH THE PATIENT AND/OR FAMILY. [facility] Encounter Template Text not used by [place] Assessments - Encounter Diagnoses This section includes the primary and secondary diagnoses documented forthe Encounter. Date/Time Primary/Secondary Diagnosis Name Provider Source Diagnosis Mar 17, 2020 PRIMARY Unspecified atrial [facility] 01:48 PM fibrillation [facility] Mar 17, 2020 SECONDARY Fall same lev from [facility] 01:48 PM slip/trip w/o strike [facility] agnst object, sqla Mar 17, 2020 SECONDARY Gastro-esophageal [facility]EE MCGINNIS RIVE R 01:48 PM reflux disease [facility] without esophagitis Mar 17, 2020 SECONDARY Hyperlipidemia, RAS,[facility] [place] 01:48 PM unspecified [facility] Mar 17, 2020 SECONDARY Type 2 diabetes BEE MCGINNIS 01:48 PM mellitus without [facility] complications Plan of Treatment: Future Appointments (+ 6 months) and Future Tests (+/- 45 days) The Plan of Treatment section includes future care activities for the patient from all [place] treatment facilities. This section includes future appointments and future orders which are active, pending or scheduled.Future Appointments This section includes appointments that were scheduled to occur 6 months from the date of the Encounter, up to a maximum of 20 appointments. The data comes from all [facility]. Appointment Date/Time Appointment Type Appointment Facili ty Name Mar 24, 2020 10:30 AM AMBULATORY - NONE [facility] Mar 28, 2020 01:00 PM AMBULATORY - MEDICINE [facility] Jul 11, 2020 11:00 AM AMBULATORY - NONE [facility] Jul 12, 2020 05:15 PM AMBULATORY - MEDICINE [facility] Social History: Smoking Status (Most current) and Tobacco Use (All prior to encounter date) This section includes the most current, and the historical, smoking and tobacco-related health factors from the [place] facility where the Encounter took place.Current Smoking Status This section includes the most current smoking, or tobacco-related health factor, from the [place] facility where the Encounter took place. Date/Time Current Smoking Status Comment Facility Jan 20, 2020 10:34 AM VA-TOBACCO NEVER USED JAN[facility] Encounter Notes: All associated encounter notes This section contains the clinical notes associated to the Encounter. Date/Time Encounter Note(s) Provider Source Mar 17, 2020 01:44 PM NONVA MEDICATION MGT NOTE: JULIOCESAR GRAHAM [facility] LOCAL TITLE: Prescription Slip for NonVA Pharma cy STANDARD TITLE: NONVA MEDICATION MGT NOTE DATE OF NOTE: MAR 17, 2020@13:44 ENTRY DATE: MAR 17, 2020@13:45:07 AUTHOR: JULIOCESAR GRAHAM EXP COSIGNER: URGENCY: STATUS: COMPLETED Prescription Slip for NonVA Pharmacy Has ADDENDA [facility] [address] [place] [address] Patient: Date: MAR 17 ANJANA LANCASTER [address] [place], [place] [address] :Jan Medication: amiodarone 200 mg oral tab Quantity: 7 Sig: take 1 tab by mouth daily for heart rate Refills: 0 Substitution Permitted Medication: apixaban 5 mg oral tab Quantity: 14 Sig: take 1 tab by mouth every 12 hrs to prevent clot Refills: 0 Substitution Permitted Medication: metformin 850 mg oral tab Quantity: 14 Sig: take one tab by mouth twice daily fo r diabetes Refills: 0 Substitution Permitted Medication: pravastatin 20 mg oral tab Quantity: 7 Sig: take one tab by mouth daily for chol esterol control Refills: 0 Substitution Permitted Medication: omeprazole 20 mg oral Quantity: 7 Sig: take one tab by mouth daily for acid reflux Refills: 0 Substitution Permitted NPI # [id number] LUCI # Electronically signed by Juliocesar Graham D.O. Mar /es/ Date JULIOCESAR GRAHAM D.O. 03/17/2020 ADDENDUM STATUS: COMPLETED Pt. is contacted. He is advised that short presc riptions will be sent to [facility]. He will be able to diamond picker later today and meds covered by [facility]. Informed pt. that he needs to be seen in [facility] ag clinic for him to receive Apixaban. Advised pt. to expect call from clinic soon.Per pt. he has no other needs presently. /karlos/ ANNA CARREON Registered Nurse Signed: 03/17/2020 14:21 Receipt Acknowledged By: 03/17/2020 14:22 /karlos/ JULIOCESAR GRAHAM D.OAnastasiya Jan 21, 2020 09:34 AM TELEHEALTH NOTE: JULIOCESAR GRAHAM [facility] LOCAL TITLE: VIDEO-CONNECT NOTE STANDARD TITLE: TELEHEALTH NOTE DATE OF NOTE: JAN 21, 2020@09:34 ENTRY DATE: JAN 21, 2020@09:34:56 AUTHOR: JULIOCESAR GRAHAM EXP COSIGNER: URGENCY: STATUS: COMPLETED VIDEO-CONNECT NOTE Has ADDENDA C NEW PATIENT VISIT [facility] Video Connect appointment: Provider confirmed that [place] is currently loc ated inpatient [facility]. e-911: Call [phone] to speak with an agent who can put you in touch with a fiber product cutting machine operator at the Patient's location. Y ou must have the physical location (address) where the Patient is currentl y located. Verbal informed consent has been obtained. ANJANA LANCASTER is a 70 year old MALE here for a Primary Care visit TO ESTABLISH CARE. Pt does HAVE A NON-VA PCP: Dania ROLLINS. Pt DOES NOT want to use the [facility] as main source of primary care. S: Pt with PMHx DM2 (metform in, not taking insulin), AFIB (on anticoagulation), HLD, and GERD who presented to [facility] for multiple falls on 01/16/20 with subsequent complications of Rhabomyolysi s, DILAN, and AFIB with RVR. CT head was negative for intracranial hemorrhage. Labs notab le for CK 2155, Cr 1.38, AIC 8.4%, Hgb 12.9, INR 1.1, troponin negative. His DILAN resolved and AFIB controlled. Pt currently remains inpatient and a waiting further disposition. S: Pt reports the following: -he fell twice prior to presenting to [facility] -he was sitting in the chair and fell backward, and the second time he was holding on the sink and his hand slipped -he was found down on the ground by his sister syed foote brought to local hospital -pt states he is independent with ambulation around the house and uses cane when out in the community -he does all of his ADLs and iALDs including med management independently, except his sister helps with grocery -pt states he has not taking his medications for the past several months because he could not afford it -he denies current alcohol use, last drink was i n 1983 -denies tobacco use ROS: denies any cardiac/pulm/GI//or constituti onal symptoms of F/C at this time. He is currently receiving in-patient care and awaiting disposition. PROBLEM LIST: Diabetes mellitus type 2 ([facility] [id number]) AF- Atrial Fibrillation ([facility] [id number]) Gastroesophageal reflux disease ([facility] 235Hyperlip idemia ([facility] [id number]) PMHX ABOVE. MEDICAL: none SURGICAL: none MEDS PRIOR TO VISIT IN ACTIVE LISTED. OTC MEDS: none Active Outpatient Medications (excluding Supplie s): Active Non-VA Medications Status 1) Non-VA AMIODARONE HCL (PACERONE) 200MG TAB 200MG BY ACTIVE MOUTH EVERY DAY 2) Non-VA APIXABAN 5MG TAB 5MG BY MOUTH EVERY TWELVE ACTIVE HOURS 3) Non-VA ASPIRIN 81MG CHEW TAB 81MG BY MOUTH EVERY DAY ACTIVE 4) Non-VA CHOLECALCIF 25MCG (D3-1,000UNIT) TAB 25MCG BY ACTIVE MOUTH EVERY DAY 5) Non-VA CYANOCOBALAMIN 1000MCG TAB 1000MCG B Y MOUTH ACTIVE 6) Non-VA METFORMIN HCL 850MG TAB 850MG BY ROBERTO TWICE ACTIVE DAILY WITH MEALS 7) Non-VA OMEPRAZOLE 20MG EC CAP 20MG BY MOUTH EVERY ACTIVE MORNING BEFORE BREAKFAST 8) Non-VA PRAVASTATIN NA 20MG TAB 20MG BY MOUT H EVERY ACTIVE DAY ALLERGIES/ADR: Patient has answered NKA FAMILY HX: NON-CONTRIBUTORY UNLESS NOTED BELOW COLON CANCER No PROSTATE CANCER No BREAST CANCER No CAD PRIOR TO AGE 55 No DIABETES No ALCOHOL PROBLEMS No THYROID PROBLEMS No OTHER SOCIAL HX: LIVES WITH: alone MARRITAL STATUS: divorce x 3 CHILDREN: 2 adults children living in [place] and [place] RAISED IN: [place] EDUCATION: 0 GRADES 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 Troponin negative. CT head showed no acute intracranial hemorrhage. No findings of active infection upon ED eval. Pt is currently receivin g in-patient care due to complications of rhabdomyolysis and afib from th e fall, and is awaiting disposition. -CM to assist with [facility] HHS upon discharge -CC PC consult # AFIB with RVR: HR 120, now rate controlled. Pt reports has been nonadherent to meds due to cost. -con't apixaban 5 mg bid -con't amiodarone 200 mg daily -manage by nonVA PCP # DM2: A1C 8.4%. pt reports no longer taking ins ulin. -con't metformin 850 mg bid -manage by nonVA PCP # HLD: -con't pravastatin # GERD -con't omeprazole # Routine Health Maintenance: Per Dr. Dania juan PT GENERALLY OBTAINS SCREENI NG FOR COLON CA, PROSTATE CA, HIGH CHOL, DM, HEALTH HABITS INCLUDING SMOKING, ALCOHOL USE, OBESITY, DIETARY COUNSELING, ACTIVITY COUNSELING FROM HIS NON-VA PCP EXCEPT NOTED IN REMINDERS AND NOTE. -see reminders Disposition: f/u in 12 months, sooner prn. Tobacco Use Screening: The patient has never used tobacco. Diabetic Eye Exam: Diabetic Eye Exam already scheduled insi de/outside [facility], or patient already in eye clinic recall. Alcohol Use Screen (AUDIT-C) & F/U: Alcohol Screen: SCREEN FOR ALCOHOL (AUDIT-C) An alcohol screening test (AUDIT-C) wa s negative (score=0). 1. How often did you have a drink cont aining alcohol in the past year? Never 2. How many drinks containing alcohol did you have on a typical day when you were drinking in the past year? Response not required due to responses to other questions. 3. How often did you have six or more drinks on one occasion in the past year? Response not required due to responses to other questions. No data available Patient had a negative AUDC score and does n ot require a follow-up HIV Screening: Patient has been offered HIV testing and has declined. I have explained that HIV testing is recommended fo r all adults, even if all risk factors are absent. The patient was edu cated on the risk of delayed screening. Hepatitis C Antibody Testing: Patient declined Hepatitis C antibody testin omar Hankins. Medication Reconciliation: No Discrepancies Found - Med Rec Completed. NO DISCREPANCIES FOUND - The patient's med ication list/medication history to include Local Active VA Prescri ptions, Remote Active VA Prescriptions, Non-VA medications, Recentl y VA Prescriptions (90-180 days), Recently Discontinued VA Pr escriptions (90-180 days), and Pending Medication Orders where releva nt (e.g., patient is seen by multiple providers in the same day) was compared with CPRS and reviewed with the patient/caregiver and re conciled. A copy of the updated medication list was provided to th e patient/caregiver. The patient/caregiver was instructed to update this list, discard old lists, and take this list to their next ap pointment, whether with a VA or non-VA provider. Any changes in medi cations and any medications discontinued are documented in this note. Depression Screening: PHQ-2+I9 Depression Screening Score: 0 The score on this administration is 0, which indicates a negative screen on the Depression Scal e over the past two weeks. Suicide Screening Score: 0 The results of this administration ind icates a NEGATIVE primary screen for Risk of Suicide ove r the last 2 weeks. Over the past two weeks, how often have you been bothered by the following problems? 1. Little interest or pleasure in do ing things Not at all 2. Feeling down, depressed, or hopel ess Not at all 3. Thoughts that you would be better off or of hurting yourself in some way Not at all /karlos/ JULIOCESAR P VO D.O. Signed: 01/21/2020 10:03 03/11/2020 ADDENDUM STATUS: COMPLETED please enter RTC thanks /karlos/ BEE CASTAÑEDA/[employer] Signed: 03/11/2020 09:15 Receipt Acknowledged By: 03/11/2020 15:05 /karlos/ JULIOCESAR GRAHAM D.O.
--- OUTSIDE RECORDS SUMMARY | 2020-09-15 12:39 | XMS_ITS | Encounter Summary ---
:1950 Author Organization [facility] Address [address] [place] [address] Support Name Relationship Address Phone KNIGHTS Unavailable [address] [place] [address] KNIGHTS Unavailable [address] [place] [address] Selected Encounter This section includes the information on record at [place] for the Encounter. Date/Time Encounter Type Encounter Description Reason Provider Source May 26, 2020 09:20 Outpatient Encounter PRIMARY CARE/MEDICINE AM E Encounter Template Text not used by [place] Plan of Treatment: Future Appointments (+ 6 months) and Future Tests (+/- 45 days) The Plan of Treatment section includes future care activities for the patient from all [place] treatment facilities. This section includes future appointments and future orders which are active, pending or scheduled.Future Appointments This section includes appointments that were scheduled to occur 6 months from the date of the Encounter, up to a maximum of 20 appointments. [facility] [place] [facility] Appointment Date/Time Appointment Type Appointment Facili ty Name Jul 11, 2020 11:00 AM AMBULATORY - NONE [facility] Jul 12, 2020 05:15 PM AMBULATORY - MEDICINE [facility] Social History: Smoking Status (Most current) [...] 20, 2020 10:34 AM VA-TOBACCO NEVER USED [facility] Encounter Notes: All associated encounter notes This section contains the clinical notes associated to the Encounter. Date/Time Encounter Note(s) Provider Source May 26, 2020 09:20 AM PRIMARY CARE TELEPHONE ENCOUNTER NOTE: FUNMI PATEL [facility] LOCAL TITLE: Telephone Note/Retail Leasing Agent STANDARD TITLE: PRIMARY CARE TELEPHONE ENCOUNTER NOTE DATE OF NOTE: MAY 26, 2020@09:20 ENTRY DATE: MAY 26, 2020@09:20:51 AUTHOR: FUNMI SELF EXP COSIGNER: URGENCY: STATUS: COMPLETED requesting renewal of the following: APIXABAN 5MG TAB TAKE ONE TABLET BY MOUTH EVERY TWELVE HOURS TO HELP PREVENT BLOOD CLOTS (ANTICOAGULATION) Work Phone: NONE Cell phone: /es/ FUNMI SELF RN Signed: 05/26/2020 09:23 Receipt Acknowledged By: * AWAITING SIGNATURE * RUBIA BARRY * AWAITING SIGNATURE * OANH CARD
--- OUTSIDE RECORDS SUMMARY | 2020-09-15 12:39 | XMS_ITS | Encounter Summary ---
:1950 Author Organization [facility] Address [address] [place] [address] Support Name Relationship Address Phone KNIGHTS Unavailable [address] [place] [address] KNIGHTS Unavailable [address] [place] [address] Selected Encounter This section includes the information on record at [place] for the Encounter. Date/Time Encounter Type Encounter Description Reason Provider Source Aug 08, 2020 11:13 Outpatient Encounter TELEPHONE TRIAGE AM IHE Encounter Template Text not used by [place] [...] appointments. The [facility] [place] [facility] Appointment Date/Time Appointment Type Appointment Facili ty Name Jan 04, 2021 10:00 AM AMBULATORY - NONE [facility] Jan 05, 2021 03:00 PM AMBULATORY - MEDICINE [facility] Lab Results: +/- 30 days of the encounter This section includes the Chemistry and Hematology Lab Results on record with [place] for the patient. Radiology Reports and Pathology Reports are provided separately, in subsequent sections.Lab Results This section contains the Chemistry/Hematology Results that were resulted 30 days before or 30 days after the date of the Encounter. Date/Time Source Result Type Result - Unit Interpretation Reference Range Comment Jul 11, 2020 11:13 AM [facility] CBC NO DIFF Spe cimen Type: BLOOD No comment enter ed. Ordering Provide r: RUBIA BARRY Report Released Date/Time: Mar 28, 2020 01:29 PM Reporting Lab: [facility] [address] [facility] [address] Performing Lab: [facility] [address] [facility] [address] WBC 11.1 10*3/uL H 4.5-11.0 RBC 5.85 10*6/uL H 4.23-5.66 HGB 16.4 g/dl 12.8-17 HEMATOCRIT 53.5 % H 39.2-50.4 MCV 91.5 fl 82-99 MCH 28.0 pg 26.2-32.6 MCHC 30.7 g/dl L 30.8-35.1 PLT 302 10*3/uL 140-360 MPV 9.0 fl L 9.2-12.4 RDW 12.9 % 12.0-16.0 Jul 11, 2020 11:13 [facility] CREATININE WITH eGFR Specimen Type: PLASMA AM [facility] PANEL Comment: Tests performed on Sapient (405) Ordering Provide r: RUBIA BARRY Report Released Date/Time: Mar 28, 2020 01:29 PM Reporting Lab[facility] [address] [facility] [address] Performing Lab: [facility] [address] [facility] [address] CREATININE 1.76 mg/dl H 0.5-1.5 eGFR 38 mL/min L >60 Social History: Smoking Status (Most current) and Tobacco Use (All prior to encounter date) This section includes the most current, and the historical, smoking and tobacco-related health factors from the [place] facility where the Encounter took place.Current Smoking Status This section includes the most current smoking, or tobacco-related health factor, from the [place] facility where the Encounter took place. Date/Time Current Smoking Status Comment Facility Jan 20, 2020 10:34 AM VA-TOBACCO NEVER USED [facility] Praveen CINTRON [facility] Encounter Notes: All associated encounter notes This section contains the clinical notes associated to the Encounter. Date/Time Encounter Note(s) Provider Source Aug 08, 2020 11:13 AM PRIMARY CARE MEDICATION [facility] T[facility]: Medication Note STANDARD TITLE: PRIMARY CARE MEDICATION MGT NOTE DATE OF NOTE: AUG 08, 2020@11:13 ENTRY DATE: AUG 08, 2020@11:13:26 AUTHOR: CHERELLE WALKER EXP COSIGNER: URGENCY: STATUS: COMPLETED Medication Note Has ADDENDA Patient is calling for medication refill or earline wal: Medication name: APIXABAN 5MG TAB TAKE ONE TABLET BY MOUTH EVERY ACTIVE TWELVE HOURS TO HELP PREVENT BLOOD CLOTS (ANTICOAGULATION) [ ]Med [X]Med Refill How many days left? 14 Do you need any other medications renewed? [ X ] [facility] [ ] Non-VA pharmacy for REGULAR SUPPLY [ ] Non-VA pharmacy for SHORT SUPPLY only What Pharmacy do you use? Pharmacy phone number? Pharmacy Fax number? FUTURE APPOINTMENTS Future Appointments - Dec@10:00 OVIDIO PACT T Jan@15:00 KENDY BERMEOAG 2 PHONE /karlos/ CHERELLE HERNANDEZ Signed: 08/08/2020 11:13 Receipt Acknowledged By: 08/08/2020 11:16 /es/ ALLYSSA GHOTRA * AWAITING SIGNATURE * KWESI READ * AWAITING SIGNATURE * FUNMI SELF * AWAITING SIGNATURE * ANNA CARREON * AWAITING SIGNATURE * AALIYAH HENAO 08/08/2020 ADDENDUM STATUS: COMPLETED refilled VIA nursing /karlos/ ALLYSSA GHOTRA Signed: 08/08/2020 11:15
--- OUTSIDE RECORDS SUMMARY | 2020-09-15 12:39 | XMS_ITS | Encounter Summary ---
:1950 Author Organization Department [facility] Address [address] [place] [address] Support Name Relationship Address Phone KNIGHTS Unavailable [address] [place] [address] KNIGHTS Unavailable [address] [place] [address] Selected Encounter This section includes the information on record at [place] for the Encounter. Date/Time Encounter Type Encounter Description Reason Provider Source Jan 20, 2020 10:35 Outpatient Encounter ADMIN PAT ACTIVTIES AM ([id number]) IHE Encounter Template Text not used by [place] Plan of Treatment: Future Appointments (+ 6 months) and Future Tests (+/- 45 days) The Plan of Treatment section includes future care activities for the patient from all [place] treatment facilities. This section includes future appointments and future orders which are active, pending or scheduled.Future Appointments This section includes appointments that were scheduled to occur 6 months from the date of the Encounter, up to a maximum of 20 appointments. The data comes from all [facility]. Appointment Date/Time Appointment Type Appointment Facili ty Name Jan 21, 2020 09:00 AM AMBULATORY - NONE [facility] Mar 24, 2020 10:30 AM AMBULATORY - NONE [facility] Mar 28, 2020 01:00 PM AMBULATORY - MEDICINE [facility] Jul 11, 2020 11:00 AM AMBULATORY - NONE [facility] Jul 12, 2020 05:15 PM AMBULATORY - MEDICINE [facility] Social History: Smoking Status (Most current) and Tobacco Use (All prior to encounter date) This section includes the most current, and the historical, smoking and tobacco-related health factors from the [place] facility where the Encounter took place.Current Smoking Status This section includes the most current smoking, or tobacco-related health factor, from the [place] facility where the Encounter took place. Date/Time Current Smoking Status Comment Facility Jan 20, 2020 10:34 AM [facility] Encounter Notes: All associated encounter notes This section contains the clinical notes associated to the Encounter. Date/Time Encounter Note(s) Provider Source Jan 20, 2020 10:35 AM TELEHEALTH NOTE: BEE MCGINNIS [facility] LOCAL TITLE: VIDEO-CONNECT NOTE STANDARD TITLE: TELEHEALTH NOTE DATE OF NOTE: JAN 20, 2020@10:35 ENTRY DATE: JAN 20, 2020@10:35:44 AUTHOR: BEE MCGINNIS EXP COSIGNER: URGENCY: STATUS: COMPLETED Info Only: [facility] Video Connect Capable: Patient has successfully tested or used [facility] V ideo Connect. Test call completed with Ольга Sandoval [phone] from [place]ISELA /karlos/ BEE MCGINNIS [employer] Signed: 01/20/2020 10:36
--- OUTSIDE RECORDS SUMMARY | 2020-09-15 12:39 | XMS_ITS | Encounter Summary ---
:[address] [facility] Address [address] [place] [id number] Support Name Relationship Address Phone KNIGHTS Unavailable [address] [place] [address] KNIGHTS Unavailable [address] [place] [address] Selected Encounter This section includes the information on record at [place] for the Encounter. Date/Time Encounter Type Encounter Description Reason Provider Source Aug 09, 2020 08:33 Outpatient Encounter PRIMARY CARE/MEDICINE AM E Encounter Template Text not used by [place] Plan of Treatment: Future Appointments (+ 6 months) and Future Tests (+/- 45 days) The Plan of Treatment section includes future care activities for the patient from all [place] treatment facilities. This section includes future appointments and future orders which are active, pending or scheduled.Future Appointments This section includes appointments that were scheduled to occur 6 months from the date of the Encounter, up to a maximum of 20 appointments. The [facility] Appointment Date/Time Appointment Type Appointment Facili ty Name Jan 04, 2021 10:00 AM AMBULATORY - NONE [facility] Jan 05, 2021 03:00 PM AMBULATORY - MEDICINE [facility] Lab Results: +/- 30 days of the encounter This section includes the Chemistry and Hematology Lab Results on record with [place] for the patient. Radiology Reports and Pathology Reports are provided separately, in subsequent sections.Lab Results This section contains the Chemistry/Hematology Results that were resulted 30 days before or 30 days after the date of the Encounter. Date/Time Source Result Type Result - Unit Interpretation Reference Range Comment Jul 11, 2020 11:13 AM [facility] CBC NO DIFF Spe cimen Type: BLOOD No comment enter ed. Ordering Provide r: RUBIA BARRY Report Released Date/Time: Mar 28, 2020 01:29 PM Reporting Lab: [facility] T [facility] [address] [facility] [address] Performing Lab: [facility] [address] [facility] [address] WBC 11.1 10*3/uL H 4.5-11.0 RBC 5.85 10*6/uL H 4.23-5.66 HGB 16.4 g/dl 12.8-17 HEMATOCRIT 53.5 % H 39.2-50.4 MCV 91.5 fl 82-99 MCH 28.0 pg 26.2-32.6 MCHC 30.7 g/dl L 30.8-35.1 PLT 302 10*3/uL 140-360 MPV 9.0 fl L 9.2-12.4 RDW 12.9 % 12.0-16.0 Jul 11, 2020 11:13 [facility] JCT CREATININE WITH eGFR Specimen Type: PLASMA AM [facility] PANEL Comment: Tests performed on [employer] (405) Ordering Provide r: RUBIA BARRY Report Released Date/Time: Mar 28, 2020 01:29 PM Reporting Lab: [facility] T [facility] [address] [facility] [address] Performing Lab: [facility] T [facility] [address] [facility] [address] CREATININE 1.76 mg/dl H 0.5-1.5 eGFR 38 mL/min L >60 Social History: Smoking Status (Most current) and Tobacco Use (All prior to encounter date) This section includes the most current, and the historical, smoking and tobacco-related health factors from the [place] facility where the Encounter took place.Current Smoking Status This section includes the most current smoking, or tobacco-related health factor, from the [place] facility where the Encounter took place. Date/Time Current Smoking Status Comment Facility Jan 20, 2020 10:34 AM VA-TOBACCO NEVER USED [facility] Encounter Notes: All associated encounter notes This section contains the clinical notes associated to the Encounter. Date/Time Encounter Note(s) Provider Source Aug 09, 2020 08:33 AM NONVA NOTE: BEE YOUSSEF [facility] LOCAL TITLE: NonVA Note STANDARD TITLE: NONVA NOTE DATE OF NOTE: AUG 09, 2020@08:33 ENTRY DATE: AUG 09, 2020@08:33:49 AUTHOR: BEE YOUSSEF EXP COSIGNER: URGENCY: STATUS: COMPLETED Date of Service: 07/22/2020 Place: [facility] Treating Provider: Urvashi Conti MD & Dean Wood Event/Procedure: DISCHARGE SUMMARY- 1. Sepsis: status: Acute 2. Acute Kidney injury: status: Acute 3. Paroxysmal atrial fibrillatio n status: Acute 4. Diabetes mellitus: status: Acute 5. Hypertension: status: Acute He will d/c to home on Ceftin 500mg BID to compl ete 2 weeks of total antibiotic coverage. Home Health Nursing and PT ordered. Follow up with with PCP in 1-2 weeks Prescriptions: New cefuroxime axetil 500 mg tablet 500mg PO BID QTY: 24 RF:0 Document sent to [facility] to be scanned. To view this document open the CPRS tools menu and then open the image display viewer. /karlos/ BEE YOUSSEF nursing department chairperson Signed: 08/09/2020 08:44
--- OUTSIDE RECORDS SUMMARY | 2020-09-15 12:39 | XMS_ITS | Encounter Summary ---
:1950 Author Organization Department [facility] Address [address] [place] [address] Support Name Relationship Address Phone KNIGHTS Unavailable [address] [place] [address] KNIGHTS Unavailable [address] [place] [address] Selected Encounter This section includes the information on record at [place] for the Encounter. Date/Time Encounter Type Encounter Reason Provider Source Description Jul 12, 2020 HC PRO PHONE TELEPHONE/ANCILL ICD-10-CM Z79.01 Hermes BARRY 05:15 PM CALL 11-20 MIN JORDAN care home (current) Y B use of anticoagulants with Provider Comments: Long-term current use of anticoagulant (SNOMED CT [id number]) IHE Encounter Template Text not used by [place] Assessments - Encounter Diagnoses This section includes the primary and secondary diagnoses documented forthe Encounter. Date/Time Primary/Secondary Diagnosis Name Provider Source Diagnosis Jul 12, 2020 PRIMARY care home (current) ASHARUBIA LONGO LEO CINTRON 05:15 PM use of B [facility] anticoagulants Jul 12, 2020 SECONDARY Unspecified atrial RUBIA BARRY IVER 05:15 PM fibrillation B [facility] Plan of Treatment: Future Appointments (+ 6 months) and Future Tests (+/- 45 days) The Plan of Treatment section includes future care activities for the patient from all [place] treatment facilities. This section includes future appointments and future orders which are active, pending or scheduled.Future Appointments This section includes appointments that were scheduled to occur 6 months from the date of the Encounter, up to a maximum of 20 appointments. The data comes from all [facility]. Appointment Date/Time Appointment Type Appointment Facili ty Name Jan 04, 2021 10:00 AM AMBULATORY - NONE [facility] Jan 05, 2021 03:00 PM AMBULATORY - MEDICINE [facility] Surgical Procedures: All associated to the encounter This section includes all Surgical Procedures and Surgical Procedure Notes associated to the Encounter.Surgical Procedures This section includes all Surgical Procedures associated to the Encounter.Surgical Procedure Date/Time Procedure Procedure Type Procedure Provider Source Qualifiers Jul 12, 2020 PHONE CALL BY HC PRO PHONE SANDRA BARRY JANETH CINTRON 05:15 PM HC PROF 11-20 CALL 11-20 MIN Y B T [facility] MIN Surgical Notes There are no notes associated with this procedure. Lab Results: +/- 30 days of the encounter This section includes the Chemistry and Hematology Lab Results on record with [place] for the patient. Radiology Reports and Pathology Reports are provided separately, in subsequent sections.Lab Results This section contains the Chemistry/Hematology Results that were resulted 30 days before or 30 days after the date of the Encounter. Date/Time Source Result Type Result - Unit Interpretation Reference Range Comment Jul 11, 2020 11:[address] [facility] CBC NO DIFF Spe cimen Type: BLOOD No comment enter ed. Ordering Provide r: RUBIA BARRY Report Released Date/Time: Mar 28, 2020 01:29 PM Reporting Lab: [facility] [address] [facility] [address] Performing Lab: [facility] [address] [facility] [address] WBC 11.1 10*3/uL H 4.5-11.0 RBC 5.85 10*6/uL H 4.23-5.66 HGB 16.4 g/dl 12.8-17 HEMATOCRIT 53.5 % H 39.2-50.4 MCV 91.5 fl 82-99 MCH 28.0 pg 26.2-32.6 MCHC 30.7 g/dl L 30.8-35.1 PLT 302 10*3/uL 140-360 MPV 9.0 fl L 9.2-12.4 RDW 12.9 % 12.0-16.0 Jul 11, 2020 11:13 [facility] CREATININE WITH eGFR Specimen Type: PLASMA AM [facility] PANEL Comment: Tests performed on [employer] (405) Ordering Provide r: RUBIA BARRY Report Released Date/Time: Mar 28, 2020 01:29 PM Reporting Lab: [facility] [address] [facility] [address] Performing Lab: LEO CINTRON [facility] [address] [facility] [address] CREATININE 1.76 mg/dl H 0.5-1.5 eGFR 38 mL/min L >60 Social History: Smoking Status (Most current) and Tobacco Use (All prior to encounter date) This section includes the most current, and the historical, smoking and tobacco-related health factors from the [place] facility where the Encounter took place.Current Smoking Status This section includes the most current smoking, or tobacco-related health factor, from the [place] facility where the Encounter took place. Date/Time Current Smoking Status Comment Facility Jan 20, 2020 10:34 AM VA-TOBACCO NEVER USED [facility] Praveen CINTRON [facility] Encounter Notes: All associated encounter notes This section contains the clinical notes associated to the Encounter. Date/Time Encounter Note(s) Provider Source Jul 12, 2020 12:50 PM E & M OF ANTICOAGULATION NOTE: MARIELA BARRY [facility] LOCAL TITLE: Anticoagulation Clinic/Apparel Sales Associate [facility] STANDARD TITLE: E & M OF ANTICOAGULATION NOTE DATE OF NOTE: JUL 12, 2020@12:50 ENTRY DATE: JUL 12, 2020@12:50:43 AUTHOR: RUBIA BARRY EXP COSIGNER: URGENCY: STATUS: COMPLETED MR. ANJANA LANCASTER [address], [place] [address] Purpose of visit: Follow-up anticoagulation clin ic visit Time spent with patient during this visit: 15 mi nutes Subjective/Objective information: Active Outpatient Medications (excluding Supplie s): Active Outpatient Medications Status 1) ACCU-CHEK GUIDE (GLUCOSE) TEST STRIP USE 1 TEST STRIP ACTIVE NEEDED TO TEST BLOOD GLUCOSE LEVEL 2) AMIODARONE HCL (PACERONE) 200MG TAB TAKE ON E TABLET ACTIVE BY MOUTH EVERY DAY FOR HEART 3) APIXABAN 5MG TAB TAKE ONE TABLET BY MOUTH E VERY ACTIVE TWELVE HOURS TO HELP PREVENT BLOOD CLOTS (ANTICOAGULATION) 4) ASPIRIN 81MG CHEW TAB CHEW ONE TABLET BY MO UTH EVERY ACTIVE DAY TO PREVENT STROKE/HEART ATTACK 5) CHOLECALCIF 25MCG (D3-1,000UNIT) TAB TAKE O NE TABLET ACTIVE BY MOUTH EVERY DAY 6) CYANOCOBALAMIN 1000MCG TAB TAKE ONE TABLET BY MOUTH ACTIVE DAILY 7) METFORMIN HCL 850MG TAB TAKE ONE TABLET BY MOUTH ACTIVE TWICE DAILY WITH MEALS FOR DIABETES 8) OMEPRAZOLE 20MG EC CAP TAKE ONE CAPSULE BY MOUTH ACTIVE EVERY MORNING BEFORE BREAKFAST FOR STOMAC H ACID (TAKE HALF-HOUR BEFORE A MEAL(S) 9) PRAVASTATIN NA 20MG TAB TAKE ONE TABLET BY MOUTH ACTIVE EVERY DAY TO LOWER CHOLESTEROL Active Non-VA Medications Status 1) Non-VA AMIODARONE [...] METFORMIN HCL 850MG TAB 850MG BY ROBERTO TH TWICE ACTIVE DAILY WITH MEALS 7) Non-VA OMEPRAZOLE 20MG EC CAP 20MG BY MOUTH EVERY ACTIVE MORNING BEFORE BREAKFAST 8) Non-VA PRAVASTATIN NA 20MG TAB 20MG BY MOUT H EVERY ACTIVE DAY 17 Total Medications [ ] Medication reconciliation completed, any di fferences are listed below: Factors affecting anticoagulation: Medication change none Alcohol change none Acute illness none Medication compliance denies missing doses Bleeding/thromboembolic complications: Bruising denies Gingival bleeding denies Nosebleeds denies Hematuria denies Blood in stools denies Signs of CVA/TIA denies LE swelling/pain denies Shortness of breath denies Other side effects: denies Falls/injuries denies Tests/Procedures none Other issues: denies Indication for anticoagulation: atrial fibrillat ion Anticoagulation initiated: 2019 (per ) Duration of anticoagulation: indefinite Current DOAC Regimen: apixaban 5mg Q12hrs Weight-Based Consent: n/a Preferred Contact: - vm ok - ok to speak to sister Shannon) Labs @ [facility] Lab Results: (CrCl calculation: Cockcroft-Gault and actual body weight) Date Hct Hgb Plt Creat Weight Calc CrCl AST ALT 03/24/20 52.9 15.8 320 1.66 83kg 49ml/min 16 14 07/11/20 53.5 16.4 302 1.76 83kg 46ml/min Assessment: is anticoagulated with apixa ban w/o complication Pertinent labs show stable CBC and s lightly increased SCr Dose remains appropriate based on in dication and age/wt/scr Plan: Continue current therapy DOAC Regimen: apixaban 5mg Q1hrs Future follow-up: CBC/SCr in 6 months (January 2021 @ [facility]) Patient Education: [X] s/sx bleeding/thrombosis and ER precautio ns [X] importance of correct dose/dosing schedul e [X] importance of medication compliance [X] importance of reporting medication change s, planned procedures, change in health care status to clinic [X] TC to patient/spouse/caregiver who was able to verbalize understanding of above instructions. [ ] Voice mail left for patient with instruction s [ ] Written instructions mailed to patient [ ] Rx ordered - none needed [ ] Rx/Lab orders faxed to: [facility] PharmD Pharmacotherapy Rem V11: PHARMACIST INTERVENTIONS: ANTICOAGULATION THERAPY DIRECT ORAL ANTICOAGULANT (DOAC) MANAG EMENT Medication monitor ing, no dosage change required, continue to monitor and assess Nonpharmacologic intervention grecia /karlos/ RUBIA BARRY Clinical Pharmacist Signed: 07/12/2020 12:56
--- OUTSIDE RECORDS SUMMARY | 2020-09-15 12:39 | XMS_ITS | Encounter Summary ---
:1950 Author Organization Department [facility] Address [address] [place] [address] Support Name Relationship Address Phone KNIGHTS Unavailable [address] [place] [address] KNIGHTS Unavailable [address] [place] [address] Selected Encounter This section includes the information on record at [place] for the Encounter. Date/Time Encounter Type Encounter Reason Provider Source Description Mar 28, 2020 Outpatient TELEPHONE ICD-10-CM Z79.01 SANDRA BARRY 01:00 PM Encounter PRIMARY CARE assisted (current) Y B use of anticoagulants with Provider Comments: Funder Current Use of Anticoagulants IHE Encounter Template Text not used by [facility] Assessments - Encounter Diagnoses This section includes the primary and secondary diagnoses documented forthe Encounter. 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 This section includes future appointments and future orders which are active, pending or scheduled.Future Appointments This section includes appointments that were scheduled to occur 6 months from the date of the Encounter, up to a maximum of 20 appointments. The data [facility] [place] [facility] Appointment Date/Time Appointment Type Appointment Facili ty Name Jul 11, 2020 11:00 AM AMBULATORY - NONE [facility] Jul 12, 2020 05:15 PM AMBULATORY - MEDICINE [facility] Lab Results: +/- 30 days of the encounter This section includes the Chemistry and Hematology Lab Results on record with [place] for the patient. Radiology Reports and Pathology Reports are provided separately, in subsequent sections.Lab Results This section contains the Chemistry/Hematology Results that were resulted 30 days before or 30 days after the date of the Encounter. Date/Time Source Result Type Result - Unit Interpretation Reference Range Comment Mar 24, 2020 10:22 AM [facility] CBC NO DIFF Spe cimen Type: BLOOD No comment enter ed. Ordering Provide r: KATERYNA IRVING Report Released Date/Time: Mar 18, 2020 11:49 AM Reporting Lab: [facility] [address] [facility] [place] [facility] [address] Performing Lab: [facility] [address] [facility] [place] [facility] [address] WBC 10.3 10*3/uL 4.5-11.0 RBC 5.59 10*6/uL 4.23-5.66 HGB 15.8 g/dl 12.8-17 HEMATOCRIT 52.9 % H 39.2-50.4 MCV 94.6 fl 82-99 MCH 28.3 pg 26.2-32.6 MCHC 29.9 g/dl L 30.8-35.1 PLT 320 10*3/uL 140-360 MPV 8.9 fl L 9.2-12.4 RDW 13.7 % 12.0-16.0 Mar 24, 2020 10:22 AM [facility] LIVER PROFILE Spe cimen Type: PLASMA No comment enter ed. Ordering Provide r: KATERYNA IRVING Report Released Date/Time: Mar 18, 2020 11:49 AM Reporting Lab: [facility] [address] [facility] [address] Performing Lab: [facility] [address] [facility] [address] PROTEIN, TOTAL 6.9 g/dL 6.0-8.5 ALBUMIN 3.8 g/dL 3.2-5.0 BILIRUBIN, TOTAL 0.8 mg/dL 0.2-1.2 ALKALINE PHOSPHATASE 100 U/L 40-150 ALT(SGPT) 14 U/L 7-52 AST(SGOT) 16 U/L 5-34 FIB-4 SCORE 0.94 INDEX <2.67 Mar 24, 2020 [facility] P4 GLU,BUN,CREAT,LYTES,CA Specim en Type: PLASMA 10:22 AM [facility] No comment enter ed. Ordering Provide r: KATERYNA IRVING Report Released Date/Time: Mar 18, 2020 11:49 AM Reporting Lab: [facility] [address] [facility] [address] Performing Lab: [facility] [address] [facility] [address] UREA NITROGEN 18 mg/dL 7-25 SODIUM 142 mmol/L 135-145 POTASSIUM 4.6 mmol/L 3.5-5.0 CHLORIDE 104 mmol/L 100-110 CARBON DIOXIDE 24 mmol/L 20-30 ANION GAP 14 mmol/L 4-16 GLUCOSE 203 mg/dL H 65-100 CREATININE 1.66 mg/dl H 0.5-1.5 CALCIUM 9.2 mg/dL 8.5-10.5 eGFR 41 mL/min L >60 Vital Signs: All taken on the encounter date This section contains inpatient and outpatient Vital Signs collected on the date of the Encounter. Date/Time Temperature Pulse Blood Respiratory SP02 Pain Height Weight Andres dy Source Pressure Rate Mass Index Mar 28, 183 lb 2019 01:21 [facility] Social History: Smoking Status (Most current) and Tobacco Use (All prior to encounter date) This section includes the most current, and the historical, smoking and tobacco-related health factors from the [place] facility where the Encounter took place.Current Smoking Status This section includes the most current smoking, or tobacco-related health factor, from the [place] facility where the Encounter took place. Date/Time Current Smoking Status Comment Facility Jan 20, 2020 10:34 AM VA-TOBACCO NEVER USED [facility] Praveen [facility] Encounter Notes: All associated encounter notes This section contains the clinical notes associated to the Encounter. Date/Time Encounter Note(s) Provider Source Mar 28, 2020 12:39 PM CONSULT: RUBIA BARRY [facility] LOCAL TITLE: CONSULT: [facility] STANDARD TITLE: CONSULT DATE OF NOTE: MAR 28, 2020@12:39 ENTRY DATE: MAR 28, 2020@12:39:29 AUTHOR: RUBIA BARRY EXP COSIGNER: URGENCY: STATUS: COMPLETED CONSULT: [facility] Has ADDENDA MR. ANJANA LANCASTER [address] [id number] Purpose of visit: Initial anticoagulation clinic visit Time spent with patient during this visit: 30 mi nutes Summary of new patient intake form: Contact information: - ok - ok to give results to sister Alternate contact: - no service Non-VA providers: Dr. Walker at [facility] Medication information: now all through the [facility] Bleeding hx: denies Fall hx: presented to [facility] for multiple falls on 01/16/20 ETOH: denies (not anymore) Tobacco: denies Traveler: denies Patient consents to communication of results via letter: Yes Subjective/Objective information: Active Outpatient Medications (excluding Supplie s): Active Outpatient Medications Status 1) AMIODARONE HCL (PACERONE) 200MG TAB TAKE ON E TABLET ACTIVE BY MOUTH EVERY DAY FOR HEART 2) APIXABAN 5MG TAB TAKE ONE TABLET BY MOUTH E VERY ACTIVE TWELVE HOURS TO HELP PREVENT BLOOD CLOTS (ANTICOAGULATION) 3) ASPIRIN 81MG CHEW TAB CHEW ONE TABLET BY MO UTH EVERY ACTIVE DAY TO PREVENT STROKE/HEART ATTACK 4) CHOLECALCIF 25MCG (D3-1,000UNIT) TAB TAKE O NE TABLET ACTIVE BY MOUTH EVERY DAY 5) CYANOCOBALAMIN 1000MCG TAB TAKE ONE TABLET BY MOUTH ACTIVE DAILY 6) METFORMIN HCL 850MG TAB TAKE ONE TABLET BY MOUTH ACTIVE TWICE DAILY WITH MEALS FOR DIABETES 7) OMEPRAZOLE 20MG EC CAP TAKE ONE CAPSULE BY MOUTH ACTIVE EVERY MORNING BEFORE BREAKFAST FOR STOMAC H ACID (TAKE HALF-HOUR BEFORE A MEAL(S) 8) PRAVASTATIN NA 20MG TAB TAKE ONE TABLET [...] 20MG BY MOUT H EVERY ACTIVE DAY 16 Total Medications [X] Medication reconciliation completed, any dif ferences are listed below: Patient education: The following information was discussed with pat ient and/or caregiver: [X] Purpose of medication, pharmacy dispensi ng restrictions [X] How to store and take medication, missed doses [X] Laboratory monitoring and importance [X] Precautions, fall risk [X] Interactions with alcohol and medication s [X] Signs/symptoms of bleeding and appropria te action [X] Signs of stroke (FAST) and appropriate a ction [X] Signs of worsening leg swelling, pain, w armth, and erythema [X] Interruptions of anticoagulation and dre ropriate process [X] How to contact clinic Patient/caregiver is able to verbalize comprehen inderjit of information and is encouraged to call or return with questions o r concerns Other issues: +Test strips, lancets +Needs meter Indication for anticoagulation: atrial fibrillat ion Anticoagulation initiated: 2018 (per ) Duration of anticoagulation: indefinite Current DOAC Regimen: apixaban 5mg Q12hrs Weight-Based Consent: n/a Preferred Contact: - vm ok - ok to speak to sister (Delmy) Labs @ [facility] Lab Results: (CrCl calculation: Cockcroft-Gault and actual body weight) Date Hct Hgb Plt Creat Weight Calc CrCl AST ALT 03/24/20 52.9 15.8 320 1.66 83kg 49ml/min 16 14 Assessment: [place] is anticoagulated with apixa ban w/o complication CBC and LFTs WNL. SCr elevated. Dose is appropriate based on indicat ion and age/wt/scr Plan: Continue current therapy DOAC Regimen: apixaban 5mg Q12hrs Future follow-up: CBC/SCr the week of 07/11/20 @ [facility] [X] TC to patient/spouse/caregiver who was able to verbalize understanding of above instructions. [ ] Voice mail left for patient with instruction s [X] Written instructions mailed to patient [X] Rx ordered [ ] Rx/Lab orders faxed to: EVANGELINA PharmD Pharmacotherapy Rem V11: PHARMACIST INTERVENTIONS: ANTICOAGULATION THERAPY DIRECT ORAL ANTICOAGULANT (DOAC) MANAG EMENT Medication monitor ing, no dosage change required, continue to monitor and assess Nonpharmacologic intervention made /karlos/ RUBIA BARRY Clinical Pharmacist Signed: 03/28/2020 13:27 03/28/2020 ADDENDUM STATUS: COMPLETED Please mail apixaban education sheet to - thanks! /maria eugenia BARRY Clinical Pharmacist Signed: 03/28/2020 13:27 Receipt Acknowledged By: 03/28/2020 14:35 /karlos/ TATIANA BAEZA 03/28/2020 ADDENDUM STATUS: COMPLETED [place] needs labs in [facility] on/around 07/11/2020 - p kailaase assist with scheduling BOTH lab and anticoag phone RTCs. Thanks! /maria eugenia BARRY Clinical Pharmacist Signed: 03/28/2020 13:28 Receipt Acknowledged By: 03/29/2020 14:55 /karlos/ CARLOS MORAN MSA 03/28/2020 ADDENDUM STATUS: COMPLETED FYI to PCP - needs n ew glucose meter, test strips, and lancets. Thanks! /maria eugenia BARRY Clinical Pharmacist Signed: 03/28/2020 15:06 Receipt Acknowledged By: 03/28/2020 15:18 /karlos/ JULIOCESAR TATE D.O. 03/28/2020 ADDENDUM STATUS: COMPLETED Nursing, pls contact pt to confirm quantities of DM supplies needed. TY /karlos/ JULIOCESAR Garcia VO D.O. Signed: 03/28/2020 15:17 Receipt Acknowledged By: 03/29/2020 15:41 /es/ FUNMI SELF RN 03/29/2020 10:30 /es/ ANNA CARREON Registered Nurse 03/29/2020 ADDENDUM STATUS: COMPLETED Mailed to pt. new Accu-Check Guide monitor/strip s. Will need strips/lancets ordered for Guide model. /karlos/ ANNA CARREON Registered Nurse Signed: 03/29/2020 10:32 Receipt Acknowledged By: 03/29/2020 14:20 /karlos/ JULIOCESAR TATE D.O.
--- OUTSIDE RECORDS SUMMARY | 2020-09-15 12:39 | XMS_ITS | Encounter Summary ---
:1950 Author Organization Department [facility] Address [address] [place] [address] Support Name Relationship Address Phone KNIGHTS Unavailable [address] [place] [address] KNIGHTS Unavailable [address] [place] [address] Selected Encounter This section includes the information on record at [place] for the Encounter. Date/Time Encounter Type Encounter Description Reason Provider Source Aug 09, 2020 08:21 Outpatient Encounter PRIMARY CARE/MEDICINE AM E Encounter Template Text not used by [place] Plan of Treatment: Future Appointments (+ 6 months) and Future Tests (+/- 45 days) The Plan of Treatment section includes future care activities for the patient from all [place] treatment facilities. This section includes future appointments and future orders which are active, pending or scheduled.Future Appointments This section includes appointments that were scheduled to occur 6 months from the date of the Encounter, up to a maximum of 20 appointments. The [facility] [place] [facility] Appointment Date/Time Appointment Type Appointment Facili ty Name Jan 04, 2021 10:00 AM AMBULATORY - NONE [facility] Jan 05, 2021 03:00 PM AMBULATORY - MEDICINE [facility] Lab Results: +/- 30 days of the encounter This section includes the Chemistry and Hematology Lab Results on record with [place] for the patient. Radiology Reports and Pathology Reports are provided separately, in subsequent sections.Lab Results This section contains the Chemistry/Hematology Results that were resulted 30 days before or 30 days after the date of the Encounter. Date/Time Source Result Type Result - Unit Interpretation Reference Range Comment Jul 11, 2020 11:13 AM [facility] CBC NO DIFF Spe cimen Type: BLOOD No comment enter ed. Ordering Provide r: RUBIA BARRY Report Released Date/Time: Mar 28, 2020 01:29 PM Reporting Lab: LEO CINTRON T [facility] [address] [facility] [address] Performing Lab: [facility] [address] [facility] [address] WBC 11.1 10*3/uL H 4.5-11.0 RBC 5.85 10*6/uL H 4.23-5.66 HGB 16.4 g/dl 12.8-17 HEMATOCRIT 53.5 % H 39.2-50.4 MCV 91.5 fl 82-99 MCH 28.0 pg 26.2-32.6 MCHC 30.7 g/dl L 30.8-35.1 PLT 302 10*3/uL 140-360 MPV 9.0 fl L 9.2-12.4 RDW 12.9 % 12.0-16.0 Jul 11, 2020 11:13 LEO CINTRON T CREATININE WITH eGFR Specimen Type: PLASMA AM [facility] PANEL Comment: Tests performed on [employer] (405) Ordering Provide r: RUBIA BARRY Report Released Date/Time: Mar 28, 2020 01:29 PM Reporting Lab: LEO CINTRON T [facility] [address] [facility] [address] Performing Lab: LEO CINTRON T [facility] [address] [facility] [address] CREATININE 1.76 mg/dl H 0.5-1.5 eGFR 38 mL/min L >60 Social History: Smoking Status (Most current) and Tobacco Use (All prior to encounter date) This section includes the most current, and the historical, smoking and tobacco-related health factors from the [place] facility where the Encounter took place.Current Smoking Status This section includes the most current smoking, or tobacco-related health factor, from the [place] facility where the Encounter took place. Date/Time Current Smoking Status Comment Facility Jan 20, 2020 10:34 AM VA-TOBACCO NEVER USED [facility] Praveen [facility]INTRON [facility] Encounter Notes: All associated encounter notes This section contains the clinical notes associated to the Encounter. Date/Time Encounter Note(s) Provider Source Aug 09, 2020 08:21 AM NONVA NOTE: BEE YOUSSEF [facility] LOCAL TITLE: NonVA Note STANDARD TITLE: NONVA NOTE DATE OF NOTE: AUG 09, 2020@08:21 ENTRY DATE: AUG 09, 2020@08:21:56 AUTHOR: BEE YOUSSEF EXP COSIGNER: URGENCY: STATUS: COMPLETED Date of Service: 08/05/2020 Place: [facility] Treating Provider: Urvashi Conti MD Event/Procedure: Sepsis, with typical GI organisms although no GI symptoms. He sounded to be back to himself on the phone, had been quite confused when sent from our office to [facility] on 07/22. Hospitilization for 3 days and is continuing to finish antibiotics. He is drinking 3 bottles of water a day- encouraged him to increase to 4 bottles. Altered mental status, back to baseline- this was secondary to the sepsis Diabetes mellitus. BS's when checked by HH are s ounding reasonable. He continues on the metformin and confirms that he is taking it bid. continues to have a poor diet which is his choice. Atrial fibrillation,paroxysmal,clinically soundi ng stable and was stable during recent hospitilization. He remains on ami odarone 200mg daily, eliquis 5mg bid, and ASA 81mg daily. Blister , had devel oped some blisters on LEs( no significant edema) with recent hospitilization. Per HH these are improving. Document sent to [facility] to be scanned. To view this document open the CPRS tools menu and then open the image display viewer. /karlos/ BEE YOUSSEF nursing information systems coordinator Signed: 08/09/2020 08:31
--- OUTSIDE RECORDS SUMMARY | 2020-09-15 12:39 | XMS_ITS | Encounter Summary ---
:1950 Author Organization [facility] Address [address] [place] [address] Support Name Relationship Address Phone KNIGHTS Unavailable [address] [place] [address] KNIGHTS Unavailable [address] [place] [address] Selected Encounter This section includes the information on record at [place] for the Encounter. Date/Time Encounter Type Encounter Description Reason Provider Source Mar 17, 2020 12:28 Outpatient Encounter TELEPHONE TRIAGE PM IHE Encounter Template Text not used by [place] Plan of Treatment: Future Appointments (+ 6 months) and Future Tests (+/- 45 days) The Plan of Treatment section includes future care activities for the patient from all [place] treatment facilities. This section includes future appointments and future orders which are active, pending or scheduled.Future Appointments This section includes appointments that were scheduled to occur 6 months from the date of the Encounter, up to a maximum of 20 appointments. The data comes [facility] [place] [facility] Appointment Date/Time Appointment Type Appointment Facili ty Name Mar 24, 2020 10:30 AM AMBULATORY - NONE [facility] Mar 28, 2020 01:00 PM AMBULATORY - MEDICINE [facility] Jul 11, 2020 11:00 AM AMBULATORY - NONE [facility] Jul 12, 2020 05:15 PM AMBULATORY - MEDICINE [facility] Lab Results: +/- 30 days of the encounter This section includes the Chemistry and Hematology Lab Results on record with [place] for the patient. Radiology Reports and Pathology Reports are provided separately, in subsequent sections.Lab Results This section contains the Chemistry/Hematology Results that were resulted 30 days before or 30 days after the date of the Encounter. Date/Time Source Result Type Result - Unit Interpretation Reference Range Comment Mar 24, 2020 10:22 AM [facility] CBC NO DIFF Spe cimen Type: BLOOD No comment enter ed. Ordering Provide r: KATERYNA IRVING Report Released Date/Time: Mar 18, 2020 11:49 AM Reporting Lab: [facility] [address] [facility] [address] Performing Lab: [facility] [address] [facility] [address] WBC 10.3 10*3/uL 4.5-11.0 RBC 5.59 10*6/uL 4.23-5.66 HGB 15.8 g/dl 12.8-17 HEMATOCRIT 52.9 % H 39.2-50.4 MCV 94.6 fl 82-99 MCH 28.3 pg 26.2-32.6 MCHC 29.9 g/dl L 30.8-35.1 PLT 320 10*3/uL 140-360 MPV 8.9 fl L 9.2-12.4 RDW 13.7 % 12.0-16.0 Mar 24, 2020 10:22 AM [facility] LIVER PROFILE Spe cimen Type: PLASMA No comment enter ed. Ordering Provide r: KATERYNA IRVING Report Released Date/Time: Mar 18, 2020 11:49 AM Reporting Lab: [facility] [address] [facility] [address] Performing Lab: [facility] [address] [facility] [address] PROTEIN, TOTAL 6.9 g/dL 6.0-8.5 ALBUMIN 3.8 g/dL 3.2-5.0 BILIRUBIN, TOTAL 0.8 mg/dL 0.2-1.2 ALKALINE PHOSPHATASE 100 U/L 40-150 ALT(SGPT) 14 U/L 7-52 AST(SGOT) 16 U/L 5-34 FIB-4 SCORE 0.94 INDEX <2.67 Mar 24, 2020 [facility] P4 GLU,BUN,CREAT,LYTES,CA Specim en Type: PLASMA 10:22 AM [facility] No comment enter ed. Ordering Provide r: KATERYNA IRVING Report Released Date/Time: Mar 18, 2020 11:49 AM Reporting Lab: [facility] [address] [facility] [address] Performing Lab: [facility] [address] [facility] [place] [address] UREA NITROGEN 18 mg/dL 7-25 SODIUM 142 mmol/L 135-145 POTASSIUM 4.6 mmol/L 3.5-5.0 CHLORIDE 104 mmol/L 100-110 CARBON DIOXIDE 24 mmol/L 20-30 ANION GAP 14 mmol/L 4-16 GLUCOSE 203 mg/dL H 65-100 CREATININE 1.66 mg/dl H 0.5-1.5 CALCIUM 9.2 mg/dL 8.5-10.5 eGFR 41 mL/min L >60 Social History: Smoking Status (Most current) and Tobacco Use (All prior to encounter date) This section includes the most current, and the historical, smoking and tobacco-related health factors from the [place] facility where the Encounter took place.Current Smoking Status This section includes the most current smoking, or tobacco-related health factor, from the [place] facility where the Encounter took place. Date/Time Current Smoking Status Comment Facility Jan 20, 2020 10:34 AM VA-TOBACCO NEVER USED [facility] Praveen CINTRON [facility] Encounter Notes: All associated encounter notes This section contains the clinical notes associated to the Encounter. Date/Time Encounter Note(s) Provider Source Mar 17, 2020 12:28 PM TELEPHONE ENCOUNTER NOTE: ANNA SPRINGER [facility] LOCAL TITLE: VISN 1 [facility] MED RENEWAL [facility] STANDARD TITLE: TELEPHONE ENCOUNTER NOTE DATE OF NOTE: MAR 17, 2020@12:28:48 ENTRY DATE: MAR 17, 2020@12:43:23 AUTHOR: ANNA SPRINGER EXP COSIGNER: URGENCY: STATUS: COMPLETED VISN 1 CCC MED RENEWAL Has ADDENDA Type of call: MEDICATION -ACTION REQUIRED. Caller Response: SENT TO PACT The patient, ANJANA LANCASTER ([id number]) Ph one: called the call center. Comments: The 's home health care nurse called (adonis sparks the [place] in the background) regarding the [place]'s medication r egimen. The [place] had previously obtained his prescriptions through a non-VA pharmacy, and he would now like to have them filled through the [facility]. Please order and mail the following: AMIODARONE TAB 200MG APIXABAN TAB,ORAL 5MG ASPIRIN TAB,CHEWABLE 81MG CHOLECALCIFEROL TAB 25MCG CYANOCOBALAMIN TAB 1000MCG METFORMIN TAB,ORAL 850MG OMEPRAZOLE CAP,EC 20MG PRAVASTATIN TAB 20MG At this point in time, the is completely out of these medications. Please expedite delivery. If there is any way that the 's m edications could be blister-packed for him, that would be helpful. He currently has a home health nurse to assist him with his medications, but her services are only temporary. Evaluation/Management Code: HC PRO PHONE CALL 11 -20 MIN ([phone]). Starting at: 03/17/2020 @ 12:28:48 PM Ending at: 03/17/2020 @ 12:42:19 PM Length: 13 minutes. Author: ANNA SPRINGER Caller Area: [facility] Chief Complaint: Not applicable to call. Class Code: Other specified counseling. Contact Patient's Email Address: /karlos/ ANNA SPRINGER Orthopedics Nurse Signed: 03/17/2020 12:43 Receipt Acknowledged By: 03/17/2020 13:36 /karlos/ JULIOCESAR CortesOAnastasiya 03/18/2020 08:31 /karlos/ AVEL SYKES Registered Nurse 03/17/2020 15:45 /karlos/ ANNA CARREON Registered Nurse 03/17/2020 ADDENDUM STATUS: COMPLETED Received [facility] back from [facility] follows with Dr Urvashi Noriega. Dulce states was seen on Saturday- will send note and med list from visit. [place] due for f/u with Dr David coker on 04/22/20. Advised has meds available [facility]u [facility] and ordered thru [place] pharmacy- advised to contact clinic with any new/change meds including clinical documentation- provided with clinic contact info. Also advised will need to establish care with antico clinic in order to receive apixaban ongoing- requested recent labs be faxed to clinic as well for review /karlos/ AVEL SYKES Registered Nurse Signed: 03/18/2020 08:29 03/17/2020 ADDENDUM STATUS: COMPLETED Nursing, pls assist with the followin) covering provider ordered meds 2) fax short scripts with voucher to local [place]-co ntracted pharm 3) obtain outside record and perform med reconci lliation 4) let pt know Anticoag clinic referral made, ne eds to establish care for management of apixaban - for now, will p rovide 30-day supple Apixaban until pt is establish with Anticoag clinic. /karlos/ JULIOCESAR TATE DAnastasiyaOAnastasiya Signed: 03/17/2020 13:40 Receipt Acknowledged By: 03/18/2020 08:23 /karlos/ AVEL SYKES Registered Nurse 03/18/2020 09:23 /karlos/ ANNA CARREON Registered Nurse
--- OUTSIDE RECORDS SUMMARY | 2020-09-15 12:40 | XMS_ITS | Encounter Summary ---
:1950 Author Organization [facility] Address [address] [place] [address] Support Name Relationship Address Phone KNIGHTS Unavailable [address] [place] [address] KNIGHTS Unavailable [address] [place] [address] Selected Encounter This section includes the information on record at [place] for the Encounter. Date/Time Encounter Type Encounter Description Reason Provider Source Jan 19, 2020 01:09 Outpatient Encounter TELEPHONE CASE PM MANAGEMENT IHE Encounter Template Text not used by [place] Plan of Treatment: Future Appointments (+ 6 [...] 20 appointments. The [facility] [place] [facility] Appointment Date/Time Appointment Type Appointment Facili ty Name Jan 21, 2020 09:00 AM AMBULATORY - NONE [facility] Mar 24, 2020 10:30 AM AMBULATORY - NONE [facility] Mar 28, 2020 01:00 PM AMBULATORY - MEDICINE [facility] Jul 11, 2020 11:00 AM AMBULATORY - NONE [facility] Jul 12, 2020 05:15 PM AMBULATORY - MEDICINE [facility] Encounter Notes: All associated encounter notes This section contains the clinical notes associated to the Encounter. Date/Time Encounter Note(s) Provider Source Jan 19, 2020 01:09 PM SURVEYOR OIL WELL DIRECTIONAL NOTE: AVEL SYKES [facility] LOCAL TITLE: Case Management/[facility] STANDARD TITLE: SURVEYOR OIL WELL DIRECTIONAL NOTE DATE OF NOTE: JAN 19, 2020@13:09 ENTRY DATE: JAN 19, 2020@13:09:29 AUTHOR: AVEL SYKES EXP COSIGNER: URGENCY: STATUS: COMPLETED Case Management/[facility] Has ADDENDA Received call from [facility]-- Stacey - [facility] currently [facility]pt at [facility]- was having frequent falls at home- admitted as he was on the floor o/n- today slight fever. Per - not doing we ll at home. He reports not taking meds (prescribed by Alicia Noriega) which include Apixa ban, metformin as he cannot afford to buy them. reports was in-co untry VN- served in the [employer] States would like to establish care at [facility]. She has completed [id number] with . He will tentatively discharge home tomorrow Call to - unable to contact via cell as h e has restriction on phone. Spoke with Stacey- she will pro vide contact info for CM and request call me directly Received call back from saira nice- he agrees with dre't at [facility] via VVC- will need to connect with Ольга in AM to coordinate a V VC dre't Spoke with CM- Ольга Sandoval - she is contact for setting up a VVC while he is inpt. Email: [email or web address]. Nm ll sende records with problem/med list for pcp review. The say reyes will be given a 30day voucher for eliquis - will need [facility] to [facility] as he does not have coverage for outpt meds. /karlos/ AVEL SYKES Registered Nurse Signed: 01/20/2020 09:10 Receipt Acknowledged By: 01/20/2020 10:35 /maria eugenia MCGINNIS TCT/Health Tech 01/21/2020 ADDENDUM STATUS: COMPLETED Pls followup on records. TY. /karlos/ JULIOCESAR TATE D.O. Signed: 01/21/2020 08:00 Receipt Acknowledged By: 01/21/2020 08:18 /maria eugenia MCGINNIS TCT/Health Tech 01/21/2020 08:26 /maria eugenia SYKES Registered Nurse 01/21/2020 ADDENDUM STATUS: COMPLETED Records received and forwarded to pcp for review - CM will plan to join VVC meeting this AM Called Dr Michael Gonsalves office- spoke with Joelle- triage- exten: [phone] exten: 2018. [facility] follows regularly wi th Dr Noriega- last visit 11/13/19- notes he was not katty ing insulin since Jul- thought he would feel better without it- was on metformi n HgbA1c- 9.2 at that visit. He is scheduled for f/u at [facility] 02/11/20. Joined pcp-VVC meeting with - info obtain ed following his pcp dre't- [place] states he lives alone in his own home. Was able to enter/exit and move around home prior to fall. S tates he was driving. Does states he was having some trouble using his right hand to wipe himself- un clear if this has been since admit to hospital. States he had been able to sh ower, cook meals, and light cleaning prior to fall. [employer] [facility] is SNF admit to get stronger when he is dischaged from facility. [facility] he plans to contiue to follow with Dr Noriega as primary care once he is discharged. Brief discussion of CC-pcp. States he lost his insurance coverage for meds and stopped taking them- discu ssed obtaining med, equip [facility] needed [facility]. CM Keyanna agrees to provide with conta ct info for clinic and CM. Agrees to alert CM of dispo when discharged. /karlos/ AVEL SYKES Registered Nurse Signed: 01/21/2020 09:41 04/06/2020 ADDENDUM STATUS: COMPLETED Call from Shaylee Child-ANTHONY sotomayor is unable to manage meds independently- previously received meds in blister pack s- took as prescribed when set up. Per shaylee- not teaching/ not willing to charles rn meds/management. Call back to Denise sanchez/panda indicating blister pa cks not available- currently on medicare episode- please call for f urther discussion regarding ongoing med management /es/ AVEL SYKES Registered Nurse Signed: 04/06/2020 10:32 04/07/2020 ADDENDUM STATUS: COMPLETED received call back from Fouzia Child- states vieyra he discussed med management options with - states he does not want SN to pour meds weekly/ does not want to go to clinic- has opted to have his sist er assist with pillbox set-up weekly- she has agreed. Jackson lynch will instruct sister on med management- will send out additional pillbox /es/ AVEL SYKES Registered Nurse Signed: 04/07/2020 08:28
--- OUTSIDE RECORDS SUMMARY | 2020-09-15 12:41 | XMS_ITS | Encounter Summary ---
:1950 [address] Department [facility] Address [address] [place] [id number] Support Name Relationship Address Phone KNIGHTS Unavailable [address] [place] [address] KNIGHTS Unavailable [address] [place] [address] Selected Encounter This section includes the information on record at [place] for the Encounter. Date/Time Encounter Type Encounter Description Reason Provider Source Aug 19, 2020 11:10 Outpatient Encounter COMMUNITY CARE PM CONSULT IHE Encounter Template Text not used by [place] Plan of Treatment: Future Appointments (+ 6 months) and Future Tests (+/- 45 days) The Plan of Treatment section includes future care activities for the patient from all [place] treatment facilities. This section includes future appointments and future orders which are active, pending or scheduled.Future Appointments This section includes appointments that were scheduled to occur 6 months from the date of the Encounter, up to a maximum of 20 appointments. The [facility] Appointment Date/Time Appointment Type Appointment Facili ty Name Jan 04, 2021 10:00 AM AMBULATORY - NONE [facility] Jan 05, 2021 03:00 PM AMBULATORY - MEDICINE [facility] Social History: Smoking Status (Most [...] 20, 2020 10:34 AM VA-TOBACCO NEVER USED [facility] Encounter Notes: All associated encounter notes This section contains the clinical notes associated to the Encounter. Date/Time Encounter Note(s) Provider Source Aug 19, 2020 11:10 PM NONVA NOTE: ANTHONY CHANDLERE [place] [facility] LOCAL TITLE: COMMUNITY CARE COORDINATION PLAN STANDARD TITLE: NONVA NOTE DATE OF NOTE: AUG 19, 2020@23:10 ENTRY DATE: SEP 05, 2020@15:36:02 AUTHOR: ANTHONY CHANDLER COSIGNER: URGENCY: STATUS: COMPLETED self-presented to [facility] Emergency Notification Intake Date Presenting to the Facility: Aug Counts Include [address] At The [facility] Hospital Name: Hospital: [facility] Address: [address] City: [place]: [place] Zip Code: [address] Chief complaint: Cholecystitis; parkinson, parox ysmal atril fibrillation Primary Diagnosis: [id number] Patient Admitted? 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 Notification was completed on: 08/22/20 Patient Discharged: 08/30/20 Notification ID # [id number] EOC approved under 1703 by the National ER Notif ication Team [employer] Referral # [id number] /karlos/ ANTHONY CHANDLER Signed: 09/05/2020 15:41 Receipt Acknowledged By: 09/05/2020 15:43 /es/ DUGLAS GARCIA RN
--- OUTSIDE RECORDS SUMMARY | 2020-09-15 12:41 | XMS_ITS | Encounter Summary ---
:[address] [facility] Address [address] [place] [id number] Support Name Relationship Address Phone KNIGHTS Unavailable [address] [place] [address] KNIGHTS Unavailable [address] [place] [address] Selected Encounter This section includes the information on record at [place] for the Encounter. Date/Time Encounter Type Encounter Description Reason Provider Source Sep 12, 2020 11:53 Outpatient Encounter TELEPHONE CASE AM MANAGEMENT [facility] Encounter Template Text not used by [place] Plan of Treatment: Future Appointments (+ 6 months) and Future Tests (+/- 45 days) The Plan of Treatment section includes future care activities for the patient from all [place] treatment facilities. This section includes future appointments and future orders which are active, pending or scheduled.Future Appointments This section includes appointments that were scheduled to occur 6 months from the date of the Encounter, up to a maximum of 20 appointments. The data comes from all [facility]. Appointment Date/Time Appointment Type Appointment Facili ty Name Jan 04, 2021 10:00 AM AMBULATORY - NONE [facility] Jan 05, 2021 03:00 PM AMBULATORY - MEDICINE [facility] Social History: Smoking Status (Most current) [...] 20, 2020 10:34 AM VA-TOBACCO NEVER USED [facility] Encounter Notes: All associated encounter notes This section contains the clinical notes associated to the Encounter. Date/Time Encounter Note(s) Provider Source Sep 12, 2020 11:53 AM INTERNAL AFFAIRS INVESTIGATOR NOTE: AVEL SYKES [facility] LOCAL TITLE: Case Management/[facility] STANDARD TITLE: INTERNAL AFFAIRS INVESTIGATOR NOTE DATE OF NOTE: SEP 12, 2020@11:53 ENTRY DATE: SEP 12, 2020@11:53:39 AUTHOR: AVEL SYKES EXP COSIGNER: URGENCY: STATUS: COMPLETED Received call from veterans sister Maira Johnson. is currently at [facility] stay. Sister azalia bentleyan did not have surgery [place] [facility]- felt he was too high risk- had drain inserted in to gallbladder plus antibiotics. drain remains in place. Prior to treatment he was give n option of hospice. Sister states figueroa with p revious SNF admits- did not qualify for medicaid due to income. [facility] have suggested hiring private individuals to assist him at home. is inquiring regarding home support upon dischargge vs financial support to remain LTC. Advised sister of criteria for [facility]. Discussed se rvices when he is discharged- anticipate under medicare. N o hmker support available thru local agency. lives nearby, but is not available for daily vis its and/or to complete tasks such as drain emptying No discharge plan at this time. has [facility] contact info for updates/changes/concerns /es/ AVEL SYKES Registered Nurse Signed: 09/12/2020 12:31
== END 2020-09-15 12:36 | disposition home or self-care (01) ==
LOC: LBN 12:35
PROVIDERS: PCP Family Medicine; Visit Provider Nurse Practitioner Adult Health
DX: K83.8 Other specified diseases of biliary tract (principal)
CPT/HCPCS: 87077; 87070; 87186; 87205

== ENCOUNTER 2020-09-17 21:37 | Outpatient (REF) | payer MEDICARE, SELFPAY ==
[2020-09-17 18:56] LABS: Abs Immature Grans 0.05 10^3/uL (0.0-0.06); Basophils % 0.4; Nucleated RBC 0 %; RDW 13.3 % (11.8-14.1)
[2020-09-17 18:57] LABS: Absolute Basophil Count 0.05 10^3/uL (0.0-0.2); Absolute Lymphocyte Count 0.76 10^3/uL (1.2-3.4); Absolute Neutrophil Count 9.54 10^3/uL (1.2-6.7); Eosinophils % 3.5; HCT 27.3 % (40.0-50.0); HGB 8.2 g/dL (13.5-17.5); Immature Grans % 0.4; Lymphocytes % 6.6; MCV 89.8 fL (80-95); MPV 10.5 fL (8.0-11.0); Monocytes % 6.3; Neutrophils % 82.8; RBC 3.04 10^6/uL (4.36-5.78); RDW-SD 43.3 fL; WBC 11.52 10^3/uL (4.4-10.8)
[2020-09-17 19:06] LABS: ALT 9 U/L (16-63); AST 20 U/L (15-37); Albumin 2.9 g/dL (3.4-5.0); Alkaline Phosphatase 113 U/L (46-116); Anion Gap 8.8 mmol/L (3-11); BUN 18 mg/dL (7-18); Bilirubin, Total 0.3 mg/dL (0.2-1.0); CO2 27.2 mmol/L (21.0-32.0); CREATININE 1.5 mg/dL (0.70-1.30); Calcium 8.4 mg/dL (8.5-10.1); Chloride 105 mmol/L (98-107); Estimated GFR 46.27 (mL/min/1.73m2); Glucose 186 mg/dL (74-106); Potassium 4.8 mmol/L (3.5-5.1); Sodium 141 mmol/L (136-145); Total Protein 5.9 g/dL (6.4-8.2)
[2020-09-17 19:24] LABS: Absolute Monocyte Count 0.73 10^3/uL (0.1-0.8)
[2020-09-17 22:04] LABS: Diff Comment PLT Morph Reviewed; Platelet Count 278 10^3/uL (130-400); RBC Morphology Normal
== END 2020-09-17 21:38 | disposition home or self-care (01) ==
LOC: LBN 21:37
PROVIDERS: PCP Family Medicine; Visit Provider Family Medicine
DX: E11.9 Type 2 diabetes mellitus without complications (principal); N18.9 Chronic kidney disease, unspecified; R78.81 Bacteremia; K81.0 Acute cholecystitis
CPT/HCPCS: 80053; 85025

== ENCOUNTER 2020-09-18 06:48 | Inpatient (IN) | payer MEDICARE, SELFPAY ==
[2020-09-18] VITALS (57 sets, daily range): BP systolic 93–137; BP diastolic 49–73; PULSE 94–127; RESP 17–34; TEMP 37.1–39.3; O2SAT 93–97
--- NOTE | 2020-09-18 06:44 | ED.GENADUL_ITS ---
Discharge Plan Disposition Patient Disposition: STILL A PATIENT Condition: Stable Discharge Details Clinical Impression: Fever Admit Date/Time: 09/18/20 10:44 Admit Provider: Juan Saini Attending Provider: Juan Saini Primary Care Provider: Urvashi Conti V ED Provider: Valentine Nelson Discharge Data Discharge Date/Time-TO BE ENTERED AT DEPARTURE: 09/18/20 12:10 Medical Decision Making <Rakesh Bonilla MD - Last Filed: 09/18/20 07:25> 70 year old male with PMHx of paroxysmal afib, pulmonary htn, NIDDM2, CKD with baseline Cr of 1.5, who had emphysematous cholecystitis in Aug. with VRE bactere brittaeny treated with linezolid and had IR coby tube placed at [facility] [place] comes in with ems from [facility] with fever to 103. He states he feels mildly weak but otherwise has no complaints, did not realized he had a fever when they checked him overnight and denies chest pain, abdominal pain and denies dyspnea though is noted to be mildly tachypneic. He has an intact drain coming from the right side of his abdomen with bloody drainage and no tenderness around site or surrounding erythema. Has no abdominal tenderness, does have diminished breath sounds at the bases. Is noted to be febrile here to 39. Given this temp and recent vre will obtain labs including lactate, culture and cbc/chemistries and start linezolid as well as zosyn to cover for possible hcap and obtain cta of the chest to evaluate for pe vs pneumonia and also ct abd/pelvis to evaluate for drain complications vs abscess. Patient confirms with me he is dnr/dni Pt signed out to oncoming provider pending labs, imaging results and dispo Differential Diagnosis Differential Diagnosis: cholecystitis, pneumonia, abscess Medical Records Medical records reviewed: Yes I reviewed the patient's medical records. ECG Data Attestation: I personally reviewed and interpreted this ECG (s) as follows: Prior ECG tracings: available for review Interpretation: sinus tachycardia, rate of 120, pr 152, qtc 420 <SO Gan - Last Filed: 09/22/20 21:13> Care transition myself and Dr. Bonilla with the labs and imaging pending. Please see his initial note regarding history, presentation and exam. In brief, Mr. Villalobos is a 70-year-old male with significant past medical history including edematous cholecystitis with drain still in place. Is brought in today with fairly asymptomatic fever. Patient is endorsing some fairly increased weakness but otherwise, no abdominal pain, shortness of breath or chest pain. There has not been a notable change to the drainage coming from his abdomen. Patient has a history of, linezolid and Zosyn were started and CT of chest abdomen pelvis is being obtained. Labs reviewed. Patient has a white count of 18.6, this is elevated from 11.5 yesterday. INR within normal limits. Creatinine 1.5, this is baseline for this patient. Conjugated bili is 0.3 with a bili of 0.8. AST and ALT are both sli ghtly low at 27 respectively. Urinalysis showed moderate blood, small leukocyte esterase, few epithelial cells and rare bacteria. Culture and sensitivity has been sent. CT scan reviewed by radiologist: FINDINGS: Pulmonary arteries: Evaluation of the pulmonary arteries is suboptimal due to motion artifact but no filling defects or other evidence of pulmonary embolus is seen. Aorta: Unremarkable. No aortic aneurysm. No aortic dissection. Lungs: There is chronic pulmonary fibrosis with subsegmental atelectasis in the lung bases. Pleural spaces: Unremarkable. No pneumothorax. No pleural effusion. Heart: Unremarkable. No cardiomegaly. No pericardial effusion. Mediastinal space: Small sliding hiatal hernia. Lymph nodes: Unremarkable. No enlarged lymph nodes Bones/joints: Degenerative changes are present in the spine with joint space narrowing sclerosis and osteophytes. Soft tissues: Unremarkable. IMPRESSION: 1. Suboptimal study of the pulmonary arteries due to motion but there are no obvious emboli. 2. Unremarkable aorta. 3. Small sliding hiatal hernia. 4. No acute abnormalities are seen in the chest. . FINDINGS: Tubes, catheters and devices: A percutaneous pigtail cholecystostomy tube is present in the gallbladder. Gallbladder is collapsed around the pigtail catheter. There is a small amount of air in the gallbladder. Small gallstones are present in the gallbladder. There is a small amount of pericholecystic fluid and fatty infiltration. The bile ducts are not dilated. Aorta: No aortic aneurysm. No aortic dissection. Celiac trunk and mesenteric arteries: No occlusion or significant stenosis. Renal arteries: No occlusion or significant stenosis. Liver: There is a small benign calcified granuloma in the liver. Otherwise liver is unremarkable. Gallbladder and bile ducts: See Tubes, catheters and devices finding. Pancreas: Normal. No ductal dilation. Spleen: Normal. No splenomegaly. Adrenals: Normal. No mass. Kidneys and ureters: Normal. No hydronephrosis. Stomach and bowel: There is sigmoid diverticulosis but no evidence of acute diverticulitis. Lymph nodes: Unremarkable. No enlarged lymph nodes. Intraperitoneal space: Unremarkable. No free air. No significant fluid collection. Bones/joints: Unremarkable. No acute fracture. No dislocation. Soft tissues: There is a small fat containing umbilical hernia. IMPRESSION: 1. The gallbladder is collapsed around a percutaneous pigtail cholecystostomy catheter. 2. Cholelithiasis. There is a small amount of pericholecystic fluid and infiltration. 3. Normal bile ducts. 4. Sigmoid diverticulosis. Plan to consult with [facility] in the past. Reviewed these images. Images/this facility. I did review patient's recent note dated 09/07/2020. He was transferred down there for evaluation of bloody output from his cholecystostomy tube. Patient underwent a drain study on the 09/06/20 which revealed appropriate positioning. This time, patient's bowel movements and flatus and did have decreased drainage from the biliary drain was minimally sanguinous at that time. Consulted with Dr. Ellis with [facility] general surgery. We discussed presentation and he was able to view the imaging. He does not feel that the drain is the sour ce of the issue at this time, particularly as the patient has no abdominal pain. He agrees with continuing to monitor the patient for source of fever. Unclear source of fever at this time. However, given patient's history and comorbidities, inpatient admission would be appropriate. Consulted with hospitalist who agrees with this plan. HPI <Rakesh Bonilla MD - Last Filed: 09/18/20 07:25> General Mode of arrival: EMS . Date/Time Provider Initiated Documentation: 09/18/20 06:53 . Limitations to Documentation: no limitations . Information obtained by: patient . History of Present Illness 70 year old M presents to the emergency department with the chief complaint of fever, described as moderate, Patient started experiencing this day(s) (1) and it has been constant. No relieving factors improve symptom(s), No exacerbating factors reported . Related Data Home Medications Medication Instructions Recorded Confirmed metformin 850 mg PO BID 04/23/14 09/18/20 pravastatin 20 mg PO HS #30 tab 09/21/17 09/18/20 Sinai Protect 1 applic TOPICAL PRN PRN #1200 gm 01/22/20 09/18/20 Eucerin 1 applic TOPICAL DAILY PRN PRN 01/22/20 09/18/20 #454 gm alum-mag hydroxide-simeth [Mag-Al 30 ml PO Q2H PRN PRN #1 ml 01/22/20 09/18/20 Plus] aspirin 81 mg PO DAILY #1 tab 01/22/20 09/18/20 amiodarone 200 mg PO DAILY 07/22/20 09/18/20 carbidopa-levodopa [Sinemet] 1 tab PO TID 09/05/20 09/18/20 metoprolol succinate 100 mg PO DAILY AM 09/05/20 09/18/20 mirtazapine 15 mg PO HS 09/05/20 09/18/20 potassium chloride [Klor-Con M20] 20 meq PO DAILY AM 09/05/20 09/18/20 Fleet Enema 118 ml IN ONCE PRN 09/18/20 09/18/20 bisacodyl [Dulcolax (bisacodyl)] 10 mg IN DAILY PRN 09/18/20 09/18/20 dextrose [Glucose Gel] 15 g PO PRN PRN 09/18/20 09/18/20 glucagon 1 mg SUBCUT ONCE 09/18/20 09/18/20 magnesium hydroxide 30 ml PO DAILY PRN 09/18/20 09/18/20 omeprazole 20 mg PO DAILY 09/18/20 09/18/20 omeprazole magnesium [Prilosec OTC] 20 mg PO DAILY 09/18/20 09/18/20 ondansetron HCl [Zofran] 4 mg PO 5XW PRN 09/18/20 09/18/20 polyethylene glycol 3350 [Miralax] 17 g PO DAILY 09/18/20 09/18/20 sennosides-docusate sodium 2 tab-cap PO BID 09/18/20 09/18/20 cephalexin 500 mg PO TID #15 cap 09/20/20 cholecalciferol (vitamin D3) 1,000 units PO DAILY #0 tab 09/20/20 cyanocobalamin (vitamin B-12) 1,000 mcg PO DAILY #0 tab 09/20/20 [Vitamin B-12] docusate sodium [Colace] 100 mg PO TID PRN PRN #0 cap 09/20/20 linezolid 600 mg PO BID #0 tab 09/20/20 magnesium oxide 400 mg PO DAILY #0 tab 09/20/20 melatonin 10 mg PO HS PRN PRN #0 tab 09/20/20 sennosides [Senokot] 1 tab PO BID #0 tab 09/20/20 Previous Rx's Medication Instructions Recorded pravastatin 20 mg PO HS #30 tab 09/21/17 Sinai Protect 1 applic TOPICAL PRN PRN #1200 gm 01/22/20 Eucerin 1 applic TOPICAL DAILY PRN PRN 01/22/20 #454 gm alum-mag hydroxide-simeth [Mag-Al 30 ml PO Q2H PRN PRN #1 ml 01/22/20 Plus] aspirin 81 mg PO DAILY #1 tab 01/22/20 cephalexin 500 mg PO TID #15 cap 09/20/20 cholecalciferol (vitamin D3) 1,000 units PO DAILY #0 tab 09/20/20 cyanocobalamin (vitamin B-12) 1,000 mcg PO DAILY #0 tab 09/20/20 [Vitamin B-12] docusate sodium [Colace] 100 mg PO TID PRN PRN #0 cap 09/20/20 linezolid 600 mg PO BID #0 tab 09/20/20 magnesium oxide 400 mg PO DAILY #0 tab 09/20/20 melatonin 10 mg PO HS PRN PRN #0 tab 09/20/20 sennosides [Senokot] 1 tab PO BID #0 tab 09/20/20 Allergies Allergy/AdvReac Type Severity Reaction Status Date / Time No Known Allergies Allergy Unverified 09/05/20 13:16 General PUSHPA: 3 Review of Systems <Rakesh Bonilla MD - Last Filed: 09/18/20 07:25> All systems reviewed & are unremarkable except as noted in HPI and below Constitutional Constitutional: Denies chills Cardiovascular Cardiovascular: Denies chest pain and Denies dyspnea Respiratory Respiratory: Denies cough and Denies dyspnea Gastrointestinal Gastrointestinal: Denies vomiting PFSH <Rakesh Bonilla MD - Last Filed: 03/14/21 07:25> Medical History Depression Diabetes HTN (hypertension) Hypernatremia Palliative care patient Paroxysmal atrial fibrillation Rhabdomyolysis Severe pulmonary hypertension Skin lesion of chest wall Tinea pedis Vitamin B12 deficiency Surgical History H/O removal of cyst left leg Social History Smoking/Tobacco Use Status: Former Tobacco Use Smoking risk assessment performed?: Yes Alcohol Intake: former Drug use: Never Substance use type: does not use Do you feel safe at home: Yes Do you feel safe in your relationship?: Yes Exam <Rakesh Bonilla MD - Last Filed: 09/18/20 07:25> Const General: no acute distress Orientation: alert HENMT Head: normal to inspection Ears: external ears normal General nose exam: external nose normal Mouth: moist mucous membranes Eyes General: appearance normal, both eyes and all related structures Neck Neck: normal visual inspection Resp Effort & Inspection: normal respiratory effort and able to speak in complete sentences Cardio Jugular venous pressure: no JVD GI Palpation: soft Skin General skin exam: no rashes or lesions noted Neuro General: patient alert and patient oriented x3 Extrem General: normal to inspection Psych Mental Status: mental status grossly normal Sign Out <Rakesh Bonilla MD - Last Filed: 09/18/20 07:25> Sign Out Data: Sign Out Comment: Pt with hx of ckd, afib, who had emphysematous cholecystitis in August and had drain placed at [facility] [place] [facility] with fever. No pain and feels mildly weak otherwise no complaints. DNR/DNI. Pending labs and ct chest/abd/pelvis Last updated by Rakesh Bonilla MD at 09/18/20 07:12
--- NOTE | 2020-09-18 06:45 | RT.EKG_ITS ---
APPROVED REPORT Exam: Resting ECG Patient Location: E HR:119 bpm ECG Measurements Heart Rate 119 AXIS [place] 152 P 38 QRSd 87 QRS 42 QT 298 T 228 QTc 420 Conclusion Sinus tachycardia...rate> 99 Consider anteroseptal infarct...Q >30mS, dimin R, V1-V2
--- NOTE | 2020-09-18 07:00 | DI.CT_ITS ---
EXAM: CT CHEST PE ABD PELVIS W TECHNIQUE: CT angiography of the chest, abdomen and pelvis was performed with bolus infusion of 100 cc of Omnipaque 350. Axial CT angiography was performed with multi-slice acquisition and multi-planar and/or 3D reconstruc tions. COMPARISON: CT CT ABDOMEN PELVIS WO from 07/22/[address] CHEST/ABD/PEL WO from 08/19/[address] THORACIC LUMBAR SPINE REC from 08/19/[address] ABDOMEN PELVIS W from 09/05/2020 FINDINGS: Scanning of the thorax is limited by significant breathing artifact. The lungs are predominantly clear except for mild fibrotic and atelectatic changes, no pleural effusi on seen.. No evidence of pulmonary embolic disease although smaller pulmonary arterial vessels are n ot well visualized.. No thoracic aortic dissection or aneurysm. Major branches of the thoracic aorta appear normal. No pleural effusion. No mediastinal or hilar adenopathy. Tracheobronchial tree appea rs intact. Examination of the abdomen and pelvis is limited by motion artifact. There is a cholecystotomy tube in a decompressed gallbladder and note is made of cholelithiasis. No free fluid in the peritoneal ca vity. No significant biliary dilatation.. Pancreas is unremarkable. Poorly defined areas of low at tenuation in the spleen may represent splenic cysts, no change from September 05 examination.. Adrenals and kidneys are unremarkable, no urinary tract calcification or obstruction. No abdominal aortic aneurysm or dissection. Major branches of the abdominal aorta appear normal. No a bdominal or pelvic adenopathy. Appendix is not specifically visualized but there is no evidence of appendicitis or diverticulitis. No significant abdominal wall hernia. No focal bowel pathology. IMPRESSION: Motion limited study shows no evidence of acute vascular abnormality of the chest, abdomen or pelvis. Cholecystotomy tube is again noted in a decompressed gallbladder and cholelithiasis is noted. RADIATION DOSE DELIVERED: 1,366.27mGy.cm Total DLP 1,366.27mGy.cm Total DLP DATA REPOSITORY: All CT scans at this facility are submitted to the National Radiology Data Registry (NRDR) Dose Index Registry (DIR) with the [employer] ([employer]). RADIATION OPTIMIZATION: All CT scans at this facility use at least one of these dose optimization te chniques: automated exposure control; mA and/or kV adjustment per patient size (includes targeted exa ms where dose is matched to clinical indication); or iterative reconstruction.
[2020-09-18 07:23] LABS: Abs Immature Grans 0.09 10^3/uL (0.0-0.06); Absolute Basophil Count 0.06 10^3/uL (0.0-0.2); Absolute Lymphocyte Count 0.78 10^3/uL (1.2-3.4); Basophils % 0.3; Eosinophils % 0.4; HCT 27.2 % (40.0-50.0); HGB 8.4 g/dL (13.5-17.5); Immature Grans % 0.5; Lymphocytes % 4.2; MCHC 30.9 % (32.0-36.0); MCV 87.5 fL (80-95); MPV 8.8 fL (8.0-11.0); Monocytes % 5.6; Nucleated RBC 0 %; RBC 3.11 10^6/uL (4.36-5.78); RDW 13.5 % (11.8-14.1); RDW-SD 42.8 fL
[2020-09-18 07:33] LABS: Absolute Eosinophil Count 0.07 10^3/uL (0.0-0.7); Absolute Monocyte Count 1.04 10^3/uL (0.1-0.8); Absolute Neutrophil Count 16.55 10^3/uL (1.2-6.7)
[2020-09-18 07:35] LABS: ALT 7 U/L (16-63); AST 10 U/L (15-37); Albumin 2.9 g/dL (3.4-5.0); Alkaline Phosphatase 82 U/L (46-116); Anion Gap 8.5 mmol/L (3-11); BUN 12 mg/dL (7-18); Bilirubin, Direct 0.3 mg/dL (0.0-0.2); Bilirubin, Total 0.8 mg/dL (0.2-1.0); CO2 25.5 mmol/L (21.0-32.0); CREATININE 1.5 mg/dL (0.70-1.30); Calcium 8.5 mg/dL (8.5-10.1); Chloride 104 mmol/L (98-107); Estimated GFR 46.27 (mL/min/1.73m2); Glucose 184 mg/dL (74-106); Magnesium 1.6 mg/dL (1.8-2.4); Potassium 4.4 mmol/L (3.5-5.1); Sodium 138 mmol/L (136-145); Total Protein 6.4 g/dL (6.4-8.2)
[2020-09-18 07:38] LABS: INR 1.1 (0.9-1.1); PTT Activated 23.7 sec (21.0-27.5)
[2020-09-18] MEDS: Normal Saline 1,000 ML 1000 ML IV (07:43)
[2020-09-18 07:47] LABS: Basophilic Stippling Present; Diff Comment Diff Reviewed; Hypochromasia 2+
[2020-09-18 07:48] LABS: Poikilocytes 1+
[2020-09-18] MEDS: PIPERACILLIN/TAZO 4.5 GM in Normal Saline 100 ML IVPB ×3 (07:53→19:28)
[2020-09-18 07:57] LABS: Bilirubin Negative (Negative); Blood Moderate (Negative); Clarity Sl Cloudy (Clear); Glucose Negative (Negative); Ketones 40 mg/dL (Negative); Leukocyte Esterase Small (Negative); Nitrite Negative (Negative); Specific Gravity 1.025 (1.005-1.025)
[2020-09-18 08:04] LABS: Bacteria Rare HPF (Negative); Epithelial Cells Few HPF (Negative); Other Cells Negative (Negative); RBC 20-50 HPF (0-2)
[2020-09-18 08:05] LABS: C & S Indicated? C&S Done As Ordered; Casts Negative LPF (Negative); Crystals Negative HPF (Negative); Mucus Trace (Negative)
[2020-09-18] MEDS: Normal Saline - Diluent 50 ML VIAL IV (08:28)
[2020-09-18] MEDS: Omnipaque 350 MG/ML 100 ML BTL IJ (08:29)
[2020-09-18] MEDS: LINEZOLID 600 MG/300 ML BAG 300 MG IVPB (09:00)
--- NOTE | 2020-09-18 09:15 | RT.EKG_ITS ---
APPROVED REPORT Exam: Resting ECG Patient Location: E HR:129 bpm ECG Measurements Heart Rate 129 AXIS [place] [id number] P [id number] QRSd 89 QRS 41 QT 276 T 203 QTc 405 Conclusion Atrial fibrillation...? atrial activity Low voltage, precordial leads...precordial leads <1.0mV Consider anteroseptal infarct...Q >30mS, dimin R, V1-V2 Repol abnrm suggests ischemia, anterolateral...ST dep, T neg, I aVL V2-V6
--- NOTE | 2020-09-18 09:22 | DI.VRAD_ITS ---
PROCEDURE INFORMATION: Exam: CT Angiography Chest With Contrast Exam date and time: 09/18/2020 7:08 AM Age: 70 years old Clinical indication: Other: Fever, tachypnea, recent cholecystitis S/P drain; Additional info: Patient uncooperative with breathing instructions. TECHNIQUE: Imaging protocol: Computed tomographic angiography of the chest with contrast. 3D rendering (Not supervised by radiologist): MIP and/or 3D reconstructed images were created by the technologist. Radiation optimization: All CT scans at this facility use at least one of these dose optimization techniques: automated exposure control; mA and/or kV adjustment per patient size (includes targeted exams where dose is matched to clinical indication); or iterative reconstruction. Contrast material: OMNIPAQUE 350; Contrast volume: 97 ml; Contrast route: INTRAVENOUS (IV); COMPARISON: CT CHEST/ABD/PEL WO 08/19/2020 10:55 AM FINDINGS: Pulmonary arteries: Evaluation of the pulmonary arteries is suboptimal due to motion artifact but no filling defects or other evidence of pulmonary embolus is seen. Aorta: Unremarkable. No aortic aneurysm. No aortic dissection. Lungs: There is chronic pulmonary fibrosis with subsegmental atelectasis in the lung bases. Pleural spaces: Unremarkable. No pneumothorax. No pleural effusion. Heart: Unremarkable. No cardiomegaly. No pericardial effusion. Mediastinal space: Small sliding hiatal hernia. Lymph nodes: Unremarkable. No enlarged lymph nodes. Bones/joints: Degenerative changes are present in the spine with joint space narrowing sclerosis and osteophytes. Soft tissues: Unremarkable. IMPRESSION: 1. Suboptimal study of the pulmonary arteries due to motion but there are no obvious emboli. 2. Unremarkable aorta. 3. Small sliding hiatal hernia. 4. No acute abnormalities are seen in the chest. . PROCEDURE INFORMATION: Exam: CT Angiography Abdomen With Contrast Exam date and time: 09/18/2020 7:08 AM Age: 70 years old Clinical indication: Other: Fever, tachypnea, recent cholecystitis S/P drain; Additional info: Patient uncooperative with breathing instructions. TECHNIQUE: Imaging protocol: Computed tomographic angiography images of the abdomen with intravenous contrast material. 3D rendering (Not supervised by radiologist): MIP and/or 3D reconstructed images were created by the technologist. Radiation optimization: All CT scans at this facility use at least one of these dose optimization techniques: automated exposure control; mA and/or kV adjustment per patient size (includes targeted exams where dose is matched to clinical indication); or iterative reconstruction. Contrast material: OMNIPAQUE 350; Contrast volume: 97 ml; Contrast route: INTRAVENOUS (IV); COMPARISON: CT CHEST/ABD/PEL WO 08/19/2020 10:55 AM FINDINGS: Tubes, catheters and devices: A percutaneous pigtail cholecystostomy tube is present in the gallbladder. Gallbladder is collapsed around the pigtail catheter. There is a small amount of air in the gallbladder. Small gallstones are present in the gallbladder. There is a small amount of pericholecystic fluid and fatty infiltration. The bile ducts are not dilated. Aorta: No aortic aneurysm. No aortic dissection. Celiac trunk and mesenteric arteries: No occlusion or significant stenosis. Renal arteries: No occlusion or significant stenosis. Liver: There is a small benign calcified granuloma in the liver. Otherwise liver is unremarkable. Gallbladder and bile ducts: See Tubes, catheters and devices finding. Pancreas: Normal. No ductal dilation. Spleen: Normal. No splenomegaly. Adrenals: Normal. No mass. Kidneys and ureters: Normal. No hydronephrosis. Stomach and bowel: There is sigmoid diverticulosis but no evidence of acute diverticulitis. Lymph nodes: Unremarkable. No enlarged lymph nodes. Intraperitoneal space: Unremarkable. No free air. No significant fluid collection. Bones/joints: Unremarkable. No acute fracture. No dislocation. Soft tissues: There is a small fat containing umbilical hernia. IMPRESSION: 1. The gallbladder is collapsed around a percutaneous pigtail cholecystostomy catheter. 2. Cholelithiasis. There is a small amount of pericholecystic fluid and infiltration. 3. Normal bile ducts. 4. Sigmoid diverticulosis. Dictated and Authenticated by: Christofer Pineda MD. Ordering:SANGEETA Cameron MD
[2020-09-18 09:53] LABS: COVID-19 PCR Negative (Negative)
[2020-09-18] MEDS: Normal Saline 1,000 ML 250 ML IV (10:00)
[2020-09-18] MEDS: Acetaminophen 325 MG TAB 650 MG PO (11:44)
[2020-09-18] MEDS: Carbidopa 25/Levodopa 100 TAB PO ×2 (13:12→19:29)
[2020-09-18] MEDS: Magnesium Oxide 400 MG TAB PO ×2 (13:13→19:29)
--- NOTE | 2020-09-18 15:58 | W.PM.HP.N ---
Date of service: 09/18/20 Time of Service: 16:03 Assessment and Plan Assessment and plan (1) Fever: Status: Acute Assessment and plan: No specific source seen but culture of bile obtained on 09/15/2020 growing Enterococcus Species and Gr+ mixed mehul and anaerobic gr+ carol. Antibiotic coverage with Zosyn and Zyvox. Monitor CBC. Currently w/o abd complaints. (2) Palliative care patient: Status: Acute Assessment and plan: Seen by palliative on 09/16/2020. DNR/DNI. (3) Severe pulmonary hypertension: Status: Acute Assessment and plan: RSVP on echo in 2018 of 80-85. (4) Emphysematous cholecystitis: Status: Acute Assessment and plan: Has cholecystostomy drainage tube. No evidence of cellulitis at the site. Bile culture as above under fever. (5) Chronic kidney disease: Status: Chronic Assessment and plan: Creatinine of 1.5; at his baseline. Avoid nephrotoxins. (6) Paroxysmal atrial fibrillation: Status: Acute Assessment and plan: Cont amiodarone and metoprolol. EKG showed sinus tachycardia (7) Diabetes mellitus: Status: Chronic Assessment and plan: On metformin; hold in event he requires further radilogy studies with need for contrast. Diabetic diet. 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 S/P IR placement of cholecystostomy drainage tube at [facility]. He was noted to have temp of 103F at [facility] on day of admission. He endorsed mild weakness but otherwise no complaints. No diaphoresis, chills, CP, palpitations, abd pain, N/V, SOA, cough/sputum. His WBC count was elevated at 18.6 (was 11.5 the day before admission). Creatinine at baseline of 1.5. Bili of 0.8. Low AST and ALT. UA with moderate blood, small leukocyte esterase, few epithelial cells and rare bacteria. Blood and urine cultures obtained. CT lungs w/o pulmonary embolus, no acute findings. CT abd/pelvis with collapsed gallbladder around percutaneous pigtail cholecystostomy catheter. No acute findings. ED physician consulted Dr. Ellis with [facility] general surgery. No surgical intervention felt to be needed at the time. Review of Systems All systems reviewed & are unremarkable except as noted in HPI and below PFSH Medical History Depression Diabetes HTN (hypertension) Hypernatremia Palliative care patient Paroxysmal atrial fibrillation Rhabdomyolysis Severe pulmonary hypertension Skin lesion of chest wall Tinea pedis Vitamin B12 deficiency Surgical History H/O removal of cyst left leg Social History Smoking/Tobacco Use Status: Former Tobacco Use Smoking risk assessment performed?: Yes Alcohol Intake: former Drug use: Never Substance use type: does not use Do you feel safe at home: Yes Do you feel safe in your relationship?: Yes Meds Home Medications and Allergies Allergies Allergy/AdvReac Type Severity Reaction Status Date / Time No Known Allergies Allergy Unverified 09/05/20 13:16 Home Medications Medication Instructions Recorded Confirmed Type metformin 850 mg PO BID 04/23/14 09/18/20 History pravastatin 20 mg PO HS #30 tab 09/21/17 09/18/20 Rx [facility] Protect 1 applic TOPICAL PRN PRN #1200 gm 01/22/20 09/18/20 Rx Eucerin 1 applic TOPICAL DAILY PRN PRN 01/22/20 09/18/20 Rx #454 gm alum-mag hydroxide-simeth [Mag-Al 30 ml PO Q2H PRN PRN #1 ml 01/22/20 09/18/20 Rx Plus] aspirin 81 mg PO DAILY #1 tab 01/22/20 09/18/20 Rx amiodarone 200 mg PO DAILY 07/22/20 09/18/20 History carbidopa-levodopa [Sinemet] 1 tab PO TID 09/05/20 09/18/20 History metoprolol succinate 100 mg PO DAILY AM 09/05/20 09/18/20 History mirtazapine 15 mg PO HS 09/05/20 09/18/20 History potassium chloride [Klor-Con M20] 20 meq PO DAILY AM 09/05/20 09/18/20 History bisacodyl [Dulcolax (bisacodyl)] 10 mg [place] DAILY PRN 09/18/20 09/18/20 History dextrose [Glucose Gel] 15 g PO PRN PRN 09/18/20 09/18/20 History glucagon 1 mg SUBCUT ONCE 09/18/20 09/18/20 History magnesium hydroxide 30 ml PO DAILY PRN 09/18/20 09/18/20 History omeprazole [Prilosec] 20 mg PO DAILY 09/18/20 09/18/20 History omeprazole magnesium [Prilosec OTC] 20 mg PO DAILY 09/18/20 09/18/20 History ondansetron HCl [Zofran] 4 mg PO 5XW PRN 09/18/20 09/18/20 History polyethylene glycol 3350 [Miralax] 17 g PO DAILY 09/18/20 09/18/20 History sennosides-docusate sodium 2 tab-cap PO BID 09/18/20 09/18/20 History sodium phosphates [Fleet Enema] 118 ml [place] ONCE PRN 09/18/20 09/18/20 History Exam Narrative Exam Narrative: Pale white male lying in bed. Poor historian; offers little insight into his current state. Const General: cooperative, no acute distress and not ill appearing Nutritional Appearance: overweight Orientation: oriented to person and oriented to place [facility] Head: normocephalic and atraumatic Eyes Sclera: sclerae normal Pupils: PERRL Resp Effort & Inspection: normal respiratory effort Auscultation: clear to auscultation bilaterally Cardio Rate: regular rate Rhythm: regular rhythm Heart Sounds: S1 normal and S2 normal GI Inspection: distended Palpation: soft and nontender Skin General skin exam: no rashes or lesions noted Extrem General: no pedal edema and no calf tenderness Psych Appearance: grossly normal Speech and Movement: speech and movement normal Affect: blunted Results Labs Result diagrams: 09/18/20 07:10 09/18/20 07:10 Labs: Laboratory Results - last 24 hr 09/18/20 09/18/20 09/18/20 07:10 07:10 07:10 WBC RBC Hgb Hct MCV MCH MCHC RDW Plt Count MPV Immature Gran % Neutrophils % Lymphocytes % Monocytes % Eosinophils % Basophils % Nucleated RBC % Absolute Neutrophils Absolute Lymphocytes Absolute Monocytes Absolute Eosinophils Absolute Basophils RBC Morphology Hypochromasia Poikilocytosis Basophilic Stippling PT INR APTT VBG Lactate 1.0 Sodium 138 Potassium 4.4 Chloride 104 Carbon Dioxide 25.5 Anion Gap 8.5 BUN 12 D Creatinine 1.5 H Estimated GFR/1.73 m2 46.27 Glucose 184 H Calcium 8.5 Magnesium 1.6 L Total Bilirubin 0.8 Conjugated Bilirubin 0.3 H AST 10 L ALT 7 L Alkaline Phosphatase 82 Total Protein 6.4 Albumin 2.9 L Urine Color Urine Clarity Urine pH Ur Specific Sedley Urine Protein Urine Ketones Urine Blood Urine Nitrite Urine Bilirubin Urine Urobilinogen Ur Leukocyte Esterase Urine RBC Urine WBC Ur Epithelial Cells Urine Crystals Urine Bacteria Urine Casts Urine Mucus Urine Other Ur Culture Indicated? Urine Glucose COVID-19 Source Nasopharyx SARS-CoV-2 (PCR) Negative 09/18/20 09/18/20 09/18/20 07:10 07:10 07:50 WBC 18.60 H D RBC 3.11 L Hgb 8.4 L Hct 27.2 L MCV 87.5 MCH 27.0 MCHC 30.9 L RDW 13.5 Plt Count MPV 8.8 Immature Gran % 0.5 Neutrophils % 89.0 Lymphocytes % 4.2 Monocytes % 5.6 Eosinophils % 0.4 Basophils % 0.3 Nucleated RBC % 0 Absolute Neutrophils 16.55 H Absolute Lymphocytes 0.78 L Absolute Monocytes 1.04 H Absolute Eosinophils 0.07 Absolute Basophils 0.06 RBC Morphology See below Hypochromasia 2+ Poikilocytosis 1+ Basophilic Stippling Present PT 11.0 INR 1.1 APTT 23.7 VBG Lactate Sodium Potassium Chloride Carbon Dioxide Anion Gap BUN Creatinine Estimated GFR/1.73 m2 Glucose Calcium Magnesium Total Bilirubin Conjugated Bilirubin AST ALT Alkaline Phosphatase Total Protein Albumin Urine Color Yellow Urine Clarity Sl cloudy Urine pH 7.0 Ur Specific Sedley 1.025 Urine Protein 100 H Urine Ketones 40 H Urine Blood Moderate H Urine Nitrite Negative Urine Bilirubin Negative Urine Urobilinogen 1.0 H Ur Leukocyte Esterase Small H Urine RBC 20-50 H Urine WBC 5-10 Ur Epithelial Cells Few Urine Crystals Negative Urine Bacteria Rare Urine Casts Negative Urine Mucus Trace Urine Other Negative Ur Culture Indicated? C&s done as ordered Urine Glucose Negative COVID-19 Source SARS-CoV-2 (PCR) Last Vital Signs Temp 37.2 C 09/18/20 15:12 Pulse 94 H 09/18/20 15:12 Resp 17 09/18/20 15:12 BP 103/65 09/18/20 15:12 Pulse Ox 96 09/18/20 15:12 COVID-19 Screening Have you, or household traveled for leisure in last 14 days?: No Had IN PERSON contact w/suspected or confirmed C-19 person: No
[2020-09-18] MEDS: Insulin Aspart 300 UNITS/3 ML PEN SC (17:10)
[2020-09-18] MEDS: Normal Saline Flush 10 ML SYR IVP (19:28)
[2020-09-18] MEDS: Linezolid 600 MG TAB PO (19:29)
[2020-09-18] MEDS: Pravastatin 20 MG TAB PO (21:17)
[2020-09-19] MEDS: Normal Saline Flush 10 ML SYR IVP ×3 (02:42→13:45)
[2020-09-19] MEDS: PIPERACILLIN/TAZO 4.5 GM in Normal Saline 100 ML IVPB ×3 (02:42→13:45)
[2020-09-19] MEDS: Potassium Chloride 20 MEQ TABCR PO (05:58)
[2020-09-19 07:00] LABS: BUN 14 mg/dL (7-18); CREATININE 1.7 mg/dL (0.70-1.30); Calcium 8.4 mg/dL (8.5-10.1); Chloride 105 mmol/L (98-107); Estimated GFR 40.04 (mL/min/1.73m2); Glucose 147 mg/dL (74-106); Magnesium 1.9 mg/dL (1.8-2.4); Potassium 4.3 mmol/L (3.5-5.1); Sodium 142 mmol/L (136-145)
[2020-09-19 07:21] LABS: Abs Immature Grans 0.17 10^3/uL (0.0-0.06); Absolute Basophil Count 0.11 10^3/uL (0.0-0.2); Absolute Lymphocyte Count 1.35 10^3/uL (1.2-3.4); Absolute Monocyte Count 1.65 10^3/uL (0.1-0.8); Absolute Neutrophil Count 17.88 10^3/uL (1.2-6.7); Basophils % 0.5; Eosinophils % 1.5; HCT 28.8 % (40.0-50.0); HGB 8.8 g/dL (13.5-17.5); Immature Grans % 0.8; Lymphocytes % 6.3; MCH 27.2 pg (27.0-33.0); MCHC 30.6 % (32.0-36.0); MCV 88.9 fL (80-95); MPV 9.1 fL (8.0-11.0); Monocytes % 7.7; Nucleated RBC 0 %; Platelet Count 419 10^3/uL (130-400); RBC 3.24 10^6/uL (4.36-5.78); RDW 13.7 % (11.8-14.1); RDW-SD 43.8 fL; WBC 21.49 10^3/uL (4.4-10.8)
[2020-09-19 07:23] LABS: Absolute Eosinophil Count 0.32 10^3/uL (0.0-0.7)
[2020-09-19 07:30] LABS: Diff Comment Agrees w/ Instrument
[2020-09-19 07:31] LABS: Hypochromasia 2+; Polychromasia Present
[2020-09-19 07:33] LABS: Poikilocytes 1+
[2020-09-19 07:34] LABS: Neutrophils % 83.2
[2020-09-19] MEDS: Cholecalciferol (Vitamin D3) 1,000 UNIT TAB 1000 UNITS PO (07:41)
[2020-09-19] MEDS: Cyanocobalamin 500 MCG TAB 1000 MCG PO (07:42)
[2020-09-19] MEDS: Omeprazole 20 MG CAPCR PO (07:42)
[2020-09-19] MEDS: Polyethylene Glycol 3350 17 GM PACKET PO (07:43)
[2020-09-19] MEDS: Amiodarone 200 MG TAB PO (07:43)
[2020-09-19] MEDS: Magnesium Oxide 400 MG TAB PO ×2 (07:43→19:55)
[2020-09-19] MEDS: Senna TAB 1 TAB PO ×2 (07:43→19:55)
[2020-09-19] MEDS: Carbidopa 25/Levodopa 100 TAB PO ×3 (07:43→19:54)
[2020-09-19] MEDS: Metoprolol CR 100 MG TABCR PO (07:43)
[2020-09-19] MEDS: Linezolid 600 MG TAB PO ×2 (07:43→19:54)
[2020-09-19] MEDS: Aspirin E.C. 81 MG TABEC PO (07:43)
[2020-09-19 08:03] VITALS: BP 94/58; PULSE 110; RESP 16; TEMP 36.6; O2SAT 94
[2020-09-19] MEDS: Insulin Aspart 300 UNITS/3 ML PEN SC ×3 (08:05→17:19)
--- NOTE | 2020-09-19 08:35 | PDOC.CMIN ---
- If Service Date Differs Date of service: 09/19/20 Time of Service: 08:35
[2020-09-19] MEDS: Normal Saline 1,000 ML 125 ML IV ×2 (14:06→18:51)
--- NOTE | 2020-09-19 14:53 | IN_ITS ---
Date of service: 09/19/20 Time of Service: 14:53 PT Notes Visit Reasons: FEVER AND LEUKOCYTOSIS Inpatient Physical Therapy Initial Evaluation Date: 09/19/2020 Referring Doctor: Juan Saini MD PT Orders: PT CONSULT: Eval/treat Precautions: Standard. Falls. Activity as tolerated. Patient Profile/Admitting Diagnosis: David is a 70-year-old male with chronic kidney disease and diabetes mellitus on palliative care who presented to the ED on 09/18/2020 due to fever and generalized weakness. Patient is diagnosed with PAF, generalized weakness, severe pulmonary hypertension, emphysematous cholecystitis and PAF. PMHX: Medical History Depression Diabetes HTN (hypertension) Hypernatremia Palliative care patient Paroxysmal atrial fibrillation Rhabdomyolysis Severe pulmonary hypertension Skin lesion of chest wall Tinea pedis Vitamin B12 deficiency Surgical History H/O removal of cyst left leg Social History/Home Situation: David has been in a custodial facility since last discharged from this hospital. Previously, David resides alone in a log cabin in [place], [place]. His sister Delmy lives down the road and provides assistance with meals and other support as needed. 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 David has 2 children but he has not communicated with them in 4 or 5 years. He stated that he does not contact information for them. David is independent and continues to drive however primarily relies on his sister for transportation at this time. He sometimes uses a cane outside of his home. David was discharged from [facility] to [facility] on 01/22/20. Equipment Owned/DME: Cane Subjective: Sung is supine in bed at time of PT consult. Denies pain, dizziness, lightheadedness. Ultimately wants to go home. Objective: General Observation: Telemetry monitoring in place. Cholecystostomy drainage tube in place. IV in left UE. Mental Status: Alert and oriented x4 Pain: None reported ROM: Right Upper Extremity: Shoulder Flexion allows up to 100 degrees only. Shoulder abduction allows up to 90 degrees only. Elbow flexion WFL. Wrist flexion WFL. Functional opening and closing of hand WFL. Left Upper Extremity: Shoulder Flexion allows up to 100 degrees only. Shoulder abduction allows up to 90 degrees only. Elbow flexion WFL. Wrist flexion WFL. Functional opening and closing of hand WFL. Right Lower Extremity: Hip flexion lacking the last 25% of active range of motion. Hip abduction WFL. Knee flexion 30 degrees to 90 degrees. Knee extension -30 degrees ankle dorsiflexion lacking about the last 10 degrees. Ankle plantarflexion WFL. Left Lower Extremity: Hip flexion lacking the last 25% of active range of motion. Hip abduction WFL. Knee flexion 30 degrees to 90 degrees. Knee extension -30 degrees ankle dorsiflexion lacking about the last 10 degrees. Ankle plantarflexion WFL. Strength: Right Upper Extremity: Shoulder flexors 3-/5. Shoulder abductors 3-/5. Elbow flexors 4-/5. Elbow extensors 4-/5. Musical Instrument Supervisor weak but functional. Left Upper Extremity: Shoulder flexors 3-/5. Shoulder abductors 3-/5. Elbow flexors 4-/5. Elbow extensors 4-/5. Musical Instrument Supervisor weak but functional. Right Lower Extremity: Hip flexors 3-/5. Hip abductors 4-/5. Knee flexors 3-/5. Knee extensors 3-/5. Ankle dorsiflexors 3-/5. Ankle plantarflexors 4-/5. Left Lower Extremity: Hip flexors 3-/5. Hip abductors 4-/5. Knee flexors 3-/5. Knee extensors 3-/5. Ankle dorsiflexors 3-/5. Ankle plantarflexors 4-/5. Bed Mobility/Transfers: Rolling supervision Supine to sit supervision with HOB at 30 degrees Sit to stand contact-guard assist Stand to sit contact-guard assist Bed to chair contact-guard assist Chair to bed contact-guard assist Gait: Guided patient through short distance ambulation of 30 feet using front wheeled walker with minimal assist of 2 for safety. Increased trunk flexion. Increased knee flexion throughout gait on both sides. Step-to gait pattern. Decreased kayla with decreased step height and length. Decreased neck extension. Balance: Static Sitting: Good Dynamic Sitting: Good Static Standing: Fair Dynamic Standing: Fair Informed Consent/Education: Patient was instructed in purpose of PT consult and plan of care. ASSESSMENT: David demonstrates significant functional mobility decline, generalized weakness, decreased activity tolerance, impaired balance, and altered mental status requiring assistance of 1 and the use of a front wheeled walker for all mobility ADL performance due to admitting diagnoses and co- morbidities which increase fall risk at this time. Patient will benefit from placement in a custodial facility to address functional deficits and impairment level findings. Patient presents with clinical signs and symptoms consistent with current/admitting diagnoses that have resulted to mobility limitations, gait instability, generalized weakness, and impairment of motor control as demonstrated by the following impairment level findings: 1. Decreased strength to B UE/LE major muscle groups 2. Impaired sitting/standing balance 3. Impaired activity tolerance 4. Limitation of joint range of motion in B UE/LE as above 5. Altered mental status 6. Decreased motivation Impairments are contributing to the following functional limitations: 1. Dependent bed mobility skills 2. Increased dependence with transfers 3. Inability to safely ambulate without assistive device and physical assistance 4. Increase completion time for mobility ADL performance 5. Increased fall risk 6. Inability to negotiate steps alone safely Patient is assessed as a complexity based on the following: History: 70-year-old male with past medical history, impairment level findings, and functional limitations as above Examination:Demonstrable impairment in strength, balance, and range of motion with underlying impairments and functional limitations decreasing ability to return home at this time Presentation: Evolving Decision Makin moderate complexity Goals: Goals X1 week 1. Supine-Sit independent 2. Sit-Supine independent 3. Sit-Stand standby assist 4. Stand-Sit standby assist 5. Bed-Chair standby assist 6. Chair-Bed standby assist 7. SBA gait on level surface with use of least restrictive device for at least 300 feet without report of pain nor dyspnea 8. Good static and dynamic standing balance/tolerance Plan of Care/Treatment Plan: 1-2x/day, 7 days/week x 1 week. Plan of care has been reviewed with the RADIO COMMUNICATIONS MECHANICIAN providing the service under Physical Therapy direction. Initiate Physical Therapy intervention for strengthening, bed mobility, transfers, gait, stairs, balance training, use of assistive device. DISCHARGE RECOMMENDATIONS: Patient will benefit from custodial facility placement for continued skilled physical therapy services in order to progress mobility level, strength, and balance in preparation for a safe discharge to home. TREATMENT CODE/TIME: 44412 x 31 minutes beginning at 14:53 PM. Thank you for the opportunity to participate in the care of this patient. Adelita Powell PT, DPT, CLT [facility], [place]
--- NOTE | 2020-09-19 15:18 | W.PM.PROGNOT ---
Date of Service Date of service: 09/19/20 Time of Service: 10:18 Assessment and Plan Assessment and plan (1) Emphysematous cholecystitis: Status: Acute Assessment and plan: Culture of bile from 09/15/2020 grew VRE; enterobacter Gallinarum. Previous VRE bacteremia with E. Faecium. Urine from this admission growing Gr- carol Cont Zyvox; stopped Zosyn. WBC count has increased but clinically has not worsened and has no c/o abd pain. (2) Chronic kidney disease: Status: Chronic Assessment and plan: Creatine did increase from baseline of 1.5 to 1.7 NS at 125ml/hr initiated. Monitor. (3) Paroxysmal atrial fibrillation: Status: Acute Assessment and plan: EKG showed sinus tachycardia. Pulse in the 90's to 100's. IV fluids initiated. Cont metoprolol and amiodarone. (4) Diabetes mellitus: Status: Chronic Assessment and plan: Holding metformin. SS insulin correction dosing. Today, glucose readings of 153 and 155. Cont to monitor. Diabetic diet. 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 senior living use Diabetes mellitus complication status: without complication Qualified Code(s): E11.9 - Type 2 diabetes mellitus without complications Subjective Subjective Patient reports: no new complaints, tolerating a regular diet and afebrile (No fever since 09/18 at 12:30PM); denies nausea, vomiting and shortness of breath Exam Const General: cooperative and no acute distress Orientation: awake (Initially asleep) and oriented to person [facility] Head: normocephalic and atraumatic Neck Neck: full ROM and no JVD Resp Effort & Inspection: normal respiratory effort Auscultation: clear to auscultation bilaterally Cardio Rate: regular rate Rhythm: regular rhythm Heart Sounds: S1 normal and S2 normal GI Inspection: other (cholecystostomy drainage tube in place) Palpation: soft and nontender Neuro General: no focal motor deficits Extrem General: no pedal edema and no calf tenderness Objective Last Vital Signs Temp 36.6 C 09/19/20 08:03 Pulse 110 H 09/19/20 08:03 Resp 16 09/19/20 08:03 BP 94/58 L 09/19/20 08:03 Pulse Ox 94 09/19/20 08:03 Laboratory Results - last 24 hr 09/19/20 09/19/20 06:10 06:10 WBC 21.49 H RBC 3.24 L Hgb 8.8 L Hct 28.8 L MCV 88.9 MCH 27.2 MCHC 30.6 L RDW 13.7 Plt Count 419 H MPV 9.1 Immature Gran % 0.8 Neutrophils % 83.2 Lymphocytes % 6.3 Monocytes % 7.7 Eosinophils % 1.5 Basophils % 0.5 Nucleated RBC % 0 Absolute Neutrophils 17.88 H Absolute Lymphocytes 1.35 Absolute Monocytes 1.65 H Absolute Eosinophils 0.32 Absolute Basophils 0.11 RBC Morphology See below Polychromasia Present Hypochromasia 2+ Poikilocytosis 1+ Sodium 142 Potassium 4.3 Chloride 105 Carbon Dioxide 27.0 Anion Gap 10.0 BUN 14 Creatinine 1.7 H Estimated GFR/1.73 m2 40.04 Glucose 147 H Calcium 8.4 L Magnesium 1.9
[2020-09-19 15:30] VITALS: BP 89/46; PULSE 72; RESP 16; TEMP 36.6; O2SAT 98
--- NOTE | 2020-09-19 15:46 | PDOC.CMIN ---
- If Service Date Differs Date of service: 09/19/20 Time of Service: 15:48 Care Management Initial Assess REASON FOR HOSPITALIZATION:: Fever and Leukocytosis PAST MEDICAL HISTORY/PAST SURGICAL HISTORY:: Depression, diabetes, HTN, hypernatremia, paroxysmal atrial fibrillation, rhabdomyolysis, severe pulmonary hypertension, skin lesion of chest wall, tinea pedis, vitamin B12 deficiency, cyst removal PREVIOUS FUNCTIONAL STATUS/SOCIAL/FAMILY SUPPORTS:: David resides alone in a log cabin in [place], [place]. His sister Delmy lives down the road and provides assistance with meals and other support as needed. 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 David has 2 children but he has not communicated with them in 4 or 5 years. He stated that he does not contact information for them. David is independent and continues to drive. He sometimes uses a cane outside of his home. CURRENT FUNCTIONAL STATUS:: David is well known to this mortgage or loan underwriter from previous admissions at [facility]. He was sitting up in his chair, legs elevated when CM met with him. MD was actively adjusting medications due to BPs. ADVANCE DIRECTIVES:: None on file. Has patient been provided with info about the portal/API?: No Did the patient sign up for the portal?: No CODE STATUS:: DNR/DNI INSURANCE COVERAGE / FINANCIAL ISSUES:: Medicare CURRENT HOME/COMMUNITY SERVICES/EQUIPMENT:: SNF [id number] with home health. PRIMARY CARE PHYSICIAN:: Urvashi Conti POTENTIAL DISCHARGE NEEDS:: Further evaluation, follow up appointments. PATIENT/FAMILY EDUCATION NEEDS:: Review discharge instructions, discuss Ask Me Three. ANTICIPATED BARRIERS TO DISCHARGE:: None identified at this time. TRANSPORTATION:: Via private vehicle with his sister. PLAN:: Anticipate David will return home when ready per MD with a resumption of [facility] RN/PT/OT. He will follow up with his PCP and plan of care as prescribed, and transport with his sister via private vehicle.
[2020-09-19 16:15] VITALS: BP 82/49
[2020-09-19] MEDS: cefTRIAXone 1 GM/50 ML BAG IVPB (17:24)
[2020-09-19] MEDS: Normal Saline 500 ML IV (17:24)
[2020-09-19] MEDS: Pravastatin 20 MG TAB PO (21:09)
[2020-09-19 22:44] VITALS: BP 93/59; PULSE 60; RESP 18; TEMP 36.2; O2SAT 98
[2020-09-20] MEDS: Normal Saline 1,000 ML 125 ML IV (02:02)
[2020-09-20 03:12] VITALS: BP 100/62; PULSE 62; RESP 18; TEMP 36.4; O2SAT 98
[2020-09-20] MEDS: Potassium Chloride 20 MEQ TABCR PO (05:38)
[2020-09-20 06:53] LABS: Abs Immature Grans 0.12 10^3/uL (0.0-0.06); Absolute Basophil Count 0.07 10^3/uL (0.0-0.2); Absolute Eosinophil Count 1.04 10^3/uL (0.0-0.7); Absolute Neutrophil Count 8.18 10^3/uL (1.2-6.7); Basophils % 0.6; Eosinophils % 9.5; HGB 7.8 g/dL (13.5-17.5); Immature Grans % 1.1; Lymphocytes % 7.7; MCH 26.9 pg (27.0-33.0); MCV 89.7 fL (80-95); MPV 9.1 fL (8.0-11.0); Monocytes % 6.6; Neutrophils % 74.5; Nucleated RBC 0 %; Platelet Count 417 10^3/uL (130-400); RDW 13.9 % (11.8-14.1); RDW-SD 44.8 fL; WBC 10.98 10^3/uL (4.4-10.8)
[2020-09-20 07:15] VITALS: BP 103/66; PULSE 69; RESP 16; TEMP 37.1; O2SAT 98
[2020-09-20 07:18] LABS: Absolute Lymphocyte Count 0.85 10^3/uL (1.2-3.4); Absolute Monocyte Count 0.72 10^3/uL (0.1-0.8)
[2020-09-20 07:19] LABS: Anion Gap 9.3 mmol/L (3-11); BUN 14 mg/dL (7-18); CO2 24.7 mmol/L (21.0-32.0); CREATININE 1.5 mg/dL (0.70-1.30); Chloride 108 mmol/L (98-107); Estimated GFR 46.27 (mL/min/1.73m2); Glucose 131 mg/dL (74-106); Potassium 4.1 mmol/L (3.5-5.1); Sodium 142 mmol/L (136-145)
[2020-09-20] MEDS: Omeprazole 20 MG CAPCR PO (07:47)
[2020-09-20] MEDS: Aspirin E.C. 81 MG TABEC PO (08:45)
[2020-09-20] MEDS: Linezolid 600 MG TAB PO (08:45)
[2020-09-20] MEDS: Metoprolol CR 100 MG TABCR PO (08:45)
[2020-09-20] MEDS: Carbidopa 25/Levodopa 100 TAB PO (08:45)
[2020-09-20] MEDS: Cyanocobalamin 500 MCG TAB 1000 MCG PO (08:45)
[2020-09-20] MEDS: Magnesium Oxide 400 MG TAB PO (08:46)
[2020-09-20] MEDS: Amiodarone 200 MG TAB PO (08:46)
[2020-09-20] MEDS: Senna TAB 1 TAB PO (08:46)
[2020-09-20] MEDS: Cholecalciferol (Vitamin D3) 1,000 UNIT TAB 1000 UNITS PO (09:34)
--- NOTE | 2020-09-20 10:21 | W.PM.DS.N ---
Date of service: 09/20/20 Time of Service: 10:22 DS: Diagnosis Discharge Diagnosis (1) Emphysematous cholecystitis: Status: Acute (2) Chronic kidney disease: Status: Chronic (3) Paroxysmal atrial fibrillation: Status: Acute (4) Diabetes mellitus: Status: Chronic Discharge Plan Disposition Patient Disposition: SNF (LEVEL 1) [facility] Condition: Stable Discharge Details Reason For Visit: FEVER AND LEUKOCYTOSIS Admit Date/Time: 09/18/20 10:44 Admit Provider: Juan Saini Attending Provider: Juan Saini Primary Care Provider: Urvashi Conti V Hospital Course Hospital Course: This is a 70 yo male with a PMH of DM2, HTN, PAF, pulmonary hypertension, CKD, recent emphysematous cholecystitis with VRE + bacteremia. S/P IR placement of cholecystostomy drainage tube at [facility]. He was noted to have temp of 103F at [facility] on day of admission. He endorsed mild weakness but otherwise no complaints. No diaphoresis, chills, CP, palpitations, abd pain, N/V, SOA, cough/sputum. His WBC count was elevated at 18.6 (was 11.5 the day before admission). Creatinine at baseline of 1.5. Bili of 0.8. Low AST and ALT. UA with moderate blood, small leukocyte esterase, few epithelial cells and rare bacteria. Blood and urine cultures obtained. CT lungs w/o pulmonary embolus, no acute findings. CT abd/pelvis with collapsed gallbladder around percutaneous pigtail cholecystostomy catheter. No acute findings. ED physician consulted Dr. Ellis with [facility] general surgery. No surgical intervention felt to be needed at the time. A culture of biliary fluid from 09/15/2020 grew Enterococcus Gallinarum which is a VRE organism. He had a previous VRE bacteremia with Enterococcus Faecium in August. Zyvox 600mg po BID initiated. He had another fever on 09/18 with a temp of 38.9. His Urine then grew Klebsiella Pneumoniae and Ceftriaxone was initiated. After the first dose he had no further fevers and his WBC count normalized. He will return to SNF with Zyvox for another 7 days and Keflex 500mg TID for 5 days. He has a scheduled appt at [facility] on 09/28/2020 for follow up of his cholecystostomy drainage tube. Home Meds and New Rx's Prescriptions: New sennosides [Senokot] 8.6 mg Tablet 1 tab PO BID Qty: 0 RF: 0 magnesium oxide 400 mg (241.3 mg magnesium) Tablet 400 mg PO DAILY Qty: 0 RF: 0 cyanocobalamin (vitamin B-12) [Vitamin B-12] 500 mcg Tablet 1,000 mcg PO DAILY Qty: 0 RF: 0 linezolid 600 mg Tablet 600 mg PO BID Qty: 0 RF: 0 docusate sodium [Colace] 100 mg Capsule 100 mg PO TID PRN PRNQty: 0 RF: 0 melatonin 3 mg Tablet Extended Release 10 mg PO HS PRN PRNQty: 0 RF: 0 cholecalciferol (vitamin D3) 25 mcg (1,000 unit) Tablet 1,000 units PO DAILY Qty: 0 RF: 0 cephalexin 500 mg capsule 500 mg PO TID Qty: 15 RF: 0 Continued metformin 850 MG tablet 850 mg PO BID RF: 0 pravastatin 20 MG tablet 20 mg PO HS Qty: 30 RF: 0 aspirin 81 mg Tablet,Delayed Release (Dr/Ec) 81 mg PO DAILY Qty: 1 RF: 0 alum-mag hydroxide-simeth [Mag-Al Plus] 200-200-20 mg/5 mL Suspension 30 ml PO Q2H PRN PRNQty: 1 RF: 0 Sinai Protect Cream 1 applic topical PRN PRNQty: 1200 RF: 0 Eucerin Cream 1 applic topical DAILY PRN PRNQty: 454 RF: 0 amiodarone 200 mg tablet 200 mg PO DAILY RF: 0 metoprolol succinate 100 mg Tablet Extended Release 24 Hr 100 mg PO DAILY AM RF: 0 mirtazapine 15 mg Tablet 15 mg PO HS RF: 0 potassium chloride [Klor-Con M20] 20 mEq Tablet,Er Particles/Crystals 20 meq PO DAILY AM RF: 0 carbidopa-levodopa [Sinemet] 25-100 mg Tablet 1 tab PO TID RF: 0 ondansetron HCl [Zofran] 4 mg Tablet 4 mg PO 5XW PRNRF: 0 dextrose [Glucose Gel] 40 % Gel 15 g PO PRN PRNRF: 0 magnesium hydroxide 400 mg/5 mL Suspension 30 ml PO DAILY PRNRF: 0 polyethylene glycol 3350 [Miralax] 17 gram Powder In Packet 17 g PO DAILY RF: 0 omeprazole 20 mg Capsule,Delayed Release(Dr/Ec) 20 mg PO DAILY RF: 0 sennosides-docusate sodium 8.6-50 mg Tablet 2 tab-cap PO BID RF: 0 bisacodyl [Dulcolax (bisacodyl)] 10 mg Suppository 10 mg DE DAILY PRNRF: 0 Fleet Enema 19-7 gram/118 mL Enema 118 ml DE ONCE PRNRF: 0 omeprazole magnesium [Prilosec OTC] 20 mg Tablet,Delayed Release (Dr/Ec) 20 mg PO DAILY RF: 0 glucagon 1 mg/0.2 mL Auto-Injector 1 mg SUBCUT ONCE RF: 0 Discharge Instructions Stand Alone Forms: Nursing Discharge Form Referrals: Urvashi Conti MD [Primary Care Provider] - Activity:: Activity as Tolerated Equipment/Supplies:: No Equipment Needed Diet:: 2 gram Na Discharge Orders Discharge Orders: Discharge Order (Routine); Ordered 09/20/20 Ordered By: Juan Saini DS: Summary Time Spent with Patient providing and/or coordinating discharge services: Greater than 30 minutes Status at Discharge Functional status at discharge: uses cane/walker Overall status at discharge: patient is progressing back to baseline Mental Status: mental status grossly normal Speech and Movement: speech and movement normal Mood: congruent mood Affect: normal affect Exam Psych Mental Status: mental status grossly normal Speech and Movement: speech and movement normal Mood: congruent mood Affect: normal affect DS: Data Vitals/I&O Vitals and I&O: Vital Signs Temperature 37.1 C 09/20/20 07:15 Temperature Source Tympanic 09/20/20 07:15 Pulse 69 09/20/20 07:15 Pulse Rhythm Regular 09/20/20 08:00 Pulse 116 H 09/18/20 12:01 Respiratory Rate 16 09/20/20 07:15 Respiratory Effort 09/20/20 08:07 Respiratory Depth Normal 09/20/20 08:07 Respiratory Pattern Normal 09/20/20 08:07 Blood Pressure 103/66 09/20/20 07:15 Blood Pressure Mean 75 09/18/20 12:01 Pulse Oximetry 98 09/20/20 07:15 Oxygen Delivery Method Room Air 09/20/20 07:15 Oxygen Flow Rate 0 09/20/20 07:15 Pain Level 0 09/20/20 07:15 Comment 09/19/20 15:30 Intake & Output 09/19/20 09/19/20 09/20/20 11:59 23:59 11:59 Intake Total 1440 / 2673.75 1233.75 / 2673.75 2723.334 / 2723.334 Output Total 150 / 150 70 / 70 Balance 1440 / 2523.75 1083.75 / 2523.75 2653.334 / 2653.334 Intake: IV 1200 / 1943.75 743.75 / 1943.75 1883.334 / 1883.334 Oral 240 / 730 490 / 730 840 / 840 Output: Drainage 150 / 150 70 / 70 Right Upper Abdomen 150 / 150 70 / 70 Other: Urine Color Yellow Yellow Yellow Urine Odor Normal Normal Comment Pt incontinent of urine in bed; required total linen change. Diaper changed Stool Size Small Moderate Large Stool Characteristics Soft Soft Soft Brown Brown Voiding Methods Diaper Bedside Commode Bedside Commode Incontinent Incontinent Data Completed and Pending Labs on day of discharge: Labs from last 24 hours 09/20/20 09/20/20 06:40 06:40 WBC 10.98 H D RBC 2.90 L Hgb 7.8 L Hct 26.0 L MCV 89.7 MCH 26.9 L MCHC 30.0 L RDW 13.9 Plt Count 417 H MPV 9.1 Immature Gran % 1.1 Neutrophils % 74.5 Lymphocytes % 7.7 Monocytes % 6.6 Eosinophils % 9.5 Basophils % 0.6 Nucleated RBC % 0 Absolute Neutrophils 8.18 H Absolute Lymphocytes 0.85 L Absolute Monocytes 0.72 Absolute Eosinophils 1.04 H Absolute Basophils 0.07 Sodium 142 Potassium 4.1 Chloride 108 H Carbon Dioxide 24.7 Anion Gap 9.3 BUN 14 Creatinine 1.5 H Estimated GFR/1.73 m2 46.27 Glucose 131 H Calcium 8.0 L Preliminary micro results at discharge 09/18/20 07:16 Blood Culture - Preliminary Blood NO GROWTH 48 HOURS 09/18/20 07:10 Blood Culture - Preliminary Blood NO GROWTH 48 HOURS PFSH Medical History Depression Diabetes HTN (hypertension) Hypernatremia Palliative care patient Paroxysmal atrial fibrillation Rhabdomyolysis Severe pulmonary hypertension Skin lesion of chest wall Tinea pedis Vitamin B12 deficiency Surgical History H/O removal of cyst left leg Social History Smoking/Tobacco Use Status: Former Tobacco Use Smoking risk assessment performed?: Yes Alcohol Intake: former Drug use: Never Substance use type: does not use Do you feel safe at home: Yes Do you feel safe in your relationship?: Yes
[2020-09-20 11:06] VITALS: BP 122/52; PULSE 74; RESP 18; TEMP 36.3; O2SAT 99
--- NOTE | 2020-09-20 11:29 | PT.INTREAT ---
Date of service: 09/20/20 Time of Service: 09:50 PT Notes Visit Reasons: FEVER AND LEUKOCYTOSIS Inpatient Physical Therapy Treatment Note [facility] Date: 09/20/2020 PRECAUTIONS: Fall SUBJECTIVE: David is pleasant and agreeable to participating in PT. He reports that he is going back to [facility] later today. OBJECTIVE: PAIN: No c/o pain BED MOBILITY/TRANSFERS Sit-stand: S Stand-sit: S Bed-Chair: SBA Chair-bed: SBA GAIT Assistive Device: FWW Weight bearing: Full Assist: SBA Distance: 150' Deviation: Slow kayla, flexed trunk, short step height and length TOILETING: Patient toileted with assist ASSESSMENT: Patient tolerated a significant progression in gait distance with FWW support and SBA. He would benefit from continued global strengthening and gait and transfer training for improved activity tolerance and mobility. PLAN: Continue with PT services at [facility] upon discharge. TREATMENT CODE/TIME: 25 minutes; 57860 x2 (09:50)
--- NOTE | 2020-09-20 12:12 | PDOC.CMDIS ---
- If Service Date Differs Date of service: 09/20/20 Time of Service: 12:12 LACE Index Scoring Tool - Questions: Length of Stay (in days): 2 Acuity (Admit via E.D.?): Yes Comorbidities: Diabetes w/o Complication E.D. Visits: 6 - Answers: Total Score: 10 Risk of Readmission: High Risk Care Management Discharge Reason for Hospitalization: Fever and Leukocytosis Discharge Plan: David will return to [facility] where he is receiving rehab, prior to returning home. He will transport via facility w/c van, coordinated by CM. He will follow up with his PCP and discharge plan of care. Patient/Family Education Needs: Review discharge instructions with pt and facility staff, discussion of self care needs and goals of care. Services Needed at Discharge: [facility] Facility (Return, [facility]), Transportation (facility w/c van)
--- NOTE | 2020-09-20 17:07 | PT.INDS ---
Date of service: 09/20/20 Time of Service: 17:07 PT Notes Visit Reasons: FEVER AND LEUKOCYTOSIS Physical Therapy Inpatient Discharge Summary Date: 09/20/2020 Dates of service: 09/19/2020 through 09/20/2020 This is a clinical summary of care provided on the duration of dates listed above. No charge was made in the completion of this documentation. Referring Doctor: Juan Saini MD PT Orders: PT CONSULT: Eval/treat Precautions: Standard. Falls. Activity as tolerated. Patient Profile/Admitting Diagnosis: David is a 70-year-old male with chronic kidney disease and diabetes mellitus on palliative care who presented to the ED on 09/18/2020 due to fever and generalized weakness. Patient is diagnosed with PAF, generalized weakness, severe pulmonary hypertension, emphysematous cholecystitis and PAF. PMHX: Medical History Depression Diabetes HTN (hypertension) Hypernatremia Palliative care patient Paroxysmal atrial fibrillation Rhabdomyolysis Severe pulmonary hypertension Skin lesion of chest wall Tinea pedis Vitamin B12 deficiency Surgical History H/O removal of cyst left leg Social History/Home Situation: David has been in a shelter facility since last discharged from this hospital. Previously, David resides alone in a log cabin in [place], [place]. His sister Delmy lives down the road and provides assistance with meals and other support as needed. 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 David has 2 children but he has not communicated with them in 4 or 5 years. He stated that he does not contact information for them. David is independent and continues to drive however primarily relies on his sister for transportation at this time. He sometimes uses a cane outside of his home. David was discharged from [facility] to [facility] on 01/22/20. Equipment Owned/DME: Cane Subjective: NT. See most recent AIRPORT OPERATIONS SPECIALIST notes. Objective: General Observation: NT. See most recent AIRPORT OPERATIONS SPECIALIST notes. Mental Status: NT. See most recent AIRPORT OPERATIONS SPECIALIST notes. Pain: NT. See most recent AIRPORT OPERATIONS SPECIALIST notes. ROM: Right Upper Extremity: Shoulder Flexion allows up to 100 degrees only. Shoulder abduction allows up to 90 degrees only. Elbow flexion WFL. Wrist flexion WFL. Functional opening and closing of hand WFL. Left Upper Extremity: Shoulder Flexion allows up to 100 degrees only. Shoulder abduction allows up to 90 degrees only. Elbow flexion WFL. Wrist flexion WFL. Functional opening and closing of hand WFL. Right Lower Extremity: Hip flexion lacking the last 25% of active range of motion. Hip abduction WFL. Knee flexion 30 degrees to 90 degrees. Knee extension -30 degrees ankle dorsiflexion lacking about the last 10 degrees. Ankle plantarflexion WFL. Left Lower Extremity: Hip flexion lacking the last 25% of active range of motion. Hip abduction WFL. Knee flexion 30 degrees to 90 degrees. Knee extension -30 degrees ankle dorsiflexion lacking about the last 10 degrees. Ankle plantarflexion WFL. Strength: Right Upper Extremity: Shoulder flexors 3-/5. Shoulder abductors 3-/5. Elbow flexors 4-/5. Elbow extensors 4-/5. Pump Service Supervisor weak but functional. Left Upper Extremity: Shoulder flexors 3-/5. Shoulder abductors 3-/5. Elbow flexors 4-/5. Elbow extensors 4-/5. Pump Service Supervisor weak but functional. Right Lower Extremity: Hip flexors 3-/5. Hip abductors 4-/5. Knee flexors 3-/5. Knee extensors 3-/5. Ankle dorsiflexors 3-/5. Ankle plantarflexors 4-/5. Left Lower Extremity: Hip flexors 3-/5. Hip abductors 4-/5. Knee flexors 3-/5. Knee extensors 3-/5. Ankle dorsiflexors 3-/5. Ankle plantarflexors 4-/5. Bed Mobility/Transfers: Rolling supervision Supine to sit supervision with HOB at 30 degrees Sit to stand supervision Stand to sit supervision Bed to chair standby assist Gait: Guided patient through short distance ambulation of 30 feet using front wheeled walker with minimal assist of 2 for safety. Increased trunk flexion. Increased knee flexion throughout gait on both sides. Step-to gait pattern. Decreased kayla with decreased step height and length. Decreased neck extension. Balance: Static Sitting: Good Dynamic Sitting: Good Static Standing: Fair Dynamic Standing: Fair ASSESSMENT: David continues to demonstrate significant functional mobility decline, generalized weakness, decreased activity tolerance, impaired balance, and altered mental status requiring assistance of 1 and the use of a front wheeled walker for all mobility ADL performance due to admitting diagnoses and co-morbidities which increase fall risk at this time. Patient will benefit from placement in a shelter facility to address functional deficits and impairment level findings. Patient continues to present with clinical signs and symptoms consistent with current/admitting diagnoses that have resulted to mobility limitations, gait instability, generalized weakness, and impairment of motor control as demonstrated by the following impairment level findings: 1. Decreased strength to B UE/LE major muscle groups 2. Impaired sitting/standing balance 3. Impaired activity tolerance 4. Limitation of joint range of motion in B UE/LE as above 5. Decreased motivation Impairments are continuing to contribute to the following functional limitations: 1. Dependent bed mobility skills 2. Increased dependence with transfers 3. Inability to safely ambulate without assistive device and physical assistance 4. Increase completion time for mobility ADL performance 5. Increased fall risk 6. Inability to negotiate steps alone safely Goals: Goals X1 week 1. Supine-Sit independent NOT MET 2. Sit-Supine independent NOT MET 3. Sit-Stand standby assist NOT MET 4. Stand-Sit standby assist NOT MET 5. Bed-Chair standby assist NOT MET 6. Chair-Bed standby assist NOT MET 7. SBA gait on level surface with use of least restrictive device for at least 300 feet without report of pain nor dyspnea NOT MET 8. Good static and dynamic standing balance/tolerance NOT MET DISCHARGE RECOMMENDATIONS: Patient will benefit from shelter facility placement for continued skilled physical therapy services in order to progress mobility level, strength, and balance in preparation for a safe discharge to home. TREATMENT CODE/TIME: NH Thank you for the opportunity to participate in the care of this patient. Adelita Powell PT, DPT, CLT [facility] [place], [place]
== END 2020-09-20 11:36 | disposition skilled nursing facility (03) | DRG 445 ==
LOC: ER 12:06 → MS 12:23
PROVIDERS: Emergency Medicine; Admitting Provider Family Medicine; Emergency Provider Physician Assistant; PCP Family Medicine; Visit Provider Family Medicine
DX: K81.0 Acute cholecystitis; Z16.21 Resistance to vancomycin; I48.0 Paroxysmal atrial fibrillation; N18.9 Chronic kidney disease, unspecified; E11.22 Type 2 diabetes mellitus with diabetic chronic kidney disease; Z66 Do not resuscitate; I27.20 Pulmonary hypertension, unspecified; I12.9 Hypertensive chronic kidney disease with stage 1 through stage 4 chronic kidney disease, or unspecified chronic kidney disease; F32.9 Major depressive disorder, single episode, unspecified; E53.8 Deficiency of other specified B group vitamins; Z87.891 Personal history of nicotine dependence; B95.2 Enterococcus as the cause of diseases classified elsewhere; B96.1 Klebsiella pneumoniae [K. pneumoniae] as the cause of diseases classified elsewhere; R82.71 Bacteriuria
CPT/HCPCS: 36415; 71275; 74177; 80048; 80053; 87040; 87077; 87081; 93005; 96361; 96365; 96367; 97162; 97530; 99222; 99232; 99239; 99285; 81003; 81015; 82248; 83605; 83735; 85025; 85610; 85730; 87086; 87186; 93010; J0696; J2020; J2543; J3490

== ENCOUNTER 2020-10-12 17:39 | Outpatient (REF) | payer MEDICARE, SELFPAY ==
[2020-10-12 19:43] LABS: Abs Immature Grans 0.04 10^3/uL (0.0-0.06); Absolute Basophil Count 0.06 10^3/uL (0.0-0.2); Absolute Eosinophil Count 0.74 10^3/uL (0.0-0.7); Absolute Lymphocyte Count 1.62 10^3/uL (1.2-3.4); Absolute Monocyte Count 0.62 10^3/uL (0.1-0.8); Absolute Neutrophil Count 5.93 10^3/uL (1.2-6.7); Basophils % 0.7; Eosinophils % 8.2; HCT 30.4 % (40.0-50.0); Immature Grans % 0.4; MCH 27.1 pg (27.0-33.0); MCHC 29.6 % (32.0-36.0); MCV 91.6 fL (80-95); MPV 9.6 fL (8.0-11.0); Monocytes % 6.9; Neutrophils % 65.8; Nucleated RBC 0 %; Platelet Count 355 10^3/uL (130-400); RBC 3.32 10^6/uL (4.36-5.78); RDW-SD 54.3 fL; WBC 9.01 10^3/uL (4.4-10.8)
[2020-10-12 20:02] LABS: ALT 11 U/L (16-63); AST 13 U/L (15-37); Alkaline Phosphatase 98 U/L (46-116); Anion Gap 6.1 mmol/L (3-11); BUN 18 mg/dL (7-18); Bilirubin, Total 0.2 mg/dL (0.2-1.0); CO2 28.9 mmol/L (21.0-32.0); CREATININE 1.5 mg/dL (0.70-1.30); Calcium 8.5 mg/dL (8.5-10.1); Chloride 107 mmol/L (98-107); Estimated GFR 46.27 (mL/min/1.73m2); Glucose 115 mg/dL (74-106); Potassium 4.9 mmol/L (3.5-5.1); Sodium 142 mmol/L (136-145); Total Protein 5.5 g/dL (6.4-8.2)
== END 2020-10-12 17:40 | disposition home or self-care (01) ==
LOC: LBN 17:39
PROVIDERS: PCP Family Medicine; Visit Provider Nurse Practitioner Adult Health
DX: N18.9 Chronic kidney disease, unspecified (principal); E78.5 Hyperlipidemia, unspecified; K81.0 Acute cholecystitis
CPT/HCPCS: 80053; 85025

== ENCOUNTER → 2021-02-06 13:41 | Outpatient (BNVA) | payer MEDICARE, SELFPAY | PROVIDERS: PCP Family Medicine; Referring Provider Family Medicine; Visit Provider Internal Medicine Cardiovascular Disease | DX: I48.0 Paroxysmal atrial fibrillation (principal); R53.1 Weakness; N18.9 Chronic kidney disease, unspecified; I12.9 Hypertensive chronic kidney disease with stage 1 through stage 4 chronic kidney disease, or unspecified chronic kidney disease; I27.20 Pulmonary hypertension, unspecified | CPT/HCPCS: 99204; 99214 ==

== ENCOUNTER → 2021-02-14 09:37 | Outpatient (BNVA) | payer MEDICARE, SELFPAY | PROVIDERS: PCP Family Medicine; Referring Provider Family Medicine; Visit Provider Psychiatry & Neurology Neurology | DX: G20 Parkinson's disease (principal); G31.84 Mild cognitive impairment of uncertain or unknown etiology | CPT/HCPCS: 99215; G2212 ==

== ENCOUNTER → 2021-04-24 12:23 | Outpatient (BNVA) | payer MEDICARE, SELFPAY | PROVIDERS: PCP Family Medicine; Referring Provider Family Medicine; Visit Provider Psychiatry & Neurology Neurology | DX: G20 Parkinson's disease (principal); G31.84 Mild cognitive impairment of uncertain or unknown etiology; R35.1 Nocturia | CPT/HCPCS: 99213 ==

== ENCOUNTER 2021-05-19 13:15 | Outpatient (REF) | payer MEDICARE, SELFPAY ==
[2021-05-19 14:37] LABS: HGB 13.9 g/dL (13.5-17.5); MCH 25.4 pg (27.0-33.0); MCHC 30.2 % (32.0-36.0); MCV 83.9 fL (80-95); MPV 8.8 fL (8.0-11.0); Platelet Count 309 10^3/uL (130-400); RBC 5.48 10^6/uL (4.36-5.78); RDW 13.2 % (11.8-14.1); WBC 10.79 10^3/uL (4.4-10.8)
[2021-05-19 16:00] LABS: Albumin 3.8 g/dL (3.4-5.0); Alkaline Phosphatase 115 U/L (46-116); BUN 22 mg/dL (7-18); Bilirubin, Total 0.3 mg/dL (0.2-1.0); CREATININE 1.3 mg/dL (0.70-1.30); Estimated GFR 54.42 (mL/min/1.73m2); Glucose 256 mg/dL (74-106)
[2021-05-19 16:01] LABS: ALT 23 U/L (16-63); AST 15 U/L (15-37); Anion Gap 10.7 mmol/L (3-11); CO2 25.3 mmol/L (21.0-32.0); Chloride 105 mmol/L (98-107); Folate 12.8 ng/mL (8.6-20.0); Potassium 5.2 mmol/L (3.5-5.1); Sodium 141 mmol/L (136-145); Vitamin B12 234 pg/mL (193-986)
== END 2021-05-19 13:16 | disposition home or self-care (01) ==
LOC: NCHCN 13:15
PROVIDERS: PCP Family Medicine; Visit Provider Family Medicine
DX: N28.9 Disorder of kidney and ureter, unspecified (principal); D52.9 Folate deficiency anemia, unspecified; E53.8 Deficiency of other specified B group vitamins; R62.7 Adult failure to thrive; I48.0 Paroxysmal atrial fibrillation
CPT/HCPCS: 80053; 85027; 82607; 82746

== ENCOUNTER → 2021-08-08 13:32 | Outpatient (BNVA) | payer MEDICARE, SELFPAY | PROVIDERS: PCP Family Medicine; Referring Provider Family Medicine; Visit Provider Internal Medicine Cardiovascular Disease | DX: I48.0 Paroxysmal atrial fibrillation (principal); G20 Parkinson's disease | CPT/HCPCS: 99214; 99213 ==

== ENCOUNTER → 2021-09-07 14:29 | Outpatient (BNVA) | payer MEDICARE, SELFPAY | PROVIDERS: PCP Family Medicine; Referring Provider Family Medicine; Visit Provider Psychiatry & Neurology Neurology | DX: G20 Parkinson's disease (principal); G31.84 Mild cognitive impairment of uncertain or unknown etiology; R35.1 Nocturia | CPT/HCPCS: 99214 ==

== ENCOUNTER 2021-09-14 10:03 | Emergency (ER) | payer MEDICARE, SELFPAY ==
[2021-09-14] VITALS (26 sets, daily range): BP systolic 109–147; BP diastolic 59–94; PULSE 63–102; RESP 13–20; TEMP 37.1; O2SAT 95–99
--- NOTE | 2021-09-14 10:23 | ED.GENADUL_ITS ---
Discharge Plan Disposition Patient Disposition: HOME Condition: Stable Discharge Details Clinical Impression: Fatigue, UTI (urinary tract infection) Primary Care Provider: Urvashi Conti V ED Provider: Bailey Peguero Home Meds and New Rx's Prescriptions: New cephalexin 500 mg capsule 500 mg PO QID 7 Days Qty: 28 0RF Continued carbidopa-levodopa [Sinemet] 25-100 mg tablet 1 tab PO BID Qty: 180 3RF Rx Instructions: Take in the morning and lunch. metformin 850 MG tablet 850 mg PO BID 0RF pravastatin 20 MG tablet 20 mg PO HS Qty: 30 0RF Label Comments: pt states picked up a 30 day supply two days after last discharge . ran out and not refills. states he did not followup with cardiology or pcp as dischage order advised aspirin 81 mg Tablet,Delayed Release (Dr/Ec) 81 mg PO DAILY Qty: 1 0RF metoprolol succinate 100 mg Tablet Extended Release 24 Hr 100 mg PO DAILY AM 0RF mirtazapine 15 mg Tablet 15 mg PO HS 0RF potassium chloride [Klor-Con M20] 20 mEq tablet,ER particles/crystals 20 meq PO BID 0RF ondansetron HCl [Zofran] 4 mg Tablet 4 mg PO 5XW PRN0RF magnesium oxide 400 mg (241.3 mg magnesium) Tablet 400 mg PO DAILY Qty: 0 0RF cyanocobalamin (vitamin B-12) [Vitamin B-12] 500 mcg Tablet 1,000 mcg PO DAILY Qty: 0 0RF cholecalciferol (vitamin D3) 25 mcg (1,000 unit) Tablet 1,000 units PO DAILY Qty: 0 0RF Discharge Instructions Instructions: Urinary Tract Infection in Men (ED), Fatigue (ED) Additional Instructions: Your lab work today showed evidence of a urinary tract infection. Drink plenty of fluids and get plenty of rest. You were given a prescription for Keflex to take as directed until finished. Call your primary care doctor today to schedule a follow-up appointment for reevaluation within the next week. You will be evaluated by home health at home to assess if you need any assistance with medications or daily activities at home. Return immediately to the emergency department if you develop any worsening or new concerning symptoms. Discharge Data Discharge Date/Time-TO BE ENTERED AT DEPARTURE: 09/14/21 14:05 Discharge Physician: Bailey Peguero Medical Decision Making 71-year-old male with a history of DM2, HTN, PAF, pulmonary hypertension, CKD, emphysematous cholecystitis with VRE + bacteremia s/p [place] [facility] [place] presents with reported fatigue since last night with concern for possible UTI as he has had similar symptoms in the past with urinary tract infection. Patient denies any acute complaints. Nurse reported that there was concerned as patient lives alone and does not get off the couch much. Patient stated my sister is a worry wort . Vitals within normal limits. Patient appears comfortable and nontoxic. Moist mucous membranes. He has no focal deficits and is oriented x3 and able to answer questions appropriately. He is frequently joking throughout the exam. History and presentation does not appear to with ACS, CVA. Will obtain screening labs and urinalysis and give IV fluids and discuss further with his sister. Labs reviewed. White blood cell count normal at 8. Glucose 216. Bicarb 26.9. Anion gap 12. Urinalysis notes findings consistent with UTI. Dose of Rocephin IV ordered. We will continue IV fluid hydration and repeat BMP and attempt to ambulate. Discussed with patient's Sister Delmy who states that she lives next door to him. She states she does grocery shop for him and make sure he takes his medications. She states she checks on him regularly but cannot take care of him on a regular basis because her is having surgery soon. Discussed that we can arrange for home health to assess and provide services as needed. Repeat BMP notes improvement of glucose now 198. Anion gap normalized. Patient was able to ambulate using his cane. Discussed with care management and an order was placed for assessment and evaluation for safety at home, review of his medication and if he needs additional assistance at home with ADLs. He was given Keflex to go as well as a prescription. Advised to follow up with the primary care doctor for re-evaluation. Usual and customary return pre cautions given prior to discharge. Medical Records Medical records reviewed: Yes I reviewed the patient's medical records. HPI General Mode of arrival: wheelchair . Date/Time Provider Initiated Documentation: 09/14/21 10:13 . Limitations to Documentation: no limitations . Information obtained by: patient . HPI Narrative: Patient is a 71-year-old male with a history DM2, HTN, PAF, pulmonary hypertension, CKD, emphysematous cholecystitis with VRE + bacteremia w/ [place] [facility] [place] presents with reported fatigue per his sister. Patient states he feels fine but states my sister is a worry wort . Patient states he lives at home alone and does not use stairs. He states he uses a cane for ambulation. He states he has been eating and drinking at home and denies any vomiting or diarrhea. He states he last ate last night. He states he slept on his sister's couch last night and she was concerned about his fatigue and advised to come to the ER for further evaluation as he has had similar symptoms when he had a urinary tract infection in the past. Patient denies any fever, chest pain, shortness of breath, abdominal pain, urinary symptoms. Related Data Home Medications Medication Instructions Recorded Confirmed metformin 850 mg tablet 850 mg PO BID 04/23/14 09/14/21 pravastatin 20 mg tablet 20 mg PO HS #30 tab 09/21/17 09/14/21 aspirin 81 mg tablet,delayed 81 mg PO DAILY #1 tab 01/22/20 09/14/21 release metoprolol succinate 100 mg 100 mg PO DAILY AM 09/05/20 09/14/21 tablet,extended release 24 hr mirtazapine 15 mg tablet 15 mg PO HS 09/05/20 09/14/21 ondansetron HCl 4 mg tablet 4 mg PO 5XW PRN 09/18/20 09/14/21 (Zofran) cholecalciferol (vitamin D3) 25 1,000 units PO DAILY #0 tab 09/20/20 09/14/21 mcg (1,000 unit) tablet cyanocobalamin (vitamin B-12) 500 1,000 mcg PO DAILY #0 tab 09/20/20 09/14/21 mcg tablet (Vitamin B-12) magnesium oxide 400 mg (241.3 mg 400 mg PO DAILY #0 tab 09/20/20 09/07/21 magnesium) tablet potassium chloride 20 mEq 20 meq PO BID tab 08/08/21 09/14/21 tablet,extended release(part/cryst) (Klor-Con M) carbidopa 25 mg-levodopa 100 mg 1 tab PO BID #180 tab 09/07/21 09/14/21 tablet (Sinemet) cephalexin 500 mg capsule 500 mg PO QID 7 Days #28 cap 09/14/21 Previous Rx's Medication Instructions Recorded pravastatin 20 mg tablet 20 mg PO HS #30 tab 09/21/17 aspirin 81 mg tablet,delayed 81 mg PO DAILY #1 tab 01/22/20 release cholecalciferol (vitamin D3) 25 1,000 units PO DAILY #0 tab 09/20/20 mcg (1,000 unit) tablet cyanocobalamin (vitamin B-12) 500 1,000 mcg PO DAILY #0 tab 09/20/20 mcg tablet (Vitamin B-12) magnesium oxide 400 mg (241.3 mg 400 mg PO DAILY #0 tab 09/20/20 magnesium) tablet carbidopa 25 mg-levodopa 100 mg 1 tab PO BID #180 tab 09/07/21 tablet (Sinemet) cephalexin 500 mg capsule 500 mg PO QID 7 Days #28 cap 09/14/21 Allergies Allergy/AdvReac Type Severity Reaction Status Date / Time No Known Allergies Allergy Verified 09/07/21 14:33 General Stated Complaint: GenMedical PUSHPA: 3 Review of Systems All systems reviewed & are unremarkable except as noted in HPI and below Constitutional Constitutional: Reports as per HPI, Denies chills and Denies fever(s) Eyes Eyes: Denies blurry vision ENT Ears, Nose, Mouth, and Throat: Denies dizziness, Denies sore throat and Denies throat swelling Cardiovascular Cardiovascular: Denies chest pain and Denies dyspnea Respiratory Respiratory: Denies cough and Denies dyspnea Gastrointestinal Gastrointestinal: Denies abdominal pain, Denies diarrhea and Denies vomiting Genitourinary Genitourinary: Denies hematuria and Denies dysuria Musculoskeletal Musculoskeletal: Denies back pain and Denies numbness Integumentary/Breasts Skin/Breast: Denies lesions and Denies rash Neurologic Neurologic: Denies dizziness, Denies localized weakness and Denies numbness Allergic/Immunologic Allergic/Immunologic: Denies throat swelling PFSH All Active Problems (Updated 09/14/21 @ 13:32 by Bailey Peguero DO) Fatigue (Acute) UTI (urinary tract infection) (Acute) HTN (hypertension) (Acute) Mild cognitive impairment (Acute) Fever (Acute) Palliative care patient (Acute) Atelectasis (Acute) Severe pulmonary hypertension (Acute) Ambulatory dysfunction (Acute) Folic acid deficiency (Chronic) Bacteremia (Acute) Rapid atrial fibrillation (Acute) Emphysematous cholecystitis (Acute) Leukocytosis (Acute) Chronic kidney disease (Chronic) Gram-negative bacteremia (Acute) Cholelithiasis (Acute) Tinea pedis (Acute) Vitamin B12 deficiency (Chronic) Hypernatremia (Acute) Paroxysmal atrial fibrillation (Acute) Depression (Acute) Acute kidney injury (Acute) Sepsis (Acute) Acute febrile illness (Acute) Generalized weakness (Acute) Weakness generalized (Acute) Dehydration (Acute) Pressure ulcer of buttock (Acute) Diabetes mellitus (Chronic) Hypertension (Acute) Medical History Anemia Cholecystitis Diabetes Erectile dysfunction Folate deficiency anemia Hearing loss History of tobacco abuse Hyperlipidemia Nocturnal hypoxia Parkinsons disease Physical deconditioning PTSD (post-traumatic stress disorder) Renal insufficiency Severe malnutrition Skin lesion of chest wall Type 2 diabetes mellitus Surgical History H/O removal of cyst left leg S/P cholecystectomy Social History Smoking/Tobacco Use Status: Former Tobacco Use Smoking risk assessment performed?: Yes Alcohol Intake: former Drug use: Never Substance use type: does not use Household members: none Housing: house Number of Children: 2 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 Pets and animals: No What type of physical activity do you participate in: none Do you feel safe at home: Yes Do you feel safe in your relationship?: Yes Exam Const General: cooperative and no acute distress Orientation: alert, awake and oriented x3 HENMT Head: normal to inspection Ears: hearing grossly normal bilaterally, external ears normal and TM's normal bilaterally General nose exam: external nose normal Face and sinus: normal facial exam Mouth: oral mucosae normal Eyes General: appearance normal, both eyes and all related structures Neck Neck: normal visual inspection Resp Effort & Inspection: normal respiratory effort and able to speak in complete sentences Auscultation: clear to auscultation bilaterally Cardio Rate: regular rate GI Inspection: normal to inspection Palpation: soft, not firm, no guarding, not rigid and nontender Male General Exam: Yes normal external exam Skin General skin exam: no rashes or lesions noted Neuro General: patient alert, patient awake and patient oriented x3 Motor: muscle tone normal throughout and strength 5/5 throughout Extrem General: no edema Psych Appearance: grossly normal Affect: normal affect Course Vital Signs Vital signs: Vital Signs Temperature 98.7 F 09/14/21 10:16 Pulse 102 H 09/14/21 10:16 Respiratory Rate 16 09/14/21 10:16 Blood Pressure 147/94 H 09/14/21 10:16 Pulse Oximetry 97 09/14/21 10:16 Temperature 98.7 F 09/14/21 10:16 Temperature Source Skin 09/14/21 10:16 Pulse 102 H 09/14/21 10:16 Respiratory Rate 16 09/14/21 10:16 Blood Pressure 147/94 H 09/14/21 10:16 Blood Pressure Position Supine 09/14/21 10:16 Pulse Oximetry 97 09/14/21 10:16 Oxygen Delivery Method Room Air 09/14/21 10:16 Oxygen Flow Rate 0 09/14/21 10:16
[2021-09-14 10:52] LABS: Abs Immature Grans 0.02 10^3/uL (0.0-0.06); Absolute Basophil Count 0.07 10^3/uL (0.0-0.2); Absolute Eosinophil Count 0.14 10^3/uL (0.0-0.7); Absolute Lymphocyte Count 1.25 10^3/uL (1.2-3.4); Absolute Monocyte Count 0.78 10^3/uL (0.1-0.8); Absolute Neutrophil Count 6.73 10^3/uL (1.2-6.7); Basophils % 0.8; Eosinophils % 1.6; HCT 51.4 % (40.0-50.0); Immature Grans % 0.2; Lymphocytes % 13.9; MCH 27.6 pg (27.0-33.0); MCHC 31.1 % (32.0-36.0); MCV 88.8 fL (80-95); MPV 8.6 fL (8.0-11.0); Monocytes % 8.7; Neutrophils % 74.8; Nucleated RBC 0 %; Platelet Count 224 10^3/uL (130-400); RBC 5.79 10^6/uL (4.36-5.78); RDW 13.2 % (11.8-14.1); RDW-SD 42.8 fL; WBC 8.99 10^3/uL (4.4-10.8)
[2021-09-14] MEDS: Lidocaine 2% Jelly 6 ML SYR (10:59)
[2021-09-14] MEDS: Normal Saline 500 ML IV ×2 (11:02→11:44)
[2021-09-14 11:11] LABS: Bilirubin Negative (Negative); Blood Trace-intact (Negative); Clarity Clear (Clear); Glucose 250 mg/dL (Negative); Ketones 40 mg/dL (Negative); Leukocyte Esterase Negative (Negative); Nitrite Positive (Negative); Specific Gravity >= 1.030 (1.005-1.025); Urobilinogen 0.2 EU/dL (Up TO 0.2); pH 5.5 (5-8)
[2021-09-14 11:13] LABS: ALT 89 U/L (16-63); AST 20 U/L (15-37); Albumin 3.7 g/dL (3.4-5.0); Alkaline Phosphatase 121 U/L (46-116); Anion Gap 12.1 mmol/L (3-11); BUN 21 mg/dL (7-18); Bilirubin, Total 0.8 mg/dL (0.2-1.0); CO2 26.9 mmol/L (21.0-32.0); CREATININE 1.4 mg/dL (0.70-1.30); Calcium 9.2 mg/dL (8.5-10.1); Chloride 100 mmol/L (98-107); Estimated GFR 49.96 (mL/min/1.73m2); Glucose 216 mg/dL (74-106); Potassium 3.9 mmol/L (3.5-5.1); Sodium 139 mmol/L (136-145); Total Protein 7.9 g/dL (6.4-8.2)
[2021-09-14 11:19] LABS: Bacteria Moderate HPF (Negative); Crystals Negative HPF (Negative); Epithelial Cells Rare HPF (Negative); Other Cells Negative (Negative)
[2021-09-14 11:20] LABS: C & S Indicated? Yes; Casts 3-5 Coarse Granular LPF (Negative); Mucus Moderate (Negative)
[2021-09-14] MEDS: cefTRIAXone 1 GM/50 ML BAG IVPB (11:43)
[2021-09-14 12:15] LABS: Anion Gap 7.5 mmol/L (3-11); BUN 20 mg/dL (7-18); CO2 26.5 mmol/L (21.0-32.0); CREATININE 1.2 mg/dL (0.70-1.30); Calcium 8.3 mg/dL (8.5-10.1); Chloride 108 mmol/L (98-107); Estimated GFR 59.68 (mL/min/1.73m2); Glucose 198 mg/dL (74-106); Potassium 4.8 mmol/L (3.5-5.1); Sodium 142 mmol/L (136-145)
[2021-09-14] MEDS: Cephalexin 500 MG CAP, 4 CAPS/BTL PO (13:50)
--- NOTE | 2021-09-16 08:05 | ED.GENADUL_ITS ---
Discharge Plan Disposition Patient Disposition: HOME Condition: Stable Discharge Details Clinical Impression: Fatigue, UTI (urinary tract infection) Primary Care Provider: Urvashi Conti V ED Provider: Bailey Peguero Home Meds and New Rx's Prescriptions: New cephalexin 500 mg capsule 500 mg PO QID 7 Days Qty: 28 0RF Continued carbidopa-levodopa [Sinemet] 25-100 mg tablet 1 tab PO BID Qty: 180 3RF Rx Instructions: Take in the morning and lunch. metformin 850 MG tablet 850 mg PO BID 0RF pravastatin 20 MG tablet 20 mg PO HS Qty: 30 0RF Label Comments: pt states picked up a 30 day supply two days after last discharge . ran out and not refills. states he did not followup with cardiology or pcp as dischage order advised aspirin 81 mg Tablet,Delayed Release (Dr/Ec) 81 mg PO DAILY Qty: 1 0RF metoprolol succinate 100 mg Tablet Extended Release 24 Hr 100 mg PO DAILY AM 0RF mirtazapine 15 mg Tablet 15 mg PO HS 0RF potassium chloride [Klor-Con M20] 20 mEq tablet,ER particles/crystals 20 meq PO BID 0RF ondansetron HCl [Zofran] 4 mg Tablet 4 mg PO 5XW PRN0RF magnesium oxide 400 mg (241.3 mg magnesium) Tablet 400 mg PO DAILY Qty: 0 0RF cyanocobalamin (vitamin B-12) [Vitamin B-12] 500 mcg Tablet 1,000 mcg PO DAILY Qty: 0 0RF cholecalciferol (vitamin D3) 25 mcg (1,000 unit) Tablet 1,000 units PO DAILY Qty: 0 0RF Discharge Instructions Instructions: Urinary Tract Infection in Men (ED), Fatigue (ED) Additional Instructions: Your lab work today showed evidence of a urinary tract infection. Drink plenty of fluids and get plenty of rest. You were given a prescription for Keflex to take as directed until finished. Call your primary care doctor today to schedule a follow-up appointment for reevaluation within the next week. You will be evaluated by home health at home to assess if you need any assistance with medications or daily activities at home. Return immediately to the emergency department if you develop any worsening or new concerning symptoms. Discharge Data Discharge Date/Time-TO BE ENTERED AT DEPARTURE: 09/14/21 14:05 Discharge Physician: Bailey Peguero [facility] General Mode of arrival: wheelchair . Date/Time Provider Initiated Documentation: 09/14/21 10:13 . Limitations to Documentation: no limitations . Information obtained by: patient . Related Data Home Medications Medication Instructions Recorded Confirmed metformin 850 mg tablet 850 mg PO BID 04/23/14 09/14/21 pravastatin 20 mg tablet 20 mg PO HS #30 tab 09/21/17 09/14/21 aspirin 81 mg tablet,delayed 81 mg PO DAILY #1 tab 01/22/20 09/14/21 release metoprolol succinate 100 mg 100 mg PO DAILY AM 09/05/20 09/14/21 tablet,extended release 24 hr mirtazapine 15 mg tablet 15 mg PO HS 09/05/20 09/14/21 ondansetron HCl 4 mg tablet 4 mg PO 5XW PRN 09/18/20 09/14/21 (Zofran) cholecalciferol (vitamin D3) 25 1,000 units PO DAILY #0 tab 09/20/20 09/14/21 mcg (1,000 unit) tablet cyanocobalamin (vitamin B-12) 500 1,000 mcg PO DAILY #0 tab 09/20/20 09/14/21 mcg tablet (Vitamin B-12) magnesium oxide 400 mg (241.3 mg 400 mg PO DAILY #0 tab 09/20/20 09/07/21 magnesium) tablet potassium chloride 20 mEq 20 meq PO BID tab 08/08/21 09/14/21 tablet,extended release(part/cryst) (Klor-Con M) carbidopa 25 mg-levodopa 100 mg 1 tab PO BID #180 tab 09/07/21 09/14/21 tablet (Sinemet) cephalexin 500 mg capsule 500 mg PO QID 7 Days #28 cap 09/14/21 Previous Rx's Medication Instructions Recorded pravastatin 20 mg tablet 20 mg PO HS #30 tab 09/21/17 aspirin 81 mg tablet,delayed 81 mg PO DAILY #1 tab 01/22/20 release cholecalciferol (vitamin D3) 25 1,000 units PO DAILY #0 tab 09/20/20 mcg (1,000 unit) tablet cyanocobalamin (vitamin B-12) 500 1,000 mcg PO DAILY #0 tab 09/20/20 mcg tablet (Vitamin B-12) magnesium oxide 400 mg (241.3 mg 400 mg PO DAILY #0 tab 09/20/20 magnesium) tablet carbidopa 25 mg-levodopa 100 mg 1 tab PO BID #180 tab 09/07/21 tablet (Sinemet) cephalexin 500 mg capsule 500 mg PO QID 7 Days #28 cap 09/14/21 Allergies Allergy/AdvReac Type Severity Reaction Status Date / Time No Known Allergies Allergy Verified 09/07/21 14:33 General Stated Complaint: GenMedical PUSHPA: 3 PFSH All Active Problems (Updated 09/14/21 @ 13:32 by Bailey Peguero DO) Fatigue (Acute) UTI (urinary tract infection) (Acute) HTN (hypertension) (Acute) Mild cognitive impairment (Acute) Fever (Acute) Palliative care patient (Acute) Atelectasis (Acute) Severe pulmonary hypertension (Acute) Ambulatory dysfunction (Acute) Folic acid deficiency (Chronic) Bacteremia (Acute) Rapid atrial fibrillation (Acute) Emphysematous cholecystitis (Acute) Leukocytosis (Acute) Chronic kidney disease (Chronic) Gram-negative bacteremia (Acute) Cholelithiasis (Acute) Tinea pedis (Acute) Vitamin B12 deficiency (Chronic) Hypernatremia (Acute) Paroxysmal atrial fibrillation (Acute) Depression (Acute) Acute kidney injury (Acute) Sepsis (Acute) Acute febrile illness (Acute) Generalized weakness (Acute) Weakness generalized (Acute) Dehydration (Acute) Pressure ulcer of buttock (Acute) Diabetes mellitus (Chronic) Hypertension (Acute) Medical History Anemia Cholecystitis Diabetes Erectile dysfunction Folate deficiency anemia Hearing loss History of tobacco abuse Hyperlipidemia Nocturnal hypoxia Parkinsons disease Physical deconditioning PTSD (post-traumatic stress disorder) Renal insufficiency Severe malnutrition Skin lesion of chest wall Type 2 diabetes mellitus Surgical History H/O removal of cyst left leg S/P cholecystectomy Social History Smoking/Tobacco Use Status: Former Tobacco Use Smoking risk assessment performed?: Yes Alcohol Intake: former Drug use: Never Substance use type: does not use Household members: none Housing: house Number of Children: 2 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 Pets and animals: No What type of physical activity do you participate in: none Do you feel safe at home: Yes Do you feel safe in your relationship?: Yes Course Vital Signs Vital signs: Vital Signs Temperature 37.1 C 09/14/21 10:16 Pulse 102 H 09/14/21 10:16 Respiratory Rate 16 09/14/21 10:16 Blood Pressure 147/94 H 09/14/21 10:16 Pulse Oximetry 97 09/14/21 10:16 Temperature 37.1 C 09/14/21 10:16 Temperature Source Skin 09/14/21 10:16 Pulse 63 09/14/21 13:15 Pulse 85 09/14/21 13:20 Respiratory Rate 15 09/14/21 13:20 Respiratory Effort 09/14/21 10:37 Respiratory Depth Normal 09/14/21 10:37 Respiratory Pattern Normal 09/14/21 10:37 Blood Pressure 123/59 L 09/14/21 13:15 Blood Pressure Mean 76 09/14/21 13:15 Blood Pressure Position Supine 09/14/21 10:16 Pulse Oximetry 98 09/14/21 13:20 Oxygen Delivery Method Room Air 09/14/21 10:16 Oxygen Flow Rate 0 09/14/21 10:16 Lab/Test Results Lab/Test Results: 09/14/21 11:00 Urine - Reflex from Ua Urine Culture - Final Klebsiella pneumoniae Laboratory Tests Range/Units 09/14/21 09/14/21 09/14/21 10:35 10:35 11:00 WBC (4.4-10.8) 10^3/uL 8.99 RBC (4.36-5.78) 10^6/uL 5.79 H Hgb (13.5-17.5) g/dL 16.0 Hct (40.0-50.0) % 51.4 H MCV (80-95) fL 88.8 MCH (27.0-33.0) pg 27.6 MCHC (32.0-36.0) % 31.1 L RDW (11.8-14.1) % 13.2 Plt Count (130-400) 10^3/uL 224 MPV (8.0-11.0) fL 8.6 Immature Gran % 0.2 Neutrophils % 74.8 Lymphocytes % 13.9 Monocytes % 8.7 Eosinophils % 1.6 Basophils % 0.8 Nucleated RBC % % 0 Absolute Neutrophils (1.2-6.7) 10^3/uL 6.73 H Absolute Lymphocytes (1.2-3.4) 10^3/uL 1.25 Absolute Monocytes (0.1-0.8) 10^3/uL 0.78 Absolute Eosinophils (0.0-0.7) 10^3/uL 0.14 Absolute Basophils (0.0-0.2) 10^3/uL 0.07 Sodium (136-145) mmol/L 139 Potassium (3.5-5.1) mmol/L 3.9 Chloride (98-107) mmol/L 100 Carbon Dioxide (21.0-32.0) mmol/L 26.9 Anion Gap (3-11) mmol/L 12.1 H BUN (7-18) mg/dL 21 H Creatinine (0.70-1.30) mg/dL 1.4 H Estimated GFR/1.73 m2 (mL/min/1.73m2) 49.96 Glucose (74-106) mg/dL 216 H Calcium (8.5-10.1) mg/dL 9.2 Total Bilirubin (0.2-1.0) mg/dL 0.8 AST (15-37) U/L 20 ALT (16-63) U/L 89 H Alkaline Phosphatase (46-116) U/L 121 H Total Protein (6.4-8.2) g/dL 7.9 Albumin (3.4-5.0) g/dL 3.7 Urine Color (Yellow) Yellow Urine Clarity (Clear) Clear Urine pH (5-8) 5.5 Ur Specific [place] (1.005-1.025) >= 1.030 H Urine Protein (Negative) mg/dL 30 H Urine Ketones (Negative) mg/dL 40 H Urine Blood (Negative) Trace-intact H Urine Nitrite (Negative) Positive H Urine Bilirubin (Negative) Negative Urine Urobilinogen (Up TO 0.2) EU/dL 0.2 Ur Leukocyte Esterase (Negative) Negative Urine RBC (0-2) HPF 3-5 H Urine WBC (0-5) HPF 10-20 H Ur Epithelial Cells (Negative) HPF Rare Urine Crystals (Negative) HPF Negative Urine Bacteria (Negative) HPF Moderate Urine Casts (Negative) LPF 3-5 Coarse Granular Urine Mucus (Negative) Moderate Urine Other (Negative) Negative Ur Culture Indicated? Yes Urine Glucose (Negative) mg/dL 250 H Range/Units 03/10/22 12:05 WBC (4.4-10.8) 10^3/uL RBC (4.36-5.78) 10^6/uL Hgb (13.5-17.5) g/dL Hct (40.0-50.0) % MCV (80-95) fL MCH (27.0-33.0) pg MCHC (32.0-36.0) % RDW (11.8-14.1) % Plt Count (130-400) 10^3/uL MPV (8.0-11.0) fL Immature Gran % Neutrophils % Lymphocytes % Monocytes % Eosinophils % Basophils % Nucleated RBC % % Absolute Neutrophils (1.2-6.7) 10^3/uL Absolute Lymphocytes (1.2-3.4) 10^3/uL Absolute Monocytes (0.1-0.8) 10^3/uL Absolute Eosinophils (0.0-0.7) 10^3/uL Absolute Basophils (0.0-0.2) 10^3/uL Sodium (136-145) mmol/L 142 Potassium (3.5-5.1) mmol/L 4.8 D Chloride (98-107) mmol/L 108 H Carbon Dioxide (21.0-32.0) mmol/L 26.5 Anion Gap (3-11) mmol/L 7.5 BUN (7-18) mg/dL 20 H Creatinine (0.70-1.30) mg/dL 1.2 Estimated GFR/1.73 m2 (mL/min/1.73m2) 59.68 Glucose (74-106) mg/dL 198 H Calcium (8.5-10.1) mg/dL 8.3 L Total Bilirubin (0.2-1.0) mg/dL AST (15-37) U/L ALT (16-63) U/L Alkaline Phosphatase (46-116) U/L Total Protein (6.4-8.2) g/dL Albumin (3.4-5.0) g/dL Urine Color (Yellow) Urine Clarity (Clear) Urine pH (5-8) Ur Specific [place] (1.005-1.025) Urine Protein (Negative) mg/dL Urine Ketones (Negative) mg/dL Urine Blood (Negative) Urine Nitrite (Negative) Urine Bilirubin (Negative) Urine Urobilinogen (Up TO 0.2) EU/dL Ur Leukocyte Esterase (Negative) Urine RBC (0-2) HPF Urine WBC (0-5) HPF Ur Epithelial Cells (Negative) HPF Urine Crystals (Negative) HPF Urine Bacteria (Negative) HPF Urine Casts (Negative) LPF Urine Mucus (Negative) Urine Other (Negative) Ur Culture Indicated? Urine Glucose (Negative) mg/dL Procedures Other Description: Followup - discussed with patient's family urinalysis. He is improving and cu lture sensitive to current antibiotics.
== END 2021-09-14 14:05 | disposition home or self-care (01) ==
PROVIDERS: Emergency Provider Physician Assistant; PCP Family Medicine
DX: N39.0 Urinary tract infection, site not specified (principal); B96.1 Klebsiella pneumoniae [K. pneumoniae] as the cause of diseases classified elsewhere; R53.83 Other fatigue
CPT/HCPCS: 36415; 51701; 80048; 80053; 87077; 96361; 96365; 99284; 81003; 81015; 85025; 87086; 87186; J0696